=== PATIENT | female | born 1945 | race Caucasian/White ===

== ENCOUNTER 2024-04-18 08:30 | Emergency (ER) | payer MEDICARE, BC, SELFPAY ==
[2024-04-18 08:57] VITALS: BP 141/68; PULSE 80; RESP 16; TEMP 37.3; O2SAT 95; BMI 29.7
--- NOTE | 2024-04-18 09:03 | PD.EDRME ---
Rapid Medical Screening Exam RME Arrival date/time: 04/18/24 08:30 79-year-old female presents emergency department today complaints of dark tarry stools abdominal cramping and diarrhea Chief Complaint: GI Bleed Vital signs: Vital Signs Temperature 99.2 F 04/18/24 08:57 Pulse Rate 80 04/18/24 08:57 Respiratory Rate 16 04/18/24 08:57 Blood Pressure 141/68 H 04/18/24 08:57 Pulse Oximetry (%) 95 04/18/24 08:57 Oxygen Delivery Method Room Air 04/18/24 08:57
[2024-04-18 09:25] LABS: Collection Type, Urine Clean Catch
--- NOTE | 2024-04-18 09:30 | PC.NURSE ---
Pt came to the ED w/ c/o black stools, headache, and abd pain x 3 weeks. Pt A/O x 4, pleasant and cooperative. Son w/ pt. Pt connected to monitor, assessed and IV started. Son at bedside w/ pt. Will cont to monitor.
[2024-04-18 09:34] LABS: Bacteria,Urine Rare; Bilirubin,Urine Negative (Negative); Blood,Urine Negative (Negative); Clarity,Urine Clear (Clear/Hazy); Color,Urine Yellow (Lt Yel-Yel); Glucose, Urine Negative (Negative); Hyaline Casts,Urine < 1 /hpf (0-1); Ketones,Urine Negative (Negative); Leukocyte Esterase,Urine Positive (Negative); Nitrite,Urine Negative (Negative); PH,Urine 5.5 (5.0-7.0); Protein,Urine Trace (Neg - Trace); RBC,Urine 1 /hpf (0-3); Specific Gravity,Urine 1.022 (1.001-1.035); Squamous Epithelial Cell,Urine 4 /hpf (0-5); Urobilinogen,Urine Negative mg/dL (0.0-1.0); WBC,Urine 2 /hpf (0-5)
[2024-04-18 09:35] VITALS: BP 135/64; PULSE 69; RESP 20; TEMP 37.4; O2SAT 95
[2024-04-18 09:52] LABS: Basophils % (Auto) 0 % (0-2.5); Eosinophils % (Auto) 1 % (0-10); Hematocrit 33.6 % (36.0-46.0); Hemoglobin 10.9 g/dL (12.0-16.0); Immature Granulocytes % (Auto) 0 % (0-0); Immature Granulocytes Auto 0.02 Thou/mm3 (0.00-0.00); Lymphocytes # (Auto) 1.9 Thou/mm3 (1.0-4.8); Lymphocytes % (Auto) 25 % (10-50); Mean Corpuscular HGB Conc 32.4 g/dl (31.0-37.0); Mean Corpuscular Hemoglobin 29.7 pg (25.0-35.0); Mean Corpuscular Volume 92 fL (80-100); Monocytes % (Auto) 13 % (0-12); Neutrophils # (Auto) 4.6 Thou/mm3 (1.8-7.7); Neutrophils % (Auto) 61 % (37-80); Nucleated Red Blood Cell % 0 /100 WBC (0); Platelet Count 236 Thou/mm3 (140-440); RDW Standard Deviation 42.4 fL (36.4-46.3); Red Blood Count 3.67 Miln/mm3 (4.00-5.20); White Blood Count 7.5 Thou/mm3 (3.6-11.0)
[2024-04-18 10:09] LABS: Partial Thromboplastin Time 33.2 Seconds (22.0-36.0); Prothrombin Time 11.4 Seconds (9.0-12.2)
[2024-04-18 10:10] LABS: Alanine Aminotransferase 11 U/L (10-49); Albumin, Serum 4.5 gm/dL (3.4-4.8); Albumin/Globulin Ratio 1.7 (1.2-2.2); Alkaline Phosphatase 105 U/L (46-116); Anion Gap 7 (7-16); Aspartate Amino Transferase 16 U/L (0-34); BUN/Creatinine Ratio 18 Ratio (12-20); Bilirubin,Total 0.4 mg/dL (0.3-1.2); Blood Urea Nitrogen 25 mg/dL (9-23); Calcium 9.5 mg/dL (8.3-10.6); Calcium (Corrected) 9.5 mg/dL (8.5-10.1); Carbon Dioxide 23.2 mMol/L (20.0-31.0); Chloride 104 mMol/L (98-107); Creatinine (Component) 1.4 mg/dL (0.6-1.3); Estimated Creatinine Clearance 31.9 mL/min (>60); Globulin 2.7 gm/dL (2.3-3.5); Glucose 110 mg/dL (74-106); Lipase 33 U/L (12-53); Osmolality,Calculated 273 (275-295); Potassium 4.5 mMol/L (3.4-5.1); Sodium 134 mMol/L (136-145); Total Protein 7.2 gm/dL (5.7-8.2); eGFR 38 See Note
--- NOTE | 2024-04-18 10:14 | XR_ITS ---
Examination: CT abdomen with intravenous contrast CT pelvis with intravenous contrast 2-D coronal reconstructions 2-D sagittal reconstructions Date and time of exam:April 18, 2024 1144 hours INDICATIONS: Lower abdominal pain with bloody stools beginning 3 weeks ago. CTDI: vol (mGy) 8.21 DLP: (mGycm) 483 Technique: Multiple axial sections of the abdomen and pelvis have been obtained. 64 slice high-resolution scanner used. 3 mm axial sections have been obtained, post intravenous injection 30 cc [id number] 2-D sagittal, coronal reconstructions obtained. Low dose protocols were performed. One or more of the following dose reduction techniques were used; automated exposure control, adjustment of the mA and/or KV according to patient size, use of iterative reconstruction technique. Findings: Large retrocardiac gastric hernia No focal liver or splenic lesions Distended gallbladder No pancreatic mass Renal arterial calcifications, no hydronephrosis Abdominal aortic calcification Cecum is in the pelvis Normal appendix No bowel obstruction No diverticulitis Atrophic uterus No adnexal mass Urinary bladder intact Advanced diffuse lumbar degenerative disc disease IMPRESSION: Distended gallbladder, recommend hepatobiliary sonography follow-up No hydronephrosis or ureteral calculi Normal appendix No bowel obstruction diverticulitis or free air
[2024-04-18 11:21] VITALS: BP 147/65; PULSE 74; RESP 16; TEMP 37.4; O2SAT 95
[2024-04-18 13:33] VITALS: BP 161/59; PULSE 80; RESP 17; TEMP 37.2; O2SAT 97
== END 2024-04-18 15:10 | disposition home or self-care (01) ==
PROVIDERS: Nurse Practitioner Primary Care; Emergency Provider Internal Medicine Critical Care Medicine; PCP Family Medicine
DX: K92.2 Gastrointestinal hemorrhage, unspecified (principal)
CPT/HCPCS: 36415; 74177; 80053; 81001; 83690; 85025; 85610; 85730; 87086; 99285; A4649; Q9967

== ENCOUNTER → 2024-07-18 | Outpatient (CLI) | payer MEDICARE, BC, SELFPAY ==
[2024-07-18 13:47] LABS: Anion Gap 8 (7-16); BUN/Creatinine Ratio 26 Ratio (12-20); Blood Urea Nitrogen 39 mg/dL (9-23); Carbon Dioxide 27.8 mMol/L (20.0-31.0); Chloride 103 mMol/L (98-107); Creatinine (Component) 1.5 mg/dL (0.6-1.3); Glucose 100 mg/dL (74-106); Osmolality,Calculated 286 (275-295); Sodium 139 mMol/L (136-145); Thyroid Stimulating Hormone 2.82 uIU/mL (0.55-4.78); eGFR 35 See Note
== END | disposition home or self-care (01) ==
LOC: COPL 12:56
PROVIDERS: PCP Family Medicine; Referring Provider Internal Medicine Cardiovascular Disease; Visit Provider Family Medicine
DX: I50.40 Unspecified combined systolic (congestive) and diastolic (congestive) heart failure (principal); E03.8 Other specified hypothyroidism
CPT/HCPCS: 36415; 80048; 84439; 84443

== ENCOUNTER → 2024-09-06 | Outpatient (CLI) | payer MEDICARE, BC, SELFPAY ==
[2024-09-06 13:32] LABS: Collection Type, Urine Clean Catch
[2024-09-06 14:13] LABS: Albumin, Serum 4.7 gm/dL (3.4-4.8); Anion Gap 8 (7-16); BUN/Creatinine Ratio 33 Ratio (12-20); Blood Urea Nitrogen 36 mg/dL (9-23); Calcium 10.2 mg/dL (8.3-10.6); Calcium (Corrected) 10.2 mg/dL (8.5-10.1); Carbon Dioxide 27.8 mMol/L (20.0-31.0); Chloride 106 mMol/L (98-107); Creatinine (Component) 1.1 mg/dL (0.6-1.3); Glucose 126 mg/dL (74-106); Osmolality,Calculated 293 (275-295); Phosphorous 3.7 mg/dL (2.4-5.1); Potassium 4.6 mMol/L (3.4-5.1); Sodium 142 mMol/L (136-145); eGFR 50 See Note
[2024-09-06 14:19] LABS: Bilirubin,Urine Negative (Negative); Blood,Urine Negative (Negative); Clarity,Urine Clear (Clear/Hazy); Color,Urine Lt-Yellow (Lt Yel-Yel); Glucose, Urine Negative (Negative); Ketones,Urine Negative (Negative); Leukocyte Esterase,Urine Positive (Negative); Nitrite,Urine Negative (Negative); PH,Urine 5.5 (5.0-7.0); Protein,Urine 1+ (Neg - Trace); RBC,Urine 3 /hpf (0-3); Specific Gravity,Urine 1.023 (1.001-1.035); Squamous Epithelial Cell,Urine 2 /hpf (0-5); Urobilinogen,Urine Negative mg/dL (0.0-1.0); WBC,Urine 4 /hpf (0-5)
== END | disposition home or self-care (01) ==
LOC: COPL 12:30
PROVIDERS: PCP Family Medicine; Referring Provider Family Medicine; Visit Provider Internal Medicine Cardiovascular Disease
DX: N18.32 Chronic kidney disease, stage 3b (principal); I50.22 Chronic systolic (congestive) heart failure; I20.89 Other forms of angina pectoris
CPT/HCPCS: 36415; 80048; 80069; 81001

== ENCOUNTER → 2024-10-16 | Outpatient (CLI) | payer MEDICARE, BC, SELFPAY ==
[2024-10-16 13:23] LABS: Basophils # (Auto) 0.1 Thou/mm3 (0.0-0.2); Basophils % (Auto) 1 % (0-2.5); Eosinophils # (Auto) 0.1 Thou/mm3 (0.0-0.5); Eosinophils % (Auto) 1 % (0-10); Hematocrit 35.4 % (36.0-46.0); Hemoglobin 11.4 g/dL (12.0-16.0); Immature Granulocytes % (Auto) 0 % (0-0); Immature Granulocytes Auto 0.01 Thou/mm3 (0.00-0.00); Lymphocytes # (Auto) 1.9 Thou/mm3 (1.0-4.8); Lymphocytes % (Auto) 31 % (10-50); Mean Corpuscular HGB Conc 32.2 g/dl (31.0-37.0); Mean Corpuscular Hemoglobin 30.1 pg (25.0-35.0); Mean Corpuscular Volume 93 fL (80-100); Monocytes # (Auto) 0.5 Thou/mm3 (0.0-0.8); Monocytes % (Auto) 8 % (0-12); Neutrophils # (Auto) 3.5 Thou/mm3 (1.8-7.7); Neutrophils % (Auto) 59 % (37-80); Nucleated Red Blood Cell % 0 /100 WBC (0); Platelet Count 264 Thou/mm3 (140-440); RDW Standard Deviation 53.5 fL (36.4-46.3); Red Blood Count 3.79 Miln/mm3 (4.00-5.20)
[2024-10-16 13:36] LABS: Iron 66 mcg/dL (50-170)
[2024-10-16 13:39] LABS: Anion Gap 7 (7-16); BUN/Creatinine Ratio 41 Ratio (12-20); Blood Urea Nitrogen 45 mg/dL (9-23); Calcium 9.8 mg/dL (8.3-10.6); Carbon Dioxide 23.8 mMol/L (20.0-31.0); Chloride 110 mMol/L (98-107); Creatinine (Component) 1.1 mg/dL (0.6-1.3); Free T4 (Free Thyroxine) 1.05 ng/dL (0.89-1.76); Glucose 99 mg/dL (74-106); Osmolality,Calculated 292 (275-295); Potassium 4.6 mMol/L (3.4-5.1); Sodium 141 mMol/L (136-145); Thyroid Stimulating Hormone 2.87 uIU/mL (0.55-4.78); Vitamin B12 472 pg/mL (211-911); eGFR 50 See Note
== END | disposition home or self-care (01) ==
LOC: COPL 11:36
PROVIDERS: PCP Family Medicine; Referring Provider Family Medicine; Visit Provider Family Medicine
DX: I12.9 Hypertensive chronic kidney disease with stage 1 through stage 4 chronic kidney disease, or unspecified chronic kidney disease (principal); N18.32 Chronic kidney disease, stage 3b; E03.9 Hypothyroidism, unspecified; R53.83 Other fatigue
CPT/HCPCS: 36415; 80048; 82306; 82607; 83540; 84439; 84443; 85025

== ENCOUNTER 2024-11-08 18:49 | Emergency (ER) | payer MEDICARE, BC, SELFPAY ==
[2024-11-08 18:51] VITALS: BMI 28.3
[2024-11-08 20:04] VITALS: BP 152/71; PULSE 61; RESP 20; TEMP 36.8; O2SAT 97
--- NOTE | 2024-11-08 20:20 | EKG_ITS ---
[facility] Test Date: 2024-11-08 Pat Name: URSULA NEWMAN Department: Room: - Gender: Female Remote Broadcast Engineer: : 1945 Requested By: Jalil Ford Order Number: [id number] Reading MD: Jalil Ford Measurements Intervals [place] Rate: 60 P: 47 LA: 175 QRS: -54 QRSD: 133 T: 112 QT: 452 QTc: 453 Interpretive Statements SINUS RHYTHM LEFT AXIS DEVIATION [QRS AXIS < -30] LEFT BUNDLE BRANCH BLOCK [120+ ms QRS DURATION, 80+ ms Q/S IN V1/V2, 85+ ms R IN I/aVL/V5/V6] Compared to ECG 05/31/2024 00:08:14 Left-axis deviation now present /store/S0/[id number].pdf
--- NOTE | 2024-11-08 20:20 | XR_ITS ---
Examination: AP chest single view TECHNIQUE: AP portable upright chest single view Date time: October: 2024 at 2153 hours INDICATIONS: Chest pain left arm pain 3 weeks FINDINGS: Retrocardiac gastric hernia Normal heart size. Lungs are clear. Intact osseous structures IMPRESSION: No active disease
--- NOTE | 2024-11-08 20:20 | PD.EDRME ---
Rapid Medical Screening Exam [facility] Arrival date/time: 11/08/24 18:49 79F with history of CHF, HTN, hypothyroidism, esophageal ulcer and erosive gastroduodenitis (EGD in 2019), GERD, hemorrhoids (colonoscopy in 2019), osteoarthritis, and depression presents to ED with 2 weeks of L arm pain w/o fall trauma and 1 month of ab pain and N/V. Chief Complaint: Abdominal Pain Vital signs: Vital Signs Temperature 98.2 F 11/08/24 20:04 Pulse Rate 61 11/08/24 20:04 Respiratory Rate 20 11/08/24 20:04 Blood Pressure 152/71 H 11/08/24 20:04 Pulse Oximetry (%) 97 11/08/24 20:04 Oxygen Delivery Method Room Air 11/08/24 20:04
[2024-11-08 20:50] LABS: Basophils # (Auto) 0.1 Thou/mm3 (0.0-0.2); Basophils % (Auto) 1 % (0-2.5); Eosinophils # (Auto) 0.1 Thou/mm3 (0.0-0.5); Eosinophils % (Auto) 2 % (0-10); Hematocrit 32.9 % (36.0-46.0); Hemoglobin 10.8 g/dL (12.0-16.0); Immature Granulocytes % (Auto) 0 % (0-0); Immature Granulocytes Auto 0.02 Thou/mm3 (0.00-0.00); Lymphocytes # (Auto) 2.1 Thou/mm3 (1.0-4.8); Lymphocytes % (Auto) 35 % (10-50); Mean Corpuscular HGB Conc 32.8 g/dl (31.0-37.0); Mean Corpuscular Hemoglobin 30.4 pg (25.0-35.0); Mean Corpuscular Volume 93 fL (80-100); Monocytes # (Auto) 0.5 Thou/mm3 (0.0-0.8); Monocytes % (Auto) 9 % (0-12); Neutrophils # (Auto) 3.1 Thou/mm3 (1.8-7.7); Neutrophils % (Auto) 53 % (37-80); Nucleated Red Blood Cell % 0 /100 WBC (0); Platelet Count 224 Thou/mm3 (140-440); Red Blood Count 3.55 Miln/mm3 (4.00-5.20); White Blood Count 5.8 Thou/mm3 (3.6-11.0)
[2024-11-08 21:27] LABS: Collection Type, Urine Clean Catch
[2024-11-08 21:42] LABS: Bacteria,Urine Rare; Bilirubin,Urine Negative (Negative); Blood,Urine Negative (Negative); Color,Urine Yellow (Lt Yel-Yel); Glucose, Urine Negative (Negative); Ketones,Urine Negative (Negative); Leukocyte Esterase,Urine Positive (Negative); Nitrite,Urine Positive (Negative); Protein,Urine 1+ (Neg - Trace); RBC,Urine 18 /hpf (0-3); Specific Gravity,Urine 1.023 (1.001-1.035); Squamous Epithelial Cell,Urine 3 /hpf (0-5); Urobilinogen,Urine Negative mg/dL (0.0-1.0); WBC,Urine 472 /hpf (0-5)
[2024-11-08 21:43] LABS: Clarity,Urine Cloudy (Clear/Hazy)
[2024-11-08 22:21] LABS: B-Type Natriuretic Peptide 366 pg/mL (0-100)
[2024-11-08 22:26] LABS: Alanine Aminotransferase 11 U/L (10-49); Albumin, Serum 4.4 gm/dL (3.4-4.8); Albumin/Globulin Ratio 1.6 (1.2-2.2); Alkaline Phosphatase 91 U/L (46-116); Anion Gap 10 (7-16); Aspartate Amino Transferase 19 U/L (0-34); BUN/Creatinine Ratio 26 Ratio (12-20); Bilirubin,Total 0.3 mg/dL (0.3-1.2); Blood Urea Nitrogen 36 mg/dL (9-23); Calcium 9.2 mg/dL (8.3-10.6); Calcium (Corrected) 9.2 mg/dL (8.5-10.1); Carbon Dioxide 24.1 mMol/L (20.0-31.0); Chloride 104 mMol/L (98-107); Creatinine (Component) 1.4 mg/dL (0.6-1.3); Estimated Creatinine Clearance 30.1 mL/min (>60); Globulin 2.7 gm/dL (2.3-3.5); Glucose 97 mg/dL (74-106); Lipase 38 U/L (12-53); Osmolality,Calculated 283 (275-295); Potassium 4.5 mMol/L (3.4-5.1); Sodium 138 mMol/L (136-145); Total Protein 7.1 gm/dL (5.7-8.2); Troponin I < 0.020 ng/mL (0.0-0.045); eGFR 38 See Note
--- NOTE | 2024-11-08 23:34 | PC.NURSE ---
PATIENT ELOPED DUE TO THE LONG WAIT. PROVIDER WAS NOTIFIED.
== END 2024-11-08 23:34 | disposition left against medical advice (07) ==
LOC: SERX 20:45
PROVIDERS: Physician Assistant; Emergency Provider Emergency Medicine
DX: R07.9 Chest pain, unspecified (principal); M79.602 Pain in left arm; I44.7 Left bundle-branch block, unspecified; I11.0 Hypertensive heart disease with heart failure; I50.9 Heart failure, unspecified; Z53.29 Procedure and treatment not carried out because of patient's decision for other reasons
CPT/HCPCS: 36415; 71045; 80053; 81001; 83690; 83880; 84484; 85025; 93005; 99281

== ENCOUNTER → 2024-11-17 | Outpatient (CLI) | payer MEDICARE, BC, SELFPAY ==
[2024-11-17 10:44] LABS: Creatinine (Component) 1.3 mg/dL (0.6-1.3); eGFR 41 See Note
== END | disposition home or self-care (01) ==
LOC: COPL 09:30
PROVIDERS: PCP Family Medicine; Referring Provider Family Medicine; Visit Provider Family Medicine
DX: R51.9 Headache, unspecified (principal)
CPT/HCPCS: 36415; 82565

== ENCOUNTER → 2024-11-23 | Outpatient (CLI) | payer MEDICARE, BC, SELFPAY ==
[2024-11-23 14:03] LABS: Collection Type, Urine Clean Catch
[2024-11-23 15:46] LABS: Bacteria,Urine Rare; Bilirubin,Urine Negative (Negative); Blood,Urine 1+ (Negative); Color,Urine Yellow (Lt Yel-Yel); Glucose, Urine Negative (Negative); Ketones,Urine Negative (Negative); Leukocyte Esterase,Urine Positive (Negative); Nitrite,Urine Negative (Negative); Protein,Urine 1+ (Neg - Trace); RBC,Urine 14 /hpf (0-3); Specific Gravity,Urine 1.019 (1.001-1.035); Squamous Epithelial Cell,Urine 4 /hpf (0-5); Urobilinogen,Urine Negative mg/dL (0.0-1.0); WBC,Urine 1983 /hpf (0-5)
[2024-11-23 15:55] LABS: Clarity,Urine Cloudy (Clear/Hazy)
== END | disposition home or self-care (01) ==
LOC: SLDO 13:47
PROVIDERS: PCP Family Medicine; Referring Provider Registered Nurse; Visit Provider Registered Nurse
DX: N39.0 Urinary tract infection, site not specified (principal)
CPT/HCPCS: 81001; 87077; 87086; 87186

== ENCOUNTER 2024-12-01 14:21 | Inpatient (IN) | payer MEDICARE, BC, SELFPAY ==
--- NOTE | 2024-12-01 14:37 | EKG_ITS ---
[facility] Test Date: 2024-12-01 Pat Name: URSULA NEWMAN Department: Room: - Gender: Female Clinical Therapist: : 1945 Requested By: Gamaliel Saunders Order Number: [id number] Reading MD: Gamaliel Saunders Measurements Intervals [place] Rate: 45 P: 68 MD: 182 QRS: 3 QRSD: 150 T: 95 QT: 554 QTc: 484 Interpretive Statements SINUS BRADYCARDIA LEFT BUNDLE BRANCH BLOCK [120+ ms QRS DURATION, 80+ ms Q/S IN V1/V2, 85+ ms R IN I/aVL/V5/V6] PROLONGED QT INTERVAL CRITICAL TEST RESULT Compared to ECG 11/08/2024 20:28:35 Prolonged QT interval now present Sinus rhythm no longer present Left-axis deviation no longer present /store/S0/[id number]/ecg/[id number].pdf
--- NOTE | 2024-12-01 14:37 | XR_ITS ---
Examination: AP chest single view Technique one AP portable upright chest single view Standing times December 01 2024 1609 hrs. Indications: Epigastric pain today. Findings: Mild prominence left ventricle Moderate vascular congestion. No aspiration pneumonia Impression: Moderate vascular congestion
--- NOTE | 2024-12-01 14:56 | PD.EDABDPN ---
ED Abdominal Pain RME/HPI General Chief Complaint: Abdominal Pain Stated complaint: ABDOMINAL PAIN Time seen by provider: 12/01/24 14:27 Arrival date/time: 12/01/24 14:21 RME / HPI RME / HPI narrative: DR. PLATT MAIN ED EVALUATION: 80 y/o female with Hx of chronic headache and epigastric pain presents to ED BIBA c/o epigastric pain with headache x 1 day. Patient is unclear if a diagnosis has been made. Patient states she has recently changed PCP as she was dissatisfied with treatment of original provider. Patient reports exacerbation of epigastric pain and headache, therefore called EMS. Per EMS, patient had a near syncopal episode. She got a bit lightheaded and say her eyes appeared droopy with a heart rate in the 40's, but then came right back up. Denies any associated nausea or vomiting. Reports chronic constipation is unchanged, also denies urinary changes. Before, during the day, patient would take TUMS for epigastric pain and occasional seltzer water with only partial relief. Patient denies any surgical history, but admits to 4 pregnancies and 3 children. No other treatments tried. No other concerns or complaints expressed at this time. Patient denied any prior EG or colonoscopy done. Upon review of older records, patient has indeed had EG done showing duodenitis, peptic ulcer disease, and esophageal ulcerations. Patient has had several CT and US performed, but no gallstones or other findings made. 165: Patient's son is now in the room. Son reports when patient changed to a new doctor, the first thing they did was discontinue some medications. Son believes that only one medication was added, and he believes that it was prescribed for the stomach . Son will go home and return with patient's current medications. Related Data Home Medications ?Medication ?Instructions ?Recorded ?Confirmed amlodipine 10 mg tablet 5 mg PO DAILY 12/27/19 12/01/24 pantoprazole 40 mg intravenous 40 mg QDAY 12/27/19 04/26/24 solution (Protonix) amitriptyline 25 mg tablet 25 mg PO HS 11/19/23 12/01/24 azilsartan medoxomil 80 mg tablet 80 mg PO QAM 11/19/23 04/26/24 (Edarbi) Held on 05/01/24. Instructions: Resume on 05/08/24. Re-evaluate with PCP levothyroxine 25 mcg tablet 25 mcg PO DAILY 11/19/23 12/01/24 prednisone 20 mg tablet 40 mg PO DAILY 12/01/24 12/01/24 spironolactone 25 mg tablet 25 mg PO .AM 12/01/24 12/01/24 sulfamethoxazole 800 1 tab PO BID 12/01/24 12/01/24 mg-trimethoprim 160 mg tablet tramadol 50 mg tablet 50 mg PO .PM PRN for headache 12/01/24 12/01/24 Previous Rx's ?Medication ?Instructions ?Recorded ferrous fumarate 325 mg (106 mg 325 mg PO BID #60 tabs 12/29/19 iron) tablet metoprolol succinate 25 mg 25 mg PO QDAY #30 tabs 05/01/24 tablet,extended release 24 hr Allergies Allergy/AdvReac Type Severity Reaction Status Date / Time No Known Allergies Allergy Verified 12/01/24 15:04 Review of Systems Review of Systems Systems Reviewed: All systems reviewed, normal except as documented Narrative Review of Systems: Gen: No fever, no chills, no weight loss EYES: No discharge, no visual changes, no pain HEENT: No ear pain, no congestion, no sore throat PULM: No shortness of breath, no cough, no congestion CV: No chest pain, no dyspnea on exertion, no palpitations GI: No nausea, no vomiting, no diarrhea, Positive constipation and epigastric pain : No frequency, no urgency, no dysuria Musc/skel: No joint pain, no back pain Skin: No rash Psyc: No hallucinations, no depression Heme/Lymph: No easy bleeding or bruising tendencies Neuro: No weakness, Positive headache Past Medical History Past Medical History NEUROLOGIC: Positive Neurological Disorders and Cerebrovascular Accident CARDIAC: Positive Hypercholesterolemia, Congestive Heart Failure and Hypertension RESPIRATORY: Positive Pneumonia GASTROINTESTINAL: Positive Ulcer and Obesity GENITOURINARY: Positive Renal Disease MUSCULOSKELETAL: Positive Musculoskeletal Disorders and Arthritis ENT: Positive Cataracts and Deafness HEMATOLOGIC: Positive Blood Disorders OTHER HISTORY: Positive Falls, Blood Transfusions, Chicken Pox, Measles, Mumps and Clostridium Difficile Surgical History SURGICAL: Positive Eye Surgery ED Exam Narrative Physical exam: GENERAL APPEARANCE: AxOx4, generally well-appearing, no acute distress. HEENT: NC, AT. MMM. EOMI, clear conjunctiva, oropharynx clear. NECK: Supple without lymphadenopathy. No stiffness or restricted ROM. HEART: Normal rate and regular rhythm, normal S1/S1, no m/r/g LUNGS: CTAB, moving air well. No crackles or wheezes are heard. ABDOMEN: Soft, nontender, nondistended with good bowel sounds heard. BACK: No midline C/T/L spine pain or deformity, No CVAT, no obvious deformity. EXTREMITIES: Without cyanosis, clubbing or edema. MUSCULOSKELETAL: FROM of all major joints, no chest tenderness NEUROLOGICAL: Grossly nonfocal. Alert and oriented, moving all 4 extremities. CN not formally tested but appear grossly intact. Observed to ambulate with normal gait. Skin: Warm and dry without any rash. Course Quality Measures none Orders Category Date Time Status EKG (ED ONLY) *Do not use* NOW Care 12/01/24 14:37 Completed IV [Insert IV] NOW Care 12/01/24 15:36 Active EKG (ED Only) Stat Exams 12/01/24 14:37 Draft XR chest 1V Stat Exams 12/01/24 14:37 Completed CBC Stat Lab 12/01/24 15:21 Completed CMP [Comprehensive Metabolic Panel] Stat Lab 12/01/24 15:21 Completed Lactate (Lactic Acid) Stat Lab 12/01/24 15:21 Completed Magnesium Stat Lab 12/01/24 15:21 Completed Troponin I Stat Lab 12/01/24 15:21 Completed DiphenhydrAMINE INJ [Benadryl Inj] Med 12/01/24 14:35 Discontinued 25 mg IV X1 ONE Ketorolac Inj [Toradol Inj] Med 12/01/24 14:35 Discontinued 15 mg IVP X1 ONE Lidocaine 2% Viscous [Xylocaine 2% Viscous] Med 12/01/24 14:35 Discontinued 10 ml PO X1 ONE Metoclopramide Inj [Reglan Inj] Med 12/01/24 14:35 Discontinued 10 mg IV X1 ONE mg Hyd/Al Hyd/Phill Susp [Maalox Susp] Med 12/01/24 14:35 Discontinued 30 ml PO X1 ONE Vital Signs Vital signs: Vital Signs Temperature 94.5 F L 12/01/24 15:28 Pulse Rate 46 L 12/01/24 15:28 Respiratory Rate 18 12/01/24 15:28 Blood Pressure 172/54 H 12/01/24 15:28 Pulse Oximetry (%) 97 12/01/24 15:28 Oxygen Delivery Method Room Air 12/01/24 15:28 Procedures -ED EKG Interpretation #1: Date of EK12/01/24 Time of EK:33 Rate: 45 Interpretation: Interpreted by me Additional EKG comment: Bradycardic sinus rhythm, HR 45, with prolonged QTc of 511 ms. QTc findings are new compared to all prior EKG?s performed. Patient's normal QTc usually 450 ms. Abdominal Pain MDM MDM Narrative MDM Narrative:: Scribe Attestation: Naila Orellana, joie scribing for and in the presence of Dr. Platt. Provider Notation: Although this document has been carefully reviewed, there may still be some phonetic and other typographical errors. These errors are purely grammatical due to imperfections in the software program and should not be construed in any way to compromise the substance of the patient's medical care during this visit. 1800: Care signed out to Dr. Meyer. Past medical, surgical, social and family history reviewed. Vitals and home medications reviewed. Results and treatment plan discussed. They will assume the care of the patient at this time and will follow the patient, pending results, reevaluation, and final disposition. Patient data External records reviewed:: [facility] previous records (Reviewed prior ED records from 05/31/24. Patient was seen for CHF exacerbation.) and EMS form Clinical information provided by:: patient and EMS Social determinants that could affect healthcare access:: none Patient has the following chronic illnesses:: Cerebrovascular Accident, Hypercholesterolemia, Congestive Heart Failure, Hypertension, Ulcer, Obesity, Renal Disease, Arthritis, Cataracts, Deafness How is presenting disease/condition affected by chronic disease/condition?: exacerbated by Evaluation data The following diagnostics were reviewed and interpreted by me:: lab results, radiology exam(s) and EKG tracing(s) (see interpretation under the procedures tab) Lab and/or radiology exams considered but not ordered:: None Interpretation Summary: RADIOLOGY Patient: URSULA NEWMAN. Record#: [id number] Birthdate: 1945 Age/Sex: 79 / F Location: [facility] Attending Dr: Ordering Physician: Gamaliel Platt MD Date of Service: 12/01/24 Procedure(s): XR chest 1V Accession Number(s): [id number] cc: Gamaliel Platt MD; Lavon Theodore MD; Cynthia Danielle MD~ Examination: AP chest single view Technique one AP portable upright chest single view Standing times December 01 2024 1609 hrs. Indications: Epigastric pain today. Findings: Mild prominence left ventricle Moderate vascular congestion. No aspiration pneumonia Impression: Moderate vascular congestion Dictated By: Lavon Theodore MD Signed By: Electronically signed by Lavon Theodore MD in [place] 12/01/24 1645 Medications / Prescriptions Medications or Prescriptions considered but not ordered:: None Medication administrations:: Medication Administration History Acetaminophen (Acetaminophen 325 Mg Tablet) 650 mg PO Q6H PRN PRN Reason: Fever >100.3 or pain Stop: 12/31/24 18:09 Heparin Sodium (Porcine) (Heparin Sod Inj 5000 Unit/Ml Vial) 5,000 unit SC Q12HR IZABELA Stop: 12/15/24 20:59 Last Admin: 12/01/24 21:41 Dose: 5,000 unit Documented By: Co-signed By: CVL Pantoprazole Sodium (Pantoprazole 40 Mg Tablet) 40 mg PO QDAY IZABELA Stop: 01/01/25 08:59 Sennosides (Senna Tablet) 1 tab PO QDAY PRN; Protocol PRN Reason: constipation Stop: 12/31/24 18:09 Sucralfate (Sucralfate 1 Gm Tablet) 1 gm PO TID IZABELA Stop: 12/31/24 21:59 Last Admin: 12/02/24 05:24 Dose: 1 gm Documented By: Admin: 12/01/24 22:06 Dose: 1 gm Documented By: Discontinued Medications Al Hydrox/Mg Hydrox/Simethicone (Mg Hyd/Al Hyd/Phill (Maalox Reg) Susp 30 Ml Udc) 30 ml PO X1 ONE Stop: 12/01/24 14:36 Last Admin: 12/01/24 18:30 Dose: 30 ml Documented By: CS Diphenhydramine HCl (Diphenhydramine Inj 50 Mg/Ml Vial) 25 mg IV X1 ONE Stop: 12/01/24 14:36 Last Admin: 12/01/24 18:28 Dose: 25 mg Documented By: MINNA Enoxaparin Sodium (Enoxaparin Sod Inj 40 Mg/0.4 Ml Syringe) 40 mg SC QDAY [facility] Stop: 12/16/24 08:59 Hydralazine HCl (Hydralazine Inj 20 Mg/Ml Vial) 10 mg IV X1 ONE Stop: 12/01/24 19:30 Last Admin: 12/01/24 20:23 Dose: Not Given Documented By: MARQUITA Non-Admin Reason: Cancelled by Provider Sodium Chloride (Ns) 1,000 mls @ 80 mls/hr IV .[id number] [facility] Stop: 12/02/24 01:46 Last Admin: 12/01/24 20:38 Dose: Not Given Documented By: Non-Admin Reason: Discontinued Sodium Chloride (Ns) 500 mls @ 80 mls/hr IV .[id number] [facility] Stop: 12/02/24 02:47 Last Admin: 12/01/24 20:36 Dose: 80 mls/hr Documented By: Ketorolac Tromethamine (Ketorolac Inj 30 Mg/Ml Vial) 15 mg IVP X1 ONE Stop: 12/01/24 14:36 Last Admin: 12/01/24 18:27 Dose: 15 mg Documented By: MINNA Lidocaine HCl (Lidocaine Viscous 2% 15 Ml Udc) 10 ml PO X1 ONE Stop: 12/01/24 14:36 Last Admin: 12/01/24 18:30 Dose: 10 ml Documented By: MINNA Metoclopramide HCl (Metoclopramide Inj 5 Mg/Ml Vial 2 Ml) 10 mg IV X1 ONE; Protocol Stop: 12/01/24 14:36 Last Admin: 12/01/24 18:29 Dose: 10 mg Documented By: MINNA Pantoprazole Sodium (Pantoprazole 20 Mg Tablet) 20 mg PO QDAY [facility] Stop: 12/31/24 18:14 Last Admin: 12/01/24 20:24 Dose: Not Given Documented By: MARQUITA Non-Admin Reason: Discontinued See above if any. Consultations Consultation(s) initiated? (list below): No Diagnosis Differential diagnosis abdominal pain: abdominal pain, gastroenteritis and other (Prolonged QTc and chronic epigastric pain) Most likely diagnosis given after review of the tests above:: see below Admission Indicated Admission indicated?: indicated Explain why admission is indicated or not indicated:: Prolonged QTc, chronic epigastric pain Admission Request Was there a request for admission?: Yes Admission Attestation Admission request attestation: Discussed case with [] from Hospitalist service regarding admission. Discussed patients ED course, exam findings, labs, and radiology results. The Hospitalist [agrees,declines] to accept the patient for admission. Disposition Plan Disposition Plan: Admit Discharge Plan Plan Patient Disposition: Admit Acute Care w/in Hospital Problem List Clinical Impression: Chronic epigastric pain, Prolonged QT interval
[2024-12-01 15:02] VITALS: BMI 28.0
[2024-12-01 15:04] VITALS: PULSE 62; O2SAT 98
[2024-12-01 15:28] VITALS: BP 172/54; PULSE 46; RESP 18; TEMP 34.7; O2SAT 97
[2024-12-01 15:30] LABS: Basophils % (Auto) 0 % (0-2.5); Eosinophils % (Auto) 0 % (0-10); Hematocrit 34.4 % (36.0-46.0); Hemoglobin 11.1 g/dL (12.0-16.0); Immature Granulocytes % (Auto) 0 % (0-0); Immature Granulocytes Auto 0.02 Thou/mm3 (0.00-0.00); Lactate (Lactic Acid) 1.4 mMol/L (0.4-2.0); Lymphocytes # (Auto) 0.8 Thou/mm3 (1.0-4.8); Lymphocytes % (Auto) 10 % (10-50); Mean Corpuscular HGB Conc 32.3 g/dl (31.0-37.0); Mean Corpuscular Hemoglobin 30.5 pg (25.0-35.0); Mean Corpuscular Volume 95 fL (80-100); Monocytes # (Auto) 0.1 Thou/mm3 (0.0-0.8); Monocytes % (Auto) 1 % (0-12); Neutrophils # (Auto) 6.6 Thou/mm3 (1.8-7.7); Neutrophils % (Auto) 88 % (37-80); Nucleated Red Blood Cell % 0 /100 WBC (0); Platelet Count 212 Thou/mm3 (140-440); RDW Standard Deviation 43.6 fL (36.4-46.3); Red Blood Count 3.64 Miln/mm3 (4.00-5.20); White Blood Count 7.5 Thou/mm3 (3.6-11.0)
[2024-12-01 15:48] LABS: Alanine Aminotransferase 14 U/L (10-49); Albumin, Serum 4.6 gm/dL (3.4-4.8); Albumin/Globulin Ratio 1.7 (1.2-2.2); Alkaline Phosphatase 81 U/L (46-116); Anion Gap 8 (7-16); Aspartate Amino Transferase 19 U/L (0-34); BUN/Creatinine Ratio 26 Ratio (12-20); Bilirubin,Total 0.4 mg/dL (0.3-1.2); Blood Urea Nitrogen 39 mg/dL (9-23); Calcium 9.4 mg/dL (8.3-10.6); Calcium (Corrected) 9.4 mg/dL (8.5-10.1); Carbon Dioxide 23.4 mMol/L (20.0-31.0); Chloride 105 mMol/L (98-107); Creatinine (Component) 1.5 mg/dL (0.6-1.3); Estimated Creatinine Clearance 27.9 mL/min (>60); Globulin 2.7 gm/dL (2.3-3.5); Glucose 196 mg/dL (74-106); Osmolality,Calculated 286 (275-295); Potassium 4.9 mMol/L (3.4-5.1); Sodium 136 mMol/L (136-145); Total Protein 7.3 gm/dL (5.7-8.2); Troponin I < 0.020 ng/mL (0.0-0.045); eGFR 35 See Note
[2024-12-01 16:00] VITALS: BP 174/94; PULSE 59; RESP 23; TEMP 36.7; O2SAT 98
[2024-12-01 16:05] LABS: Magnesium 2.3 mg/dL (1.6-2.6)
[2024-12-01 18:00] VITALS: BP 190/84; PULSE 49; RESP 14; TEMP 36.7; O2SAT 96
--- NOTE | 2024-12-01 18:19 | ECHO_ITS ---
Transthoracic Echo Report Ht (in): 63 Wt (lb): 160 Exam Location: Echo Lab Status: Inpatient Chief Crew Scheduler: Hallie Hodges Indications: Procedure Performed: BP: 188 / 74 HR: 71 Technical Quality: Technically difficult study MEASUREMENTS (Male / Female) Normal Values 2D ECHO LV Diastolic Diameter PLAX 4.6 cm 4.2 - 5.9 / 3.9 - 5.3 cm LV Systolic Diameter PLAX 3.4 cm IVS Diastolic Thickness 0.9 cm 0.6 - 1.0 / 0.6 - 0.9 cm LVPW Diastolic Thickness 0.9 cm 0.6 - 1.0 / 0.6 - 0.9 cm LV Relative Wall Thickness 0.4 LVOT Diameter 1.9 cm LV Ejection Fraction MOD BP 46.8 % >= 55 % LV Cardiac Index MOD BP 2836.3 cm?/min?m? LV Ejection Fraction MOD 4C 41.8 % LV Cardiac Index MOD 4C 2664.4 cm?/min?m? LV Ejection Fraction 4C AL 42.7 % LV Cardiac Index 4C AL 2827.3 cm?/min?m? LV Ejection Fraction MOD 2C 51.9 % LV Cardiac Index MOD 2C 2898.8 cm?/min?m? LV Ejection Fraction 2C AL 51.6 % LV Cardiac Index 2C AL 2913.9 cm?/min?m? LA Volume Index 34.9 cm?/m? 16 - 28 cm?/m? M-MODE Aortic Root Diameter MM 2.5 cm LA Systolic Diameter MM 3.9 cm LA Ao Ratio MM 1.6 AV Cusp Separation MM 1.4 cm DOPPLER AV Peak Velocity 166.7 cm/s AV Peak Gradient 11.1 mmHg AV Mean Gradient 6.3 mmHg AV Velocity Time Integral 44.9 cm LVOT Peak Velocity 105.7 cm/s LVOT Peak Gradient 4.5 mmHg LVOT Velocity Time Integral 24.7 cm LVOT Cardiac Index 2736.0 cm?/min?m? AV Area Cont Eq vti 1.6 cm? AV Area Cont Eq pk 1.8 cm? MV Area PHT 1.9 cm? MR Peak Velocity 486.3 cm/s MR Peak Gradient 94.6 mmHg Mitral E Point Velocity 124.0 cm/s Mitral A Point Velocity 114.0 cm/s Mitral E to A Ratio 1.1 LV E' Lateral Velocity 3.8 cm/s Mitral E to LV E' Lateral Ratio 32.5 LV E' Septal Velocity 4.1 cm/s Mitral E to LV E' Septal Ratio 30.0 TR Peak Velocity 258.5 cm/s TR Peak Gradient 26.7 mmHg PV Peak Velocity 159.0 cm/s PV Peak Gradient 10.1 mmHg FINDINGS Left Ventricle Normal left ventricular size and wall thickness. The ejection fraction is visually estimated at 35-40 %. There is grade II diastolic dysfunction of the left ventricle (pseudonormal filling pattern). Right Ventricle The right ventricle is normal in size and systolic function. Left Atrium The left atrium is normal by two-dimensional, color flow and Doppler imaging with no structural abnormalities, no thrombus formation present. Right Atrium The right atrium is normal by two-dimensional imaging, color flow and Doppler imaging with no structural abnormalities, no thrombus formation present. Atrial Septum The interatrial septum appears normal with no evidence of a shunt. Aorta The aorta is normal by two-dimensional, color flow and Doppler interrogation. Mitral Valve Mild mitral regurgitation. Mild mitral annular calcification. Aortic Valve Mild thickening of the aortic valve leaflets. Tricuspid Valve There is mild tricuspid valve regurgitation. Pulmonic Valve The pulmonic valve is not well visualized. There is no significant pulmonic valve regurgitation. Vessels The pulmonary artery appears normal. The inferior vena cava pulmonary and hepatic veins appear normal. Pericardium The pericardium is normal by two-dimensional imaging. There is no significant pericardial effusion. CONCLUSIONS Indication: Syncope Normal LV size and function. Estimated EF 55-60%. Grade II diastolic dysfunction. Normal RV size and function. Estimated RVSP normal at 35 mm hg. Moderate AV sclerosis without stenosis. Mild MAC. Mild MR and TR. Toby Greer (Electronically Signed) Final Date: 03 December 2024 13:05
--- NOTE | 2024-12-01 18:23 | PD.RESHP ---
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 Patient stated that abdominal pain started in August and has been worsening since past few weeks. Pain is experienced from the waist up and worse after eating. Mostly is constant. Patient cannot recall if anything makes it better or worse, weight has been stable, appetite is normal. She denies any diarrhea but endorses vomiting. In regards to syncope, patient stated that this morning, her safe expert gave her 6 pills of unknown medication that she consumed all. Typically patient takes her own medication, she does live at home alone. Stated that family visits frequently. Patient is poor historian when it comes to medical history and cannot recall any medications. Son was at bedside and will bring them from home. Patient follows cardiology Dr. Goldman with last appointment last week. She is unsure why the visit happened and the results of any workup done. EGD from 2019 showed gastritis with no bleeding, esophagitis, duodenitis without bleeding. Pathology results were negative. She denies SOB, chest pain, dysuria. In ED, blood pressure 170/90, heart rate 50s, afebrile, saturating well on room air. CBC significant for hemoglobin 11 otherwise unremarkable. CMP significant for elevated creatinine 1.5 (baseline 0.9?1.0 per chart review) otherwise unremarkable. Glucose 160, EKG showing bradycardia rate 45, prolonged QTc 560, no acute changes. Patient admitted for management of abdominal pain and near syncope. PMH: As noted above PSH: Denies any surgeries FamHx: Denies any family history of cardiac disorders, seizures or cancers. Social: Lives alone in [place], denies smoking, denies drinking. Allergies: NKDA Meds: Levothyroxine 25 mcg daily, Amlodipine 10 mg daily, Metoprolol XL 50 mg daily, Edarbi 80 mg daily, Sertraline 100 mg daily, Amitriptyline 25 mg at bedtime, Ferrous sulfate 325 mg daily, pantoprazole 40 mg daily (official med rec pending). Review of Systems Review of Systems Systems Reviewed: All systems reviewed, normal except as documented Exam Vital Signs Temp Pulse Resp BP Pulse Ox O2 Del Method 98.1 F 49 L 14 190/84 H 96 Room Air 12/01/24 18:00 12/01/24 18:00 12/01/24 18:00 12/01/24 18:00 12/01/24 18:00 12/01/24 18:00 Narrative Exam General: Elderly lady, No acute distress, cooperative HEENT: NCAT, No JVD noted. Mucosa dry. Pupils are equal and reactive to light bilaterally Cardiovascular: Normal S1 and S2. Regular rate and rhythm. Respiratory: Lungs are clear to auscultation bilaterally. No wheezing or crackles heard. Abdomen: Soft, nontender, not distended, normal bowel sounds. Skin: Warm to touch, dry, no rashes noted Musculoskeletal: No gross injuries. Able to move all 4 extremities. No pitting edema Neuro: Alert and oriented x3. No focal neuro deficits. Psych: Normal affect and mood, tangential speech Results: Labs 12/02/24 05:33 12/02/24 05:33 Labs: Short CBC 12/01/24 Range/Units 15:21 WBC 7.5 (3.6-11.0) Thou/mm3 Hgb 11.1 L (12.0-16.0) g/dL Hct 34.4 L (36.0-46.0) % Plt Count 212 (140-440) Thou/mm3 BMP 12/01/24 15:21 Sodium 136 Potassium 4.9 Chloride 105 Carbon Dioxide 23.4 BUN 39 H Creatinine 1.5 H Glucose 196 H Calcium 9.4 Cardiac Enzymes 12/01/24 Range/Units 15:21 Troponin I < 0.020 (0.0-0.045) ng/mL Liver Function 12/01/24 Range/Units 15:21 Total Bilirubin 0.4 (0.3-1.2) mg/dL AST 19 (0-34) U/L ALT 14 (10-49) U/L Alkaline Phosphatase 81 (46-116) U/L Albumin 4.6 (3.4-4.8) gm/dL Quality Measures Quality Measures none Advance care planning discussed with:: patient Medications Home Medications and Allergies Home Medications ?Medication ?Instructions ?Recorded ?Confirmed ?Type amlodipine 10 mg tablet 5 mg PO DAILY 12/27/19 12/01/24 History pantoprazole 40 mg intravenous 40 mg QDAY 12/27/19 04/26/24 History solution (Protonix) amitriptyline 25 mg tablet 25 mg PO HS 11/19/23 12/01/24 History azilsartan medoxomil 80 mg tablet 80 mg PO QAM 11/19/23 04/26/24 History (Edarbi) Held on 05/01/24. Instructions: Resume on 05/08/24. Re-evaluate with PCP levothyroxine 25 mcg tablet 25 mcg PO DAILY 11/19/23 12/01/24 History prednisone 20 mg tablet 40 mg PO DAILY 12/01/24 12/01/24 History spironolactone 25 mg tablet 25 mg PO .AM 12/01/24 12/01/24 History sulfamethoxazole 800 1 tab PO BID 12/01/24 12/01/24 History mg-trimethoprim 160 mg tablet tramadol 50 mg tablet 50 mg PO .PM PRN for headache 12/01/24 12/01/24 History Allergies Allergy/AdvReac Type Severity Reaction Status Date / Time No Known Allergies Allergy Verified 12/01/24 15:04 Visit Medications Acetaminophen (Acetaminophen 325 Mg Tablet) 650 mg PO Q6H PRN PRN Reason: Fever >100.3 or pain Stop: 12/31/24 18:09 Enoxaparin Sodium (Enoxaparin Sod Inj 40 Mg/0.4 Ml Syringe) 40 mg SC QDAY IZABELA Stop: 12/16/24 08:59 Pantoprazole Sodium (Pantoprazole 20 Mg Tablet) 20 mg PO QDAY IZABELA Stop: 12/31/24 18:14 Sennosides (Senna Tablet) 1 tab PO QDAY PRN; Protocol PRN Reason: constipation Stop: 12/31/24 18:09 Sucralfate (Sucralfate 1 Gm Tablet) 1 gm PO TID IZABELA Stop: 12/31/24 21:59 Discontinued Medications Al Hydrox/Mg Hydrox/Simethicone (Mg Hyd/Al Hyd/Phill (Maalox Reg) Susp 30 Ml Udc) 30 ml PO X1 ONE Stop: 12/01/24 14:36 Diphenhydramine HCl (Diphenhydramine Inj 50 Mg/Ml Vial) 25 mg IV X1 ONE Stop: 12/01/24 14:36 Ketorolac Tromethamine (Ketorolac Inj 30 Mg/Ml Vial) 15 mg IVP X1 ONE Stop: 12/01/24 14:36 Lidocaine HCl (Lidocaine Viscous 2% 15 Ml Udc) 10 ml PO X1 ONE Stop: 12/01/24 14:36 Metoclopramide HCl (Metoclopramide Inj 5 Mg/Ml Vial 2 Ml) 10 mg IV X1 ONE; Protocol Stop: 12/01/24 14:36 Assessment & Plan Plan Loly Panda is 79 yr F with PMH of of 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 Her safe expert gave her 6 pills of unknown medication that she consumed all at once. Patient is poor historian. She will be admitted for management of abdominal pain and near syncope. #Presyncopal episode possibly secondary to underlying arrhythmia versus medication overdose #Prolonged QTc #Hx HFrEF 40-45% Patient was given 6 unknown pills by caregiver that she consumed all at once. Started feeling weak and felt like she was going to faint. She laid down on her bed and called son to call EMS. EKG showing bradycardia rate 45, prolonged QTc 560, no acute changes. Echo from 04/20/2024 showed EF 45-50%, dyskinetic septum. Normal LV, RV size and function. -Cardiology Dr. Goldman consulted -Repeat echo ? Repeat TSH ? U-Tox pending ? Med rec after son bring his medications from home - Hold rate controlling agents -avoid QT prolonging agents #ARTHUR Most likely prerenal BUN/creatinine ratio greater than 20. Insetting of dehydration as patient also endorses some vomiting since past few days. On admission creatinine 1.5, baseline 0.9?1.0 -maintenance fluids -avoid nephrotoxic agents -daily CMP #Abdominal pain #Hx duodenitis #Hx GERD #Hx esophageal ulcer Pain started in Aug 2024 and slowly worsening. Per chart review also admissions due to abdominal pain. Full workup including EGD done in 2019 showed gastritis with no bleeding, esophagitis, duodenitis without bleeding. Pathology results were negative. LFts unremarkable. - Pantoprazole 40 mg daily -Carafate 1 g TID - Senna as needed #Hx HTN #Hx hypothyroidism -resume once med rec completed Health maintenance: Dispo: tele, mgmt near syncope FEN: regualr DVT prophylaxis: Subcu heparin CODE STATUS: Full code The patient's management plan was discussed with my attending physician Dr. Barber. Iza Wheeler, PGY-1 Attending Provider Attestation/Addendum I have discussed and was present for the essential components of the history, physical examination, diagnosis, and treatment plan with the resident. I agree with the patient's care as documented by the resident and amended herein by me. Kong Barber DO. Although this document has been carefully reviewed, there may still be some phonetic and other typographical errors. These errors are purely grammatical due to imperfections in the software program and should not be construed in any way to compromise the substance of the patient's medical care during this visit.
[2024-12-01] MEDS: KETOROLAC INJ 30 MG/ML VIAL 15 MG IVP (18:27)
[2024-12-01] MEDS: DiphenhydrAMINE INJ 50 MG/ML VIAL 25 MG IV (18:28)
[2024-12-01] MEDS: METOCLOPRAMIDE INJ 5 MG/ML VIAL 2 ML 10 MG IV (18:29)
[2024-12-01] MEDS: LIDOCAINE VISCOUS 2% 15 ML UDC 10 ML PO (18:30)
[2024-12-01] MEDS: MG HYD/AL HYD/SIME (Maalox Reg) SUSP 30 ML UDC PO (18:30)
[2024-12-01 20:13] VITALS: BP 150/60; PULSE 62; RESP 16; TEMP 36.7; O2SAT 98
--- NOTE | 2024-12-01 20:24 | PC.NURSE ---
dr. armas made aware of pt blood pressure of 150/60 and heart rate in the 40's. per dr. chanda jackson to not give hydralazine at this time.
[2024-12-01] MEDS: SODIUM CHLORIDE 0.9% 500 ML 500 ML 80 ML IV (20:36)
[2024-12-01 21:06] LABS: Cholesterol 198 mg/dL (132-200); HDL Cholesterol 80 mg/dL (40-60); LDL Cholesterol,Calculated 95 mg/dL (0-130); Triglycerides 117 mg/dL (30-150)
[2024-12-01 21:07] LABS: Cardiac Risk Estimate 2.5 RATIO (3.7-5.6)
[2024-12-01] MEDS: HEPARIN SOD INJ 5000 UNIT/ML VIAL SC (21:41)
[2024-12-01] MEDS: SUCRALFATE 1 GM TABLET PO (22:06)
[2024-12-02] VITALS (12 sets, daily range): BP systolic 151–166; BP diastolic 59–76; PULSE 40–71; RESP 12–98; TEMP 36.2–36.9; O2SAT 94–98; BMI 28.3
[2024-12-02 04:34] LABS: Amphetamine/Methamp Scrn,U Negative (Negative); Barbiturate Screen,Urine Negative (Negative); Benzodiazepines Screen,Urine Negative (Negative); Benzoylecgonine Screen, Ur Negative (Negative); Fentanyl Screen,Urine Negative (Negative); Opiate Screen,Urine Positive (Negative); THC Screen,Urine Negative (Negative)
[2024-12-02] MEDS: SUCRALFATE 1 GM TABLET PO ×3 (05:24→18:03)
[2024-12-02 06:24] LABS: Basophils % (Auto) 0 % (0-2.5); Eosinophils % (Auto) 0 % (0-10); Hematocrit 33.9 % (36.0-46.0); Hemoglobin 10.8 g/dL (12.0-16.0); Immature Granulocytes % (Auto) 0 % (0-0); Immature Granulocytes Auto 0.01 Thou/mm3 (0.00-0.00); Lymphocytes # (Auto) 1.9 Thou/mm3 (1.0-4.8); Lymphocytes % (Auto) 32 % (10-50); Mean Corpuscular HGB Conc 31.9 g/dl (31.0-37.0); Mean Corpuscular Hemoglobin 30.1 pg (25.0-35.0); Mean Corpuscular Volume 94 fL (80-100); Monocytes # (Auto) 0.5 Thou/mm3 (0.0-0.8); Monocytes % (Auto) 9 % (0-12); Neutrophils # (Auto) 3.4 Thou/mm3 (1.8-7.7); Neutrophils % (Auto) 58 % (37-80); Nucleated Red Blood Cell % 0 /100 WBC (0); Platelet Count 221 Thou/mm3 (140-440); RDW Standard Deviation 43.6 fL (36.4-46.3); Red Blood Count 3.59 Miln/mm3 (4.00-5.20); White Blood Count 5.8 Thou/mm3 (3.6-11.0)
[2024-12-02 07:00] LABS: Alanine Aminotransferase 11 U/L (10-49); Albumin/Globulin Ratio 1.6 (1.2-2.2); Alkaline Phosphatase 73 U/L (46-116); Anion Gap 6 (7-16); Aspartate Amino Transferase 14 U/L (0-34); BUN/Creatinine Ratio 28 Ratio (12-20); Bilirubin,Total 0.4 mg/dL (0.3-1.2); Blood Urea Nitrogen 37 mg/dL (9-23); Calcium 9.1 mg/dL (8.3-10.6); Calcium (Corrected) 9.1 mg/dL (8.5-10.1); Carbon Dioxide 26.2 mMol/L (20.0-31.0); Cardiac Risk Estimate 2.4 RATIO (3.7-5.6); Chloride 107 mMol/L (98-107); Cholesterol 180 mg/dL (132-200); Creatinine (Component) 1.3 mg/dL (0.6-1.3); Estimated Creatinine Clearance 32.4 mL/min (>60); Globulin 2.5 gm/dL (2.3-3.5); Glucose 84 mg/dL (74-106); HDL Cholesterol 74 mg/dL (40-60); LDL Cholesterol,Calculated 84 mg/dL (0-130); Magnesium 2.3 mg/dL (1.6-2.6); Osmolality,Calculated 285 (275-295); Phosphorous 2.8 mg/dL (2.4-5.1); Potassium 4.4 mMol/L (3.4-5.1); Sodium 139 mMol/L (136-145); Total Protein 6.5 gm/dL (5.7-8.2); Triglycerides 111 mg/dL (30-150); eGFR 41 See Note
--- NOTE | 2024-12-02 08:00 | EKG_ITS ---
[facility] Test Date: 2024-12-02 Pat Name: URSULA NEWMAN Department: Room: - Gender: Female Behavioral Health Aide: LIZZIE : 1945 Requested By: Iza Wheeler Order Number: [id number] Reading MD: Iza Wheeler Measurements Intervals [place] Rate: 56 P: 50 RI: 170 QRS: 3 QRSD: 149 T: 141 QT: 467 QTc: 454 Interpretive Statements SINUS BRADYCARDIA WITH OCCASIONAL VENTRICULAR PREMATURE COMPLEXES LEFT BUNDLE BRANCH BLOCK Compared to ECG 12/01/2024 15:33:33 Ventricular premature complex(es) now present Prolonged QT interval no longer present /store/S0/[id number].pdf
[2024-12-02] MEDS: amLODIPine BESYLATE 5 MG TABLET PO (09:03)
[2024-12-02] MEDS: HEPARIN SOD INJ 5000 UNIT/ML VIAL SC ×2 (09:03→20:55)
[2024-12-02] MEDS: PANTOPRAZOLE 40 MG TABLET PO (09:03)
[2024-12-02] MEDS: SPIRONOLACTONE 25 MG TABLET PO (09:03)
[2024-12-02] MEDS: LEVOTHYROXINE SODIUM 25 MCG TABLET PO (09:04)
[2024-12-02 09:53] LABS: Collection Type, Urine Clean Catch
[2024-12-02 10:09] LABS: Bilirubin,Urine Negative (Negative); Blood,Urine Negative (Negative); Clarity,Urine Clear (Clear/Hazy); Color,Urine Lt-Yellow (Lt Yel-Yel); Glucose, Urine Negative (Negative); Ketones,Urine Negative (Negative); Leukocyte Esterase,Urine Positive (Negative); Nitrite,Urine Negative (Negative); PH,Urine 5.5 (5.0-7.0); Protein,Urine Negative (Neg - Trace); RBC,Urine 1 /hpf (0-3); Specific Gravity,Urine 1.016 (1.001-1.035); Squamous Epithelial Cell,Urine 5 /hpf (0-5); Transitional Epi Cells,Urine 1 /hpf (0-5); Urobilinogen,Urine Negative mg/dL (0.0-1.0); WBC,Urine 9 /hpf (0-5)
--- NOTE | 2024-12-02 10:55 | PD.RESCONSUL ---
HPI Data of Consult Requesting Physician: Rod Barber DO Admitting Provider: Rod Barber DO Attending Provider: Rod Barber DO Primary Care Provider: Cynthia Danielle MD Consult Narrative Reason for consult: Pre-syncope, patient follows with Dr. Goldman for history of CHF History of present illness: Patient is a 79-year-old female with past medical history of HFrEF 45-50%, hemorrhagic CVA 2008, primary hypertension, hypothyroidism, esophageal ulcer and erosive gastroduodenitis (EGD in 2019), GERD, hemorrhoids (colonoscopy in 2019), osteoarthritis, and depression, who was brought by ambulance to the ED on 12/01/2024 due to feeling unwell minutes after ingesting 6 unknown pills given to her by her environmental engineering intern. While in EMS patient had nausea and yellow bilious vomiting. She felt pre-syncope but did not syncopize or lose consciousness at any time. Patient has chronic stomach pain which she has been struggling with for the past several months, attempting work up outpatient, and her environmental engineering intern offered the medication to her for pain relief. She still does not know what medication it was. Patient also has been having chronic headache since August, and scheduled for outpatient scan of the head next week. Patient otherwise reports compliance with her regular medications. Today she is reporting feeling back to her baseline, no pre-syncopal symptoms, nausea, or vomiting. She denies any palpitations, chest pain, or shortness of breath. She endorses some mild momentary dizziness at bedside this morning getting up. Review of the data showed initial BP 172/54, HR 46, RR 18, Temp 94.5, O2 97% on room air. Initial EKG with sinus bradycardia at a rate of 45, QTc 484, old left bundle branch block. CXR showed mild perihilar infiltrate. Labs showed normocytic anemia Hgb 11.1, potassium 4.9, magnesium 2.3, BUN 39, creatinine 1.5 (baseline around 1.1-1.3), lactic acid normal, troponin normal, TSH normal. Utox was positive for opiates. Repeat EKG this morning showed sinus bradycardia at a rate of 56, improved QTc 454. Cardiology was consulted for pre-syncope work-up and due to patient's history of CHF followed by Dr. Goldman. cc:: cc: Rod Barber DO Past Medical History Past Medical History Comments PMH COMMENT: Past Medical History: HFrEF 40-45% with septal dyskinesia (04/20/2024), hemorrhagic CVA 2008, primary hypertension, hypothyroidism, esophageal ulcer and erosive gastroduodenitis (EGD in 2019), GERD, hemorrhoids (colonoscopy in 2019), osteoarthritis, and depression Family History: Mother in her 80s, no known family history of GA or stroke Surgical History: Cataract surgery Social History: Remote history of smoking, denies current alcohol use, denies recreational drug use Current Medications: Metoprolol succinate 25 mg qday, amlodipine 5 mg qday, spironolactone 25 mg qday, levothyroxine 25 mcg qday, tramadol 50 mg HS prn headaches, amitriptyline 25 mg HS for sleep, prednisone 40 mg qday (5-day course, patient does not know what it is for), trimethoprim-sulfamethoxazole 160-800 mg BID (for UTI) (Source: Med bottles at bedside) Allergies: No known drug allergies Exam Vital Signs Temp Pulse Resp BP Pulse Ox O2 Del Method 97.1 F 60 17 160/61 H 96 Room Air 12/02/24 08:00 12/02/24 09:04 12/02/24 08:42 12/02/24 09:04 12/02/24 08:00 12/02/24 08:00 Narrative Exam Physical Exam General: Awake and in no acute distress. Conversational and non-toxic appearing, sitting at the bedside. HEENT: Normocephalic, atraumatic, mucous membranes moist. Heart: Regular rate and rhythm, normal S1 and S2, no murmurs. Lungs: Clear to auscultation with no wheezing or crackles. Abdomen: Soft, nondistended, nontender, positive bowel sounds. ?No guarding or rebound tenderness. Neurologic: Alert and oriented x3, no gross neurological deficit, and patient able to move all 4 extremities. Extremities: No edema. Skin: No rash or ecchymoses. Results Labs 12/03/24 04:27 12/03/24 04:27 Labs: Short CBC 12/01/24 12/02/24 Range/Units 15:21 05:33 WBC 7.5 5.8 (3.6-11.0) Thou/mm3 Hgb 11.1 L 10.8 L (12.0-16.0) g/dL Hct 34.4 L 33.9 L (36.0-46.0) % Plt Count 212 221 (140-440) Thou/mm3 BMP 12/01/24 12/02/24 15:21 05:33 Sodium 136 139 Potassium 4.9 4.4 D Chloride 105 107 Carbon Dioxide 23.4 26.2 BUN 39 H 37 H Creatinine 1.5 H 1.3 Glucose 196 H 84 D Calcium 9.4 9.1 Cardiac Enzymes 12/01/24 Range/Units 15:21 Troponin I < 0.020 (0.0-0.045) ng/mL Liver Function 12/01/24 12/02/24 Range/Units 15:21 05:33 Total Bilirubin 0.4 0.4 (0.3-1.2) mg/dL AST 19 14 (0-34) U/L ALT 14 11 (10-49) U/L Alkaline Phosphatase 81 73 (46-116) U/L Albumin 4.6 4.0 D (3.4-4.8) gm/dL Urine 12/02/24 Range/Units 09:00 Urine Color Lt-Yellow (Lt Yel-Yel) Urine Clarity Clear (Clear/Hazy) Urine pH 5.5 (5.0-7.0) Ur Specific [place] 1.016 (1.001-1.035) Urine Protein Negative (Neg - Trace) Urine Glucose (UA) Negative (Negative) Quality Measures Quality Measures none Advance care planning discussed with:: patient Medications Home Medications and Allergies Home Medications ?Medication ?Instructions ?Recorded ?Confirmed ?Type levothyroxine 25 mcg tablet 25 mcg PO DAILY 11/19/23 12/01/24 History spironolactone 25 mg tablet 25 mg PO .AM 12/01/24 12/01/24 History Held on 12/03/24. Instructions: Resume on 12/17/24. Follow up with Hospital Secretary Dr. Greer before resuming. tramadol 50 mg tablet 50 mg PO .PM PRN for headache 12/01/24 12/01/24 History Held on 12/03/24. Instructions: Resume on 12/17/24. Follow up with PCP Allergies Allergy/AdvReac Type Severity Reaction Status Date / Time No Known Allergies Allergy Verified 12/01/24 15:04 Visit Medications Acetaminophen (Acetaminophen 325 Mg Tablet) 650 mg PO Q6H PRN PRN Reason: Fever >100.3 or pain Stop: 12/31/24 18:09 Amlodipine Besylate (Amlodipine Besylate 5 Mg Tablet) 5 mg PO DAILY IZABELA Stop: 01/01/25 08:59 Last Admin: 12/02/24 09:03 Dose: 5 mg Heparin Sodium (Porcine) (Heparin Sod Inj 5000 Unit/Ml Vial) 5,000 unit SC Q12HR IZABELA Stop: 12/15/24 20:59 Last Admin: 12/02/24 09:03 Dose: 5,000 unit Levothyroxine Sodium (Levothyroxine Sodium 25 Mcg Tablet) 25 mcg PO ACBR IZABELA Stop: 01/01/25 08:59 Last Admin: 12/02/24 09:04 Dose: 25 mcg Pantoprazole Sodium (Pantoprazole 40 Mg Tablet) 40 mg PO QDAY IZABELA Stop: 01/01/25 08:59 Last Admin: 12/02/24 09:03 Dose: 40 mg Sennosides (Senna Tablet) 1 tab PO QDAY PRN; Protocol PRN Reason: constipation Stop: 12/31/24 18:09 Spironolactone (Spironolactone 25 Mg Tablet) 25 mg PO QAM IZABELA Stop: 01/01/25 08:29 Last Admin: 12/02/24 09:04 Dose: Not Given Sucralfate (Sucralfate 1 Gm Tablet) 1 gm PO TID IZABELA Stop: 12/31/24 21:59 Last Admin: 12/02/24 05:24 Dose: 1 gm Discontinued Medications Al Hydrox/Mg Hydrox/Simethicone (Mg Hyd/Al Hyd/Phill (Maalox Reg) Susp 30 Ml Udc) 30 ml PO X1 ONE Stop: 12/01/24 14:36 Last Admin: 12/01/24 18:30 Dose: 30 ml Diphenhydramine HCl (Diphenhydramine Inj 50 Mg/Ml Vial) 25 mg IV X1 ONE Stop: 12/01/24 14:36 Last Admin: 12/01/24 18:28 Dose: 25 mg Enoxaparin Sodium (Enoxaparin Sod Inj 40 Mg/0.4 Ml Syringe) 40 mg SC QDAY COUNTS INCLUDE 234 BEDS AT THE [facility] Stop: 12/16/24 08:59 Hydralazine HCl (Hydralazine Inj 20 Mg/Ml Vial) 10 mg IV X1 ONE Stop: 12/01/24 19:30 Last Admin: 12/01/24 20:23 Dose: Not Given Sodium Chloride (Ns) 1,000 mls @ 80 mls/hr IV .[id number] COUNTS INCLUDE 234 BEDS AT THE [facility] Stop: 12/02/24 01:46 Last Admin: 12/01/24 20:38 Dose: Not Given Sodium Chloride (Ns) 500 mls @ 80 mls/hr IV .[id number] COUNTS INCLUDE 234 BEDS AT THE [facility] Stop: 12/02/24 02:47 Last Admin: 12/01/24 20:36 Dose: 80 mls/hr Ketorolac Tromethamine (Ketorolac Inj 30 Mg/Ml Vial) 15 mg IVP X1 ONE Stop: 12/01/24 14:36 Last Admin: 12/01/24 18:27 Dose: 15 mg Lidocaine HCl (Lidocaine Viscous 2% 15 Ml Udc) 10 ml PO X1 ONE Stop: 12/01/24 14:36 Last Admin: 12/01/24 18:30 Dose: 10 ml Metoclopramide HCl (Metoclopramide Inj 5 Mg/Ml Vial 2 Ml) 10 mg IV X1 ONE; Protocol Stop: 12/01/24 14:36 Last Admin: 12/01/24 18:29 Dose: 10 mg Pantoprazole Sodium (Pantoprazole 20 Mg Tablet) 20 mg PO QDAY COUNTS INCLUDE 234 BEDS AT THE [facility] Stop: 12/31/24 18:14 Last Admin: 12/01/24 20:24 Dose: Not Given Assessment & Plan Plan 79-year-old female with past medical history of HFrEF 45-50%, hemorrhagic CVA 2008, primary hypertension, hypothyroidism, esophageal ulcer and erosive gastroduodenitis (EGD in 2019), GERD, hemorrhoids (colonoscopy in 2019), osteoarthritis, and depression, who was brought by ambulance to the ED on 12/01/2024 due to feeling unwell minutes after ingesting 6 unknown pills she tried for stomach pain. Patient had nausea, vomiting, and presyncope and initial EKG had shown prolonged QT and bradycardia. Patient was subsequently admitted for further workup and Cardiology was consulted for pre-syncope. #Pre-syncope likely due to medication overdose, resolved #Sinus bradycardia, resolved #Prolonged QTc, resolved Patient had pre-syncopal symptoms and felt generally unwell after ingesting 6 pills of unknown medication. Initial EKG with sinus bradycardia at a rate of 45, QTc 484, old left bundle branch block. CXR showed mild perihilar infiltrate. Labs showed normocytic anemia Hgb 11.1, potassium 4.9, magnesium 2.3, BUN 39, creatinine 1.5 (baseline around 1.1-1.3), lactic acid normal, troponin normal, TSH normal. Utox was positive for opiates. At this point will hold metoprolol but will likely resume on discharge as it is unlikely the cause of initial presentation. 12/02/2024 Repeat EKG this morning showed sinus bradycardia at a rate of 56, improved QTc 454. -Hold home metoprolol succinate 25 mg qday for now -Continuous telemetry #History of HFrEF (45-50%) Patient appears to be on metoprolol succinate 25 mg qday and spironolactone 25 mg qday. Patient also supposed to be on candesartan 8 mg qday as prescribed by Dr. Goldman but was not part of her medication bottles brought in. Last echo on file from 04/21/2024 showed normal LV size and low normal function. Dyskentic septum. Estimated EF 45-50%. Normal RV size and function. Mild AV sclerosis without stenosis. Mild MAC. Mild MR, TR. -Will obtain updated echo -Continue home spironolactone 25 mg qday #History of hypertension Patient had elevated BP on arrival which continues to be elevated. -Recommend increasing home amlodipine 5 mg to 10 mg qday -Resume home candesartan 8 mg daily on discharge Rest of conditions to continue current management per primary team: #Chronic epigastric pain #Chronic headaches #History of duodenitis, esophageal ulcers, and GERD #History of hypothyroidism #CKD stage 3 Patient was discussed with the Cardiology attending, Dr. Greer. Thank you for allowing us to participate in the care of this patient. Katt Lopes, PGY-2 Attending Provider Attestation/Addendum I have personally seen and examined the patient separately on the above date of service and discussed the plan of care with the resident. I reviewed the resident Dr. Parth Velasco consultation progress note and agree with the resident findings and plan in the note above and have also edited the documentation to reflect my findings and plan. A 79-year-old female with a past medical history of mild systolic ingestive heart failure with an EF of around 45 to 50% and previously around 40-45%, hemorrhagic CVA in 2008, essential hypertension, hypothyroidism, esophageal ulcer and erosive gastroduodenitis by EGD in 2019, GERD, hemorrhoids, osteoarthritis, depression presented to the emergency department for further evaluation of near fainting or presyncope. Send patient has been having some abdominal pain and severe headache over the past few months and she did see her primary doctor and couple of other doctors. And over the last week or so it has been Becoming worse and she was discussing with her environmental engineering intern who gave her 6 pills that she took and few minutes later patient started feeling some dizziness also felt like that she was going to pass out but patient did not pass out or fall down. Patient had nausea and some bilious vomiting. Patient never had the symptoms before and possibly secondary to the recent medications. In the emergency department blood pressure was elevated around 170-190 mmHg but heart rate was low at 46 bpm and respiratory rate, saturations were normal. Initial EKG showed sinus bradycardia at 45 and QTc of 484 with old left bundle branch block. Chest x-ray showed no major acute pathology with questionable mild perihilar infiltrate. Labs were normal with potassium 4.9 magnesium 2.3 BMP showed creatinine of 1.5 and baseline is around 1.2. Lactate normal, troponin normal hemoglobin was slightly low at 11.1. TSH normal. U tox was positive for opiates. Cardiology consulted for further evaluation of the bradycardia. Assessment and plan: 1. Bradycardia 2. Presyncope 3. Chronic mild systolic congestive heart failure with an EF of around 45% - 50% 4. Essential hypertension 5. Chronic abdominal pain and epigastric pain 6. History of duodenitis, esophageal ulcers and GERD 7. CKD stage III with acute kidney injury 8. Hypothyroidism 9. Obesity 10. Osteoarthritis 1. Depression 12. Anxiety Patient presented with some nausea, dizziness and of sensation of passing out but did not pass out after taking 6 pills given by her environmental engineering intern. Unclear what these medications. Possibly the medication caused low blood pressure as well as mild bradycardia on admission. As noted above EKG showed sinus bradycardia with QTc of 484 and old LBBB. Given the left bundle branch block QTc is normal and there is no prolongation of the QT interval. TSH is normal along with the rest of labs except the creatinine is mildly elevated at 1.5 indicating mild dehydration from poor oral intake and patient states that she has not been eating well. U-Tox was positive for opiates Possible multifactorial etiology for the presyncope including a mild dehydration along with taking the multiple medications and poor nutrition. Hold metabolic succinate for now and can be restarted at the time of discharge. Continue telemetry monitoring and patient heart rate continues to be improving and now in the 50s and will be higher if she walks and appears to have preserved chronotropic response. Patient does have history of mild systolic congestive heart failure with a previous EF of 40 to 45% and now 45 to 50%. Patient is on metoprolol XL 25 mg once daily, spironolactone 1 mg once daily as well as amlodipine 5 mg once daily she was on questionable Edarbyclor which appears to be have been stopped. Will need to adjust her goal-directed medical treatment and maximized on the beta-patrice and ARB and add a hydrochlorothiazide spironolactone related. Echo was requested and last echocardiogram in April 2024 showed low normal LV size and function with an EF of 45 to 50%. Normal RV size and function. Mild AV stenosis with stenosis. Mild MAC mild MR and TR. Strict protocol, daily weights and 2 g oriented. Patient does not appear to be fluid overloaded at moist [place]. As noted above patient is on multiple hypertensive medications and would recommend to adjust the blood pressure medications and titrate patient is confused about her medications and will give the correct list at the time of discharge. Patient does complain of severe epigastric pain and unable to eat or swallow and did not see a GI doctor recently and she does have a history of breast Tritus, duodenitis, esophageal ulcers previously now has been recently tested for H. pylori. Recommended to follow-up with GI and Dr. Ugalde again. Management of rest of the medical conditions as per primary team and other consultants. Thank you for the consult and allowing me to participate in the care of the patient. Cardiology will continue to follow. Toby Greer M.D. Interventional Cardiology
[2024-12-02 11:28] LABS: Iron 50 mcg/dL (50-170); Percent Iron Saturation 14 % (20-55); Total Iron Binding Capacity 338 mcg/dL (250-425); Unsaturated Iron Binding 288 (225-295)
[2024-12-02] MEDS: ACETAMINOPHEN 325 MG TABLET 650 MG PO (11:28)
--- NOTE | 2024-12-02 12:59 | PD.RESPRO ---
Documentation for date of: 12/02/24 Subjective Subjective Interval history: Patient examined at bedside. No events overnight. She continues to complain of headache and stomach pain. Slightly improved from yesterday after starting the Carafate. Is worse after eating. Vitals are stable-- heart rate 50-60. Denies any dizziness or weakness. Repeat EKG today showed resolved QTc wth rate 454. Echo is pending for workup for bradycardia. Follow up with occult blood test and Hpylori for work up of chronic abdominal pain. Continue pantoprazole and carafate. Exam Vital Signs Temp Pulse Resp BP Pulse Ox O2 Del Method 97.1 F 60 17 160/61 H 96 Room Air 12/02/24 08:00 12/02/24 09:04 12/02/24 08:42 12/02/24 09:04 12/02/24 08:00 12/02/24 08:00 Narrative Exam General: Elderly lady, No acute distress, cooperative HEENT: NCAT, No JVD noted. Mucosa dry. Pupils are equal and reactive to light bilaterally Cardiovascular: Normal S1 and S2. Regular rate and rhythm. Respiratory: Lungs are clear to auscultation bilaterally. No wheezing or crackles heard. Abdomen: Soft, nontender, not distended, normal bowel sounds. Skin: Warm to touch, dry, no rashes noted Musculoskeletal: No gross injuries. Able to move all 4 extremities. No pitting edema Neuro: Alert and oriented x3. No focal neuro deficits. Psych: Normal affect and mood Objective Labs 12/02/24 05:33 12/02/24 05:33 Labs: Laboratory Results - last 24 hr 12/01/24 12/02/24 12/02/24 15:21 04:14 05:33 WBC 7.5 5.8 RBC 3.64 L 3.59 L Hgb 11.1 L 10.8 L Hct 34.4 L 33.9 L MCV 95 94 MCH 30.5 30.1 MCHC 32.3 31.9 RDW Std Deviation 43.6 43.6 Plt Count 212 221 Neut % (Auto) 88 H 58 Lymph % (Auto) 10 32 [place] % (Auto) 1 9 Eos % (Auto) 0 0 Baso % (Auto) 0 0 Neut # (Auto) 6.6 3.4 Lymph # (Auto) 0.8 L 1.9 [place] # (Auto) 0.1 0.5 Eos # (Auto) 0.0 0.0 Baso # (Auto) 0.0 0.0 Immature Gran # (Auto) 0.02 H 0.01 H Absolute Nucleated RBC 0.00 0.00 Immature Gran % 0 0 Nucleated RBC % 0 0 Sodium 136 139 Potassium 4.9 4.4 D Chloride 105 107 Carbon Dioxide 23.4 26.2 Anion Gap 8 6 L BUN 39 H 37 H Creatinine 1.5 H 1.3 Estim Creat Clear Calc 27.9 L 32.4 L eGFR 35 L 41 L BUN/Creatinine Ratio 26 H 28 H Glucose 196 H 84 D Calculated Osmolality 286 285 Lactic Acid 1.4 Calcium 9.4 9.1 Corrected Calcium 9.4 9.1 Phosphorus 2.8 Magnesium 2.3 2.3 Iron 50 TIBC 338 Iron Saturation 14 L Unsat Iron Binding 288 Total Bilirubin 0.4 0.4 AST 19 14 ALT 14 11 Alkaline Phosphatase 81 73 Troponin I < 0.020 Total Protein 7.3 6.5 Albumin 4.6 4.0 D Globulin 2.7 2.5 Albumin/Globulin Ratio 1.7 1.6 Triglycerides 117 111 Cholesterol 198 180 LDL Cholesterol, Calc 95 84 HDL Cholesterol 80 H 74 H Cholesterol/HDL Ratio 2.5 L 2.4 L TSH 1.40 Ur Collection Type Urine Color Urine Clarity Urine pH Ur Specific [place] Urine Protein Urine Glucose (UA) Urine Ketones Urine Blood Urine Nitrite Urine Bilirubin Urine Urobilinogen (Auto) Ur Leukocyte Esterase Urine RBC Urine WBC Ur Squamous Epith Cells Ur Transition Epith Cell Urine Bacteria Urine Opiates Screen Positive A Urine Fentanyl Screen Negative Ur Barbiturates Screen Negative U Amphetamin/Meth Scrn Negative U Benzodiazepines Scrn Negative U Cocaine Metab Screen Negative U Marijuana (THC) Screen Negative 12/02/24 09:00 WBC RBC Hgb Hct MCV MCH MCHC RDW Std Deviation Plt Count Neut % (Auto) Lymph % (Auto) [place] % (Auto) Eos % (Auto) Baso % (Auto) Neut # (Auto) Lymph # (Auto) [place] # (Auto) Eos # (Auto) Baso # (Auto) Immature Gran # (Auto) Absolute Nucleated RBC Immature Gran % Nucleated RBC % Sodium Potassium Chloride Carbon Dioxide Anion Gap BUN Creatinine Estim Creat Clear Calc eGFR BUN/Creatinine Ratio Glucose Calculated Osmolality Lactic Acid Calcium Corrected Calcium Phosphorus Magnesium Iron TIBC Iron Saturation Unsat Iron Binding Total Bilirubin AST ALT Alkaline Phosphatase Troponin I Total Protein Albumin Globulin Albumin/Globulin Ratio Triglycerides Cholesterol LDL Cholesterol, Calc HDL Cholesterol Cholesterol/HDL Ratio TSH Ur Collection Type Clean Catch Urine Color Lt-Yellow Urine Clarity Clear Urine pH 5.5 Ur Specific [place] 1.016 Urine Protein Negative Urine Glucose (UA) Negative Urine Ketones Negative Urine Blood Negative Urine Nitrite Negative Urine Bilirubin Negative Urine Urobilinogen (Auto) Negative Ur Leukocyte Esterase Positive Urine RBC 1 Urine WBC 9 H Ur Squamous Epith Cells 5 Ur Transition Epith Cell 1 Urine Bacteria None Urine Opiates Screen Urine Fentanyl Screen Ur Barbiturates Screen U Amphetamin/Meth Scrn U Benzodiazepines Scrn U Cocaine Metab Screen U Marijuana (THC) Screen Quality Measures Quality Measures none Advance care planning discussed with:: patient Assessment & Plan Assessment Current Active Medications: Generic Name Dose Route Start Last Admin Trade Name Freq PRN Reason Stop Dose Admin Acetaminophen 650 mg 12/01/24 18:10 12/02/24 11:28 Acetaminophen 325 Mg Tablet PO 12/31/24 18:09 650 mg Q6H PRN Administration Fever >100.3 or pain Amlodipine Besylate 5 mg 12/02/24 09:00 12/02/24 09:03 Amlodipine Besylate 5 Mg Tablet PO 01/01/25 08:59 5 mg DAILY IZABELA Administration Heparin Sodium (Porcine) 5,000 unit 12/01/24 21:00 12/02/24 09:03 Heparin Sod Inj 5000 Unit/Ml Vial SC 12/15/24 20:59 5,000 unit Q12HR IZABELA Administration Levothyroxine Sodium 25 mcg 12/02/24 09:00 12/02/24 09:04 Levothyroxine Sodium 25 Mcg Tablet PO 01/01/25 08:59 25 mcg ACBR IZABELA Administration Pantoprazole Sodium 40 mg 12/02/24 09:00 12/02/24 09:03 Pantoprazole 40 Mg Tablet PO 01/01/25 08:59 40 mg QDAY IZABELA Administration Sennosides 1 tab 12/01/24 18:10 Senna Tablet PO 12/31/24 18:09 QDAY PRN constipation Protocol Spironolactone 25 mg 12/02/24 08:30 12/02/24 09:04 Spironolactone 25 Mg Tablet PO 01/01/25 08:29 Not Given QAM IZABELA Sucralfate 1 gm 12/01/24 22:00 12/02/24 05:24 Sucralfate 1 Gm Tablet PO 12/31/24 21:59 1 gm TID IZBAELA Administration Plan Loly Panda is 79 yr F with PMH of of 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 Her senior adults director gave her 6 pills of unknown medication that she consumed all at once. Patient is poor historian. She will be admitted for management of abdominal pain and near syncope. #Presyncopal episode possibly secondary to underlying arrhythmia versus medication overdose #Prolonged QTc-resolved #Hx HFrEF 40-45% Patient was given 6 unknown pills by caregiver that she consumed all at once. Started feeling weak and felt like she was going to faint. She laid down on her bed and called son to call EMS. EKG showing bradycardia rate 45, prolonged QTc 560, no acute changes. Echo from 04/20/2024 showed EF 45-50%, dyskinetic septum. Normal LV, RV size and function. -Cardiology Dr. Greer consulted -Repeat echo pending ? Repeat TSH ? U-Tox pending - Hold rate controlling agents -avoid QT prolonging agents #ARTHUR-resolved Most likely prerenal BUN/creatinine ratio greater than 20. Insetting of dehydration as patient also endorses some vomiting since past few days. On admission creatinine 1.5, baseline 0.9?1.0 -maintenance fluids -avoid nephrotoxic agents -daily CMP #Abdominal pain #Hx duodenitis #Hx GERD #Hx esophageal ulcer Pain started in Aug 2024 and slowly worsening. Per chart review also admissions due to abdominal pain. Full workup including EGD done in 2019 showed gastritis with no bleeding, esophagitis, duodenitis without bleeding. Pathology results were negative. LFts unremarkable. - Pantoprazole 40 mg daily -Carafate 1 g TID - Senna as needed -occult stool pending -Hpylori pending #Hx HTN #Hx hypothyroidism -resume once med rec completed Health maintenance: Dispo: tele, [facility] pres[facility] FEN: regular DVT prophylaxis: Subcu heparin CODE STATUS: Full code The patient's management plan was discussed with my attending physician Dr. Barber. Iza Wheeler, PGY-1 Attending Provider Attestation/Addendum I have discussed and was present for the essential components of the history, physical examination, diagnosis, and treatment plan with the resident. I agree with the patient's care as documented by the resident and amended herein by me. Kong Barber, DO. Patient seen and evaluated this AM. No acute events overnight, vital signs stable, patient afebrile. Creatinine continues to improve, 1.3 today. Echo still pending, cardiology recs still pending, considering the patient's epigastric pain and known history of esophageal ulcers and gastritis, we will test for H. pylori for now and continue on PPI and Carafate. Patient will likely need outpatient gastroenterology follow-up, possibly another EGD performed to reevaluate. Son was at bedside, her medications that she presently takes were brought as well, we still do not exactly know what her senior adults director gave her as far as pills go prior to her coming to the hospital. Will continue to monitor closely while she is here. Although this document has been carefully reviewed, there may still be some phonetic and other typographical errors. These errors are purely grammatical due to imperfections in the software program and should not be construed in any way to compromise the substance of the patient's medical care during this visit.
[2024-12-03] VITALS (7 sets, daily range): BP systolic 140–162; BP diastolic 64–97; PULSE 59–89; RESP 12–98; TEMP 36.1–36.7; O2SAT 95–99; BMI 28.3
[2024-12-03] MEDS: LEVOTHYROXINE SODIUM 25 MCG TABLET PO (05:33)
[2024-12-03 05:35] LABS: Basophils % (Auto) 0 % (0-2.5); Eosinophils # (Auto) 0.1 Thou/mm3 (0.0-0.5); Eosinophils % (Auto) 1 % (0-10); Immature Granulocytes % (Auto) 0 % (0-0); Immature Granulocytes Auto 0.02 Thou/mm3 (0.00-0.00); Lymphocytes # (Auto) 2.1 Thou/mm3 (1.0-4.8); Lymphocytes % (Auto) 28 % (10-50); Mean Corpuscular HGB Conc 32.4 g/dl (31.0-37.0); Mean Corpuscular Hemoglobin 30.6 pg (25.0-35.0); Mean Corpuscular Volume 95 fL (80-100); Monocytes # (Auto) 0.8 Thou/mm3 (0.0-0.8); Monocytes % (Auto) 10 % (0-12); Neutrophils # (Auto) 4.4 Thou/mm3 (1.8-7.7); Neutrophils % (Auto) 60 % (37-80); Nucleated Red Blood Cell % 0 /100 WBC (0); Platelet Count 223 Thou/mm3 (140-440); RDW Standard Deviation 44.3 fL (36.4-46.3); Red Blood Count 3.59 Miln/mm3 (4.00-5.20); White Blood Count 7.3 Thou/mm3 (3.6-11.0)
[2024-12-03 06:38] LABS: Alanine Aminotransferase 10 U/L (10-49); Albumin, Serum 3.9 gm/dL (3.4-4.8); Albumin/Globulin Ratio 1.8 (1.2-2.2); Alkaline Phosphatase 69 U/L (46-116); Anion Gap 6 (7-16); Aspartate Amino Transferase 16 U/L (0-34); BUN/Creatinine Ratio 27 Ratio (12-20); Bilirubin,Total 0.4 mg/dL (0.3-1.2); Blood Urea Nitrogen 35 mg/dL (9-23); Calcium 9.1 mg/dL (8.3-10.6); Calcium (Corrected) 9.2 mg/dL (8.5-10.1); Carbon Dioxide 24.8 mMol/L (20.0-31.0); Chloride 109 mMol/L (98-107); Creatinine (Component) 1.3 mg/dL (0.6-1.3); Estimated Creatinine Clearance 31.7 mL/min (>60); Globulin 2.2 gm/dL (2.3-3.5); Glucose 82 mg/dL (74-106); Osmolality,Calculated 286 (275-295); Potassium 4.6 mMol/L (3.4-5.1); Sodium 140 mMol/L (136-145); Total Protein 6.1 gm/dL (5.7-8.2); eGFR 41 See Note
[2024-12-03] MEDS: SUCRALFATE 1 GM TABLET PO ×2 (07:57→12:02)
[2024-12-03 08:08] LABS: Magnesium 2.3 mg/dL (1.6-2.6)
[2024-12-03] MEDS: HEPARIN SOD INJ 5000 UNIT/ML VIAL SC (08:50)
[2024-12-03] MEDS: PANTOPRAZOLE 40 MG TABLET PO (08:51)
[2024-12-03] MEDS: SPIRONOLACTONE 25 MG TABLET PO (08:51)
[2024-12-03] MEDS: amLODIPine BESYLATE 5 MG TABLET PO (08:51)
--- NOTE | 2024-12-03 10:01 | PC.SS ---
This is 79-year-old, , female who presented to the ED due to suffering from abdominal pain. Patient appeared alert and oriented to self, place and situation. Patient was pleasant. Patient resides alone at home. Patient is independent with all ADLs, and uses a rollator for mobility. Patient assigned her son, Tam as her medical decision maker. Patient's PCP is Dr. Danielle and stud setter is Dr. Goldman. When medically clear, patient will discharge home and Tam will provide transportation.
--- NOTE | 2024-12-03 10:21 | PD.RESPRO ---
Documentation for date of: 12/03/24 Subjective Subjective Interval history: Patient seen and examined today. No overnight events. Tele monitor showed no arrythmias. Vitals and labs were reviewed. Exam Vital Signs Temp Pulse Resp BP Pulse Ox O2 Del Method 98.0 F 65 20 155/97 H 97 Room Air 12/03/24 08:00 12/03/24 08:51 12/03/24 08:00 12/03/24 08:51 12/03/24 08:00 12/03/24 08:00 Narrative Exam Physical Exam General: Awake and in no acute distress. Conversational and non-toxic appearing, sitting at the bedside. HEENT: Normocephalic, atraumatic, mucous membranes moist. Heart: Regular rate and rhythm, normal S1 and S2, no murmurs. Lungs: Clear to auscultation with no wheezing or crackles. Abdomen: Soft, nondistended, nontender, positive bowel sounds. ?No guarding or rebound tenderness. Neurologic: Alert and oriented x3, no gross neurological deficit, and patient able to move all 4 extremities. Extremities: No edema. Skin: No rash or ecchymoses. Objective Labs 12/03/24 04:27 12/03/24 04:27 Labs: Laboratory Results - last 24 hr 12/02/24 12/03/24 05:33 04:27 WBC 7.3 RBC 3.59 L Hgb 11.0 L Hct 34.0 L MCV 95 MCH 30.6 MCHC 32.4 RDW Std Deviation 44.3 Plt Count 223 Neut % (Auto) 60 Lymph % (Auto) 28 [place] % (Auto) 10 Eos % (Auto) 1 Baso % (Auto) 0 Neut # (Auto) 4.4 Lymph # (Auto) 2.1 [place] # (Auto) 0.8 Eos # (Auto) 0.1 Baso # (Auto) 0.0 Immature Gran # (Auto) 0.02 H Absolute Nucleated RBC 0.00 Immature Gran % 0 Nucleated RBC % 0 Sodium 140 Potassium 4.6 Chloride 109 H Carbon Dioxide 24.8 Anion Gap 6 L BUN 35 H Creatinine 1.3 Estim Creat Clear Calc 31.7 L eGFR 41 L BUN/Creatinine Ratio 27 H Glucose 82 Calculated Osmolality 286 Calcium 9.1 Corrected Calcium 9.2 Magnesium 2.3 Iron 50 TIBC 338 Iron Saturation 14 L Unsat Iron Binding 288 Total Bilirubin 0.4 AST 16 ALT 10 Alkaline Phosphatase 69 Total Protein 6.1 Albumin 3.9 Globulin 2.2 L Albumin/Globulin Ratio 1.8 Quality Measures Quality Measures none Advance care planning discussed with:: patient Assessment & Plan Assessment Current Active Medications: Generic Name Dose Route Start Last Admin Trade Name Freq PRN Reason Stop Dose Admin Acetaminophen 650 mg 12/01/24 18:10 12/02/24 11:28 Acetaminophen 325 Mg Tablet PO 12/31/24 18:09 650 mg Q6H PRN Administration Fever >100.3 or pain Amlodipine Besylate 5 mg 12/02/24 09:00 12/03/24 08:51 Amlodipine Besylate 5 Mg Tablet PO 01/01/25 08:59 5 mg DAILY IZABELA Administration Heparin Sodium (Porcine) 5,000 unit 12/01/24 21:00 12/03/24 08:50 Heparin Sod Inj 5000 Unit/Ml Vial SC 12/15/24 20:59 5,000 unit Q12HR IZABELA Administration Levothyroxine Sodium 25 mcg 12/02/24 09:00 12/03/24 05:33 Levothyroxine Sodium 25 Mcg Tablet PO 01/01/25 08:59 25 mcg ACBR IZABELA Administration Pantoprazole Sodium 40 mg 12/02/24 09:00 12/03/24 08:51 Pantoprazole 40 Mg Tablet PO 01/01/25 08:59 40 mg QDAY IZABELA Administration Sennosides 1 tab 12/01/24 18:10 Senna Tablet PO 12/31/24 18:09 QDAY PRN constipation Protocol Spironolactone 25 mg 12/02/24 08:30 12/03/24 08:51 Spironolactone 25 Mg Tablet PO 01/01/25 08:29 25 mg QAM IZABELA Administration Sucralfate 1 gm 12/02/24 14:00 12/03/24 07:57 Sucralfate 1 Gm Tablet PO 12/31/24 21:59 1 gm AC IZABELA Administration Plan 79-year-old female with past medical history of HFrEF 45-50%, hemorrhagic CVA 2008, primary hypertension, hypothyroidism, esophageal ulcer and erosive gastroduodenitis (EGD in 2019), GERD, hemorrhoids (colonoscopy in 2019), osteoarthritis, and depression, who was brought by ambulance to the ED on 12/01/2024 due to feeling unwell minutes after ingesting 6 unknown pills she tried for stomach pain. Patient had nausea, vomiting, and presyncope and initial EKG had shown prolonged QT and bradycardia. Patient was subsequently admitted for further workup and Cardiology was consulted for pre-syncope. #Pre-syncope likely due to medication overdose, resolved #Sinus bradycardia, resolved #Prolonged QTc, resolved Assessment: Patient had pre-syncopal symptoms and felt generally unwell after ingesting 6 pills of unknown medication. Initial EKG with sinus bradycardia at a rate of 45, QTc 484, old left bundle branch block. CXR showed mild perihilar infiltrate. Labs showed normocytic anemia Hgb 11.1, potassium 4.9, magnesium 2.3, BUN 39, creatinine 1.5 (baseline around 1.1-1.3), lactic acid normal, troponin normal, TSH normal. Utox was positive for opiates. At this point will hold metoprolol but will likely resume on discharge as it is unlikely the cause of initial presentation. 12/02/2024 Repeat EKG this morning showed sinus bradycardia at a rate of 56, improved QTc 454. Recommendations: -Hold home metoprolol succinate 25 mg qday for now -Continuous telemetry #History of HFrEF (45-50%) Assessment: Patient appears to be on metoprolol succinate 25 mg qday and spironolactone 25 mg qday. Patient also supposed to be on candesartan 8 mg qday as prescribed by Dr. Goldman but was not part of her medication bottles brought in. Last echo on file from 04/21/2024 showed normal LV size and low normal function. Dyskentic septum. Estimated EF 45-50%. Normal RV size and function. Mild AV sclerosis without stenosis. Mild MAC. Mild MR, TR. Recommendations: -Pending echo read -Continue home spironolactone 25 mg qday #History of hypertension Patient had elevated BP on arrival which continues to be elevated. -Recommend increasing home amlodipine 5 mg to 10 mg qday -Resume home candesartan 8 mg daily on discharge Rest of conditions to continue current management per primary team: #Chronic epigastric pain #Chronic headaches #History of duodenitis, esophageal ulcers, and GERD #History of hypothyroidism #CKD stage 3 - Patient's care was discussed with my attending physician, Dr. Percy Arechiga MD Internal Medicine PGY-3 Attending Provider Attestation/Addendum I have personally seen and examined the patient separately on the above date of service and discussed the plan of care with the resident. I reviewed the resident Dr. Bob Dumont consultation progress note and agree with the resident findings and plan in the note above and have also edited the documentation to reflect my findings and plan. Patient to be discharged today and is doing well. Heart rate is improved well and patient's heart rate is between 60 to 70 bpm. Will restart beta-patrice metoprolol XL at the time of discharge. Patient hypertensive regimen has to be changed and started on losartan 50 mg once daily. Patient presentation is mostly secondary to all the 6 pills that she took given by the patient's electrical maintenance engineer which caused possible dizziness and presyncope and bradycardia. Also patient was mildly dehydrated secondary to poor oral intake and recommended to follow-up with GI Dr. Ugalde for an EGD given her upper GI symptoms and history of duodenitis gastritis as well as esophageal ulcers. Recommended to follow-up with primary and cardiology as outpatient. Toby Greer M.D. Interventional Cardiology
--- NOTE | 2024-12-03 15:52 | ESDS_ITS ---
Planned Discharge Date 12/03/24 DS: Providers Provider Date of admission: 12/01/24 18:10 Primary care physician: Cynthia Danielle MD Admitting Provider: Rod Barber DO Attending Provider on Admission: Rod Barber DO Consults: 12/02/24 02:06 Referral Registered Dietitian Routine Comment: Health [facility] Referral - Knowledge Deficit Routine Comment: Positive screening for knowledge deficit needs. 12/02/24 10:31 Consult to Cardiology Routine Comment: Near syncope Consulting Provider: oTby Greer Attending Provider on DC: Rod Barber DO Discharging Provider: Rod Barber DO Anticipated date of discharge: 12/03/24 DS: Diagnosis Problem List Completed Was Problem List Reviewed/Reconciled?: Yes Hospital Course Hospital Course Hospital course: Hospital course: Ms. Loly Panda is a 79-year-old female with past medical history of HFpEF 50 to 60%, grade 2 diastolic dysfunction, primary hypertension, hypothyroidism, esophageal ulcer and erosive gastroduodenitis (EGD in 2019), GERD, hemorrhoids (colonoscopy in 2019), osteoarthritis, and depression who presented to [facility] emergency department on by ambulance due to near syncope episode but also complaining of abdominal pain. Patient reported feeling unwell minutes after ingesting 6 unknown pills she tried for stomach pain, patient reported nausea vomiting and presyncope with initial EKG showing prolonged QTc and bradycardia. Patient was admitted further for workup. Patient's metoprolol succinate was held, continuous telemetry revealed improved heart rate and repeat EKG showed improved QTc and echocardiogram was repeated which showed normal LV size and function, EF 55 to 60%, grade 2 diastolic dysfunction, normal RV size and function, RVSP 35 mmHg. For patient's gastritis she was started on Carafate, H. pylori studies were ordered, pending results patient symptoms did improve with Protonix and Carafate. Patient's ARTHUR resolved with IV fluids blood pressure control was obtained during hospitalization further plan is to discharge patient home and follow-up with cardiology in 1 week. Patient will be discharged on losartan 50 mg p.o. daily and amlodipine 5 mg p.o. daily, cardiology following patient closely, will uptitrate medications as needed. Patient to take Protonix 40 mg twice daily along with Carafate for symptoms of gastritis, patient is already established with taproom attendant outpatient instructed to follow-up in 1 to 2 weeks. Patient will follow-up in [facility] to follow-up on results of H. pylori test. Patient to stop metoprolol succinate, amitriptyline due to QTc prolongation. Patient instructed to avoid QTc prolongation agents patient to follow peptic ulcer diet, patient is stable for discharge. Patient responded well to hospital treatment. Discharge diagnosis: #Presyncopal episode possibly secondary to underlying bradycardia versus medication overdose #Prolonged QTc-resolved #Heart failure with preserved ejection fraction, EF 50 to 60%, diastolic heart failure #ARTHUR, resolved #Gastritis #Abdominal pain #History of duodenitis, esophageal ulcers, and GERD #History of hypothyroidism #CKD stage 3 #Hypertension #Hypothyroidism #Osteoarthritis #Depression Case discussed with Attending Dr. Barber. Alec Gandara PGY1 Disclaimer: This note was dictated by speech recognition. Minor errors in supervisor blueprinting and photocopy may be present due to voice recognition software. Time Spent with Patient Time attestation: Total time spent providing and/or coordinating discharge services: Time spent: Greater than 30 minutes Exam Vital Signs Temp Pulse Resp BP Pulse Ox O2 Del Method 97.8 F 71 23 H 156/81 H 96 Room Air 12/03/24 12:00 12/03/24 12:00 12/03/24 12:00 12/03/24 12:00 12/03/24 12:00 12/03/24 12:00 Narrative Exam Physical Exam General: Awake and in no acute distress. Conversational and non-toxic appearing, sitting at the bedside. HEENT: Normocephalic, atraumatic, mucous membranes moist. Heart: Regular rate and rhythm, normal S1 and S2, no murmurs. Lungs: Clear to auscultation with no wheezing or crackles. Abdomen: Soft, nondistended, nontender, positive bowel sounds. ?No guarding or rebound tenderness. Neurologic: Alert and oriented x3, no gross neurological deficit, and patient able to move all 4 extremities. Extremities: No edema. Skin: No rash or ecchymoses. Discharge Plan Plan Patient Disposition: HOME (Self Care) Patient condition on transfer: Stable Prescriptions/Referrals Prescriptions/Med Rec: New sucralfate 1 gram Tablet 1 g PO TID 30 Days Qty: 90 0RF pantoprazole 40 mg Tablet,Delayed Release (Dr/Ec) 40 mg PO BID 30 Days Qty: 60 0RF losartan 50 mg tablet 50 mg PO QDAY 30 Days Qty: 30 0RF amlodipine 5 mg tablet 5 mg PO QDAY 30 Days Qty: 30 0RF Continued ferrous fumarate 325 mg (106 mg iron) tablet 325 mg PO BID Qty: 60 0RF levothyroxine 25 mcg tablet 25 mcg PO DAILY Patient Comments: TAKE 1 TABLET BY MOUTH EVERY DAY Held tramadol 50 mg tablet 50 mg PO .PM PRN (Reason: for headache) Hold Instructions: Resume on 12/17/24. Follow up with PCP Patient Comments: TAKE 1 TABLET BY MOUTH TWICE DAILY FOR 7 DAYS NEEDED for headache spironolactone 25 mg tablet 25 mg PO .AM Hold Instructions: Resume on 12/17/24. Follow up with Human Resources Hr Representative Dr. Greer before resuming. Discontinued pantoprazole [Protonix] 40 mg Recon Soln 40 mg QDAY amlodipine 10 mg Tablet 5 mg PO DAILY sulfamethoxazole-trimethoprim 800-160 mg tablet 1 tab PO BID Patient Comments: TAKE 1 TABLET BY MOUTH TWICE DAILY FOR 7 DAYS prednisone 20 mg tablet 40 mg PO DAILY Patient Comments: TAKE 2 TABLETS BY MOUTH DAILY IN THE MORNING FOR 5 DAYS amitriptyline 25 mg Tablet 25 mg PO HS Edarbi 80 mg Tablet 80 mg PO QAM metoprolol succinate 25 mg Tablet Extended Release 24 Hr 25 mg PO QDAY Qty: 30 0RF Referrals: Toby Greer MD [Physician] - Cynthia Danielle MD [Primary Care Provider] - Alec Gandara MD [Resident] - Patient/Caregiver Discharge Instructions Discharge Activity: activity as tolerated Other Discharge Activity Instructions:: Stop metoprolol succinate, follow-up with cardiology in 1 to 2 weeks Take losartan 50 mg and amlodipine 5 mg for high blood pressure management, follow-up with conductor/brakeman outpatient in 1 to 2 weeks to optimize blood pressure management. We have decreased the dose of amlodipine to 5 mg daily. Take Protonix 40 mg twice daily for 1 month and sucralfate 1 g p.o. 3 times daily. Take sucralfate on an empty stomach, 2 hours after or 1 hour before meals and other medications Follow peptic ulcer diet, avoid spicy foods caffeine. Follow-up with taproom attendant in 1 to 2 weeks. Avoid QT prolonging agents (Zofran, amitriptyline), make sure all the doctors know that you have history of QT prolongation. Follow-up in [facility] in 1 to 2 weeks to follow H. Pylori results. Call [phone] to make an appointment for [facility] Address: [facility], [address], [address], [place], [address] Return to ED if symptoms return or worsen. Education Materials: Understanding Gastritis, Discharge Instructions- Eating ... Print Language: Martiniquais Stand Alone Forms: Eloisa Award Info., Patient Portal Info Letter Discharge Order Discharge Orders: Discharge (Routine); Ordered 12/03/24 Ordered By: Alec Gandara Quality Discharge Quality Measures none MD Attestestation MD Attestation I have discussed and was present for the essential components of the discharge history, physical examination, diagnosis, and discharge treatment plan with the resident. I agree with the patient's discharge care as documented by the resident and amended herein by me. Kong Barber, DO. The patient understood all discharge instructions, all questions were answered satisfactorily. The patient was instructed to return to the Emergency Departmen t is symptoms worsened or persisted. Patient stable, afebrile, tolerating p.o. intake at time of discharge home. Please see medication adjustments above, patient will also need gastroenterology follow-up, history of esophageal ulcers, gastritis probably needs another upper endoscopy at this point however she stated she is already made appointment. All questions were answered satisfactorily. Although this document has been carefully reviewed, there may still be some phonetic and other typographical errors. These errors are purely grammatical due to imperfections in the software program and should not be construed in any way to compromise the substance of the patient's medical care during this visit.
[2024-12-04 01:30] LABS: Folate > 24.00 ng/mL (>5.38); Vitamin B12 404 pg/mL (211-911)
[2024-12-07 06:28] LABS: Helicobacter pylori Ag, Stool* NOT DETECTED (NOT DETECTED)
== END 2024-12-03 16:06 | disposition home or self-care (01) | DRG 309 ==
LOC: SERX 17:49 → SERHOLD 18:22 → S2NX 12-02 01:29
PROVIDERS: Internal Medicine; Admitting Provider Student in an Organized Health Care Education/Training Program; Emergency Provider Emergency Medicine; PCP Family Medicine; Visit Provider Student in an Organized Health Care Education/Training Program
DX: R00.1 Bradycardia, unspecified (principal); I13.0 Hypertensive heart and chronic kidney disease with heart failure and stage 1 through stage 4 chronic kidney disease, or unspecified chronic kidney disease; N17.9 Acute kidney failure, unspecified; I50.42 Chronic combined systolic (congestive) and diastolic (congestive) heart failure; K21.9 Gastro-esophageal reflux disease without esophagitis; R55 Syncope and collapse; E03.9 Hypothyroidism, unspecified; K29.70 Gastritis, unspecified, without bleeding; D64.9 Anemia, unspecified; F32.A Depression, unspecified; F41.9 Anxiety disorder, unspecified; N18.30 Chronic kidney disease, stage 3 unspecified; G89.29 Other chronic pain; E86.0 Dehydration; G24.9 Dystonia, unspecified; H91.90 Unspecified hearing loss, unspecified ear; T50.901A Poisoning by unspecified drugs, medicaments and biological substances, accidental (unintentional), initial encounter; R94.31 Abnormal electrocardiogram [ECG] [EKG]; Z79.899 Other long term (current) drug therapy; Z86.73 Personal history of transient ischemic attack (TIA), and cerebral infarction without residual deficits; Z87.891 Personal history of nicotine dependence; Z87.11 Personal history of peptic ulcer disease
CPT/HCPCS: 36415; 71045; 80053; 80061; 80307; 81001; 82607; 82746; 83540; 83550; 83605; 83735; 84100; 84443; 84484; 85025; 87081; 87338; 93005; 93306; 96372; 99285; J1200; J1643; J1885; J2765; J3490; J7040; A9270

== ENCOUNTER → 2024-12-06 | Outpatient (CLI) | payer MEDICARE, BC, SELFPAY ==
[2024-12-05 13:50] VITALS: BMI 27.3
[2024-12-05 18:52] VITALS: BMI 27.3
--- NOTE | 2024-12-06 07:00 | EKG_ITS ---
[facility] Test Date: 2024-12-06 Pat Name: URSULA NEWMAN Department: Room: - Gender: Female [employer] Worker: [id number] : 1945 Requested By: Mallory Cardoza Order Number: [id number] Reading MD: Mallory Cardoza Measurements Intervals [place] Rate: 61 P: 64 TX: 164 QRS: -3 QRSD: 153 T: 114 QT: 466 QTc: 470 Interpretive Statements SINUS RHYTHM WITH OCCASIONAL VENTRICULAR PREMATURE COMPLEXES LEFT BUNDLE BRANCH BLOCK [120+ ms QRS DURATION, 80+ ms Q/S IN V1/V2, 85+ ms R IN I/aVL/V5/V6] Compared to ECG 12/02/2024 08:40:32 Sinus bradycardia no longer present /store/S0/[id number].pdf
[2024-12-06 09:47] LABS: Basophils % (Auto) 1 % (0-2.5); Eosinophils # (Auto) 0.1 Thou/mm3 (0.0-0.5); Eosinophils % (Auto) 1 % (0-10); Hematocrit 33.5 % (36.0-46.0); Hemoglobin 10.9 g/dL (12.0-16.0); Immature Granulocytes % (Auto) 0 % (0-0); Immature Granulocytes Auto 0.02 Thou/mm3 (0.00-0.00); Lymphocytes # (Auto) 2.8 Thou/mm3 (1.0-4.8); Lymphocytes % (Auto) 39 % (10-50); Mean Corpuscular HGB Conc 32.5 g/dl (31.0-37.0); Mean Corpuscular Hemoglobin 30.6 pg (25.0-35.0); Mean Corpuscular Volume 94 fL (80-100); Monocytes # (Auto) 0.7 Thou/mm3 (0.0-0.8); Monocytes % (Auto) 9 % (0-12); Neutrophils # (Auto) 3.6 Thou/mm3 (1.8-7.7); Neutrophils % (Auto) 50 % (37-80); Nucleated Red Blood Cell % 0 /100 WBC (0); Platelet Count 261 Thou/mm3 (140-440); RDW Standard Deviation 45.3 fL (36.4-46.3); Red Blood Count 3.56 Miln/mm3 (4.00-5.20); White Blood Count 7.2 Thou/mm3 (3.6-11.0)
[2024-12-06 09:54] LABS: Partial Thromboplastin Time 24.2 Seconds (22.0-36.0); Prothrombin Time 10.8 Seconds (9.0-12.2)
[2024-12-06 10:06] LABS: Anion Gap 8 (7-16); BUN/Creatinine Ratio 31 Ratio (12-20); Blood Urea Nitrogen 47 mg/dL (9-23); Calcium 9.8 mg/dL (8.3-10.6); Carbon Dioxide 26.4 mMol/L (20.0-31.0); Chloride 107 mMol/L (98-107); Creatinine (Component) 1.5 mg/dL (0.6-1.3); Estimated Creatinine Clearance 27.6 mL/min (>60); Glucose 99 mg/dL (74-106); Osmolality,Calculated 293 (275-295); Potassium 4.8 mMol/L (3.4-5.1); Sodium 141 mMol/L (136-145); eGFR 35 See Note
== END | disposition home or self-care (01) ==
LOC: SLAB 12-08 07:59
PROVIDERS: PCP Family Medicine; Referring Provider Internal Medicine Cardiovascular Disease; Visit Provider Internal Medicine Cardiovascular Disease
DX: Z01.812 Encounter for preprocedural laboratory examination (principal); I20.89 Other forms of angina pectoris
CPT/HCPCS: 36415; 80048; 85025; 85610; 85730; 93005

== ENCOUNTER 2025-02-02 13:45 | Outpatient (AMB) | payer MEDICARE, BC, SELFPAY ==
--- NOTE | 2025-02-02 14:21 | PD.RESCLINIC ---
Vital Signs 02/02/25 14:22 Height 1.6 m Height Method Stated Weight 70.76 kg Weight Measurement Method Standing Scale BMI 27.6 BP 161/67 H Blood Pressure Source Automatic Cuff Blood Pressure Location Right Upper Arm Position Sitting Respiration 18 Pulse 76 Pulse Source Monitor Temp 98.2 F Temp Source Temporal Artery Scan Pulse Oximetry (%) 94 L Oxygen Delivery Method Room Air Allergies/Meds Allergies & Medications Allergies No Known Allergies Allergy (Verified 02/09/25 14:32) Medication Reconciliation amlodipine 10 mg tablet 10 mg PO QDAY #30 tabs 02/09/25 [Rx] cefdinir 300 mg capsule 300 mg PO QDAY UTI #7 caps 02/09/25 [Rx] hydroxyzine HCl 25 mg tablet 12.5 mg (1/2 x 25 mg) PO BID PRN anxiety #30 tabs 02/09/25 [Rx] levothyroxine 25 mcg capsule 25 mcg PO QDAY 02/09/25 [History] losartan 50 mg tablet 50 mg PO QDAY 02/09/25 [History] spironolactone 25 mg tablet 25 mg PO QDAY 02/09/25 [History] tramadol 50 mg tablet 50 mg PO BID PRN 02/09/25 [History] MA Intake Visit Data Collection New Patient or Established: Established Patient (seen at [facility] within 3 years) Seen by Clinical Staff ONLY (RN/GIANNA): No Pain Present Currently: No Pain scale:: 0 Pain Scale Used: Fabian-Calderon/[employer] Required: No PCP or OBGYN visit in last 3 months: No Hx Now: No Do You Feel Safe at Home: Yes Authorities Contacted: N/A Smoking Status Smoking Status: Former smoker Immunization / Flu Flu Vaccine in the Last 12 Months: No Flu Vaccine Exclusion Criteria: No Exclusion Criteria Past Medical History Past Medical History NEUROLOGIC: Positive Neurological Disorders and Cerebrovascular Accident; Negative Transient Ischemic Attacks (TIA), Dementia, Alzheimer's Disease, Parkinson's Disease, Brain Tumor, Meningitis, Seizures, Epilepsy, Multiple Sclerosis, Cerebral Palsy, Amyotrophic Lateral Sclerosis (ALS/Ciarra Gehrig's), Guillain-[place] Syndrome, Spina Bifida, Paralysis, Peripheral Neuropathy, Logan's Palsy, Subdural Hematoma, Migraine, Head Trauma, Spinal Cord Injury or Traumatic Brain Injury CARDIAC: Positive Hypercholesterolemia, Congestive Heart Failure and Hypertension; Negative Cardiac Disorders, Myocardial Infarction, Cardiac Arrhythmia, Atrial Fibrillation, Angina, Heart Murmur, Coronary Artery Disease, Atherosclerotic Heart Disease, Peripheral Vascular Disease, Aneurysm, Congenital Heart Disease, Valvular Heart Disease, Rheumatic Fever, Cardiomyopathy, Edema, Pericarditis, Cellulitis, Deep Vein Thrombosis, Hypotension or Varicose Veins RESPIRATORY: Positive Pneumonia; Negative Chronic Obstructive Pulmonary Disease (COPD), Asthma, Bronchitis, Emphysema, Pulmonary Fibrosis, Cystic Fibrosis, Tuberculosis, Pulmonary Embolism, Pulmonary Edema or Sleep Apnea GASTROINTESTINAL: Positive Ulcer and Obesity; Negative Gastrointestinal Disorders, Hepatitis, Cirrhosis, Pancreatitis, Celiac Disease, Gall Bladder Disease, Gastrointestinal Bleed, Esophageal Varices, Parra's Esophagus, Colitis, Ulcerative Colitis, Diverticulitis, Diverticulosis, Colorectal Cancer, Irritable Bowel, Crohn's Disease, Obstructive Bowel, Hiatal Hernia, Hemorrhoids or Gastroesophageal Reflux Disease GENITOURINARY: Positive Renal Disease; Negative Genitourinary Disorders, Kidney Stones, Polycystic Kidney Disease, Neurogenic Bladder, Inguinal Hernia, Dialysis, Prostate Cancer or Benign Prostatic Hyperplasia REPRODUCTIVE: Positive Previous Pregnancies; Negative Breast Cancer, Endometriosis, Genital Herpes, Gonorrhea, Pelvic Inflammatory Disease, Syphilis, Testicular Cancer or Uterine Prolapse MUSCULOSKELETAL: Positive Arthritis; Negative Muscular Dystrophy, Myasthenia Gravis, Marfan's Syndrome, Bone Cancer, Rheumatoid Arthritis, Osteoporosis, Degenerative Disk Disease, Gout, Scoliosis, Carpal Tunnel Syndrome, Fibromyalgia, Fractures, Degenerative Joint Disease, Osteomyelitis or Poliovirus ENT: Positive Cataracts and Deafness; Negative Glaucoma, Blind, Retinal Detachment, Macular Degeneration, Ear Infection, Head Trauma or Eye Prosthesis ENDOCRINE: Negative Endocrine Disorders, Diabetes Mellitus Type 1, Diabetes Mellitus Type 2, Hypoglycemia, Serafin's Syndrome, Ino's Disease, Hyperthyroidism, Hypothyroidism, Parathyroid Disease, Pituitary Disease, Systemic Lupus Erythematosus, Syndrome of Inappropriate Antidiuretic Hormone (SIADH), Adrenal Disease or Graves' Disease HEMATOLOGIC: Positive Blood Disorders; Negative Anemia, Leukemia, Hemophilia, Thalassemia, Sickle Cell Disease or Clotting Problems PSYCHO/SOCIAL: Negative Psychiatric Problems, Schizophrenia, Recreational Drug Use, Bipolar Disorder, Depression, Anxiety, Behavior Problems, Self-Mutilation, Attention Deficit Disorder, Attention Deficit Hyperactivity Disorder, Depression, Post Traumatic Stress Disorder or Eating Disorder OTHER HISTORY: Positive Falls, Blood Transfusions, Chicken Pox, Measles, Mumps and Clostridium Difficile; Negative Hospitalization, Down Syndrome, Autism, Developmental Delay, Shingles, Blood Transfusion Reaction, Anesthesia Reactions, Organ Transplant, Chemotherapy, Radiation Therapy, Hyperbaric Therapy, MRSA, Vancomycin-Resistant Enterococci, Human Immunodeficiency Virus (HIV), Rubella (Hebrew Measles), Pertussis, Cancer, Breast Cancer, Cervical Cancer, Colorectal Cancer, Lung Cancer, Ovarian Cancer, Prostate Cancer or Testicular Cancer Family History FAMILY HISTORY: Negative Family Psychiatric Problems, Family Respiratory Disorders, Family Cardiac Disorders, Family Gastrointestinal Problems, Family Cancer, Family Surgery or Family Anesthesia Reaction Surgical History SURGICAL: Positive Eye Surgery; Negative Cardiac Surgery, Open Heart Surgery, Coronary Artery Bypass Graft, Valve Replacement, Vascular Surgery, Coronary Stent, Cardiac Catheterization, Pacemaker, Angiogram, Auto Implanted Cardiovert Defib, Carotid Endarterectomy, Endocrine Surgery, Thyroidectomy, Ear Surgery, Tympanostomy Tube, Nose Surgery, Oral Surgery, Tonsillectomy, Adenoidectomy, Cochlear Implant, Corneal Transplant, Throat Surgery, Abdominal Surgery, Tracheostomy, Gastric Bypass Surgery, Gastrostomy, Nephrectomy, Transurethral Resection, Joint Replacement, Amputation, Open Reduction Internal Fixation, Arthroscopy, Neurologic Surgery, Brain Shunt, Mastectomy, Lumpectomy, Hysterectomy, Tubal Ligation, Section or Organ Transplant Social History SMOKING STATUS: Smoking status: Former smoker ALCOHOL: Alcohol Intake: Never HOUSING: Housing: House LIVES WITH: Lives With: Alone Patient Portal Questionaires Social History Living Situation History Housing: House Housing Other:: Patient resides alone at home. Tobacco History Smoking Status: Former smoker Alcohol History Alcohol Intake: Never Domestic Abuse History Do You Feel Safe at Home: Yes Review of Systems Report any current symptoms Only answer those that you have currently: Past Medical History Past Medical History Have you ever been diagnosed with any of the following: Neurological Problems Cerebrovascular Accident (CVA): Yes Transient Ischemic Attacks (TIA): No Dementia: No Alzheimer's Disease: No Parkinson's Disease: No Brain Tumor: No Meningitis: No Seizures: No Epilepsy: No Multiple Sclerosis: No Cerebral Palsy: No Amyotrophic Lateral Sclerosis (ALS/Ciarra Gehrig's): No Guillain-[place] Syndrome: No Spina Bifida: No Paralysis: No Peripheral Neuropathy: No Logan's Palsy: No Subdural Hematoma: No Migraine: No Head Trauma: No Spinal Cord Injury: No Traumatic Brain Injury: No Cardiology Problems Myocardial Infarction: No Cardiac Arrhythmia: No Atrial Fibrillation: No Angina: No Heart Murmur: No Coronary Artery Disease: No Atherosclerotic Heart Disease: No Peripheral Vascular Disease: No Hypercholesterolemia: Yes Aneurysm: No Congestive Heart Failure: Yes Congenital Heart Disease: No Valvular Heart Disease: No Rheumatic Fever: No Cardiomyopathy: No Edema: No Pericarditis: No Cellulitis: No Deep Vein Thrombosis: No Hypertension: Yes Hypotension: No Varicose Veins: No Respiratory Problems Chronic Obstructive Pulmonary Disease (COPD): No Asthma: No Bronchitis: No Emphysema: No Pneumonia: Yes Pulmonary Fibrosis: No Tuberculosis: No Pulmonary Embolism: No Pulmonary Edema: No Sleep Apnea: No Stomache/Intestinal Problems Hepatitis: No Cirrhosis: No Pancreatitis: No Celiac Disease: No Gall Bladder Disease: No Gastrointestinal Bleed: No Esophageal Varices: No Parra's Esophagus: No Colitis: No Ulcerative Colitis: No Diverticulitis: No Diverticulosis: No Ulcer: Yes Colorectal Cancer: No Irritable Bowel: No Crohn's Disease: No Obstructive Bowel: No Hiatal Hernia: No Hemorrhoids: No Gastroesophageal Reflux Disease: No Obesity: Yes Genital/Urinary Problems Renal Disease: Yes Kidney Stones: No Polycystic Kidney Disease: No Neurogenic Bladder: No Inguinal Hernia: No Dialysis: No Reproductive Problems Breast Cancer: No Endometriosis: No Genital Herpes: No Gonorrhea: No Pelvic Inflammatory Disease: No Previous Pregnancies: Yes Syphilis: No Uterine Prolapse: No Musculoskeletal Problems Muscular Dystrophy: No Myasthenia Gravis: No Marfan's Syndrome: No Bone Cancer: No Arthritis: Yes Rheumatoid Arthritis: No Osteoporosis: No Degenerative Disk Disease: No Gout: No Scoliosis: No Carpal Tunnel Syndrome: No Fibromyalgia: No Fractures: No Degenerative Joint Disease: No Osteomyelitis: No Poliovirus: No Head,Eye,Nose,Throat Problems Cataracts: Yes Glaucoma: No Blind: No Retinal Detachment: No Macular Degeneration: No Chronic Ear Infections: No Deafness: Yes Eye Prosthesis: No Endocrine Problems Diabetes Mellitus Type 1: No Diabetes Mellitus Type 2: No Hypoglycemia: No [place]'s Syndrome: No Ino's Disease: No Hyperthyroidism: No Hypothyroidism: No Parathyroid Disease: No Pituitary Disease: No Systemic Lupus Erythematosus: No Syndrome of Inappropriate Antidiuretic Hormone: No Adrenal Disease: No Graves' Disease: No Blood Problems Anemia: No Leukemia: No Hemophilia: No Thalassemia: No Sickle Cell Disease: No Clotting Problems: No Psychologic Problems Schizophrenia: No Recreational Drug Use: No Bipolar Disorder: No Depression: No Anxiety: No Behavior Problems: No Self-Mutilation: No Attention Deficit Disorder: No Attention Deficit Hyperactivity Disorder: No Depression: No Post Traumatic Stress Disorder: No Eating Disorder: No Other Problems Hospitalization: No Down Syndrome: No Autism: No Developmental Delay: No Shingles: No Falls: Yes Blood Transfusions: Yes Blood Transfusion Reaction: No Anesthesia Reactions: No Organ Transplant: No Chemotherapy: No Radiation Therapy: No Hyperbaric Therapy: No MRSA: No Vancomycin-Resistant Enterococci: No Human Immunodeficiency Virus (HIV): No Chicken Pox: Yes Measles: Yes Mumps: Yes Rubella (Hebrew Measles): No Pertussis: No Clostridium Difficile: Yes Cancer: No Cervical Cancer: No Lung Cancer: No Ovarian Cancer: No Surgical History Carotid Endarterectomy: No Coronary Artery Bypass Graft: No Valve Replacement: No Hysterectomy: No Pacemaker: No Thyroidectomy: No History of Present Illness HPI Narrative Ms. Panda is a 79-year-old female with past medical history of heart failure with preserved ejection fraction EF 50 to 60%, grade 2 diastolic dysfunction, primary hypertension (follows Dr. Greer), hypothyroidism, esophageal ulcer, erosive gastroduodenitis (EGD 2019), GERD (used to follow with Mayuri Rangel), hemorrhoids, osteoarthritis and depression who presented to [facility] to establish care. Patient was discharged from [facility] in November 2024 for underlying presyncopal episode, prolonged QTc after suspected accidental medication overdose. During hospitalization patient's metoprolol was held for gastritis patient was started on Protonix and Carafate, H. pylori studies were ordered. Patient was discharged to the care of cardiology and was advised to follow-up in [facility] as needed. 02/02/2025: Patient seen and examined in clinic, patient complained of significant anxiety, reports that she has not been feeling well, feels anxious at times is not able to continue her daily activities of daily living, patient does have reported history of depression however patient is not on any medications, does have history of QT prolongation hence decision was made to start patient on hydroxyzine 25 mg p.o. twice daily. Patient does not have other home medications with her, reports that she can bring them during her next visit. Elevated blood pressure reading noted during this visit, reports that she was started on new medication by cardiology recently. We will assess patient in a week to monitor for hydroxyzine response, do thorough med reconciliation and address other underlying issues. Of note patient's labs were reviewed from November H. pylori antigen not detected. Review of Systems Review of Systems Systems Reviewed: All systems reviewed, normal except as documented Objective/Exam Narrative Physical exam: Physical Exam General: Awake and in no acute distress. Conversational and non-toxic appearing elderly female. HEENT: Normocephalic, atraumatic, mucous membranes moist. Heart: Regular rate and rhythm, no murmurs. Lungs: Clear to auscultation with no wheezing or crackles. Abdomen: Soft, nondistended, nontender, positive bowel sounds. ?No guarding or rebound tenderness. Neurologic: Alert and oriented x3, no gross neurological deficit, and patient able to move all 4 extremities. Extremities: No edema. Skin: No rash or ecchymoses. Assessment & Plan Diagnosis / Problem List (1) Anxiety: Status: Chronic Assessment & Plan: Patient complains of anxiety Has history of QT prolongation Also has history of depression Denies taking any medication for both Plan: - Will start on hydroxyzine 25 mg p.o. twice daily - Monitor Response in 7 days (2) Gastritis and duodenitis: Status: Chronic Assessment & Plan: by history esophageal ulcer, erosive gastroduodenitis (EGD 2019), GERD (used to follow with Dr. Huynh [place]) H Pylori was ordered Plan: -H Pylori was negative -Pending Med Rec, no active complains (3) Congestive heart failure: Status: Chronic Qualifiers: Heart failure chronicity: chronic Heart failure type: diastolic Qualified Code(s): I50.32 - Chronic diastolic (congestive) heart failure Assessment & Plan: Follow Cardiology Dr. Greer Ejection fraction EF 50 to 60%, grade 2 diastolic dysfunction and h/o primary hypertension Plan: -Pending Med rec elevated BP reading noted -Follow Up with Cardiology (4) Hypothyroid: Status: Chronic Qualifiers: Hypothyroidism type: unspecified Qualified Code(s): E03.9 - Hypothyroidism, unspecified Assessment & Plan: h/o of Hypothyroidism Plan: -Pending Med rec -Continue home meds Plan Start Hydroxyzine Follow up with Med Rec in 7 days Follow with Cardiology Case discussed with Attending Dr. Giron. Alec Gandara PGY1 Disclaimer: This note was dictated by speech recognition. Minor errors in marketing recruiter may be present due to voice recognition software. Additional Assessment Attending note: I, Joni Giron MD, attest that I was physically present for the daniels portions of the service and evaluated the patient with the resident and I reviewed and discussed the case with the resident and agree with the resident's findings and plans of care as documented above. Joni Giron MD Advanced Care Planning Advance care planning discussed with:: patient Physician Billing New Patient New Patient: E/M Level 3-CPT [id number] Office Procedures [facility] Level of Care Nursing/Assessment Patient Status: Established Patient Nursing Assessment/Reassessment: Medication Reconciliation, Update PMH in EMR and Vital Signs Coordination of Care: Complex Care and Chronic Disease 1-5, Consent,records obtained, informed consent, Education Simp Pt/Fam and Staff clarify orders Established Patient Charge Established Patient Point Assignment: 85 Established Patient Point Charge: EP Level 3 (80-115)
[2025-02-02 14:22] VITALS: BP 161/67; PULSE 76; RESP 18; TEMP 36.8; O2SAT 94; BMI 27.6
== END 2025-02-02 14:58 | disposition home or self-care (01) ==
LOC: HODAHC 13:45
PROVIDERS: Supervising Provider Internal Medicine
DX: F41.9 Anxiety disorder, unspecified (principal); R03.0 Elevated blood-pressure reading, without diagnosis of hypertension; E03.9 Hypothyroidism, unspecified; K29.70 Gastritis, unspecified, without bleeding; K29.80 Duodenitis without bleeding
CPT/HCPCS: 99213; G0463

== ENCOUNTER 2025-02-09 13:54 | Outpatient (AMB) | payer MEDICARE, BC, SELFPAY ==
[2025-02-09 14:31] VITALS: BP 164/67; PULSE 75; RESP 18; TEMP 36.8; O2SAT 94; BMI 27.7
--- NOTE | 2025-02-09 14:31 | ACNOTE_ITS ---
Vital Signs 02/09/25 14:31 Height 1.6 m Height Method Stated Weight 70.987 kg Weight Measurement Method Standing Scale BMI 27.7 BP 164/67 H Blood Pressure Source Automatic Cuff Blood Pressure Location Right Upper Arm Position Sitting Respiration 18 Pulse 75 Pulse Source Monitor Temp 98.3 F Temp Source Temporal Artery Scan Pulse Oximetry (%) 94 L Oxygen Delivery Method Room Air Allergies/Meds Allergies & Medications Allergies No Known Allergies Allergy (Verified 02/09/25 14:32) Medication Reconciliation amlodipine 10 mg tablet 10 mg PO QDAY #30 tabs 02/09/25 [Rx] cefdinir 300 mg capsule 300 mg PO QDAY UTI #7 caps 02/09/25 [Rx] hydroxyzine HCl 25 mg tablet 12.5 mg (1/2 x 25 mg) PO BID PRN anxiety #30 tabs 02/09/25 [Rx] levothyroxine 25 mcg capsule 25 mcg PO QDAY 02/09/25 [History] losartan 50 mg tablet 50 mg PO QDAY 02/09/25 [History] spironolactone 25 mg tablet 25 mg PO QDAY 02/09/25 [History] tramadol 50 mg tablet 50 mg PO BID PRN 02/09/25 [History] MA Intake Visit Data Collection New Patient or Established: Established Patient (seen at [facility] within 3 years) Seen by Clinical Staff ONLY (RN/GIANNA): No Pain Present Currently: No Pain scale:: 0 Pain Scale Used: Fabian-Calderon/Numerical Brusher Required: No PCP or OBGYN visit in last 3 months: No Hx Now: No Smoking Status Smoking Status: Former smoker Immunization / Flu Flu Vaccine in the Last 12 Months: No Flu Vaccine Exclusion Criteria: No Exclusion Criteria Past Medical History Past Medical History NEUROLOGIC: Positive Neurological Disorders and Cerebrovascular Accident; Negative Transient Ischemic Attacks (TIA), Dementia, Alzheimer's Disease, Parkinson's Disease, Brain Tumor, Meningitis, Seizures, Epilepsy, Multiple Sclerosis, Cerebral Palsy, Amyotrophic Lateral Sclerosis (ALS/Ciarra Gehrig's), Guillain-[place] Syndrome, Spina Bifida, Paralysis, Peripheral Neuropathy, Logan's Palsy, Subdural Hematoma, Migraine, Head Trauma, Spinal Cord Injury or Traumatic Brain Injury CARDIAC: Positive Hypercholesterolemia, Congestive Heart Failure and Hypertension; Negative Cardiac Disorders, Myocardial Infarction, Cardiac Arrhythmia, Atrial Fibrillation, Angina, Heart Murmur, Coronary Artery Disease, Atherosclerotic Heart Disease, Peripheral Vascular Disease, Aneurysm, Congenital Heart Disease, Valvular Heart Disease, Rheumatic Fever, Cardiomyopathy, Edema, Pericarditis, Cellulitis, Deep Vein Thrombosis, Hypotension or Varicose Veins RESPIRATORY: Positive Pneumonia; Negative Chronic Obstructive Pulmonary Disease (COPD), Asthma, Bronchitis, Emphysema, Pulmonary Fibrosis, Cystic Fibrosis, Tuberculosis, Pulmonary Embolism, Pulmonary Edema or Sleep Apnea GASTROINTESTINAL: Positive Ulcer and Obesity; Negative Gastrointestinal Disorders, Hepatitis, Cirrhosis, Pancreatitis, Celiac Disease, Gall Bladder Disease, Gastrointestinal Bleed, Esophageal Varices, Parra's Esophagus, Colitis, Ulcerative Colitis, Diverticulitis, Diverticulosis, Colorectal Cancer, Irritable Bowel, Crohn's Disease, Obstructive Bowel, Hiatal Hernia, Hemorrhoids or Gastroesophageal Reflux Disease GENITOURINARY: Positive Renal Disease; Negative Genitourinary Disorders, Kidney Stones, Polycystic Kidney Disease, Neurogenic Bladder, Inguinal Hernia, Dialysis, Prostate Cancer or Benign Prostatic Hyperplasia REPRODUCTIVE: Positive Previous Pregnancies; Negative Breast Cancer, Endometriosis, Genital Herpes, Gonorrhea, Pelvic Inflammatory Disease, Syphilis, Testicular Cancer or Uterine Prolapse MUSCULOSKELETAL: Positive Arthritis; Negative Muscular Dystrophy, Myasthenia Gravis, Marfan's Syndrome, Bone Cancer, Rheumatoid Arthritis, Osteoporosis, Degenerative Disk Disease, Gout, Scoliosis, Carpal Tunnel Syndrome, Fibromyalgia, Fractures, Degenerative Joint Disease, Osteomyelitis or Poliovirus ENT: Positive Cataracts and Deafness; Negative Glaucoma, Blind, Retinal Detachment, Macular Degeneration, Ear Infection, Head Trauma or Eye Prosthesis ENDOCRINE: Negative Endocrine Disorders, Diabetes Mellitus Type 1, Diabetes Mellitus Type 2, Hypoglycemia, [place]'s Syndrome, Ino's Disease, Hyperthyroidism, Hypothyroidism, Parathyroid Disease, Pituitary Disease, Systemic Lupus Erythematosus, Syndrome of Inappropriate Antidiuretic Hormone (SIADH), Adrenal Disease or Graves' Disease HEMATOLOGIC: Positive Blood Disorders; Negative Anemia, Leukemia, Hemophilia, Thalassemia, Sickle Cell Disease or Clotting Problems PSYCHO/SOCIAL: Negative Psychiatric Problems, Schizophrenia, Recreational Drug Use, Bipolar Disorder, Depression, Anxiety, Behavior Problems, Self-Mutilation, Attention Deficit Disorder, Attention Deficit Hyperactivity Disorder, Depression, Post Traumatic Stress Disorder or Eating Disorder OTHER HISTORY: Positive Falls, Blood Transfusions, Chicken Pox, Measles, Mumps and Clostridium Difficile; Negative Hospitalization, Down Syndrome, Autism, Developmental Delay, Shingles, Blood Transfusion Reaction, Anesthesia Reactions, Organ Transplant, Chemotherapy, Radiation Therapy, Hyperbaric Therapy, MRSA, Vancomycin-Resistant Enterococci, Human Immunodeficiency Virus (HIV), Rubella (Citizen [place] Measles), Pertussis, Cancer, Breast Cancer, Cervical Cancer, Colorectal Cancer, Lung C ancer, Ovarian Cancer, Prostate Cancer or Testicular Cancer Family History FAMILY HISTORY: Negative Family Psychiatric Problems, Family Respiratory Disorders, Family Cardiac Disorders, Family Gastrointestinal Problems, Family Cancer, Family Surgery or Family Anesthesia Reaction Surgical History SURGICAL: Positive Eye Surgery; Negative Cardiac Surgery, Open Heart Surgery, Coronary Artery Bypass Graft, Valve Replacement, Vascular Surgery, Coronary Stent, Cardiac Catheterization, Pacemaker, Angiogram, Auto Implanted Cardiovert Defib, Carotid Endarterectomy, Endocrine Surgery, Thyroidectomy, Ear Surgery, Tympanostomy Tube, Nose Surgery, Oral Surgery, Tonsillectomy, Adenoidectomy, Cochlear Implant, Corneal Transplant, Throat Surgery, Abdominal Surgery, Tracheostomy, Gastric Bypass Surgery, Gastrostomy, Nephrectomy, Transurethral Resection, Joint Replacement, Amputation, Open Reduction Internal Fixation, Arthroscopy, Neurologic Surgery, Brain Shunt, Mastectomy, Lumpectomy, Hysterectomy, Tubal Ligation, Section or Organ Transplant Social History SMOKING STATUS: Smoking status: Former smoker ALCOHOL: Alcohol Intake: Never HOUSING: Housing: House LIVES WITH: Lives With: Alone Patient Portal Samantha Social History Living Situation History Housing: House Housing Other:: Patient resides alone at home. Tobacco History Smoking Status: Former smoker Alcohol History Alcohol Intake: Never Review of Systems Report any current symptoms Only answer those that you have currently: Past Medical History Past Medical History Have you ever been diagnosed with any of the following: Neurological Problems Cerebrovascular Accident (CVA): Yes Transient Ischemic Attacks (TIA): No Dementia: No Alzheimer's Disease: No Parkinson's Disease: No Brain Tumor: No Meningitis: No Seizures: No Epilepsy: No Multiple Sclerosis: No Cerebral Palsy: No Amyotrophic Lateral Sclerosis (ALS/Ciarra Gehrig's): No Guillain-[place] Syndrome: No Spina Bifida: No Paralysis: No Peripheral Neuropathy: No Logan's Palsy: No Subdural Hematoma: No Migraine: No Head Trauma: No Spinal Cord Injury: No Traumatic Brain Injury: No Cardiology Problems Myocardial Infarction: No Cardiac Arrhythmia: No Atrial Fibrillation: No Angina: No Heart Murmur: No Coronary Artery Disease: No Atherosclerotic Heart Disease: No Peripheral Vascular Disease: No Hypercholesterolemia: Yes Aneurysm: No Congestive Heart Failure: Yes Congenital Heart Disease: No Valvular Heart Disease: No Rheumatic Fever: No Cardiomyopathy: No Edema: No Pericarditis: No Cellulitis: No Deep Vein Thrombosis: No Hypertension: Yes Hypotension: No Varicose Veins: No Respiratory Problems Chronic Obstructive Pulmonary Disease (COPD): No Asthma: No Bronchitis: No Emphysema: No Pneumonia: Yes Pulmonary Fibrosis: No Tuberculosis: No Pulmonary Embolism: No Pulmonary Edema: No Sleep Apnea: No Stomache/Intestinal Problems Hepatitis: No Cirrhosis: No Pancreatitis: No Celiac Disease: No Gall Bladder Disease: No Gastrointestinal Bleed: No Esophageal Varices: No Parra's Esophagus: No Colitis: No Ulcerative Colitis: No Diverticulitis: No Diverticulosis: No Ulcer: Yes Colorectal Cancer: No Irritable Bowel: No Crohn's Disease: No Obstructive Bowel: No Hiatal Hernia: No Hemorrhoids: No Gastroesophageal Reflux Disease: No Obesity: Yes Genital/Urinary Problems Renal Disease: Yes Kidney Stones: No Polycystic Kidney Disease: No Neurogenic Bladder: No Inguinal Hernia: No Dialysis: No Reproductive Problems Breast Cancer: No Endometriosis: No Genital Herpes: No Gonorrhea: No Pelvic Inflammatory Disease: No Previous Pregnancies: Yes Syphilis: No Uterine Prolapse: No Musculoskeletal Problems Muscular Dystrophy: No Myasthenia Gravis: No Marfan's Syndrome: No Bone Cancer: No Arthritis: Yes Rheumatoid Arthritis: No Osteoporosis: No Degenerative Disk Disease: No Gout: No Scoliosis: No Carpal Tunnel Syndrome: No Fibromyalgia: No Fractures: No Degenerative Joint Disease: No Osteomyelitis: No Poliovirus: No Head,Eye,Nose,Throat Problems Cataracts: Yes Glaucoma: No Blind: No Retinal Detachment: No Macular Degeneration: No Chronic Ear Infections: No Deafness: Yes Eye Prosthesis: No Endocrine Problems Diabetes Mellitus Type 1: No Diabetes Mellitus Type 2: No Hypoglycemia: No Serafin's Syndrome: No Ino's Disease: No Hyperthyroidism: No Hypothyroidism: No Parathyroid Disease: No Pituitary Disease: No Systemic Lupus Erythematosus: No Syndrome of Inappropriate Antidiuretic Hormone: No Adrenal Disease: No Graves' Disease: No Blood Problems Anemia: No Leukemia: No Hemophilia: No Thalassemia: No Sickle Cell Disease: No Clotting Problems: No Psychologic Problems Schizophrenia: No Recreational Drug Use: No Bipolar Disorder: No Depression: No Anxiety: No Behavior Problems: No Self-Mutilation: No Attention Deficit Disorder: No Attention Deficit Hyperactivity Disorder: No Depression: No Post Traumatic Stress Disorder: No Eating Disorder: No Other Problems Hospitalization: No Down Syndrome: No Autism: No Developmental Delay: No Shingles: No Falls: Yes Blood Transfusions: Yes Blood Transfusion Reaction: No Anesthesia Reactions: No Organ Transplant: No Chemotherapy: No Radiation Therapy: No Hyperbaric Therapy: No MRSA: No Vancomycin-Resistant Enterococci: No Human Immunodeficiency Virus (HIV): No Chicken Pox: Yes Measles: Yes Mumps: Yes Rubella (Citizen [place] Measles): No Pertussis: No Clostridium Difficile: Yes Cancer: No Cervical Cancer: No Lung Cancer: No Ovarian Cancer: No Surgical History Carotid Endarterectomy: No Coronary Artery Bypass Graft: No Valve Replacement: No Hysterectomy: No Pacemaker: No Thyroidectomy: No History of Present Illness HPI Narrative Ms. Panda is a 79-year-old female with past medical history of heart failure with preserved ejection fraction EF 50 to 60%, grade 2 diastolic dysfunction, primary hypertension (follows Dr. Greer), hypothyroidism, esophageal ulcer, erosive gastroduodenitis (EGD 2019), GERD (used to follow with Mayuri Rangel), hemorrhoids, osteoarthritis and depression who presented to [facility] to establish care. Patient was discharged from [facility] in November 2024 for underlying presyncopal episode, prolonged QTc after suspected accidental medication overdose. During hospitalization patient's metoprolol was held for gastritis patient was started on Protonix and Carafate, H. pylori studies were ordered. Patient was discharged to the care of cardiology and was advised to follow-up in [facility] as needed. 02/02/2025: Patient seen and examined in clinic, patient complained of significant anxiety, reports that she has not been feeling well, feels anxious at times is not able to continue her daily activities of daily living, patient does have reported history of depression however patient is not on any medications, does have history of QT prolongation hence decision was made to start patient on hydroxyzine 25 mg p.o. twice daily. Patient does not have other home medications with her, reports that she can bring them during her next visit. Elevated blood pressure reading noted during this visit, reports that she was started on new medication by cardiology recently. We will assess patient in a week to monitor for hydroxyzine response, do thorough med reconciliation and address other underlying issues. Of note patient's labs were reviewed from November H. pylori antigen not detected. 02/09/2025: Patient seen and examined in clinic for follow-up. Patient was started on hydroxyzine 25 mg p.o. 3 times daily, reports that she took hydroxyzine x 1 and it made her dizzy and somnolent. We will titrate patient's dose to half tablet twice a day as needed, patient agreeable to change. She complains of discomfort/burning pain during urination, reports that she has history of UTI. Will prescribe cefdinir treatment course for 7 days. Patient's elevated blood pressure reading noted, blood pressure 164/67, previous blood pressure from a week ago was elevated as well. Will change amlodipine to 10 mg daily from 5 mg, told patient to inform ceramic chemist. Patient requesting referral to a different urologist in [facility], will refer patient to Dr. Rodriguez. Patient used to follow-up with Dr. Gtz in [place], reports that Dr. Gtz is very busy and she would like to try different neurologist. Patient does have underlying chronic kidney disease per chart review, will refer patient to mill controller Dr. Zavala, for underlying GI issues patient used to follow-up with Dr. Huynh nurse rn bsn, informed patient to reach out to nurse rn bsn, has not seen him in a while, will refer again. Review of Systems Review of Systems Systems Reviewed: All systems reviewed, normal except as documented Objective/Exam Narrative Physical exam: Physical Exam General: Awake and in no acute distress. Conversational and non-toxic appearing elderly female. HEENT: Normocephalic, atraumatic, mucous membranes moist. Heart: Regular rate and rhythm, no murmurs. Lungs: Clear to auscultation with no wheezing or crackles. Abdomen: Soft, nondistended, nontender, positive bowel sounds. ?No guarding or rebound tenderness. Neurologic: Alert and oriented x3, no gross neurological deficit, and patient able to move all 4 extremities. Extremities: No edema. Skin: No rash or ecchymoses. Assessment & Plan Diagnosis / Problem List (1) Urinary tract infection: Status: Acute Qualifiers: Hematuria presence: without hematuria Urinary tract infection type: site unspecified Qualified Code(s): N39.0 - Urinary tract infection, site not specified Assessment & Plan: Complains of burning pain during urination Reports that she feels like she has a UTI Plan: - Ordered urine analysis with reflex culture/senstivity - Patient will be prescribed cefdinir 300 mg p.o. daily, will dose renally (2) CKD (chronic kidney disease) stage 3, GFR 30-59 ml/min: Status: Acute Assessment & Plan: On chart review patient's past baseline GFR 50, reports that she did see Dr. Mccullough in the past Patient does not follow-up with nephrology outpatient Plan: - Referral to nephrology - Continue spironolactone - Ordered urine analysis, CMP (3) Urinary incontinence in female: Status: Acute Assessment & Plan: Patient reports urinary incontinence, bladder issues. Reports following up with Dr. Gtz in [place] Patient is unhappy following up with Dr. Gtz, wants to establish care in [facility] Plan: - Referral to urology (4) Anxiety: Status: Chronic Assessment & Plan: Patient complains of anxiety Has history of QT prolongation Also has history of depression Denies taking any medication for both Patient was prescribed hydroxyzine, reports that it makes her dizzy but is somewhat effective Plan: - Change hydroxyzine dose to 12.5 mg p.o. twice daily as needed - Monitor Response (5) Gastritis and duodenitis: Status: Chronic Assessment & Plan: by history esophageal ulcer, erosive gastroduodenitis (EGD 2019), [facility] H Pylori was negative Plan: - Will refer to Dr. Huynh again - Will benefit from EGD and colonoscopy workup (6) Congestive heart failure: Status: Chronic Qualifiers: Heart failure chronicity: chronic Heart failure type: diastolic Qualified Code(s): I50.32 - Chronic diastolic (congestive) heart failure Assessment & Plan: Follow Cardiology Dr. Greer Ejection fraction EF 50 to 60%, grade 2 diastolic dysfunction and h/o primary hypertension Plan: - Patient's blood pressure reading elevated, uptitrated amlodipine to 10 mg p.o. daily -Patient is on spironolactone 25 mg p.o. daily and losartan 50 mg p.o. daily, will continue -Follow Up with Cardiology (7) Hypothyroid: Status: Chronic Qualifiers: Hypothyroidism type: unspecified Qualified Code(s): E03.9 - Hypothyroidism, unspecified Assessment & Plan: h/o of Hypothyroidism Plan: - Continue home dose levothyroxine 25 mcg p.o. daily - Ordered TSH Plan Ordered CBC, lipid panel, urinalysis C/S as indicated, CMP, magnesium, TSH and hemoglobin A1c Referral to urology, nephrology and gastroenterology. Increase amlodipine to 10 mg daily Decrease hydroxyzine to 12.5 mg p.o. twice daily as needed Continue other home medications spironolactone 25 mg p.o. daily, losartan 50 mg daily Prescribed cefdinir to complete treatment for UTI Case discussed with Attending Dr. Giron. Alec Gandara PGY1 Disclaimer: This note was dictated by speech recognition. Minor errors in candy dipper may be present due to voice recognition software. Orders: Orders CBC 1 Month I10 - Essential (primary) hypertension Lipid Panel 2 Weeks I50.9 - Heart failure, unspecified Urinalysis, C/S if Indicated 1 Month Ambulatory Hemoglobin A1C 4 Weeks I10 - Essential (primary) hypertension Comprehensive Metabolic Panel 1 Month I10 - Essential (primary) hypertension Magnesium 1 Month E03.9 - Hypothyroidism, unspecified Thyroid Stimulating Hormone 1 Month E03.9 - Hypothyroidism, unspecified Referrals Urology N18.30 - Chronic kidney disease, stage 3 unspecified, N39.0 - Urinary tract infection, site not specified, R32 - Unspecified urinary incontinence Nephrology N17.9 - Acute kidney failure, unspecified, N18.30 - Chronic kidney disease, stage 3 unspecified Gastroenterology K29.90 - Gastroduodenitis, unspecified, without bleeding, K92.2 - Gastrointestinal hemorrhage, unspecified Advanced Care Planning Advance care planning discussed with:: patient Office Procedures [facility] Level of Care Nursing/Assessment Patient Status: Established Patient Nursing Assessment/Reassessment: Medication Reconciliation, Update PMH in EMR and Vital Signs Coordination of Care: Complex Care and Chronic Disease 1-5, Consent,records obtained, informed consent, Education Simp Pt/Fam and Staff clarify orders Established Patient Charge Established Patient Point Assignment: 85 Established Patient Point Charge: Level 3 (80-115)
== END 2025-02-09 15:09 | disposition home or self-care (01) ==
LOC: HODAHC 13:54
PROVIDERS: Supervising Provider Internal Medicine
DX: N39.0 Urinary tract infection, site not specified (principal); F41.9 Anxiety disorder, unspecified; N18.30 Chronic kidney disease, stage 3 unspecified; K29.70 Gastritis, unspecified, without bleeding; K21.9 Gastro-esophageal reflux disease without esophagitis; I50.32 Chronic diastolic (congestive) heart failure; E03.9 Hypothyroidism, unspecified; K29.90 Gastroduodenitis, unspecified, without bleeding
CPT/HCPCS: 99213; G0463

== ENCOUNTER → 2025-02-26 | Outpatient (CLI) | payer MEDICARE, BC, SELFPAY ==
[2025-02-26 08:45] LABS: Collection Type, Urine Clean Catch
[2025-02-26 09:10] LABS: Basophils # (Auto) 0.1 Thou/mm3 (0.0-0.2); Basophils % (Auto) 1 % (0-2.5); Eosinophils # (Auto) 0.1 Thou/mm3 (0.0-0.5); Eosinophils % (Auto) 1 % (0-10); Hematocrit 33.5 % (36.0-46.0); Hemoglobin 10.6 g/dL (12.0-16.0); Immature Granulocytes Auto 0.01 Thou/mm3 (0.00-0.00); Lymphocytes # (Auto) 2.1 Thou/mm3 (1.0-4.8); Lymphocytes % (Auto) 31 % (10-50); Mean Corpuscular HGB Conc 31.6 g/dl (31.0-37.0); Mean Corpuscular Hemoglobin 29.0 pg (25.0-35.0); Mean Corpuscular Volume 92 fL (80-100); Monocytes # (Auto) 0.5 Thou/mm3 (0.0-0.8); Monocytes % (Auto) 7 % (0-12); Neutrophils # (Auto) 4.1 Thou/mm3 (1.8-7.7); Neutrophils % (Auto) 60 % (37-80); Nucleated Red Blood Cell # 0.00 Thou/mm3 (0.00-0.00); Nucleated Red Blood Cell % 0 /100 WBC (0); Platelet Count 238 Thou/mm3 (140-440); RDW Standard Deviation 48.8 fL (36.4-46.3); Red Blood Count 3.66 Miln/mm3 (4.00-5.20); White Blood Count 6.8 Thou/mm3 (3.6-11.0)
[2025-02-26 09:21] LABS: Glucose Estimated Average 105 mg/dL (80-131); Hemoglobin A1C 5.3 % Hgb (4.8-6.0)
[2025-02-26 09:27] LABS: Alanine Aminotransferase 11 U/L (10-49); Albumin, Serum 4.5 gm/dL (3.4-4.8); Albumin/Globulin Ratio 2.0 (1.2-2.2); Alkaline Phosphatase 87 U/L (46-116); Anion Gap 9 (7-16); Aspartate Amino Transferase 21 U/L (0-34); BUN/Creatinine Ratio 28 Ratio (12-20); Bilirubin,Total 0.6 mg/dL (0.3-1.2); Blood Urea Nitrogen 53 mg/dL (9-23); Calcium 9.7 mg/dL (8.3-10.6); Calcium (Corrected) 9.7 mg/dL (8.5-10.1); Carbon Dioxide 23.4 mMol/L (20.0-31.0); Cardiac Risk Estimate 3.0 RATIO (3.7-5.6); Chloride 109 mMol/L (98-107); Cholesterol 203 mg/dL (132-200); Creatinine (Component) 1.9 mg/dL (0.6-1.3); Globulin 2.3 gm/dL (2.3-3.5); Glucose 103 mg/dL (74-106); HDL Cholesterol 68 mg/dL (40-60); LDL Cholesterol,Calculated 105 mg/dL (0-130); Magnesium 1.8 mg/dL (1.6-2.6); Osmolality,Calculated 295 (275-295); Potassium 4.6 mMol/L (3.4-5.1); Sodium 141 mMol/L (136-145); Thyroid Stimulating Hormone 1.83 uIU/mL (0.55-4.78); Total Protein 6.8 gm/dL (5.7-8.2); Triglycerides 151 mg/dL (30-150); eGFR 26 See Note
[2025-02-26 10:06] LABS: Bilirubin,Urine Negative (Negative); Blood,Urine Negative (Negative); Clarity,Urine Clear (Clear/Hazy); Color,Urine Lt-Yellow (Lt Yel-Yel); Culture Indicated,Urine Not Indicated; Glucose, Urine Negative (Negative); Hyaline Casts,Urine < 1 /hpf (0-1); Ketones,Urine Negative (Negative); Leukocyte Esterase,Urine Negative (Negative); Nitrite,Urine Negative (Negative); PH,Urine 5.5 (5.0-7.0); Protein,Urine Negative (Neg - Trace); RBC,Urine 1 /hpf (0-3); Specific Gravity,Urine 1.015 (1.001-1.035); Squamous Epithelial Cell,Urine 2 /hpf (0-5); Urobilinogen,Urine Negative mg/dL (0.0-1.0); WBC,Urine 3 /hpf (0-5)
== END | disposition home or self-care (01) ==
LOC: COPL 08:13
DX: I11.0 Hypertensive heart disease with heart failure (principal); I50.9 Heart failure, unspecified; E03.9 Hypothyroidism, unspecified
CPT/HCPCS: 36415; 80053; 80061; 81001; 83036; 83735; 84443; 85025

== ENCOUNTER 2025-03-07 07:23 | Day surgery (SDC) | payer MEDICARE, BC, SELFPAY ==
[2025-03-05 16:21] VITALS: BMI 27.3
--- NOTE | 2025-03-06 10:56 | EKG_ITS ---
[facility] Test Date: 2025-03-06 Pat Name: URSULA NEWMAN Department: Room: - Gender: Female Preflight Inspector: MARTA : 1945 Requested By: Toby Greer Order Number: [id number] Reading MD: Toby Greer Measurements Intervals [place] Rate: 68 P: 72 [place]: 185 QRS: 11 QRSD: 147 T: 128 QT: 445 QTc: 474 Interpretive Statements SINUS RHYTHM LEFT BUNDLE BRANCH BLOCK [120+ ms QRS DURATION, 80+ ms Q/S IN V1/V2, 85+ ms R IN I/aVL/V5/V6] Compared to ECG 12/06/2024 09:05:07 Ventricular premature complex(es) no longer present /store/S0/[id number].pdf
[2025-03-06 11:53] LABS: Basophils # (Auto) 0.1 Thou/mm3 (0.0-0.2); Basophils % (Auto) 1 % (0-2.5); Eosinophils # (Auto) 0.1 Thou/mm3 (0.0-0.5); Eosinophils % (Auto) 1 % (0-10); Hematocrit 30.8 % (36.0-46.0); Hemoglobin 10.0 g/dL (12.0-16.0); Immature Granulocytes Auto 0.00 Thou/mm3 (0.00-0.00); Lymphocytes # (Auto) 2.4 Thou/mm3 (1.0-4.8); Lymphocytes % (Auto) 39 % (10-50); Mean Corpuscular HGB Conc 32.5 g/dl (31.0-37.0); Mean Corpuscular Hemoglobin 29.4 pg (25.0-35.0); Mean Corpuscular Volume 91 fL (80-100); Monocytes # (Auto) 0.4 Thou/mm3 (0.0-0.8); Monocytes % (Auto) 7 % (0-12); Neutrophils # (Auto) 3.2 Thou/mm3 (1.8-7.7); Neutrophils % (Auto) 52 % (37-80); Nucleated Red Blood Cell # 0.00 Thou/mm3 (0.00-0.00); Nucleated Red Blood Cell % 0 /100 WBC (0); Platelet Count 270 Thou/mm3 (140-440); RDW Standard Deviation 49.0 fL (36.4-46.3); Red Blood Count 3.40 Miln/mm3 (4.00-5.20); White Blood Count 6.2 Thou/mm3 (3.6-11.0)
[2025-03-06 11:58] LABS: INR 1.0 (0.9-1.3); Partial Thromboplastin Time 29.2 Seconds (22.0-36.0); Prothrombin Time 10.9 Seconds (9.0-12.2)
[2025-03-06 12:00] LABS: Anion Gap 8 (7-16); BUN/Creatinine Ratio 26 Ratio (12-20); Blood Urea Nitrogen 51 mg/dL (9-23); Calcium 9.6 mg/dL (8.3-10.6); Carbon Dioxide 24.8 mMol/L (20.0-31.0); Chloride 110 mMol/L (98-107); Creatinine (Component) 2.0 mg/dL (0.6-1.3); Estimated Creatinine Clearance 20.7 mL/min (>60); Glucose 103 mg/dL (74-106); Osmolality,Calculated 298 (275-295); Potassium 5.8 mMol/L (3.4-5.1); Sodium 143 mMol/L (136-145); eGFR 25 See Note
[2025-03-07] VITALS (11 sets, daily range): BP systolic 133–164; BP diastolic 53–94; PULSE 60–74; RESP 11–20; TEMP 36.2–36.4; O2SAT 95–99; BMI 27.8
--- NOTE | 2025-03-07 08:32 | EKG_ITS ---
[facility] Test Date: 2025-03-07 Pat Name: URSULA NEWMAN Department: Room: - Gender: Female Hotel Desk Clerk: : 1945 Requested By: Toby Greer Order Number: [id number] Reading MD: Toby Greer Measurements Intervals [place] Rate: 71 P: 68 [place]: 186 QRS: 19 QRSD: 156 T: 89 QT: 447 QTc: 488 Interpretive Statements SINUS RHYTHM LEFT BUNDLE BRANCH BLOCK Compared to ECG 03/06/2025 11:27:41 No significant changes /store/S0/[id number].pdf
--- NOTE | 2025-03-07 15:15 | PC.NURSE ---
0957 patient is awake, alert, breathing unlabored, s/p LHC by Dr. Greer, report received from Ankit GOODMAN, patient to recover for 3 hours and be discharged 1hr post TR band removal. 1015 report has been given to Mitzi GOODMAN and Lynn GOODMAN
--- NOTE | 2025-03-08 08:25 | ESOP_ITS ---
Cardiac Cath Procedure Procedure Name Date of procedure: 03/07/25 PIN PULLER: Toby Greer MD PROCEDURE PERFORMED: 1. Left heart cardiac catheterization- Left and right coronary angiograms with LVEDP measurement and left ventriculogram 2. Ultrasound-guided access of the right radial artery 3. Conscious sedation for 30 minutes.. Procedure Narrative HISTORY AND INDICATIONS: 79-year-old female with PMHx of HFrEF 45-50%, hemorrhagic CVA 2008, primary hypertension, hypothyroidism, esophageal ulcer and erosive gastroduodenitis (EGD in 2019), GERD, hemorrhoids (colonoscopy in 2019), osteoarthritis, and depression. Patient is planned to have a breast implant removal surgery. Patient was started on ischemic cardiac work up. NST showed Abnormal myocardial perfusion study as there is decreased uptake in the mid to apex anterior and anteroseptal segments with stress and improve with rest indicating ischemia. EF 32%. Normal TID and wall motion. Patient was brought in for an elective cardiac catheterization. Patient was explained the risk benefits and alternatives of performing a left heart cardiac catheterization including the risk of bleeding, heart attack, stroke and in detail and the agreeable for the procedure. Consent signed, placed in the chart and H&P updated. DESCRIPTION OF PROCEDURE: The patient was brought to the cardiac catheterization lab and all asceptic precautions were followed. Patient was given 1 Mg of Versed and 50 mcg of fentanyl for moderate conscious sedation. 2 mL of lidocaine was given in the right wrist. The right radial artery was accessed via the ultrasound guidance as well as micropuncture technique. A 6 Danish gli de sheath was introduced. We then used a 5 Danish TIG 4 catheter to perform the left and right coronary angiograms as well as a left ventriculogram which showed the following findings. 1. Left ventricular ejection fraction was normal at 40-45% without any regional wall motion abnormalities. LVEDP was normal at 8 mmHg. There was no significant transvalvular aortic gradient. 2. Right dominant circulation 3. Left main artery is a large-caliber vessel gives rise to Ramus with moderate 50-60% stenosis. 4. LAD is a large sized artery with 80-90% stenosis of mid segment with 2 tendon lesions. LAD gives rise to a medium size diagonal 1 with stenosis of 70- 80% stenosis of proximal segment. 5. LCx is a large sized artery with mild 20-30% disffuse disease of proximal segment. LCx gives rise to a medium OM1 with 80-90% stenosis of proximal segment and small OM2 without any significant disease. 6. RCA is a large artery with 100% chronic total occlusion of proximal segment. RCA gives rise to a medium RPDA and RPL without any significant disease. A radial band was used to achieve the hemostasis of the right radial artery access. Patient will be monitored in the cardiac portable track line marker for the next 2 to 3 hours and will be discharged home / telemetry later today if hemodynamically stable. Complications: None Specimens: None Blood loss: Estimated 5-10 ml Summary/findings: 1. Abnormal Stress test: LHC showed severe CAD with 80-90% stenosis of mid LAD with 2 tandem lesions, proximal OM1, 70-80% stenosis of proximal Diagonal 1, 50- 60% stenosis of ramus branch, mild 20-30% stenosis of proximal LCx. Rest of the coronaries brenches with only minimal luminal irregularities and no angiographically significant obstruction. 2. LVEF 40-45% and LVEDP normal at 8 mmHg. No significant transvalvular aortic gradient. Recommendations: 1. Recommend aggressive medical treatment and aggressive risk factor modification. 2. Recommended no lifting more than 5 pounds for next 7-10 days and follow up in my office in 7 days. Toby Greer MD Interventional Cardiology.
== END 2025-03-07 12:55 | disposition home or self-care (01) ==
PROVIDERS: PCP Family Medicine; Referring Provider Internal Medicine Cardiovascular Disease; Visit Provider Internal Medicine Cardiovascular Disease
PROC: (CPT 93458; principal; 2025-03-07 08:30)
DX: I25.10 Atherosclerotic heart disease of native coronary artery without angina pectoris (principal); I50.22 Chronic systolic (congestive) heart failure; Z86.73 Personal history of transient ischemic attack (TIA), and cerebral infarction without residual deficits; I11.0 Hypertensive heart disease with heart failure; E03.9 Hypothyroidism, unspecified; Z87.19 Personal history of other diseases of the digestive system; K64.8 Other hemorrhoids; K21.00 Gastro-esophageal reflux disease with esophagitis, without bleeding; Z01.810 Encounter for preprocedural cardiovascular examination
CPT/HCPCS: 93458; 36415; 80048; 82565; 84520; 85025; 85610; 85730; 93005; 99152; 99153; A4649; C1769; C1887; C1894; J0153; J0171; J0282; J0461; J1643; J1815; J2250; J2310; J2371; J3010; J3490; Q9967; J2305

== ENCOUNTER → 2025-03-13 | Outpatient (CLI) | payer MEDICARE, BC, SELFPAY ==
[2025-03-13 15:50] LABS: Alanine Aminotransferase 10 U/L (10-49); Albumin, Serum 4.3 gm/dL (3.4-4.8); Albumin/Globulin Ratio 1.8 (1.2-2.2); Alkaline Phosphatase 84 U/L (46-116); Anion Gap 8 (7-16); Aspartate Amino Transferase 18 U/L (0-34); BUN/Creatinine Ratio 21 Ratio (12-20); Bilirubin,Total 0.3 mg/dL (0.3-1.2); Blood Urea Nitrogen 41 mg/dL (9-23); Calcium 9.6 mg/dL (8.3-10.6); Calcium (Corrected) 9.6 mg/dL (8.5-10.1); Carbon Dioxide 27.1 mMol/L (20.0-31.0); Chloride 105 mMol/L (98-107); Creatinine (Component) 2.0 mg/dL (0.6-1.3); Globulin 2.4 gm/dL (2.3-3.5); Glucose 118 mg/dL (74-106); Osmolality,Calculated 290 (275-295); Potassium 5.3 mMol/L (3.4-5.1); Sodium 140 mMol/L (136-145); Total Protein 6.7 gm/dL (5.7-8.2); eGFR 25 See Note
== END | disposition home or self-care (01) ==
LOC: COPL 14:16
PROVIDERS: PCP Registered Nurse; Referring Provider Registered Nurse; Visit Provider Registered Nurse
DX: E87.5 Hyperkalemia (principal); R94.4 Abnormal results of kidney function studies
CPT/HCPCS: 36415; 80053

== ENCOUNTER 2025-04-10 10:01 | Outpatient (AMB) | payer MEDICARE, BC, SELFPAY ==
[2025-04-10 10:11] VITALS: BP 126/65; PULSE 78; RESP 16; TEMP 36.8; O2SAT 96; BMI 26.8
--- NOTE | 2025-04-10 10:11 | ACNOTE_ITS ---
Vital Signs 04/10/25 10:11 Height 1.57 m Height Method Stated Weight 66.451 kg Weight Measurement Method Standing Scale BMI 26.8 BP 126/65 Blood Pressure Source Automatic Cuff Blood Pressure Location Left Upper Arm Position Sitting Respiration 16 Pulse 78 Pulse Source Monitor Temp 98.3 F Temp Source Oral Pulse Oximetry (%) 96 Oxygen Delivery Method Room Air Allergies/Meds Allergies & Medications Allergies No Known Allergies Allergy (Verified 04/10/25 10:12) MA Intake Visit Data Collection New Patient or Established: Established Patient (seen at [facility] within 3 years) Seen by Clinical Staff ONLY (RN/MA): No Pain Present Currently: Yes Pain Location: Generalized Pain scale:: 3 Pain Scale Used: Fabian-Calderon/Numerical PCP or OBGYN visit in last 3 months: No Do You Feel Safe at Home: Yes Authorities Contacted: N/A Smoking Status Smoking Status: Former smoker Immunization / Flu Flu Vaccine in the Last 12 Months: No Flu Vaccine Exclusion Criteria: Refused by Patient Past Medical History Past Medical History NEUROLOGIC: Positive Neurological Disorders and Cerebrovascular Accident; Negative Transient Ischemic Attacks (TIA), Dementia, Alzheimer's Disease, Parkinson's Disease, Brain Tumor, Meningitis, Seizures, Epilepsy, Multiple Sclerosis, Cerebral Palsy, Amyotrophic Lateral Sclerosis (ALS/Ciarra Gehrig's), Guillain-Kokomo Syndrome, Spina Bifida, Paralysis, Peripheral Neuropathy, Logan's Palsy, Subdural Hematoma, Migraine (headaches), Head Trauma, Spinal Cord Injury or Traumatic Brain Injury CARDIAC: Positive Cardiac Disorders, Hypercholesterolemia, Congestive Heart Failure and Hypertension; Negative Myocardial Infarction, Cardiac Arrhythmia, Atrial Fibrillation, Angina, Heart Murmur, Coronary Artery Disease, Atherosclerotic Heart Disease, Peripheral Vascular Disease, Aneurysm, Congenital Heart Disease, Valvular Heart Disease, Rheumatic Fever, Cardiomyopathy, Edema, Pericarditis, Cellulitis, Deep Vein Thrombosis, Hypotension or Varicose Veins RESPIRATORY: Positive Pneumonia; Negative Chronic Obstructive Pulmonary Disease (COPD), Asthma, Bronchitis, Emphysema, Pulmonary Fibrosis, Cystic Fibrosis, Tuberculosis, Pulmonary Embolism, Pulmonary Edema or Sleep Apnea GASTROINTESTINAL: Positive Gastrointestinal Disorders, Ulcer and Obesity; Negative Hepatitis, Cirrhosis, Pancreatitis, Celiac Disease, Gall Bladder Disease, Gastrointestinal Bleed, Esophageal Varices, Parra's Esophagus, Colitis, Ulcerative Colitis, Diverticulitis, Diverticulosis, Colorectal Cancer, Irritable Bowel, Crohn's Disease, Obstructive Bowel, Hiatal Hernia, Hemorrhoids or Gastroesophageal Reflux Disease GENITOURINARY: Positive Renal Disease; Negative Genitourinary Disorders, Kidney Stones, Polycystic Kidney Disease, Neurogenic Bladder, Inguinal Hernia, Dialysis, Prostate Cancer or Benign Prostatic Hyperplasia REPRODUCTIVE: Positive Previous Pregnancies (xx3); Negative Breast Cancer, Endometriosis, Genital Herpes, Gonorrhea, Pelvic Inflammatory Disease, Syphilis, Testicular Cancer or Uterine Prolapse MUSCULOSKELETAL: Positive Arthritis; Negative Muscular Dystrophy, Myasthenia Gravis, Marfan's Syndrome, Bone Cancer, Rheumatoid Arthritis, Osteoporosis, Degenerative Disk Disease, Gout, Scoliosis, Carpal Tunnel Syndrome, Fibromyalgia, Fractures, Degenerative Joint Disease, Osteomyelitis or Poliovirus ENT: Positive Cataracts and Deafness (hard of hearing bilateral ears, wear hearing aids); Negative Glaucoma, Blind, Retinal Detachment, Macular Degeneration, Ear Infection, Head Trauma or Eye Prosthesis ENDOCRINE: Positive Hypothyroidism; Negative Endocrine Disorders, Diabetes Mellitus Type 1, Diabetes Mellitus Type 2, Hypoglycemia, Coleman's Syndrome, [place]'s Disease, Hyperthyroidism, Parathyroid Disease, Pituitary Disease, Systemic Lupus Erythematosus, Syndrome of Inappropriate Antidiuretic Hormone (SIADH), Adrenal Disease or Graves' Disease HEMATOLOGIC: Negative Blood Disorders, Anemia, Leukemia, Hemophilia, Thalassemia, Sickle Cell Disease or Clotting Problems PSYCHO/SOCIAL: Positive Anxiety; Negative Psychiatric Problems, Schizophrenia, Recreational Drug Use, Bipolar Disorder, Depression, Behavior Problems, Self-Mutilation, Attention Deficit Disorder, Attention Deficit Hyperactivity Disorder, Depression, Post Traumatic Stress Disorder or Eating Disorder OTHER HISTORY: Positive Falls, Blood Transfusions, Chicken Pox, Measles, Mumps and Clostridium Difficile; Negative Hospitalization, Down Syndrome, Autism, Developmental Delay, Shingles, Blood Transfusion Reaction, Anesthesia Reactions, Organ Transplant, Chemotherapy, Radiation Therapy, Hyperbaric Therapy, MRSA, Vancomycin-Resistant Enterococci, Human Immunodeficiency Virus (HIV), Rubella (Kosovan Measles), Pertussis, Cancer, Breast Cancer, Cervical Cancer, Colorectal Cancer, Lung Cancer, Ovarian Cancer, Prostate Cancer or Testicular Cancer Family History FAMILY HISTORY: Negative Family Psychiatric Problems, Family Respiratory Disorders, Family Cardiac Disorders, Family Gastrointestinal Problems, Family Cancer, Family Surgery or Family Anesthesia Reaction Surgical History SURGICAL: Positive Endocrine Surgery, Eye Surgery and Tonsillectomy; Negative Cardiac Surgery, Open Heart Surgery, Coronary Artery Bypass Graft, Valve Replacement, Vascular Surgery, Coronary Stent, Cardiac Catheterization, Pacemaker, Angiogram, Auto Implanted Cardiovert Defib, Carotid Endarterectomy, Thyroidectomy, Ear Surgery, Tympanostomy Tube, Nose Surgery, Oral Surgery, Adenoidectomy, Cochlear Implant, Corneal Transplant, Throat Surgery (throat tissue removal), Abdominal Surgery, Tracheostomy, Gastric Bypass Surgery, Gastrostomy, Nephrectomy, Transurethral Resection, Joint Replacement, Amputation, Open Reduction Internal Fixation, Arthroscopy, Neurologic Surgery, Brain Shunt, Mastectomy, Lumpectomy, Hysterectomy, Tubal Ligation, Section or Organ Transplant Social History SMOKING STATUS: Smoking status: Former smoker ALCOHOL: Alcohol Intake: Never HOUSING: Housing: House LIVES WITH: Lives With: Alone Patient Portal Questionairsameera Social History Living Situation History Housing: House Housing Other:: Patient resides alone at home. Tobacco History Smoking Status: Former smoker Alcohol History Alcohol Intake: Never Domestic Abuse History Do You Feel Safe at Home: Yes Review of Systems Report any current symptoms Only answer those that you have currently: Past Medical History Past Medical History Have you ever been diagnosed with any of the following: Neurological Problems Cerebrovascular Accident (CVA): Yes Transient Ischemic Attacks (TIA): No Dementia: No Alzheimer's Disease: No Parkinson's Disease: No Brain Tumor: No Meningitis: No Seizures: No Epilepsy: No Multiple Sclerosis: No Cerebral Palsy: No Amyotrophic Lateral Sclerosis (ALS/Ciarra Gehrig's): No Guillain-Kokomo Syndrome: No Spina Bifida: No Paralysis: No Peripheral Neuropathy: No Logan's Palsy: No Subdural Hematoma: No Migraine: No (headaches) Head Trauma: No Spinal Cord Injury: No Traumatic Brain Injury: No Cardiology Problems Myocardial Infarction: No Cardiac Arrhythmia: No Atrial Fibrillation: No Angina: No Heart Murmur: No Coronary Artery Disease: No Atherosclerotic Heart Disease: No Peripheral Vascular Disease: No Hypercholesterolemia: Yes Aneurysm: No Congestive Heart Failure: Yes Congenital Heart Disease: No Valvular Heart Disease: No Rheumatic Fever: No Cardiomyopathy: No Edema: No Pericarditis: No Cellulitis: No Deep Vein Thrombosis: No Hypertension: Yes Hypotension: No Varicose Veins: No Respiratory Problems Chronic Obstructive Pulmonary Disease (COPD): No Asthma: No Bronchitis: No Emphysema: No Pneumonia: Yes Pulmonary Fibrosis: No Tuberculosis: No Pulmonary Embolism: No Pulmonary Edema: No Sleep Apnea: No Stomache/Intestinal Problems Hepatitis: No Cirrhosis: No Pancreatitis: No Celiac Disease: No Gall Bladder Disease: No Gastrointestinal Bleed: No Esophageal Varices: No Parra's Esophagus: No Colitis: No Ulcerative Colitis: No Diverticulitis: No Diverticulosis: No Ulcer: Yes Colorectal Cancer: No Irritable Bowel: No Crohn's Disease: No Obstructive Bowel: No Hiatal Hernia: No Hemorrhoids: No Gastroesophageal Reflux Disease: No Obesity: Yes Genital/Urinary Problems Renal Disease: Yes Kidney Stones: No Polycystic Kidney Disease: No Neurogenic Bladder: No Inguinal Hernia: No Dialysis: No Reproductive Problems Breast Cancer: No Endometriosis: No Genital Herpes: No Gonorrhea: No Pelvic Inflammatory Disease: No Previous Pregnancies: Yes (xx3) Syphilis: No Uterine Prolapse: No Musculoskeletal Problems Muscular Dystrophy: No Myasthenia Gravis: No Marfan's Syndrome: No Bone Cancer: No Arthritis: Yes Rheumatoid Arthritis: No Osteoporosis: No Degenerative Disk Disease: No Gout: No Scoliosis: No Carpal Tunnel Syndrome: No Fibromyalgia: No Fractures: No Degenerative Joint Disease: No Osteomyelitis: No Poliovirus: No Head,Eye,Nose,Throat Problems Cataracts: Yes Glaucoma: No Blind: No Retinal Detachment: No Macular Degeneration: No Chronic Ear Infections: No Deafness: Yes (hard of hearing bilateral ears, wear hearing aids) Eye Prosthesis: No Endocrine Problems Diabetes Mellitus Type 1: No Diabetes Mellitus Type 2: No Hypoglycemia: No Serafin's Syndrome: No Ino's Disease: No Hyperthyroidism: No Hypothyroidism: Yes Parathyroid Disease: No Pituitary Disease: No Systemic Lupus Erythematosus: No Syndrome of Inappropriate Antidiuretic Hormone: No Adrenal Disease: No Graves' Disease: No Blood Problems Anemia: No Leukemia: No Hemophilia: No Thalassemia: No Sickle Cell Disease: No Clotting Problems: No Psychologic Problems Schizophrenia: No Recreational Drug Use: No Bipolar Disorder: No Depression: No Anxiety: Yes Behavior Problems: No Self-Mutilation: No Attention Deficit Disorder: No Attention Deficit Hyperactivity Disorder: No Depression: No Post Traumatic Stress Disorder: No Eating Disorder: No Other Problems Hospitalization: No Down Syndrome: No Autism: No Developmental Delay: No Shingles: No Falls: Yes Blood Transfusions: Yes Blood Transfusion Reaction: No Anesthesia Reactions: No Organ Transplant: No Chemotherapy: No Radiation Therapy: No Hyperbaric Therapy: No MRSA: No Vancomycin-Resistant Enterococci: No Human Immunodeficiency Virus (HIV): No Chicken Pox: Yes Measles: Yes Mumps: Yes Rubella (Kosovan Measles): No Pertussis: No Clostridium Difficile: Yes Cancer: No Cervical Cancer: No Lung Cancer: No Ovarian Cancer: No Surgical History Carotid Endarterectomy: No Coronary Artery Bypass Graft: No Valve Replacement: No Hysterectomy: No Pacemaker: No Thyroidectomy: No History of Present Illness HPI Narrative Ms. Panda is a 79-year-old female with past medical history of heart failure with preserved ejection fraction EF 50 to 60%, grade 2 diastolic dysfunction, primary hypertension (follows Dr. Greer), hypothyroidism, esophageal ulcer, erosive gastroduodenitis (EGD 2019), GERD (used to follow with Dr. Huynh [place]), hemorrhoids, osteoarthritis and depression who presented to [facility] to establish care. Patient was discharged from [facility] in November 2024 for underlying presyncopal episode, prolonged QTc after suspected accidental medication overdose. During hospitalization patient's metoprolol was held for gastritis patient was started on Protonix and Carafate, H. pylori studies were ordered. Patient was discharged to the care of cardiology and was advised to follow-up in [facility] as needed. 02/02/2025: Patient seen and examined in clinic, patient complained of significant anxiety, reports that she has not been feeling well, feels anxious at times is not able to continue her daily activities of daily living, patient does have reported history of depression however patient is not on any medications, does have history of QT prolongation hence decision was made to start patient on hydroxyzine 25 mg p.o. twice daily. Patient does not have other home medications with her, reports that she can bring them during her next visit. Elevated blood pressure reading noted during this visit, reports that she was started on new medication by cardiology recently. We will assess patient in a week to monitor for hydroxyzine response, do thorough med reconciliation and address other underlying issues. Of note patient's labs were reviewed from November H. pylori antigen not detected. 02/09/2025: Patient seen and examined in clinic for follow-up. Patient was started on hydroxyzine 25 mg p.o. 3 times daily, reports that she took hydroxyzine x 1 and it made her dizzy and somnolent. We will titrate patient's dose to half tablet twice a day as needed, patient agreeable to change. She complains of discomfort/burning pain during urination, reports that she has history of UTI. Will prescribe cefdinir treatment course for 7 days. Patient's elevated blood pressure reading noted, blood pressure 164/67, previous blood pressure from a week ago was elevated as well. Will change amlodipine to 10 mg daily from 5 mg, told patient to inform linseed oil refiner. Patient requesting referral to a different urologist in [place] [facility], will refer patient to Dr. Rodriguez. Patient used to follow-up with Dr. Gtz in [place], reports that Dr. Gtz is very busy and she would like to try different neurologist. Patient does have underlying chronic kidney disease per chart review, will refer patient to renal medicine specialist Dr. Zavala, for underlying GI issues patient used to follow-up with Dr. Huynh glass washer, informed patient to reach out to glass washer, has not seen him in a while, will refer again. 04/10/2025: Patient seen and examined in clinic for follow-up, patient underwent cardiac catheterization outpatient with linseed oil refiner was found to have multiple vessel disease, cardiology discussed with patient's family and decided that patient is a poor candidate for surgery and they want to proceed with medical management for now. Patient reports that she does not want to take amitriptyline and hydroxyzine as it makes her feel not like herself. Reports that she has significant abdominal pain with aspirin and discussed with linseed oil refiner, denies taking aspirin currently. Patient educated on risks and benefits decided to proceed with no aspirin for now, per patient's wishes, patient will follow-up with glass washer outpatient. Patient pending referral to nephrology. Complains of weakness will refer to physical therapy. Otherwise patient's blood pressure well-controlled on spironolactone, amlodipine 5 mg twice a day and losartan 50 mg daily. Continue Carafate and pantoprazole, follow-up with GI. Patient will be started on atorvastatin for hyperlipidemia, lipid panel for last hospitalization showed LDL 105, cholesterol 203 in February 2025. Review of Systems Review of Systems Systems Reviewed: All systems reviewed, normal except as documented Objective/Exam Narrative Physical exam: Physical Exam General: Awake and in no acute distress. Conversational and non-toxic appearing elderly female. HEENT: Normocephalic, atraumatic, mucous membranes moist. Heart: Regular rate and rhythm, no murmurs. Lungs: Clear to auscultation with no wheezing or crackles. Abdomen: Soft, nondistended, nontender, positive bowel sounds. ?No guarding or rebound tenderness. Neurologic: Alert and oriented x3, no gross neurological deficit, and patient able to move all 4 extremities. Extremities: No edema. Skin: No rash or ecchymoses. Results CBC 02/26: WBC 6.8, RBC 3.66, hemoglobin 10.6, hematocrit 43, MCV 92, MCH 29.0 RDW 48.8, platelet 238, neutrophil 60%, lymphocyte 31%, monocyte 7%, eosinophil 1%, basophil 1% CMP 02/26 sodium 141, potassium 4.6, chloride 109, bicarb 23.4, anion gap 9, BUN 53, creatinine 1.9, GFR 26, glucose 103, A1c 5.3, corrected calcium 9.7, Mag 1.8, bilirubin 0.6, AST 21, ALT 11, alk phos 87, total protein 6.8, albumin 4.5, globulin 2.3, triglycerides 151, cholesterol 203, LDL 105, HDL 68, cholesterol/HDL ratio 3.0, TSH 1.83 Assessment & Plan Diagnosis / Problem List (1) CAD (coronary atherosclerotic disease) without angina pectoris: Status: Acute Assessment & Plan: Cardiac Cath 03/08: Abnormal Stress test: LHC showed severe multivessel CAD with 80-90% stenosis of mid LAD with 2 tandem lesions, proximal OM1, 70-80% stenosis of proximal Diagonal 1, 50-60% stenosis of ramus branch, 80-90% stenosis of the proximal OM 2 and [employer] with 100% occlusion of the small mid RCA. Rest of the co ronaries arteries and its branches with only mild disease. LVEF 50-55 % and LVEDP normal at 8 mmHg. No significant transvalvular aortic gradient. Plan: - Medical Management per [employer] after discussion with family, patient agreeable. - Consider GI workup, will start aspirin if cleared by GI - Started on Atorvastatin 20mg HS will uptitrate to 40mg as tolerated - Referral to PT for gen. weakness, NHYA Class II HF (2) HLD (hyperlipidemia): Status: Acute Assessment & Plan: Triglycerides 151, cholesterol 203, LDL 105, HDL 68, cholesterol/HDL ratio 3.0 Plan: - Started on Atorvastatin 20mg HS will uptitrate to 40mg as tolerated (3) CKD (chronic kidney disease) stage 3, GFR 30-59 ml/min: Status: Chronic Assessment & Plan: On chart review patient's past baseline GFR 50, reports that she did see Dr. Mccullough in the past Patient does not follow-up with nephrology outpatient Plan: - Referral to nephrology - Continue spironolactone, monitor potassium levels, follow up with cardiology. - Consider discontinuing if - Ordered urine analysis, CMP (4) Urinary incontinence in female: Status: Acute Assessment & Plan: Patient reports urinary incontinence, bladder issues. Reports following up with Dr. Gtz in [place] Patient is unhappy following up with Dr. Gtz, wants to establish care in [place] [facility] Plan: - Referral to urology (5) Gastritis and duodenitis: Status: Chronic Assessment & Plan: by history esophageal ulcer, erosive gastroduodenitis (EGD 2019), [facility] H Pylori was negative Plan: - Will refer to Dr. Huynh again - Will benefit from EGD and colonoscopy workup (6) Congestive heart failure: Status: Chronic Qualifiers: Heart failure chronicity: chronic Heart failure type: diastolic Qualified Code(s): I50.32 - Chronic diastolic (congestive) heart failure Assessment & Plan: Follow Cardiology Dr. Greer Ejection fraction EF 50 to 60%, grade 2 diastolic dysfunction and h/o primary hypertension NHYA Class II Plan: - Patient's blood pressure reading elevated, continue amlodipine to 10 mg p.o. daily - Patient is on spironolactone 25 mg p.o. daily and losartan 50 mg p.o. daily, will continue - Follow Up with Cardiology (7) Hypothyroid: Status: Chronic Qualifiers: Hypothyroidism type: unspecified Qualified Code(s): E03.9 - Hypothyroidism, unspecified Assessment & Plan: h/o of Hypothyroidism TSH 1.83 - 02/26 Plan: - Continue home dose levothyroxine 25 mcg p.o. daily Plan Started on Atorvastatin 20mg HS will uptitrate to 40mg as tolerated Referral to urology, nephrology and gastroenterology - pending. Increase amlodipine to 10 mg daily Discontinue hydroxyzine and amitriptyline. Referral to Physical Therapy Case discussed with Attending Physician Dr. Mack Gandara MD Internal Medicine PGY-2 Disclaimer: This note was dictated by speech recognition. Minor errors in hse manager may be present due to voice recognition software. Orders: Referrals Physical Therapy - Referral M62.81 - Muscle weakness (generalized) Advanced Care Planning Advance care planning discussed with:: patient Office Procedures [facility] Level of Care Nursing/Assessment Patient Status: Established Patient Nursing Assessment/Reassessment: Medication Reconciliation, Update PMH in EMR and Vital Signs Coordination of Care: Complex Care and Chronic Disease 1-5, Education Complex Pt/Fam, Results/Orders obtained and Staff clarify orders Established Patient Charge Established Patient Point Assignment: 90 Established Patient Point Charge: Level 3 (80-115)
== END 2025-04-10 10:39 | disposition home or self-care (01) ==
LOC: HODAHC 10:01
PROVIDERS: Supervising Provider Internal Medicine
DX: M62.81 Muscle weakness (generalized) (principal); I25.10 Atherosclerotic heart disease of native coronary artery without angina pectoris; E78.5 Hyperlipidemia, unspecified; R32 Unspecified urinary incontinence; K29.70 Gastritis, unspecified, without bleeding; K29.80 Duodenitis without bleeding; I13.0 Hypertensive heart and chronic kidney disease with heart failure and stage 1 through stage 4 chronic kidney disease, or unspecified chronic kidney disease; I50.9 Heart failure, unspecified; N18.30 Chronic kidney disease, stage 3 unspecified; E03.9 Hypothyroidism, unspecified; Z79.890 Hormone replacement therapy
CPT/HCPCS: 99213; G0463

== ENCOUNTER 2025-04-29 10:55 | Inpatient (IN) | payer MEDICARE, BC, SELFPAY ==
[2025-04-29 11:32] VITALS: BP 140/111; PULSE 66; RESP 19; TEMP 36.9; O2SAT 99
--- NOTE | 2025-04-29 11:34 | EKG_ITS ---
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
--- NOTE | 2025-04-29 11:34 | XR_ITS ---
Examination: Abdominal series 3 views including AP portable chest Technique: AP portable semiupright chest AP upright AP supine abdomen 3 views Date and time: April 29, 2025, 12 noon Indications: Abdominal pain and nausea beginning 4 days ago. Findings: Retrocardiac gastric hernia. Mild enlargement cardiac contour. No pneumonia. Abundant stool throughout the colon No obstruction No free air Impression: Abundant stool throughout the colon
--- NOTE | 2025-04-29 11:35 | EDNOTE_ITS ---
<Statement entered by Steffany Mae MD - 04/30/25 11:50> As co-signing physician, I was present and available for consult prn. I concur with the plan and care as documented by the midlevel provider. ED General RME/HPI General Chief complaint: Abdominal Pain Stated complaint: ABD PAIN Time Seen by Provider: 04/29/25 11:28 Arrival date/time: 04/29/25 10:55 CC: Generalized abdominal pain HPI ongoing for some time , but worse in the last 3 days. Mild nausea, no prior history of similar events. Has a history of esophageal varices. Patient states she also has mild dysuria, constipation. Denies fever chest pain shortness of breath or difficulty breathing. Related Data Home Medications ?Medication ?Instructions ?Recorded ?Confirmed levothyroxine 25 mcg capsule 25 mcg PO QDAY 02/09/25 0 04/29/25 losartan 50 mg tablet 50 mg PO QDAY 02/09/2504/29 spironolactone 25 mg tablet 25 mg PO QDAY 02/09/25 tramadol 50 mg tablet 50 mg PO BID PRN pain 04/29/25 Previous Rx's ?Medication ?Instructions ?Recorded sucralfate 1 gram tablet 1 g PO TID 30 days #90 tabs 04/03/25 atorvastatin 20 mg tablet 20 mg PO QHS #30 tabs amlodipine 5 mg tablet 5 mg PO BID 30 days #60 tabs 04/11/25 pantoprazole 40 mg tablet,delayed 40 mg PO DAILY GERD, Gastric 04/26/25 release Ulcers 90 days #90 tabs Allergies Allergy/AdvReac Type Severity Reaction Status Date / Time No Known Allergies Allergy Verified 04/29/25 10:58 Review of Systems Review of Systems Narrative Review of Systems: GEN: No fever, no chills, no weight loss EYES: No discharge, no visual changes, no pain HEENT: No ear pain, no congestion, no sore throat PULM: No shortness of breath, no cough, no congestion CV: No chest pain, no dyspnea on exertion, no palpitations GI: No nausea, no vomiting, no diarrhea, + pain, no constipation : No frequency, no urgency, no dysuria MUSC/SKEL: No joint pain, no back pain SKIN: No rash PSYCH: No hallucinations, no depression HEME/LYMPH: No easy bleeding or bruising tendencies NEURO: No weakness, no headache Past Medical History Past Medical History NEUROLOGIC: Positive Neurological Disorders and Cerebrovascular Accident; Negative Transient Ischemic Attacks (TIA), Dementia, Alzheimer's Disease, Parkinson's Disease, Brain Tumor, Meningitis, Seizures, Epilepsy, Multiple Sclerosis, Cerebral Palsy, Amyotrophic Lateral Sclerosis (ALS/Ciarra Gehrig's), Guillain-[place] Syndrome, Spina Bifida, Paralysis, Peripheral Neuropathy, Logan's Palsy, Subdural Hematoma, Migraine (headaches), Head Trauma, Spinal Cord Injury or Traumatic Brain Injury CARDIAC: Positive Cardiac Disorders, Hypercholesterolemia, Congestive Heart Failure and Hypertension; Negative Myocardial Infarction, Cardiac Arrhythmia, Atrial Fibrillation, Angina, Heart Murmur, Coronary Artery Disease, Atherosclerotic Heart Disease, Peripheral Vascular Disease, Aneurysm, Congenital Heart Disease, Valvular Heart Disease, Rheumatic Fever, Cardiomyopathy, Edema, Pericarditis, Cellulitis, Deep Vein Thrombosis, Hypotension or Varicose Veins RESPIRATORY: Positive Pneumonia; Negative Chronic Obstructive Pulmonary Disease (COPD), Asthma, Bronchitis, Emphysema, Pulmonary Fibrosis, Cystic Fibrosis, Tuberculosis, Pulmonary Embolism, Pulmonary Edema or Sleep Apnea GASTROINTESTINAL: Positive Gastrointestinal Disorders, Ulcer and Obesity; Negative Hepatitis, Cirrhosis, Pancreatitis, Celiac Disease, Gall Bladder Disease, Gastrointestinal Bleed, Esophageal Varices, Parra's Esophagus, Colitis, Ulcerative Colitis, Diverticulitis, Diverticulosis, Colorectal Cancer, Irritable Bowel, Crohn's Disease, Obstructive Bowel, Hiatal Hernia, Hemorrhoids or Gastroesophageal Reflux Disease GENITOURINARY: Positive Renal Disease; Negative Genitourinary Disorders, Kidney Stones, Polycystic Kidney Disease, Neurogenic Bladder, Inguinal Hernia, Dialysis, Prostate Cancer or Benign Prostatic Hyperplasia REPRODUCTIVE: Positive Previous Pregnancies (xx3); Negative Breast Cancer, Endometriosis, Genital Herpes, Gonorrhea, Pelvic Inflammatory Disease, Syphilis, Testicular Cancer or Uterine Prolapse MUSCULOSKELETAL: Positive Musculoskeletal Disorders (leg cramps) and Arthritis; Negative Muscular Dystrophy, Myasthenia Gravis, Marfan's Syndrome, Bone Cancer, Rheumatoid Arthritis, Osteoporosis, Degenerative Disk Disease, Gout, Scoliosis, Carpal Tunnel Syndrome, Fibromyalgia, Fractures, Degenerative Joint Disease, Osteomyelitis or Poliovirus ENT: Positive Cataracts and Deafness (hard of hearing bilateral ears, wear hearing aids); Negative Glaucoma, Blind, Retinal Detachment, Macular Degeneration, Ear Infection, Head Trauma or Eye Prosthesis ENDOCRINE: Positive Hypothyroidism; Negative Endocrine Disorders, Diabetes Mellitus Type 1, Diabetes Mellitus Type 2, Hypoglycemia, Serafin's Syndrome, Gulf's Disease, Hyperthyroidism, Parathyroid Disease, Pituitary Disease, Systemic Lupus Erythematosus, Syndrome of Inappropriate Antidiuretic Hormone (SIADH), Adrenal Disease or Graves' Di sease HEMATOLOGIC: Negative Blood Disorders, Anemia, Leukemia, Hemophilia, Thalassemia, Sickle Cell Disease or Clotting Problems PSYCHO/SOCIAL: Positive Anxiety; Negative Psychiatric Problems, Schizophrenia, Recreational Drug Use, Bipolar Disorder, Depression, Behavior Problems, Self-Mutilation, Attention Deficit Disorder, Attention Deficit Hyperactivity Disorder, Depression, Post Traumatic Stress Disorder or Eating Disorder OTHER HISTORY: Positive Falls, Blood Transfusions, Chicken Pox, Measles, Mumps and Clostridium Difficile; Negative Hospitalization, Autoimmune Disease, Down Syndrome, Autism, Developmental Delay, Shingles, Blood Transfusion Reaction, Anesthesia Reactions, Organ Transplant, Chemotherapy, Radiation Therapy, Hyperbaric Therapy, MRSA, Vancomycin-Resistant Enterococci, Human Immunodeficiency Virus (HIV), Rubella ([place] Measles), Pertussis, Cancer, Breast Cancer, Cervical Cancer, Colorectal Cancer, Lung Cancer, Ovarian Cancer, Prostate Cancer or Testicular Cancer Family History FAMILY HISTORY: Negative Family Psychiatric Problems, Family Respiratory Disorders, Family Cardiac Disorders, Family Gastrointestinal Problems, Family Ca ncer, Family Surgery or Family Anesthesia Reaction Surgical History SURGICAL: Positive Endocrine Surgery, Eye Surgery and Tonsillectomy; Negative Cardiac Surgery, Open Heart Surgery, Coronary Artery Bypass Graft, Valve Replacement, Vascular Surgery, Coronary Stent, Cardiac Catheterization, Pacemaker, Angiogram, Auto Implanted Cardiovert Defib, Carotid Endarterectomy, Thyroidectomy, Ear Surgery, Tympanostomy Tube, Nose Surgery, Oral Surgery, Adenoidectomy, Cochlear Implant, Corneal Transplant, Throat Surgery (throat tissue removal), Abdominal Surgery, Tracheostomy, Gastric Bypass Surgery, Gastrostomy, Nephrectomy, Transurethral Resection, Joint Replacement, Amputation, Open Reduction Internal Fixation, Arthroscopy, Neurologic Surgery, Brain Shunt, Mastectomy, Lumpectomy, Hysterectomy, Tubal Ligation, Section or Organ Transplant Social History SMOKING STATUS: Never smoker ED Exam Narrative Physical exam: [General: Not in any acute distress Head normocephalic HEENT: Within acceptable limits Neck is supple nontender Chest equal chest rise nontender to palpation Respiratory: Clear to auscultation no wheezes crackles or rubs CV: Rate rhythm is regular no murmurs rubs or clicks Abdomen soft, mild tenderness throughout, no reflexive guarding no rebound tenderness. No masses appreciated positive bowel sounds all 4 quadrants. Back: No CVA tenderness no spinous process tenderness from cervical spine thoracic and lumbar spine Skin: Intact no petechiae rash induration ulceration or crepitus Extremities: Moving all extremity against resistance cap refill less than 2 seconds neurosensory intact. No lower extremity edema Neuro: Awake alert oriented x3 Glascow coma 15 no focal deficits] Course Course Course Narrative: Patient's case laboratory findings and clinical exam discussed with resident for Dr. Hein who agrees to except patient for admission for ARTHUR Quality Measures none Orders Category Date Time Status Patient Condition Routine Admission 04/29/25 15:[address] in Observation Status Routine Admission 04/29/25 15:29 Active COVID-19 Screening Questionnaire NOW Care 04/29/25 15:49 Completed Decision to Admit X1 Care 04/29/25 15:49 Completed EKG (ED ONLY) *Do not use* NOW Care 04/29/25 11:34 Completed Miscellaneous Nursing Order NOW Care 04/29/25 15:41 Completed Notify provider NEEDED Care 04/29/25 15:29 Active Obtain weight NOW Care 04/29/25 15:30 Active Saline [Insert IV] NOW Care 04/29/25 14:15 Active Sequential Compression Device QSHIFT Care 04/29/25 15:36 Active Strict Intake and Output Routine Care 04/29/25 15:30 Ordered Referral Registered Dietitian Routine Cons 04/29/25 15:42 Active Diet Cardiac Diet 04/29/25 Dinner Completed EKG (ED Only) Stat Exams 04/29/25 11:34 Draft XR abdomen series w chest 1V Stat Exams 04/29/25 11:34 Completed B-Type Natriuretic Peptide Stat Lab 04/29/25 11:53 Completed CBC AM DRAW Lab 04/30/25 04:43 Completed CBC AM DRAW Lab 05/01/25 05:00 Ordered CBC AM DRAW Lab 05/02/25 05:00 Ordered CBC Stat Lab 04/29/25 11:53 Completed Comprehensive Metabolic Panel AM DRAW Lab 04/30/25 04:43 Completed Comprehensive Metabolic Panel AM DRAW Lab 05/01/25 05:00 Ordered Comprehensive Metabolic Panel AM DRAW Lab 05/02/25 05:00 Ordered Comprehensive Metabolic Panel Stat Lab 04/29/25 11:53 Completed Drug Screen,Urine Stat Lab 04/29/25 12:30 Completed Lipid Panel AM DRAW Lab 04/30/25 04:43 Completed Magnesium Stat Lab 04/29/25 11:53 Completed Partial Thromboplastin Time Stat Lab 04/29/25 11:53 Completed Phosphorous AM DRAW Lab 04/30/25 04:43 Completed Prothrombin Time with INR Stat Lab 04/29/25 11:53 Completed Renal Function Panel Routine Lab 04/30/25 13:00 Ordered Thyroid Stimulating Hormone AM DRAW Lab 04/30/25 04:43 Completed Urinalysis, C/S if Indicated Stat Lab 04/29/25 12:30 Completed Acetaminophen Tab [Tylenol Tab] Med 04/29/25 15:31 Active 650 mg PO Q6H PRN Atorvastatin Calcium [Lipitor] Med 04/29/25 21:00 Active 20 mg PO HS HYDROmorphone INJ [Dilaudid Inj] Med 04/29/25 15:36 Active 0.25 mg IVP Q6H PRN Levothyroxine Sodium [Synthroid] Med 04/30/25 06:00 Active 25 mcg PO ACBR Losartan [Cozaar] Med 04/30/25 09:00 Discontinued 50 mg PO QDAY Melatonin Med 04/29/25 21:10 Discontinued 6 mg PO X1 ONE Pantoprazole Inj [Protonix Inj] Med 04/29/25 21:00 Active 40 mg IVP BID Pharmacy to Consult PneumoVacc [Pharmacy to Consult Med 04/30/25 08:00 Active Patient] 1 each XX PRN PRN Pneumoc 20-Barbara Conj-Dip Crm/Pf [Prevnar 20] Med 04/30/25 09:00 Discontinued 0.5 ml IMI .ONCE ONE Polyeth Glycol/Propylene Glyco [Miralax Pkt] Med 04/29/25 15:45 Active 17 gm PO QDAY Ringers Lactated 500 ml [Lactated Ringers] 500 ml Med 04/30/25 09:59 Disc ontinued IV 999 mls/hr Senna [Senokot] Med 04/29/25 15:45 Active 1 tab PO QDAY Sodium Chloride 0.9% 500 ml [Ns] 500 ml Med 04/29/25 14:15 Discontinued IV 999 mls/hr Sodium Chloride 0.9% 500 ml [Ns] 500 ml Med 04/29/25 15:31 Discontinued IV 999 mls/hr amLODIPine BESYLATE [Norvasc] Med 04/30/25 09:00 Active 10 mg PO QDAY bisacodyL [Dulcolax Supp] Med 04/30/25 02:28 Discontinued 10 mg VA X1 ONE mg Hyd/Al Hyd/Phill Susp [Maalox Susp] Med 04/29/25 16:00 Active 30 ml PO Q6H Code Status Routine Oth 04/29/25 15:29 Ordered Special Diet Request Routine Oth 04/30/25 06:03 Active Oxygen Delivery PRN RT 04/29/25 15:31 Active Vital Signs Vital signs: Vital Signs Temperature 98.4 F 04/29/25 11:32 Pulse Rate 66 04/29/25 11:32 Respiratory Rate 19 04/29/25 11:32 Blood Pressure 140/111 H 04/29/25 11:32 Pulse Oximetry (%) 99 04/29/25 11:32 Oxygen Delivery Method Room Air 04/29/25 11:32 Discharge Plan Plan Patient Disposition: Other Care w/in Hosp (SDC/ABDIFATAH) Patient condition on transfer: Stable Problem List Clinical Impression: ARTHUR (acute kidney injury), Abdominal pain 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 Note: The anemia is chronic and stable. Platelet count of 196. Coags within acceptable limits CMP shows a BUN of 29 creatinine 3.4 no other electrolyte imbalances or transaminitis or T. bili elevation note: There is significant worsening in the creatinine now 3.4 BUN has been higher in the past. However when you look at 15 November 2024 onward there is progressive uptick in the creatinine. BNP is 303 Urine is negative UDS is positive for benzos. Imaging Imaging interpretation: interpreted by me Medication Administration(s) Medication Administration History Acetaminophen (Acetaminophen 325 Mg Tablet) 650 mg PO Q6H PRN PRN Reason: Fever >101.5 or pain 1-6 Stop: 05/29/25 15:30 Last Admin: 04/29/25 23:06 Dose: 650 mg Documented By: LUTHER Al Hydrox/Mg Hydrox/Simethicone (Mg Hyd/Al Hyd/Phill (Maalox Reg) Susp 30 Ml Udc) 30 ml PO Q6H IZABELA Stop: 05/29/25 15:59 Last Admin: 04/30/25 10:42 Dose: 30 ml Documented By: Admin: 04/30/25 03:58 Dose: 30 ml Documented By: Admin: 04/29/25 21:17 Dose: 30 ml Documented By: Admin: 04/29/25 18:03 Dose: 30 ml Documented By: SERINA Amlodipine Besylate (Amlodipine Besylate 5 Mg Tablet) 10 mg PO QDAY IZABELA Stop: 05/30/25 08:59 Last Admin: 04/30/25 08:56 Dose: 10 mg Documented By: KIMI Atorvastatin Calcium (Atorvastatin Calcium 20 Mg Tablet) 20 mg PO HS IZABELA Stop: 05/29/25 20:59 Last Admin: 04/29/25 21:17 Dose: 20 mg Documented By: LUTHER Hydromorphone HCl (Hydromorphone Inj 2 Mg/Ml Vial) 0.25 mg IVP Q6H PRN PRN Reason: Pain 7-10 Stop: 05/04/25 15:35 Last Admin: 04/30/25 07:29 Dose: 0.25 mg Documented By: KIMI Lactated Ringer's (Lactated Ringers) 1,000 mls @ 50 mls/hr IV .Q20H ONE Stop: 05/01/25 06:42 Last Admin: 04/30/25 11:41 Dose: 50 mls/hr Documented By: KIMI Levothyroxine Sodium (Levothyroxine Sodium 25 Mcg Tablet) 25 mcg PO ACBR IZABELA Stop: 05/30/25 05:59 Last Admin: 04/30/25 06:02 Dose: 25 mcg Documented By: LUTHER Pantoprazole Sodium (Pantoprazole Inj 40 Mg Vial) 40 mg IVP BID IZABELA Stop: 05/29/25 20:59 Last Admin: 04/30/25 08:57 Dose: 40 mg Documented By: Admin: 04/29/25 21:17 Dose: 40 mg Documented By: LUTHER Pharmacy Consult (Pharmacy To Consult Pneumovacc) 1 each XX PRN PRN PRN Reason: CONSULT Stop: 05/30/25 07:59 Polyethylene Glycol (Polyethylene Glycol 17 Gm Packet) 17 gm PO QDAY IZABELA Stop: 05/29/25 15:44 Last Admin: 04/30/25 08:57 Dose: 17 gm Documented By: Admin: 04/29/25 18:03 Dose: 17 gm Documented By: SERINA Sennosides (Senna Tablet) 1 tab PO QDAY IZABELA; Protocol Stop: 05/29/25 15:44 Last Admin: 04/30/25 08:57 Dose: 1 tab Documented By: Admin: 04/29/25 18:03 Dose: 1 tab Documented By: SERINA Discontinued Medications Bisacodyl (Bisacodyl 10 Mg Supp) 10 mg VA X1 ONE; Protocol Stop: 04/30/25 02:29 Last Admin: 04/30/25 02:44 Dose: 10 mg Documented By: LUTHER Sodium Chloride (Ns) 500 mls @ 999 mls/hr IV .Q31M ONE Stop: 04/29/25 14:45 Last Infusion: 04/29/25 15:10 Dose: Infused Documented By: Admin: 04/29/25 14:37 Dose: 999 mls/hr Documented By: SERINA Sodium Chloride (Ns) 500 mls @ 999 mls/hr IV .Q31M ONE Stop: 04/29/25 16:01 Last Infusion: 04/29/25 18:30 Dose: Infused Documented By: Admin: 04/29/25 18:10 Dose: 999 mls/hr Documented By: SERINA Lactated Ringer's (Lactated Ringers) 500 mls @ 999 mls/hr IV .Q31M ONE Stop: 04/30/25 10:29 Lactated Ringer's (Lactated Ringers) 500 mls @ 999 mls/hr IV .Q31M ONE Stop: 04/30/25 11:39 Last Admin: 04/30/25 11:40 Dose: 999 mls/hr Documented By: KIMI Losartan Potassium (Losartan Potassium 25 Mg Tablet) 50 mg PO QDAY IZABELA Stop: 05/30/25 08:59 Last Admin: 04/30/25 08:56 Dose: 50 mg Documented By: KIMI Melatonin (Melatonin 3 Mg Tablet) 6 mg PO X1 ONE Stop: 04/29/25 21:11 Last Admin: 04/29/25 21:17 Dose: 6 mg Documented By: LUTHRE Pneumococcal Polyvalent Vaccine (Pneumoc 20-Barbara Conj-Dip Crm/Pf 0.5 Ml Syringe) 0.5 ml IMi .ONCE ONE Stop: 04/30/25 09:01 Last Admin: 04/30/25 10:39 Dose: 0.5 ml Documented By: KIMI
[2025-04-29 12:03] LABS: Basophils # (Auto) 0.0 Thou/mm3 (0.0-0.2); Basophils % (Auto) 1 % (0-2.5); Eosinophils # (Auto) 0.0 Thou/mm3 (0.0-0.5); Eosinophils % (Auto) 0 % (0-10); Hematocrit 30.7 % (36.0-46.0); Hemoglobin 9.8 g/dL (12.0-16.0); Immature Granulocytes Auto 0.01 Thou/mm3 (0.00-0.00); Lymphocytes # (Auto) 1.7 Thou/mm3 (1.0-4.8); Lymphocytes % (Auto) 37 % (10-50); Mean Corpuscular HGB Conc 31.9 g/dl (31.0-37.0); Mean Corpuscular Hemoglobin 29.1 pg (25.0-35.0); Mean Corpuscular Volume 91 fL (80-100); Monocytes # (Auto) 0.4 Thou/mm3 (0.0-0.8); Monocytes % (Auto) 8 % (0-12); Neutrophils # (Auto) 2.5 Thou/mm3 (1.8-7.7); Neutrophils % (Auto) 54 % (37-80); Nucleated Red Blood Cell # 0.00 Thou/mm3 (0.00-0.00); Nucleated Red Blood Cell % 0 /100 WBC (0); Platelet Count 196 Thou/mm3 (140-440); RDW Standard Deviation 45.8 fL (36.4-46.3); Red Blood Count 3.37 Miln/mm3 (4.00-5.20); White Blood Count 4.5 Thou/mm3 (3.6-11.0)
[2025-04-29 12:17] LABS: INR 1.0 (0.9-1.3); Partial Thromboplastin Time 25.5 Seconds (22.0-36.0); Prothrombin Time 11.4 Seconds (9.0-12.2)
[2025-04-29 12:19] LABS: Alanine Aminotransferase 10 U/L (10-49); Albumin, Serum 4.5 gm/dL (3.4-4.8); Albumin/Globulin Ratio 2.1 (1.2-2.2); Alkaline Phosphatase 77 U/L (46-116); Anion Gap 12 (7-16); Aspartate Amino Transferase 20 U/L (0-34); BUN/Creatinine Ratio 9 Ratio (12-20); Bilirubin,Total 0.4 mg/dL (0.3-1.2); Blood Urea Nitrogen 29 mg/dL (9-23); Calcium 9.8 mg/dL (8.3-10.6); Calcium (Corrected) 9.8 mg/dL (8.5-10.1); Carbon Dioxide 23.2 mMol/L (20.0-31.0); Chloride 103 mMol/L (98-107); Creatinine (Component) 3.4 mg/dL (0.6-1.3); Globulin 2.1 gm/dL (2.3-3.5); Glucose 97 mg/dL (74-106); Magnesium 2.5 mg/dL (1.6-2.6); Osmolality,Calculated 281 (275-295); Potassium 4.4 mMol/L (3.4-5.1); Sodium 138 mMol/L (136-145); Total Protein 6.6 gm/dL (5.7-8.2); eGFR 13 See Note
[2025-04-29 12:43] LABS: B-Type Natriuretic Peptide 303 pg/mL (0-100)
[2025-04-29 12:48] LABS: Collection Type, Urine Clean Catch
[2025-04-29 13:08] LABS: Amphetamine/Methamp Scrn,U Negative (Negative); Barbiturate Screen,Urine Negative (Negative); Benzodiazepines Screen,Urine Positive (Negative); Benzoylecgonine Screen, Ur Negative (Negative); Fentanyl Screen,Urine Negative (Negative); Opiate Screen,Urine Negative (Negative); THC Screen,Urine Negative (Negative)
[2025-04-29 13:17] VITALS: BP 159/61; PULSE 63; RESP 19; TEMP 36.9; O2SAT 97
[2025-04-29 13:22] LABS: Bilirubin,Urine Negative (Negative); Blood,Urine Negative (Negative); Clarity,Urine Clear (Clear/Hazy); Color,Urine Lt-Yellow (Lt Yel-Yel); Culture Indicated,Urine Not Indicated; Glucose, Urine Negative (Negative); Ketones,Urine Negative (Negative); Leukocyte Esterase,Urine Negative (Negative); Nitrite,Urine Negative (Negative); PH,Urine 6.0 (5.0-7.0); Protein,Urine Trace (Neg - Trace); RBC,Urine 7 /hpf (0-3); Specific Gravity,Urine 1.019 (1.001-1.035); Squamous Epithelial Cell,Urine < 1 /hpf (0-5); Urobilinogen,Urine Negative mg/dL (0.0-1.0); WBC,Urine < 1 /hpf (0-5)
[2025-04-29 14:35] VITALS: BP 139/80; PULSE 63; RESP 26; TEMP 37; O2SAT 96
[2025-04-29] MEDS: SODIUM CHLORIDE 0.9% 500 ML 500 ML 999 ML IV ×2 (14:37→18:10)
--- NOTE | 2025-04-29 15:53 | PD.RESHP ---
Documentation for date of: 04/29/25 [facility] History of Present Illness Chief complaint: Abdominal pain History of present illness: Mrs. aPnda is a 80-year-old female with a past medical history of HFrEF 50-55%, hemorrhagic CVA 2008, CAD, primary hypertension, hypothyroidism, esophageal ulcer and erosive gastroduodenitis (EGD in 2019), GERD, hemorrhoids (colonoscopy in 2019), osteoarthritis, and depression who presented to [facility] ED on 04/29 for abdominal pain. Patient was admitted under observation for management of ARTHUR. Patient states that the abdominal pain has been on and off for unspecified amount of time, but did acutely worsen on Friday 04/27. The pain is a diffuse pain that is located primarily midline and on the left side of the abdomen. Patient has noted that she has not had a bowel movement and about 2 to 3 days, but is passing gas. Patient also discussed her poor oral intake, which started several months ago, but has been worsening recently. The patient states that she does not vomit, but food does not feel appetizing for her and she dislikes the taste of water. Recently however, the patient has been feeling a bit nauseous when she eats. As a result of her poor oral intake, the patient has lost about 20 pounds over the last year. When asked about her fluid intake, the patient states that at most, she drinks maybe 2 bottles of water. The patient has been trying to see a revenue accountant as she was noted to have CKD stage III during her most recent clinic visit, but has not been able to make an appointment just yet. Patient does see an outpatient line construction engineer, Dr. Greer, for management of her HFrEF. Patient had left heart catheterization, which showed severe multivessel CAD with 80 to 90% stenosis of mid LAD, 70 to 80% stenosis of proximal diagonal 1, 50-60% stenosis of ramus branch, 80-90% stenosis of the proximal OM 2 and EQUITY ANALYST with 100% occlusion of the small mid RCA. Patient was recommended to continue with aggressive medical treatment as well as aggressive risk factor modification as patient was not a surgical candidate or PCI candidate given her history of severe intracerebral hemorrhagic CVA. Patient does endorse difficulty urinating, but denies any chest pain, shortness of breath, cough, pyuria, and dysuria. ED course: Patient vitals in ED significant for blood pressure 140/111. Initial labs significant for creatinine 3.4 and BNP 303. Chest and abdominal x-ray significant for abundant stool throughout the colon and retrocardiac gastric hernia. Patient was given 500 cc NS bolus. 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 Skin: Warm, dry, intact. Head: Normocephalic, atraumatic. Eye: Normal conjunctiva, PERRL. Throat: Oral mucosa dry. No obvious lesions in oropharynx. Cardiovascular: Regular rate and rhythm, no murmur, +S1/S2. Respiratory: Lungs are clear to auscultation, respirations unlabored, no crackles, no wheezing. Gastrointestinal: Soft, diffusely tender to palpation, non-distended. No guarding or rebound tenderness. Extremities: No edema, no cyanosis, no clubbing. Neuro: No focal deficits observed. Conversant, moving all extremities. No overt cerebellar signs/incoordination. Psychiatric: Cooperative, appropriate affect. Results: Labs 04/30/25 04:43 04/30/25 13:11 Labs: Short CBC 04/29/25 Range/Units 11:53 WBC 4.5 (3.6-11.0) Thou/mm3 Hgb 9.8 L (12.0-16.0) g/dL Hct 30.7 L (36.0-46.0) % Plt Count 196 (140-440) Thou/mm3 BMP 04/29/25 11:53 Sodium 138 Potassium 4.4 Chloride 103 Carbon Dioxide 23.2 BUN 29 H Creatinine 3.4 H Glucose 97 Calcium 9.8 Liver Function 04/29/25 Range/Units 11:53 Total Bilirubin 0.4 (0.3-1.2) mg/dL AST 20 (0-34) U/L ALT 10 (10-49) U/L Alkaline Phosphatase 77 (46-116) U/L Albumin 4.5 (3.4-4.8) gm/dL Urine 04/29/25 Range/Units 12:30 Urine Color Lt-Yellow (Lt Yel-Yel) Urine Clarity Clear (Clear/Hazy) Urine pH 6.0 (5.0-7.0) Ur Specific [place] 1.019 (1.001-1.035) Urine Protein Trace (Neg - Trace) Urine Glucose (UA) Negative (Negative) Quality Measures Quality Measures VTE prophylaxis Advance care planning discussed with:: patient and child Medications Home Medications and Allergies Home Medications ?Medication ?Instructions ?Recorded ?Confirmed ?Type levothyroxine 25 mcg capsule 25 mcg PO QDAY 02/09/25 04/29/25 History losartan 50 mg tablet 50 mg PO QDAY 02/09/25 04/29/25 History spironolactone 25 mg tablet 25 mg PO QDAY 02/09/25 04/29/25 History tramadol 50 mg tablet 50 mg PO BID PRN pain 02/09/25 04/29/25 History Allergies Allergy/AdvReac Type Severity Reaction Status Date / Time No Known Allergies Allergy Verified 04/29/25 10:58 Visit Medications Acetaminophen (Acetaminophen 325 Mg Tablet) 650 mg PO Q6H PRN PRN Reason: Fever >101.5 or pain 1-6 Stop: 05/29/25 15:30 Al Hydrox/Mg Hydrox/Simethicone (Mg Hyd/Al Hyd/Phill (Maalox Reg) Susp 30 Ml Udc) 30 ml PO Q6H IZABELA Stop: 05/29/25 15:59 Amlodipine Besylate (Amlodipine Besylate 5 Mg Tablet) 10 mg PO QDAY IZABELA Stop: 05/30/25 08:59 Atorvastatin Calcium (Atorvastatin Calcium 20 Mg Tablet) 20 mg PO HS IZABELA Stop: 05/29/25 20:59 Hydromorphone HCl (Hydromorphone Inj 2 Mg/Ml Vial) 0.25 mg IVP Q6H PRN PRN Reason: Pain 7-10 Stop: 05/04/25 15:35 Sodium Chloride (Ns) 500 mls @ 999 mls/hr IV .Q31M ONE Stop: 04/29/25 16:01 Levothyroxine Sodium (Levothyroxine Sodium 25 Mcg Tablet) 25 mcg PO QDAY IZABELA Stop: 05/30/25 08:59 Losartan Potassium (Losartan Potassium 25 Mg Tablet) 50 mg PO QDAY IZABELA Stop: 05/30/25 08:59 Pantoprazole Sodium (Pantoprazole Inj 40 Mg Vial) 40 mg IVP BID IZABELA Stop: 05/29/25 20:59 Polyethylene Glycol (Polyethylene Glycol 17 Gm Packet) 17 gm PO QDAY IZABELA Stop: 05/29/25 15:44 Sennosides (Senna Tablet) 1 tab PO QDAY IZABELA; Protocol Stop: 05/29/25 15:44 Discontinued Medications Sodium Chloride (Ns) 500 mls @ 999 mls/hr IV .Q31M ONE Stop: 04/29/25 14:45 Last Admin: 04/29/25 14:37 Dose: 999 mls/hr Assessment & Plan Plan Mrs. Panda is a 80-year-old female with a past medical history of HFrEF 50-55%, hemorrhagic CVA 2008, CAD, primary hypertension, hypothyroidism, esophageal ulcer and erosive gastroduodenitis (EGD in 2019), GERD, hemorrhoids (colonoscopy in 2019), osteoarthritis, and depression who presented to [facility] ED on 04/29 for abdominal pain. Patient was admitted under observation for management of ARTHUR. #ARTHUR, likely prerenal #Poor oral intake Patient noted to have creatinine of 3.4 in ED, which is increased from her baseline of 1.3. Noted that the patient had creeping up since the beginning of this year, likely in conjunction with the patient's decreased oral intake. The patient states that she barely drinks water as she does not like the taste of water. Additionally, the patient has not been eating much food either as she does not feel the urge to eat. Rx: 500 cc NS bolus 04/29 500 cc NS bolus 04/29 Plan: Continue to monitor with daily renal panel Gentle IVF given patient's history of CHF Avoid nephrotoxic drugs, renally dose medications Referral to registered dietitian #Intractable abdominal pain #PUD #GERD Patient originally sought care at ED for abdominal pain. Patient notes that this pain comes and goes, but did worsen on 04/27. Patient does also have a history of PUD with previous outpatient endoscopy done on 12/28/2019 showed esophageal ulcer, gastritis, duodenitis, and shallow duodenal bulb ulcer. In addition to this, the patient does have a history of GERD. As a result of this, the patient takes pantoprazole at home. Plan: Pantoprazole 40 mg twice daily Maalox 30 mL every 6 hours MiraLAX 17 g daily Senna 1 tablet daily Dilaudid 0.25 mg IVP every 6 hours as needed for pain Avoid NSAIDs #Hypothyroidism Patient does have a history of hypothyroidism. Patient takes levothyroxine at home. Plan: Resume home levothyroxine 25 mcg daily TSH ordered, pending #H/O HFrEF, now improved to 50-55% #History of CAD, severe, multivessel #History of intracerebral hemorrhage Patient noted to have a history of HFrEF 50 to 55% as identified on left and right coronary angiogram performed on 03/08/2025. During that procedure, patient was noted to have severe multivessel CAD, however patient was not a surgical candidate or PCI candidate given history of severe intracerebral hemorrhage. This procedure was done by Dr. Greer Plan: Strict ins and out Avoid excessive IV hydration Patient to follow-up with outpatient cardiology #Primary hyprtension Patient has a history of hypertension and takes losartan and amlodipine at home for management. Plan: Resumed amlodipine 10 mg daily Resumed losartan 50 mg daily DVT Prophylaxis: SCDs GI Prophylaxis: Protonix Bowel: Senna & Miralax Diet: Cardiac and GERD Cleary: N/A Lines: Peripheral IV Antibiotics: N/A Code Status: FULL Reason for Hospitalization: ARTHUR Other Barriers to Discharge: Bowel movement Patient plan of care was discussed with attending physician Dr. Angel Luis Larsen, PGY1 Attending Provider Attestation/Addendum I attest that I was physically present for the evaluation, physical examination, lab and imaging review of the patient with the residents. I discussed the case with the residents and agree with the findings and plans of care as documented above. After examination of the patient and review of the clinical data I feel that this patient needs admission to the hospital for further treatment/evaluation. Michelle Hein MD
[2025-04-29] MEDS: POLYETHYLENE GLYCOL 17 GM PACKET PO (18:03)
[2025-04-29] MEDS: MG HYD/AL HYD/SIME (Maalox Reg) SUSP 30 ML UDC PO ×2 (18:03→21:17)
[2025-04-29 18:23] VITALS: BP 130/64; PULSE 64; RESP 19; TEMP 36.8; O2SAT 96
[2025-04-29 19:13] VITALS: BMI 25.4
--- NOTE | 2025-04-29 19:13 | PC.NURSE ---
Report received from Krystle RN, pt an ED admit arrived to room 377 via wheelchair, alert/oriented able to transfer self to bed. Oriented pt to room call light within reach and nursing care began at this time.
[2025-04-29 20:00] VITALS: BP 153/59; PULSE 64; RESP 17; TEMP 36.6; O2SAT 95
--- NOTE | 2025-04-29 20:00 | PC.NURSE ---
Pt had asked if she could have something to help her sleep for tonight r/t not being able to sleep well recently, contacted Dr. Abelardo MD to look into chart and input orders.
[2025-04-29] MEDS: MELATONIN 3 MG TABLET 6 MG PO (21:17)
[2025-04-29] MEDS: ATORVASTATIN CALCIUM 20 MG TABLET PO (21:17)
[2025-04-29] MEDS: ACETAMINOPHEN 325 MG TABLET 650 MG PO (23:06)
[2025-04-29 23:16] VITALS: PULSE 62; RESP 18; RESP 96
[2025-04-30] VITALS (17 sets, daily range): BP systolic 133–169; BP diastolic 62–103; PULSE 57–102; RESP 10–96; TEMP 36.2–36.8; O2SAT 92–98; BMI 25.4
[2025-04-30] MEDS: MG HYD/AL HYD/SIME (Maalox Reg) SUSP 30 ML UDC PO ×3 (03:58→21:05)
[2025-04-30 05:20] LABS: Basophils # (Auto) 0.1 Thou/mm3 (0.0-0.2); Basophils % (Auto) 1 % (0-2.5); Eosinophils # (Auto) 0.0 Thou/mm3 (0.0-0.5); Eosinophils % (Auto) 1 % (0-10); Hematocrit 30.8 % (36.0-46.0); Hemoglobin 9.8 g/dL (12.0-16.0); Immature Granulocytes Auto 0.01 Thou/mm3 (0.00-0.00); Lymphocytes # (Auto) 1.6 Thou/mm3 (1.0-4.8); Lymphocytes % (Auto) 37 % (10-50); Mean Corpuscular HGB Conc 31.8 g/dl (31.0-37.0); Mean Corpuscular Hemoglobin 29.3 pg (25.0-35.0); Mean Corpuscular Volume 92 fL (80-100); Monocytes # (Auto) 0.5 Thou/mm3 (0.0-0.8); Monocytes % (Auto) 11 % (0-12); Neutrophils # (Auto) 2.1 Thou/mm3 (1.8-7.7); Neutrophils % (Auto) 50 % (37-80); Nucleated Red Blood Cell # 0.00 Thou/mm3 (0.00-0.00); Nucleated Red Blood Cell % 0 /100 WBC (0); Platelet Count 187 Thou/mm3 (140-440); RDW Standard Deviation 46.3 fL (36.4-46.3); Red Blood Count 3.34 Miln/mm3 (4.00-5.20); White Blood Count 4.2 Thou/mm3 (3.6-11.0)
[2025-04-30] MEDS: LEVOTHYROXINE SODIUM 25 MCG TABLET PO (06:02)
[2025-04-30 06:08] LABS: Alanine Aminotransferase 17 U/L (10-49); Albumin, Serum 4.1 gm/dL (3.4-4.8); Albumin/Globulin Ratio 2.0 (1.2-2.2); Alkaline Phosphatase 73 U/L (46-116); Anion Gap 10 (7-16); Aspartate Amino Transferase 27 U/L (0-34); BUN/Creatinine Ratio 9 Ratio (12-20); Bilirubin,Total 0.4 mg/dL (0.3-1.2); Blood Urea Nitrogen 24 mg/dL (9-23); Calcium 9.4 mg/dL (8.3-10.6); Calcium (Corrected) 9.4 mg/dL (8.5-10.1); Carbon Dioxide 23.0 mMol/L (20.0-31.0); Cardiac Risk Estimate 1.9 RATIO (3.7-5.6); Chloride 105 mMol/L (98-107); Cholesterol 152 mg/dL (132-200); Creatinine (Component) 2.8 mg/dL (0.6-1.3); Estimated Creatinine Clearance 14.1 mL/min (>60); Globulin 2.1 gm/dL (2.3-3.5); Glucose 92 mg/dL (74-106); HDL Cholesterol 79 mg/dL (40-60); LDL Cholesterol,Calculated 55 mg/dL (0-130); Osmolality,Calculated 279 (275-295); Phosphorous 3.0 mg/dL (2.4-5.1); Potassium 4.4 mMol/L (3.4-5.1); Sodium 138 mMol/L (136-145); Thyroid Stimulating Hormone 1.13 uIU/mL (0.55-4.78); Total Protein 6.2 gm/dL (5.7-8.2); Triglycerides 88 mg/dL (30-150); eGFR 16 See Note
--- NOTE | 2025-04-30 06:11 | PC.NURSE ---
Pt c/o abd pain 02/22, stated feels burning and aching, offered Dilaudid, pt agreed, when in to administer pt decided that she did not want stated she wanted to try to eat something to see if that will help with pain, pt request yogurt, contacted dietary for yogurt
[2025-04-30] MEDS: HYDROmorphone INJ 2 MG/ML VIAL 0.25 MG IVP (07:29)
[2025-04-30] MEDS: LOSARTAN POTASSIUM 25 MG TABLET 50 MG PO (08:56)
[2025-04-30] MEDS: POLYETHYLENE GLYCOL 17 GM PACKET PO (08:57)
--- NOTE | 2025-04-30 09:47 | PC.SS ---
Follow up note: On Iv fluids and kidney functions are improving. Pt is possible d/c for tomorrow.
[2025-04-30] MEDS: PNEUMOC 20-VAL CONJ-DIP CRM/PF 0.5 ML SYRINGE IMi (10:39)
[2025-04-30] MEDS: RINGERS LACTATED 1000 ML 500 ML 999 ML IV (11:40)
[2025-04-30] MEDS: RINGERS LACTATED 1000 ML 1,000 ML 50 ML IV (11:41)
--- NOTE | 2025-04-30 12:01 | ESPR_ITS ---
<Statement entered by Yovani Gomez MD - 05/01/25 14:57> I have personally seen and examined the patient, agree with residents assessment and plan Patient plan of care was discussed with the attending physician, Dr. Angel Luis Gomez, PGY2 Documentation for date of: 04/30/25 Subjective Subjective Interval history: Overnight events: No acute events overnight. Patient was seen and examined at bedside. AM vitals and labs reviewed. Patient does not appear to be in any acute distress at this time. Patient does report that she had difficulty sleeping. Patient notes that her abdominal pain today is about a 5 out of 10, primarily in epigastric area. Yesterday, it was an 8 out of 10. Patient also received enema overnight, and as a result had 2 bowel movements overnight. Creatinine 2.8 Given patient's continued epigastric pain and history of gastric hernia and esophageal ulcers, consulted GI. PT referral ordered, noted that patient is independent with ambulation and no further PT is needed. Stopped home losartan. Patient made n.p.o. in preparation for GI consultation. Gave patient 500 cc LR given improvement with IV fluids yesterday and low suspicion for fluid overload. Started patient on 1 L LR running at 50 mL/h. Changed pantoprazole 40 mg twice daily to once daily given low suspicion for active GI ulcer bleeding. Review of systems otherwise negative except for what is mentioned above. Exam Vital Signs Temp Pulse Resp BP Pulse Ox O2 Del Method 97.1 F 65 13 169/62 H 96 Room Air 04/30/25 11:38 04/30/25 11:44 04/30/25 11:44 04/30/25 11:38 04/30/25 11:38 04/30/25 11:38 Narrative Exam Physical Exam: General: Alert, no acute distress. Skin: Warm, dry, intact. Head: Normocephalic, atraumatic. Eye: Normal conjunctiva, PERRL. Throat: Oral mucosa dry. No obvious lesions in oropharynx. Cardiovascular: Regular rate and rhythm, no murmur, +S1/S2. Respiratory: Lungs are clear to auscultation, respirations unlabored, no crackles, no wheezing. Gastrointestinal: Soft, diffusely tender to palpation with worsening on epigastric region, non-distended. No guarding or rebound tenderness. Extremities: No edema, no cyanosis, no clubbing. Neuro: No focal deficits observed. Conversant, moving all extremities. No overt cerebellar signs/incoordination. Psychiatric: Cooperative, appropriate affect. Objective Labs 04/30/25 04:43 04/30/25 13:11 Labs: Laboratory Results - last 24 hr 04/29/25 04/29/25 04/30/25 11:53 12:30 04:43 WBC 4.5 4.2 RBC 3.37 L 3.34 L Hgb 9.8 L 9.8 L Hct 30.7 L 30.8 L MCV 91 92 MCH 29.1 29.3 MCHC 31.9 31.8 RDW Std Deviation 45.8 46.3 Plt Count 196 187 Neut % (Auto) 54 50 Lymph % (Auto) 37 37 [place] % (Auto) 8 11 Eos % (Auto) 0 1 Baso % (Auto) 1 1 Neut # (Auto) 2.5 2.1 Lymph # (Auto) 1.7 1.6 [place] # (Auto) 0.4 0.5 Eos # (Auto) 0.0 0.0 Baso # (Auto) 0.0 0.1 Immature Gran # (Auto) 0.01 H 0.01 H Absolute Nucleated RBC 0.00 0.00 Immature Gran % 0 0 Nucleated RBC % 0 0 PT 11.4 INR 1.0 APTT 25.5 Sodium 138 138 Potassium 4.4 4.4 Chloride 103 105 Carbon Dioxide 23.2 23.0 Anion Gap 12 10 BUN 29 H 24 H Creatinine 3.4 H 2.8 H D Estim Creat Clear Calc Not Performed. 14.1 L eGFR 13 L* 16 L BUN/Creatinine Ratio 9 L 9 L Glucose 97 92 Calculated Osmolality 281 279 Calcium 9.8 9.4 Corrected Calcium 9.8 9.4 Phosphorus 3.0 Magnesium 2.5 Total Bilirubin 0.4 0.4 AST 20 27 ALT 10 17 Alkaline Phosphatase 77 73 B-Natriuretic Peptide 303 H Total Protein 6.6 6.2 Albumin 4.5 4.1 Globulin 2.1 L 2.1 L Albumin/Globulin Ratio 2.1 2.0 Triglycerides 88 Cholesterol 152 LDL Cholesterol, Calc 55 HDL Cholesterol 79 H Cholesterol/HDL Ratio 1.9 L TSH 1.13 Ur Collection Type Clean Catch Urine Color Lt-Yellow Urine Clarity Clear Urine pH 6.0 Ur Specific [place] 1.019 Urine Protein Trace Urine Glucose (UA) Negative Urine Ketones Negative Urine Blood Negative Urine Nitrite Negative Urine Bilirubin Negative Urine Urobilinogen (Auto) Negative Ur Leukocyte Esterase Negative Urine RBC 7 H Urine WBC < 1 Ur Squamous Epith Cells < 1 Urine Bacteria None Ur Culture Indicated? Not Indicated Urine Opiates Screen Negative Urine Fentanyl Screen Negative Ur Barbiturates Screen Negative U Amphetamin/Meth Scrn Negative U Benzodiazepines Scrn Positive A U Cocaine Metab Screen Negative U Marijuana (THC) Screen Negative Quality Measures Quality Measures VTE prophylaxis Advance care planning discussed with:: patient Assessment & Plan Assessment Current Active Medications: Generic Name Dose Route Start Last Admin Trade Name Freq PRN Reason Stop Dose Admin Acetaminophen 650 mg 04/29/25 15:31 04/29/25 23:06 Acetaminophen 325 Mg Tablet PO 05/29/25 15:30 650 mg Q6H PRN Administration Fever >101.5 or pain 1-6 Al Hydrox/Mg Hydrox/Simethicone 30 ml 04/29/25 16:00 04/30/25 10:42 Mg Hyd/Al Hyd/Phill (Maalox Reg) Susp 30 Ml Udc PO 05/29/25 15:59 30 ml Q6H IZABELA Administration Amlodipine Besylate 10 mg 04/30/25 09:00 04/30/25 08:56 Amlodipine Besylate 5 Mg Tablet PO 05/30/25 08:59 10 mg QDAY IZABELA Administration Atorvastatin Calcium 20 mg 04/29/25 21:00 04/29/25 21:17 Atorvastatin Calcium 20 Mg Tablet PO 05/29/25 20:59 20 mg HS IZABELA Administration Hydromorphone HCl 0.25 mg 04/29/25 15:36 04/30/25 07:29 Hydromorphone Inj 2 Mg/Ml Vial IVP 05/04/25 15:35 0.25 mg Q6H PRN Administration Pain 7-10 Lactated Ringer's 1,000 mls @ 50 mls/hr 04/30/25 10:43 04/30/25 11:41 Lactated Ringers IV 05/01/25 06:42 50 mls/hr .Q20H ONE Administration Levothyroxine Sodium 25 mcg 04/30/25 06:00 04/30/25 06:02 Levothyroxine Sodium 25 Mcg Tablet PO 05/30/25 05:59 25 mcg ACBR IZABELA Administration Pantoprazole Sodium 40 mg 04/29/25 21:00 04/30/25 08:57 Pantoprazole Inj 40 Mg Vial IVP 05/29/25 20:59 40 mg BID IZABELA Administration Pharmacy Consult 1 each 04/30/25 08:00 Pharmacy To Consult Pneumovacc XX 05/30/25 07:59 PRN PRN CONSULT Polyethylene Glycol 17 gm 04/29/25 15:45 04/30/25 08:57 Polyethylene Glycol 17 Gm Packet PO 05/29/25 15:44 17 gm QDAY IZABELA Administration Sennosides 1 tab 04/29/25 15:45 04/30/25 08:57 Senna Tablet PO 05/29/25 15:44 1 tab QDAY IZABELA Administration Protocol Plan Mrs. Panda is a 80-year-old female with a past medical history of HFrEF 50- 55%, hemorrhagic CVA 2008, CAD, primary hypertension, hypothyroidism, esophageal ulcer and erosive gastroduodenitis (EGD in 2019), GERD, hemorrhoids (colonoscopy in 2019), osteoarthritis, and depression who presented to [facility] ED on 04/29 for abdominal pain. Patient was admitted under observation for management of ARTHUR. #Intractable abdominal pain #PUD #GERD Patient originally sought care at ED for abdominal pain. Patient notes that this pain comes and goes, but did worsen on 04/27. Patient does also have a history of PUD with previous outpatient endoscopy done on 12/28/2019 showed esophageal ulcer, gastritis, duodenitis, and shallow duodenal bulb ulcer. In addition to this, the patient does have a history of GERD. As a result of this, the patient takes pantoprazole at home. Plan: Pantoprazole 40 mg daily Maalox 30 mL every 6 hours MiraLAX 17 g daily Senna 1 tablet daily Dilaudid 0.25 mg IVP every 6 hours as needed for pain Avoid NSAIDs Consulted GI, appreciate recommendations Patient NPO 04/30 in case GI pursues EGD #ARTHUR, likely prerenal, resolving #Poor oral intake Patient noted to have creatinine of 3.4 in ED, which is increased from her baseline of 1.3. Noted that the patient had creeping up since the beginning of this year, likely in conjunction with the patient's decreased oral intake. The patient states that she barely drinks water as she does not like the taste of water. Additionally, the patient has not been eating much food either as she does not feel the urge to eat. Rx: 500 cc NS bolus 04/29 500 cc NS bolus 04/29 500 cc LR bolus 04/30 1L LR @ 50 cc/h 04/30 Plan: Continue to monitor with daily renal panel Gentle IVF given patient's history of CHF Avoid nephrotoxic drugs, renally dose medications Referral to registered dietitian #Hypothyroidism Patient does have a history of hypothyroidism. Patient takes levothyroxine at home. Plan: Resume home levothyroxine 25 mcg daily TSH ordered, resulted as 1.13 #H/O HFrEF, now improved to 50-55% #History of CAD, severe, multivessel #History of intracerebral hemorrhage Patient noted to have a history of HFrEF 50 to 55% as identified on left and right coronary angiogram performed on 03/08/2025. During that procedure, patient was noted to have severe multivessel CAD, however patient was not a surgical candidate or PCI candidate given history of severe intracerebral hemorrhage. This procedure was done by Dr. Greer. Plan: Strict ins and out Avoid excessive IV hydration Patient to follow-up with outpatient cardiology #Primary hyprtension Patient has a history of hypertension and takes losartan and amlodipine at home for management. Plan: Resumed amlodipine 10 mg daily Hold home losartan 50 mg daily given ARTHUR DVT Prophylaxis: SCDs GI Prophylaxis: Protonix Bowel: Senna & Miralax Diet: Cardiac and GERD, NPO 04/30 Cleary: N/A Lines: Peripheral IV Antibiotics: N/A Code Status: FULL Reason for Hospitalization: ARTHUR Other Barriers to Discharge: GI consult Patient plan of care was discussed with attending physician Dr. Hein and senior resident Dr. Gomez (PGY-2) Jimmy Larsen, PGY1 Attending Provider Attestation/Addendum I attest that I was physically present for the evaluation, physical examination, lab and imaging review of the patient with the residents. I discussed the case with the residents and agree with the findings and plans of care as documented above. Patient seen and examined at bedside this morning. Appears comfortable and denies any new complaints. She is alert and oriented, able to answer questions and follow commands appropriately. States that her abdominal pain has improved slightly but she continues to have significant epigastric pain, burning sensation. Patient does have history of gastric hernia and esophageal ulcers and had GI workup done long time ago. Had 2 bowel movements yesterday after enema. She is still not able to have good oral intake. Kidney function has improved slightly BUN/creatinine of 29/3.4 on presentation to 24/2.8 this morning. Patient had a history of HFmEF which seems to have improved with ejection fraction of 55%. We will start her on IV fluid and encourage her to drink more liquids. With ongoing intractable abdominal pain, inability to have good oral intake we will change her status to inpatient, obtain GI consult for possible endoscopy. Michelle Hein MD
--- NOTE | 2025-04-30 13:40 | EKG_ITS ---
[facility] Test Date: 2025-04-30 Pat Name: URSULA NEWMAN [facility] Gender[facility] Female Inspector Timers: RT SRUDENT : 1945 Requested By: Jimmy Larsen Order Number: [id number] Reading MD: Jimmy Larsen Measurements Intervals [place] Rate: 63 P: 63 NE: 182 QRS: 22 QRSD: 152 T: 107 QT: 475 QTc: 490 Interpretive Statements SINUS RHYTHM LEFT BUNDLE BRANCH BLOCK Compared to ECG 04/29/2025 11:46:02 No significant changes /store/S0/[id number]
--- NOTE | 2025-04-30 13:48 | PC.PT ---
PT eval only. Patient is I with transfers and ambulation with walker.
[2025-04-30 14:25] LABS: Albumin, Serum 4.2 gm/dL (3.4-4.8); Anion Gap 11 (7-16); BUN/Creatinine Ratio 8 Ratio (12-20); Blood Urea Nitrogen 20 mg/dL (9-23); Calcium 9.6 mg/dL (8.3-10.6); Calcium (Corrected) 9.6 mg/dL (8.5-10.1); Carbon Dioxide 22.4 mMol/L (20.0-31.0); Chloride 102 mMol/L (98-107); Creatinine (Component) 2.4 mg/dL (0.6-1.3); Estimated Creatinine Clearance 16.0 mL/min (>60); Glucose 106 mg/dL (74-106); Osmolality,Calculated 272 (275-295); Phosphorous 3.0 mg/dL (2.4-5.1); Potassium 4.5 mMol/L (3.4-5.1); Sodium 135 mMol/L (136-145); eGFR 20 See Note
[2025-04-30] MEDS: METOCLOPRAMIDE INJ 5 MG/ML VIAL 2 ML 2.5 MG IVP (16:02)
--- NOTE | 2025-04-30 19:55 | PD.IMCONS ---
HPI Data of Consult Requesting Physician: Michelle Hein MD Primary Care Provider: Physician No Primary/Family Consult Narrative Reason for consult: Pain abdomen History of present illness: 80 years of female with a history of hemorrhagic CVA 2008 with coronary artery disease multivessel severe coronary artery disease medically managed but she is not a candidate for CABG primary pulmonary hypertension hypothyroidism and history of previous esophageal ulceration presented to the hospital with severe abdominal pain and discomfort imaging studies have shown a lot of stool impaction patient last colonoscopy was in 2019 cc:: cc: Michelle Hein MD Review of Systems Review of Systems Systems Reviewed: All systems reviewed, normal except as documented Past Medical History Surgical History OTHER SURGICAL HX: As in the history of present illness Meds Home Medications and Allergies Home Medications ?Medication ?Instructions ?Recorded ?Confirmed ?Type levothyroxine 25 mcg capsule 25 mcg PO QDAY 02/09/25 04/29/25 History losartan 50 mg tablet 50 mg PO QDAY 02/09/25 04/29/25 History spironolactone 25 mg tablet 25 mg PO QDAY 02/09/25 04/29/25 History tramadol 50 mg tablet 50 mg PO BID PRN pain 02/09/25 04/29/25 History Allergies Allergy/AdvReac Type Severity Reaction Status Date / Time No Known Allergies Allergy Verified 04/29/25 10:58 Exam Vital Signs Temp Pulse Resp BP Pulse Ox O2 Del Method 97.1 F 64 18 154/79 H 96 Room Air 04/30/25 15:57 04/30/25 15:57 04/30/25 15:57 04/30/25 15:57 04/30/25 15:57 04/30/25 15:57 Constitutional Comments: Alert oriented Routine Respiratory Exam Comments: Normal to auscultation Routine Abdominal Exam Comments: Soft nontender Results Labs 04/30/25 04:43 04/30/25 13:11 Labs: Short CBC 04/30/25 Range/Units 04:43 WBC 4.2 (3.6-11.0) Thou/mm3 Hgb 9.8 L (12.0-16.0) g/dL Hct 30.8 L (36.0-46.0) % Plt Count 187 (140-440) Thou/mm3 BMP 04/30/25 04/30/25 04:43 13:11 Sodium 138 135 L Potassium 4.4 4.5 Chloride 105 102 Carbon Dioxide 23.0 22.4 BUN 24 H 20 Creatinine 2.8 H D 2.4 H Glucose 92 106 Calcium 9.4 9.6 Liver Function 04/30/25 04/30/25 Range/Units 04:43 13:11 Total Bilirubin 0.4 (0.3-1.2) mg/dL AST 27 (0-34) U/L ALT 17 (10-49) U/L Alkaline Phosphatase 73 (46-116) U/L Albumin 4.1 4.2 (3.4-4.8) gm/dL Assessment and Plan Additional Assessment & Plan Additional Plan: # Pain abdomen both upper and lower but mostly upper most likely related to stool impaction. Unlikely biliary tract disease plan Consent obtained for fiberoptic esophagogastroduodenoscopy with possible biopsy possible therapeutic intervention under intravenous moderate sedation Will proceed with the procedure In case the EGD is negative Recommend outpatient colonoscopy and patient has agreed to come and see me as an outpatient upon discharge Other medical problems include Multivessel coronary artery disease on medical management Hemorrhagic CVA Primary pulmonary hypertension Hypothyroidism Thank you very much for the opportunity to participate in care of this patient
[2025-04-30] MEDS: ATORVASTATIN CALCIUM 20 MG TABLET PO (21:05)
[2025-04-30] MEDS: MELATONIN 3 MG TABLET 6 MG PO (21:50)
[2025-05-01] VITALS: BP 153/82; PULSE 70; RESP 18; TEMP 36.5; O2SAT 99
[2025-05-01 04:00] VITALS: BP 147/86; PULSE 60; RESP 18; TEMP 36.6; O2SAT 95
[2025-05-01] MEDS: MG HYD/AL HYD/SIME (Maalox Reg) SUSP 30 ML UDC PO ×2 (04:24→09:20)
[2025-05-01] MEDS: LEVOTHYROXINE SODIUM 25 MCG TABLET PO (05:06)
[2025-05-01 05:36] LABS: Basophils # (Auto) 0.1 Thou/mm3 (0.0-0.2); Basophils % (Auto) 1 % (0-2.5); Eosinophils # (Auto) 0.0 Thou/mm3 (0.0-0.5); Eosinophils % (Auto) 1 % (0-10); Hematocrit 32.4 % (36.0-46.0); Hemoglobin 10.7 g/dL (12.0-16.0); Immature Granulocytes Auto 0.01 Thou/mm3 (0.00-0.00); Lymphocytes # (Auto) 2.2 Thou/mm3 (1.0-4.8); Lymphocytes % (Auto) 40 % (10-50); Mean Corpuscular HGB Conc 33.0 g/dl (31.0-37.0); Mean Corpuscular Hemoglobin 30.7 pg (25.0-35.0); Mean Corpuscular Volume 93 fL (80-100); Monocytes # (Auto) 0.6 Thou/mm3 (0.0-0.8); Monocytes % (Auto) 10 % (0-12); Neutrophils # (Auto) 2.7 Thou/mm3 (1.8-7.7); Neutrophils % (Auto) 49 % (37-80); Nucleated Red Blood Cell # 0.00 Thou/mm3 (0.00-0.00); Nucleated Red Blood Cell % 0 /100 WBC (0); Platelet Count 212 Thou/mm3 (140-440); RDW Standard Deviation 45.9 fL (36.4-46.3); Red Blood Count 3.49 Miln/mm3 (4.00-5.20); White Blood Count 5.5 Thou/mm3 (3.6-11.0)
[2025-05-01 06:07] LABS: Alanine Aminotransferase 22 U/L (10-49); Albumin, Serum 4.4 gm/dL (3.4-4.8); Albumin/Globulin Ratio 1.7 (1.2-2.2); Alkaline Phosphatase 77 U/L (46-116); Anion Gap 11 (7-16); Aspartate Amino Transferase 32 U/L (0-34); BUN/Creatinine Ratio 9 Ratio (12-20); Bilirubin,Total 0.5 mg/dL (0.3-1.2); Blood Urea Nitrogen 21 mg/dL (9-23); Calcium 10.1 mg/dL (8.3-10.6); Calcium (Corrected) 10.1 mg/dL (8.5-10.1); Carbon Dioxide 25.0 mMol/L (20.0-31.0); Chloride 102 mMol/L (98-107); Creatinine (Component) 2.4 mg/dL (0.6-1.3); Estimated Creatinine Clearance 16.0 mL/min (>60); Globulin 2.6 gm/dL (2.3-3.5); Glucose 114 mg/dL (74-106); Osmolality,Calculated 279 (275-295); Potassium 4.4 mMol/L (3.4-5.1); Sodium 138 mMol/L (136-145); Total Protein 7.0 gm/dL (5.7-8.2); eGFR 20 See Note
[2025-05-01 07:33] VITALS: BP 159/70; PULSE 72; RESP 18; TEMP 36.3; O2SAT 95
[2025-05-01] MEDS: POLYETHYLENE GLYCOL 17 GM PACKET PO (09:20)
[2025-05-01 09:21] VITALS: BP 159/70; PULSE 72
--- NOTE | 2025-05-01 09:26 | ESDS_ITS ---
Planned Discharge Date 05/01/25 DS: Providers Provider Date of admission: 04/30/25 10:13 Primary care physician: Physician No Primary/Family Admitting Provider: Michelle Hein MD Attending Provider on Admission: Alberto Higuera MD Consults: 04/29/25 15:42 Referral Registered Dietitian Routine Comment: 04/30/25 10:14 Consult to Gastroenterology Routine Comment: epigastric apin and h/o PUD Consulting Provider: Sinai Ugalde 04/30/25 10:42 Referral Physical Therapy Routine Comment: Physician Instructions: Attending Provider on DC: Alberto Higuera MD Discharging Provider: Jimmy Larsen DO Anticipated date of discharge: 05/01/25 DS: Diagnosis Problem List Completed Was Problem List Reviewed/Reconciled?: Yes Hospital Course Hospital Course Hospital course: Reason for hospitalization: ARTHUR Summary: This patient is an 80-year-old female with past medical history of HFrEF that improved to 50 to 55%, severe multivessel CAD, hemorrhagic CVA 2008, primary hypertension, hypothyroidism, GERD, hemorrhoids (colonoscopy in 2019), osteoarthritis, depression, and esophageal ulcers with erosive gastroduodenitis (EGD in 2019) who presented to [facility] ED on 04/29 for abdominal pain. The patient admitted for management of ARTHUR. Patient states that her abdominal pain has been on and off, but did acutely worsen on Friday 04/27. Pain is mostly midline and epigastric area. As a result of this abdominal pain and overall low drive to eat, the patient has been decreasing her oral intake since the start of this year. This includes water, especially as the patient dislikes drinking water. The patient has lost about 20 pounds over the last year as a result of the decreased oral intake. In the ED, the patient was found to have creatinine of 3.4, which is increased from her baseline of 2.0, though it is noted that the patient has been having steadily increasing creatinine throughout this year, likely secondary to her poor oral intake. The patient was managed with gentle IVF hydration given her history of CHF, and the patient had improvement in her creatinine over time as a result. GI was consulted due to continued abdominal pain, and they performed an EGD on 04/30, which found esophagitis, duodenitis, and a hiatal hernia. GI notes that part of this abdominal pain that the patient is feeling may likely be due to the hiatal hernia, the patient is a poor surgical candidate given her cardiac history. Due to the patient's history of hemorrhagic CVA, the patient is not a candidate for more aggressive cardiac treatments for her CAD. On 05/01, the patient's abdominal pain is significantly improved and the patient had stable renal function. It was discussed with the patient that her baseline renal function may be worsening over time due to her unmanaged CKD, and this may be her baseline moving forward. The patient has stable vitals as well, so patient was medically cleared to discharge back home with self-care. The patient was highly encouraged to follow-up with GI and nephrology. Discharge Recommendations: - Follow up with PCP within 1 week of discharge - Continue rest of medications as previously prescribed - Return to the ED or call EMS if symptoms return and/or worsen - Please follow-up with Dr. Ugalde (gastroenterology) within the next 2 weeks. - Take Senna 8.6mg tablet for constipation - Take Maalox Advanced for dyspepsia as needed every 3 hours - Please take your prescribed pantoprazole 15 to 30 minutes BEFORE breakfast - Please follow-up with nephrology for further management of CKD If you don't have a PCP, you can make an appointment at the [facility]: [address] [place] [address] Hospital Diagnoses: #Intractable abdominal pain #PUD #GERD #Esophagitis #Duodenitis #Hiatal hernia #ARTHUR, likely prerenal, resolving #Poor oral intake #Hypothyroidism #H/O HFrEF, now improved to 50-55% #History of CAD, severe, multivessel #History of intracerebral hemorrhage #Primary hyprtension Patient plan of care was discussed with attending physician Dr. Kalen Larsen, PGY-1 Status at Discharge Functional status at discharge: uses cane/walker Overall status at discharge: patient is back to baseline Time Spent with Patient Time attestation: Total time spent providing and/or coordinating discharge services: Time spent: Greater than 30 minutes Exam Vital Signs Temp Pulse Resp BP Pulse Ox O2 Del Method O2 Flow Rate 97.3 F 72 18 159/70 H 95 Room Air 3 05/01/25 07:33 05/01/25 09:21 05/01/25 07:33 05/01/25 09:21 05/01/25 07:33 05/01/25 07:33 04/30/25 20:15 Narrative Exam Physical Exam: General: Alert, no acute distress. Skin: Warm, dry, intact. Head: Normocephalic, atraumatic. Eye: Normal conjunctiva, PERRL. Cardiovascular: Regular rate and rhythm, no murmur, +S1/S2. Respiratory: Lungs are clear to auscultation, respirations unlabored, no crackles, no wheezing. Gastrointestinal: Soft, diffusely tender to palpation with worsening on epigastric region, non-distended. No guarding or rebound tenderness. Extremities: No edema, no cyanosis, no clubbing. Neuro: No focal deficits observed. Conversant, moving all extremities. No overt cerebellar signs/incoordination. Psychiatric: Cooperative, appropriate affect. Discharge Plan Plan Patient Disposition: HOME (Self Care) Patient condition on transfer: Stable Care Plan Goals: Please follow-up with Dr. Ugalde (gastroenterology) within the next 2 weeks. Take Senna 8.6mg tablet for constipation Take Maalox Advanced for dyspepsia as needed every 3 hours Continue all other home medications as prescribed Follow-up with your PCP within 1 week of discharge If your symptoms worsen or if you develop new chest pain, shortness of breath, severe abdominal pain or bleeding - please come back to the ED immediately. Prescriptions/Referrals Prescriptions/Med Rec: New sennosides [Senna Lax] 8.6 mg Tablet 8.6 mg PO QDAY 30 Days Qty: 30 0RF alum-mag hydroxide-simeth [Maalox Advanced] 200-200-20 mg/5 mL suspension 5 ml PO Q3H PRN (Reason: dyspepsia) Qty: 3000 0RF Continued spironolactone 25 mg tablet 25 mg PO QDAY levothyroxine 25 mcg capsule 25 mcg PO QDAY tramadol 50 mg tablet 50 mg PO BID PRN (Reason: pain) losartan 50 mg tablet 50 mg PO QDAY atorvastatin 20 mg tablet 20 mg PO QHS Qty: 30 0RF amlodipine 5 mg tablet 5 mg PO BID 30 Days Qty: 60 3RF pantoprazole 40 mg tablet,delayed release (DR/EC) 40 mg PO DAILY 90 Days Qty: 90 3RF sucralfate 1 gram tablet 1 g PO TID 30 Days Qty: 90 3RF Referrals: Sinai Ugalde MD [Physician, Gastroenterology] No Primary/Family,Physician [Primary Care Provider] Patient/Caregiver Discharge Instructions Other Discharge Diet Instructions: Foods to Eat Low-Acid Fruits: Apples, bananas, melons, pears, and applesauce. Cooked Vegetables: Steamed or roasted vegetables such as carrots, sweet potatoes, spinach, squash, peas, and green beans. Lean Proteins: Skinless chicken, turkey, fish, eggs, and tofu. Whole Grains: Oatmeal, whole-wheat toast, and brown rice. Probiotic Foods: Low-fat yogurt and other fermented foods can support gut health. Healthy Fats (in moderation): [place] oil, avocado, nuts, and seeds. Beverages: Water, herbal teas (not peppermint or spearmint), and low-fat milk or soy milk. Foods to Avoid Spicy Foods: Foods with chili peppers and other spices can irritate the stomach lining. Fatty and Fried Foods: Fried chicken, burgers, and other high-fat foods can worsen symptoms. Acidic Foods: Tomatoes, citrus fruits, and acidic juices. Coffee and Alcohol: These can irritate the stomach and are best avoided. Highly Processed & Sugary Foods: Pastries, cakes, and other highly processed items can exacerbate flares. Education Materials: Low-Salt Choices, Healthy Kidneys, Exercise to Help Your Kidneys, Adding Flavor to Low-Fat Meals, Dehydration, Eating Heart-Healthy Foods Print Language: Honduran Stand Alone Forms: [employer] Award Info., Patient Portal Info Letter Discharge Order Discharge Orders: Discharge (Routine); Ordered 05/01/25 Ordered By: Jun Rosado Quality Discharge Quality Measures VTE prophylaxis MD Attestestation MD Attestation I have examined the patient, reviewed labs and imaging findings, discussed the case with the resident(s), and reviewed entered orders. I agree with the plan of care as outlined in this note. Time Spent: [address] Kalen MD
--- NOTE | 2025-05-01 09:48 | PC.SS ---
Late note 04-30-25: SS met with patient regarding her d/c plan. Pt is alert/oriented. Pt was admitted for ARTHUR. Pt confirmed demographic and contact information is correct on facesheet. Pt resides alone. Pt ambulates independently without assistance or DME. Pt is ok with all ADLs. Pt has a 4 wheel with seat, rollator walker. Patient?s pharmacy of choice is [facility]. Pt named her son, Tam Hernandez medical decision maker if he is unable. SS provided verbal choices for d/c to home or SNF. Patient?s choice is to return home upon d/c. Pt states she is also contacted with [facility]. Son will provide transportation home. Pt states she has follow up appointment with PCP this week. D/C plan: Return home Next of Kin: Tam Panda, phone# [phone] PCP: Dr. Danielle's office Address: Correct on facesheet
[2025-05-01 11:46] VITALS: BP 147/83; PULSE 74; RESP 18; TEMP 36.3; O2SAT 95
--- NOTE | 2025-05-01 20:57 | PD.IMPROG ---
Documentation for date of: 05/01/25 Subjective Subjective Interval history: Late entry for the note Case discussed with internal medicine team Okay to discharge the patient I will schedule outpatient colonoscopy and the patient has problems that she will come and see me as an outpatient Exam Vital Signs Temp Pulse Resp BP Pulse Ox O2 Del Method O2 Flow Rate 97.3 F 74 18 147/83 H 95 Room Air 3 05/01/25 11:46 05/01/25 11:46 05/01/25 11:46 05/01/25 11:46 05/01/25 11:46 05/01/25 11:46 04/30/25 20:15 Objective Labs 05/01/25 04:46 05/01/25 04:46 Labs: Laboratory Results - last 24 hr 05/01/25 04:46 WBC 5.5 RBC 3.49 L Hgb 10.7 L Hct 32.4 L MCV 93 MCH 30.7 MCHC 33.0 RDW Std Deviation 45.9 Plt Count 212 Neut % (Auto) 49 Lymph % (Auto) 40 [place] % (Auto) 10 Eos % (Auto) 1 Baso % (Auto) 1 Neut # (Auto) 2.7 Lymph # (Auto) 2.2 [place] # (Auto) 0.6 Eos # (Auto) 0.0 Baso # (Auto) 0.1 Immature Gran # (Auto) 0.01 H Absolute Nucleated RBC 0.00 Immature Gran % 0 Nucleated RBC % 0 Sodium 138 Potassium 4.4 Chloride 102 Carbon Dioxide 25.0 Anion Gap 11 BUN 21 Creatinine 2.4 H Estim Creat Clear Calc 16.0 L eGFR 20 L BUN/Creatinine Ratio 9 L Glucose 114 H Calculated Osmolality 279 Calcium 10.1 Corrected Calcium 10.1 Total Bilirubin 0.5 AST 32 ALT 22 Alkaline Phosphatase 77 Total Protein 7.0 Albumin 4.4 Globulin 2.6 Albumin/Globulin Ratio 1.7 Impressions Impression: Posthemorrhagic anemia Colonoscopy as an outpatient Okay with discharge planning Assessment & Plan A&P Narrative # Pain abdomen both upper and lower but mostly upper most likely related to stool impaction. Unlikely biliary tract disease plan Consent obtained for fiberoptic esophagogastroduodenoscopy with possible biopsy possible therapeutic intervention under intravenous moderate sedation Will proceed with the procedure In case the EGD is negative Recommend outpatient colonoscopy and patient has agreed to come and see me as an outpatient upon discharge Other medical problems include Multivessel coronary artery disease on medical management Hemorrhagic CVA Primary pulmonary hypertension Hypothyroidism Thank you very much for the opportunity to participate in care of this patient Time Spent With Patient Time: Total time spent is greater than 50% in coordination of care (as documented) at patient's floor/unit and/or counseling patient:
== END 2025-05-01 13:05 | disposition home or self-care (01) | DRG 683 ==
LOC: SERX 15:49 → SERHOLD 16:05 → S3SX 19:16
PROVIDERS: Registered Nurse General Practice; Specialist; Admitting Provider Student in an Organized Health Care Education/Training Program; Emergency Provider Emergency Medicine; Visit Provider Student in an Organized Health Care Education/Training Program
PROC: 0DB98ZX Excision of Duodenum, Via Natural or Artificial Opening Endoscopic, Diagnostic (ICD-10-PCS; CPT 43239; principal; 2025-04-30 17:45)
DX: N17.9 Acute kidney failure, unspecified (principal); I13.0 Hypertensive heart and chronic kidney disease with heart failure and stage 1 through stage 4 chronic kidney disease, or unspecified chronic kidney disease; I50.22 Chronic systolic (congestive) heart failure; K44.9 Diaphragmatic hernia without obstruction or gangrene; K59.00 Constipation, unspecified; K29.90 Gastroduodenitis, unspecified, without bleeding; N18.30 Chronic kidney disease, stage 3 unspecified; I25.10 Atherosclerotic heart disease of native coronary artery without angina pectoris; F32.A Depression, unspecified; K64.9 Unspecified hemorrhoids; E03.9 Hypothyroidism, unspecified; Z86.73 Personal history of transient ischemic attack (TIA), and cerebral infarction without residual deficits; Z87.891 Personal history of nicotine dependence; K27.9 Peptic ulcer, site unspecified, unspecified as acute or chronic, without hemorrhage or perforation; Z79.890 Hormone replacement therapy; K21.00 Gastro-esophageal reflux disease with esophagitis, without bleeding; K29.80 Duodenitis without bleeding; Z79.899 Other long term (current) drug therapy; Z87.11 Personal history of peptic ulcer disease; Z87.19 Personal history of other diseases of the digestive system
CPT/HCPCS: 36415; 74022; 80053; 80061; 80069; 80307; 81001; 83735; 83880; 84100; 84443; 85025; 85610; 85730; 90677; 93005; 96361; 96374; 96375; 97162; 99285; A4649; G0378; J1171; J1200; J2250; J2470; J2765; J3010; J7120; J7999; A9270

== ENCOUNTER 2025-07-30 07:01 | Inpatient (IN) | payer MEDICARE, SELFPAY ==
[2025-07-30] VITALS (12 sets, daily range): BP systolic 107–189; BP diastolic 63–87; PULSE 8–111; RESP 16–24; TEMP 36.1–36.7; O2SAT 96–100; BMI 24.2
--- NOTE | 2025-07-30 07:12 | EKG_ITS ---
[facility] Test Date: 2025-07-30 Pat Name: URSULA NEWMAN Department: Room: - Gender: Female Right Of Way Man: : 1945 Requested By: Steffany Monreal Order Number: [id number] Reading MD: Steffany Monreal Measurements Intervals [place] Rate: 94 P: TX: QRS: -6 QRSD: 154 T: 166 QT: 395 QTc: 495 Interpretive Statements UNCERTAIN IRREGULAR RHYTHM LEFT BUNDLE BRANCH BLOCK [120+ ms QRS DURATION, 80+ ms Q/S IN V1/V2, 85+ ms R IN I/aVL/V5/V6] Compared to ECG 04/30/2025 14:12:02 Sinus rhythm no longer present /store/S0/[id number].pdf
--- NOTE | 2025-07-30 07:12 | XR_ITS ---
EXAMINATION: AP chest single view TECHNIQUE: AP portable upright chest single view COMPARISON: April 29, 2025 INDICATION: Chest pain today. FINDINGS: Moderate CHF Mild enlargement cardiac contour prominent vascular congestion including central vascular engorgement Perihilar basilar edema with small bilateral pleural effusions IMPRESSION: Moderate CHF
--- NOTE | 2025-07-30 07:14 | PD.EDSOB ---
ED SOB =RME/HPI General Chief Complaint: Shortness of Breath/Dyspnea Stated Complaint: SOB Time Seen by Provider: 07/30/25 07:09 Arrival date/time: 07/30/25 07:01 RME / HPI RME / HPI Narrative: 80 year old female with history of hemorrhagic CVA 2008, HFpEF (EF 55-60% 11/2024), severe multivessel CAD, hypertension, hypothyroidism, GERD presents to the ED BIBA from home for evaluation of shortness of breath and cough today. Patient described feeling she is not getting enough air with no known modifying factors. Per medics, on scene the patient was saturating 91% on room air with wheezing on lung auscultation and placed on Oxy Mask with improvement to 99%. Denies fevers or chills. Patient later reports left-sided chest pain that began last night that was accompanied by feeling short of breath. Related Data Home Medications ?Medication ?Instructions ?Recorded ?Confirmed levothyroxine 25 mcg capsule 25 mcg PO QDAY 02/09/25 04/29/25 losartan 50 mg tablet 50 mg PO QDAY 02/09/25 04/29/25 spironolactone 25 mg tablet 25 mg PO QDAY 02/09/25 04/29/25 tramadol 50 mg tablet 50 mg PO BID PRN pain 02/09/25 04/29/25 Previous Rx's ?Medication ?Instructions ?Recorded sucralfate 1 gram tablet 1 g PO TID 30 days #90 tabs 04/03/25 amlodipine 5 mg tablet 5 mg PO BID 30 days #60 tabs 04/11/25 pantoprazole 40 mg tablet,delayed 40 mg PO DAILY GERD, Gastric 04/26/25 release Ulcers 90 days #90 tabs aluminum-mag hydroxide-simethicone 5 ml PO Q3H PRN dyspepsia #3,000 mL 05/01/25 200 mg-200 mg-20 mg/5 mL oral susp (Maalox Advanced) atorvastatin 20 mg tablet 20 mg PO QHS #90 tabs 06/11/25 sennosides 8.6 mg tablet 8.6 mg PO QDAY #90 tabs 06/11/25 Allergies Allergy/AdvReac Type Severity Reaction Status Date / Time No Known Allergies Allergy Verified 04/29/25 10:58 Review of Systems Review of Systems Systems Reviewed: All systems reviewed, normal except as documented Past Medical History Past Medical History NEUROLOGIC: Positive Neurological Disorders and Cerebrovascular Accident CARDIAC: Positive Cardiac Disorders (x3 arteries blocked unable to do surgery on), Hypercholesterolemia, Congestive Heart Failure and Hypertension RESPIRATORY: Positive Pneumonia GASTROINTESTINAL: Positive Gastrointestinal Disorders, Ulcer and Obesity GENITOURINARY: Positive Genitourinary Disorders and Renal Disease REPRODUCTIVE: Positive Previous Pregnancies MUSCULOSKELETAL: Positive Musculoskeletal Disorders and Arthritis ENT: Positive Cataracts and Deafness ENDOCRINE: Positive Endocrine Disorders and Hypothyroidism PSYCHO/SOCIAL: Positive Anxiety OTHER HISTORY: Positive Falls, Chicken Pox, Measles, Mumps and Clostridium Difficile Surgical History SURGICAL: Positive Endocrine Surgery and Eye Surgery Social History SMOKING STATUS: Never smoker ED Exam Narrative Physical exam: GENERAL APPEARANCE: alert and oriented x 4, well-developed, well-nourished, tachypneic HEENT: Normocephalic, atraumatic; pupils equal, round, reactive to light; EOMI; mucous membranes pink, moist; oropharynx clear NECK: Supple LUNGS: Decreased air movement bilaterally, tachypneic, hypoxic; wheezes bilaterally, no rales, no rhonchi HEART: Regular rate, regular rhythm; normal S1, S2; no murmurs ABDOMEN: non distended; normal BS; soft, no tenderness, no guarding, no rebound; no masses, no organomegaly, no hernia EXTREMITIES: atraumatic; no edema NEUROLOGIC: awake; alert and oriented x4; cranial nerves II-XII grossly intact; no focal sensory or motor deficits PSYCHIATRIC: appropriate mood and affect SKIN: warm, dry, normal color; no rashes Course Quality Measures none Orders Category Date Time Status Admit to Inpatient Status Routine Admission 07/30/25 12:04 Active [employer] Football[employer] NOW Care 07/30/25 07:12 Active EKG (ED ONLY) *Do not use* NOW Care 07/30/25 07:12 Completed Miscellaneous Nursing Order NOW Care 07/30/25 12:05 Active Consult to Cardiology Stat Cons 07/30/25 12:06 Ordered CA echo doppler complete Stat Exams 07/30/25 12:06 Ordered EKG (ED Only) Stat Exams 07/30/25 07:12 Draft XR chest 1V portable Stat Exams 07/30/25 07:12 Completed B-Type Natriuretic Peptide Stat Lab 07/30/25 07:40 Completed CBC Stat Lab 07/30/25 07:40 Results Comprehensive Metabolic Panel Stat Lab 07/30/25 07:40 Completed Lipase Stat Lab 07/30/25 07:40 Completed Magnesium Stat Lab 07/30/25 07:40 Completed Path Review Blood Smear Stat Lab 07/30/25 07:40 Results Troponin I Stat Lab 07/30/25 07:40 Completed ALBUTEROL RT 0.5ml [Proventil Rt 0.5ml] Med 07/30/25 07:50 Discontinued 10 mg INH X1 ONE Aspirin Chew Med 07/30/25 08:21 Discontinued 324 mg PO X1 ONE Furosemide Inj [Lasix Inj] Med 07/30/25 10:35 Discontinued 40 mg IVP X1 ONE Ipratropium Shiloh Rt Adriana [Atrovent Rt Adriana] Med 07/30/25 07:50 Discontinued 0.5 mg INH X1 ONE MethylPREDNISolone.* [SoluMEDROL Inj] Med 07/30/25 07:50 Discontinued 125 mg IVP X1 ONE Sodium Chloride Rt Adriana 0.9% [NS Rt Adriana 0.9%] Med 07/30/25 07:50 Active 3 ml INH PRN PRN Sodium Chloride Rt Adriana 0.9% [NS Rt Adriana 0.9%] Med 07/30/25 07:50 Active 3 ml INH PRN PRN Vital Signs Vital signs: Vital Signs Temperature 97.5 F 07/30/25 07:04 Pulse Rate 98 07/30/25 07:04 Respiratory Rate 18 07/30/25 07:04 Blood Pressure 189/85 H 07/30/25 07:04 Pulse Oximetry (%) 100 07/30/25 07:04 Oxygen Delivery Method Room Air 07/30/25 07:04 Pulse ox is 100% on room air which is adequate. Shortness of Breath / Dyspnea MDM Narrative MDM Narrative:: ISally am scribing for and in the presence of Dr. Mae. 1027a: On reassessment, the patients has improved air movement with mild wheezing. Patient reports feeling better. Patient is still requiring oxygen at this time. Plan to wean the patient off oxygen and reevaluate. 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 Discussed patients PMHx, HPI, ED course, exam findings, labs, and radiology results. Does not recommend trending troponin given she has vessel disease and is not a candidate for surgery. Recommends we diurese the patient. 1135a: RN reports the patients oxygen was weaned off and had complained of feeling short of breath. Saturating 90s on room air and was placed back on oxygen. Plan to admit. 1140a: I spoke with hospitalist team A for admission. Patient data External records reviewed:: [facility] previous records and EMS form Clinical information provided by:: patient and EMS Social determinants that could affect healthcare access:: none Patient has the following chronic illnesses:: hemorrhagic CVA 2008, HFpEF (EF 55-60% 11/2024), severe multivessel CAD, hypertension, hypothyroidism, GERD How is presenting disease/condition affected by chronic disease/condition?: exacerbated by Evaluation data The following diagnostics were reviewed and interpreted by me:: lab results, radiology exam(s) and EKG tracing(s) (EKG @ 07:58 am, interpreted by me, Normal sinus rhythm with first degree AV block, rate 94, LBBB, similar to prior EKG on 04/29/2025, there is deeper T-wave inversions noted in prior T-wave inversion in II, aVL, v5 and v6. T-wave inversion in lead II is new . ) Lab and/or radiology exams considered but not ordered:: None Interpretation Summary: Ordering Physician: Steffany Mae MD Date of Service: 07/30/25 Procedure(s): XR chest 1V portable Accession Number(s): [id number] cc: Lavon Theodore MD; Steffany Mae MD; Cynthia Danielle MD~ EXAMINATION: AP chest single view TECHNIQUE: AP portable upright chest single view COMPARISON: April 29, 2025 INDICATION: Chest pain today. FINDINGS: Moderate CHF Mild enlargement cardiac contour prominent vascular congestion including central vascular engorgement Perihilar basilar edema with small bilateral pleural effusions IMPRESSION: Moderate CHF Dictated By: Lavon Theodore MD Signed By: <Electronically signed by Lavon Theodore MD in OV> 07/30/25 1020 Medications / Prescriptions Medications or Prescriptions considered but not ordered:: None Medication administrations:: Medication Administration History Acetaminophen (Acetaminophen 325 Mg Tablet) 650 mg PO Q6H PRN PRN Reason: Fever >100.4 Stop: 08/29/25 12:23 Acetaminophen (Acetaminophen 325 Mg Tablet) 650 mg PO Q6H PRN PRN Reason: PAIN SCALE 1-3 (mild Stop: 08/29/25 12:23 Amlodipine Besylate (Amlodipine Besylate 5 Mg Tablet) 10 mg PO QDAY IZABELA Stop: 08/30/25 08:59 Aspirin (Aspirin Ec 81 Mg Tabec) 81 mg PO QDAY IZABELA Stop: 08/30/25 08:59 Atorvastatin Calcium (Atorvastatin Calcium 20 Mg Tablet) 20 mg PO HS IZABELA Stop: 08/29/25 20:59 Furosemide (Furosemide Inj 10 Mg/Ml 4ml Vial) 40 mg IVP QDAY IZABELA Stop: 08/30/25 08:59 Lactulose (Lactulose Syrup 20 Gm/30 Ml Udc) 10 gm PO QDAY [facility]; Protocol Stop: 08/30/25 08:59 Levalbuterol HCl (Levalbuterol Rt 1.25 Mg/0.5 Ml Nebu) 1.25 mg INH Q6HRRT PRN PRN Reason: wheezing Stop: 08/29/25 12:59 Levothyroxine Sodium (Levothyroxine Sodium 25 Mcg Tablet) 25 mcg PO ACBR [facility] Stop: 08/30/25 05:59 Metoprolol Succinate (Metoprolol Succinate Xl 25 Mg Tabcr) 25 mg PO QDAY IZABELA Stop: 08/29/25 13:04 Pantoprazole Sodium (Pantoprazole 40 Mg Tablet) 40 mg PO QDAY IZABELA Stop: 08/30/25 08:59 Sodium Chloride (Sodium Chloride Rt Adriana 0.9% 3 Ml Nebu) 3 ml INH PRN PRN PRN Reason: SOLN Stop: 08/29/25 07:49 Sodium Chloride (Sodium Chloride Rt Adriana 0.9% 3 Ml Nebu) 3 ml INH PRN PRN PRN Reason: SOLN Stop: 08/29/25 07:49 Sodium Chloride (Sodium Chloride Rt Adriana 0.9% 3 Ml Nebu) 3 ml INH PRN PRN PRN Reason: SOLN Stop: 08/29/25 12:23 Sodium Chloride (Sodium Chloride Rt Adriana 0.9% 3 Ml Nebu) 3 ml INH PRN PRN PRN Reason: SOLN Stop: 08/29/25 12:32 Discontinued Medications Albuterol (Albuterol Rt 2.5 Mg/0.5 Ml Nebu) 10 mg INH X1 ONE Stop: 07/30/25 07:51 Last Admin: 07/30/25 08:30 Dose: 10 mg Documented By: KIANA Aspirin (Aspirin 81 Mg Chew) 324 mg PO X1 ONE Stop: 07/30/25 08:22 Last Admin: 07/30/25 08:37 Dose: Not Given Documented By: YUE Non-Admin Reason: Cancelled by Provider Furosemide (Furosemide Inj 10 Mg/Ml 4ml Vial) 40 mg IVP X1 ONE Stop: 07/30/25 10:36 Last Admin: 07/30/25 10:55 Dose: 40 mg Documented By: YUE Ipratropium Shiloh (Ipratropium Rt 0.5 Mg/ 2.5 Ml Nebu) 0.5 mg INH X1 ONE Stop: 07/30/25 07:51 Last Admin: 07/30/25 08:30 Dose: 0.5 mg Documented By: KIANA Levalbuterol HCl (Levalbuterol Rt 1.25 Mg/0.5 Ml Nebu) 1.25 mg INH Q6HRRT [facility] Stop: 08/29/25 12:59 Last Admin: 07/30/25 12:41 Dose: 1.25 mg Documented By: KIANA Levalbuterol HCl (Levalbuterol Rt 1.25 Mg/0.5 Ml Nebu) 1.25 mg INH Q2HR IZABELA Stop: 08/29/25 13:59 Methylprednisolone Sodium Succinate (Methylprednisolone Sod Succ 62.5 Mg/Ml 2ml Vial) 125 mg IVP X1 ONE Stop: 07/30/25 07:51 Last Admin: 07/30/25 08:12 Dose: 125 mg Documented By: YUE Metoprolol Succinate (Metoprolol Succinate Xl 25 Mg Tabcr) 25 mg PO QDAY [facility] Stop: 08/29/25 12:59 Metoprolol Succinate (Metoprolol Succinate Xl 25 Mg Tabcr) 25 mg PO QDAY [facility] Stop: 08/30/25 08:59 See above Consultations Consultation(s) initiated? (list below): Yes Consultation #1 (Physician, Specialty, Details): See MDM Diagnosis Shortness of Breath Differential Diagnosis: acute exacerbation of chronic obstructive airways disease, congestive heart failure and community acquired pneumonia Most likely diagnosis given after review of the tests above:: CHF exacerbation Hypoxia Admission Indicated Admission indicated?: indicated Admission Request Was there a request for admission?: Yes Admission Attestation Admission request attestation: Discussed case with [] from Hospitalist service regarding admission. Discussed patients ED course, exam findings, labs, and radiology results. The Hospitalist [agrees,declines] to accept the patient for admission. Disposition Plan Disposition Plan: Admit Discharge Plan Plan Patient Disposition: Admit Acute Care w/in Hospital Problem List Clinical Impression: CHF exacerbation, Hypoxia
[2025-07-30 07:51] LABS: Basophils # (Auto) 0.0 Thou/mm3 (0.0-0.2); Basophils % (Auto) 1 % (0-2.5); Eosinophils # (Auto) 0.0 Thou/mm3 (0.0-0.5); Eosinophils % (Auto) 1 % (0-10); Hematocrit 28.9 % (36.0-46.0); Hemoglobin 9.3 g/dL (12.0-16.0); Immature Granulocytes Auto 0.02 Thou/mm3 (0.00-0.00); Lymphocytes # (Auto) 2.3 Thou/mm3 (1.0-4.8); Lymphocytes % (Auto) 28 % (10-50); Mean Corpuscular HGB Conc 32.2 g/dl (31.0-37.0); Mean Corpuscular Hemoglobin 30.5 pg (25.0-35.0); Mean Corpuscular Volume 95 fL (80-100); Monocytes # (Auto) 0.6 Thou/mm3 (0.0-0.8); Monocytes % (Auto) 7 % (0-12); Neutrophils # (Auto) 5.5 Thou/mm3 (1.8-7.7); Neutrophils % (Auto) 65 % (37-80); Nucleated Red Blood Cell # 0.02 Thou/mm3 (0.00-0.00); Nucleated Red Blood Cell % 0 /100 WBC (0); Platelet Count 222 Thou/mm3 (140-440); RDW Standard Deviation 48.2 fL (36.4-46.3); Red Blood Count 3.05 Miln/mm3 (4.00-5.20); White Blood Count 8.5 Thou/mm3 (3.6-11.0)
[2025-07-30] MEDS: MethylPREDNISolone SOD SUCC 62.5 MG/ML 2ML VIAL 125 MG IVP (08:12)
[2025-07-30 08:16] LABS: Alanine Aminotransferase 50 U/L (10-49); Albumin, Serum 4.7 gm/dL (3.4-4.8); Albumin/Globulin Ratio 1.9 (1.2-2.2); Alkaline Phosphatase 111 U/L (46-116); Anion Gap 10 (7-16); Aspartate Amino Transferase 46 U/L (0-34); BUN/Creatinine Ratio 18 Ratio (12-20); Bilirubin,Total 0.4 mg/dL (0.3-1.2); Blood Urea Nitrogen 47 mg/dL (9-23); Calcium 9.6 mg/dL (8.3-10.6); Calcium (Corrected) 9.6 mg/dL (8.5-10.1); Carbon Dioxide 24.8 mMol/L (20.0-31.0); Chloride 106 mMol/L (98-107); Creatinine (Component) 2.6 mg/dL (0.6-1.3); Estimated Creatinine Clearance 14.4 mL/min (>60); Globulin 2.5 gm/dL (2.3-3.5); Glucose 110 mg/dL (74-106); Lipase 29 U/L (12-53); Magnesium 2.6 mg/dL (1.6-2.6); Osmolality,Calculated 294 (275-295); Potassium 3.9 mMol/L (3.4-5.1); Sodium 141 mMol/L (136-145); Total Protein 7.2 gm/dL (5.7-8.2); eGFR 18 See Note
[2025-07-30 08:19] LABS: Troponin I 0.600 ng/mL (0.0-0.045)
[2025-07-30 08:28] LABS: B-Type Natriuretic Peptide 1028 pg/mL (0-100)
[2025-07-30] MEDS: ALBUTEROL RT 2.5 MG/0.5 ML NEBU 10 MG INH (08:30)
[2025-07-30] MEDS: IPRATROPIUM RT 0.5 MG/ 2.5 ML NEBU INH (08:30)
[2025-07-30] MEDS: FUROSEMIDE INJ 10 MG/ML 4ML VIAL 40 MG IVP ×2 (10:55→20:14)
--- NOTE | 2025-07-30 12:06 | ECHO_ITS ---
Patient Info Name: Loly Panda Age: 80 years : 1945 Gender: Female Ht: 163 cm Wt: 64 kg BSA: 1.71 m2 BP: 149 / 66 mmHg HR: 99 bpm Exam Date: 07/30/2025 2:03 PM Admit Date: 07/30/2025 Site: Room Number: ED 1 Patient Status: I Exam Type: CA echo doppler complete [employer] [facility]: [facility] Ordering Physician: Denis Starr Study Info Indications shortness of breath/CHF - Primary Location: [facility] Left Ventricular Outflow Tract Name Value Normal LVOT 2D LVOT Diameter 1.9 cm LVOT Doppler LVOT Peak Velocity 126 cm/s LVOT Mean Gradient 3 mmHg LVOT VTI 24 cm LVOT VTI/AV VTI Ratio 0.6 LVOT Stroke Volume 68 ml Pulmonic Valve Name Value Normal PV Doppler PV Peak Velocity 125 cm/s Mitral Valve Name Value Normal MV Doppler MV Mean Gradient 4 mmHg MV Decel Brantley 1,412 cm/s2 MV PHT 22 ms MV Area (PHT) 9.9 cm2 4.0-5.0 MV Area (Cont Eq VTI) 1.6 cm2 MV Regurgitation Doppler MV NATHANIEL (PISA) 0.55 cm2 MV Diastolic Function MV E Peak Velocity 108 cm/s MV A Peak Velocity 139 cm/s MV E/A 0.8 MV Annular TDI MV Lateral e' Velocity 15.8 cm/s MV E/e' (Lateral) 6.8 Tricuspid Valve Name Value Normal TV Regurgitation Doppler TR Peak Velocity 211 cm/s Estimated PAP/RSVP RA Pressure 3 mmHg <=5 PA Systolic Pressure 21 mmHg <36 RV Systolic Pressure 21 mmHg <36 Aortic Valve Name Value Normal AV 2D/MM AV Cusp Sep (MM) 1.1 cm AV Doppler AV Peak Velocity 211 cm/s AV Mean Gradient 10 mmHg AV VTI 41 cm AV Area (Cont Eq VTI) 1.7 cm2 >=3.0 AV Area (Cont Eq Juanito) 1.7 cm2 AV DI (Juanito) 0.60 AV Regurgitation 2D LVOT Area 2.8 cm2 Ventricles Name Value Normal LV Dimensions 2D/MM IVS Diastolic Thickness (2D) 1.1 cm 0.6-0.9 LVID Diastole (2D) 5.4 cm 3.8-5.2 LVIW Diastolic Thickness (2D) 0.9 cm 0.6-0.9 LVID Systole (2D) 3.6 cm 2.2-3.5 LVOT Diameter 1.9 cm LV Mass (2D Cubed) 206.74 g 67.00-162.00 LV Mass Index (2D Cubed) 121 g/m2 43-95 Relative Wall Thickness (2D) 0.33 <=0.42 IVS/LVIW Diastolic Thickness (2D) 1.22 0.00-1.50 LV Fractional Shortening/Ejection Fraction 2D/MM LV Fractional Shortening (2D) 33 % 27-45 LV EF (2D Teichholz) 61 % Atria Name Value Normal LA Dimensions LA Volume (4C A-L) 88 ml LA Volume (BP A-L) 94 ml Left Ventricle Left ventricular chamber dimension is normal. Left ventricular systolic function is normal with visually estimated ejection fraction of 50-55%. There is normal geometry noted in the left ventricle. Left ventricular segmental wall motion is normal. There is grade I diastolic dysfunction in the left ventricle. Right Ventricle Right ventricular chamber dimension is normal. Right ventricular systolic function is normal. Left Atrium Left atrial chamber dimension is moderately enlarged. Right Atrium Right atrial chamber dimension is normal. Aortic Valve The aortic valve is trileaflet. There is moderate aortic valve sclerosis. There is no aortic valve stenosis with a peak velocity of 211 cm/s, mean gradient of 10 mmHg, and aortic valve area of 1.7 cm2. There is trace aortic valve regurgitation. Pulmonic Valve The pulmonic valve is normal. There is no pulmonic valve stenosis. There is trace pulmonic regurgitation. Mitral Valve The mitral valve has thickened leaflets. There is no mitral valve stenosis. There is mild to moderate mitral valve regurgitation. Tricuspid Valve The tricuspid valve leaflets are normal. There is no tricuspid valve stenosis. There is mild tricuspid valve regurgitation. No pulmonary hypertension, estimated pulmonary arterial systolic pressure is 21 mmHg and systemic blood pressure of 149 mmHg in systole. Pericardium/Pleural The pericardium appears normal. There is no pericardial effusion. No pleural effusion visualized. Inferior Vena Cava Normal inferior vena cava with >50% collapse upon inspiration consistent with normal right atrial pressure, 3 mmHg. Aorta The aortic measurements are indexed to age and body surface area. The aortic root at the sinus of Valsalva is not well visualized. The prox ascending aorta is not well visualized. Summary 1. Left ventricle size is normal and systolic function is normal. Estimated ejection fraction is 50-55%. There is grade I diastolic dysfunction. 2. Right ventricle chamber size is normal and systolic function is normal. Estimated RVSP is 21 mmHg. 3. There is moderate aortic valve sclerosis with no stenosis and trace regurgitation. 4. There is mild to moderate mitral regurgitation and tricuspid valve regurgitation. Mild MAC. 5. The left atrium is moderately enlarged. The right atrium is normal. Report Signatures Finalized by Toby Greer on 07/31/2025 12:00 AM
[2025-07-30] MEDS: LEVALBUTEROL RT 1.25 MG/0.5 ML NEBU INH (12:41)
[2025-07-30 13:21] LABS: INR 1.0 (0.9-1.3); Prothrombin Time 10.4 Seconds (9.0-12.2)
--- NOTE | 2025-07-30 13:22 | ESHP_ITS ---
<Statement entered by Edmund Crandall MD - 08/09/25 08:25> I reviewed above note and agree with findings and plans. I have also personally examined the patient with medicine team and went over assessment and plan with medical team including international sourcing manager and resident physician. <Statement entered by Denis Starr MD - 07/30/25 19:09> Patient was examined and case was reviewed with team including attending physician. Note reviewed, I agree with most of its contents and agree with the patient's care as documented by Dr. Cheung 80yF with PMH of HFrEF 45-50%, severe multivessel CAD not amenable to revascularization due to prior hemorrhagic CVA (2008), Primary hypertension, hypothyrodism, esophageal ulcer and erosive gastroduodenitis (EGD in 2019), GERD, hemorrhoids (colonoscopy in 2019), osteoarthritis, and depression, who presented to the ED due to shortness of breath. Patient had a meal yesterday and went to bed and suddenly developed shortness of breath. She states she started feeling and hearing her own wheezing with every breath. She also endorses that last night patient was unable to lay flat on the bed and also she is unable to ambulate without getting short of breath. Patient was admitted for AHRF secondary to decompensated heart failure. Patient will be given IV diuretic therapy, lasix, spironolactone, breathing treatments and oxygen therapy will be provided and will be weaned off O2 as tolerated. As patient has chronic heart failure and since she is hemodynamically stable her home metoprolol can be resumed. Cardiology also consulted. Echocardiogram ordered. Given the patients CKD Nephrology was also consulted. Case discussed with my attending Dr. Raz Starr MD PGY-2 Documentation for date of: 07/30/25 HPI History of Present Illness Chief complaint: Shortness of breath History of present illness: Mrs. Panda is an 80-year-old female with a history of HFpEF (EF 55?60%), severe multivessel CAD not amenable to revascularization due to prior hemorrhagic CVA (2008), CKD, hypertension, hypothyroidism, and GERD/PUD who presented from home via EMS for shortness of breath. The patient reports progressive shortness of breath beginning overnight, associated with wheezing and difficulty breathing, waking her multiple times from sleep. She states she felt she ?could not breathe well,? prompting her to call 911. Per EMS, the patient was hypoxic to 91% on room air with wheezing on lung exam and improved with supplemental oxygen. She reports a history of recurrent pneumonias but denies known COPD or asthma The patient also reports burning epigastric discomfort over the past week, worse after eating, consistent with her known GERD/PUD, and chronic constipation. She denies dysuria or new neurologic symptoms. She does not use home oxygen. She has known severe multivessel CAD (reported ?three arteries 90% clogged?) and was previously told interventions are limited because of her history of intracerebral hemorrhage in 2008. She follows outpatient cardiology with Dr. Greer. In the ED, the patient continued to require oxygen and was unable to tolerate weaning, prompting admission. She also endorsed left-sided chest discomfort beginning the night prior, without radiation, syncope, or palpitations. She denies fevers or chills. She received methylprednisolone 125 mg and bronchodilators with improvement in symptoms. CXR showed moderate CHF and BNP was elevated (1028). Troponin was elevated (0.6). Per discussion with cardiology (Dr. Greer), no further troponin trending was recommended given known severe CAD and non-interventional status; plan is diuresis. She was unable to remain off oxygen without recurrent dyspnea and was admitted for further management. Review of Systems: negative except as above Past Medical History * HFpEF (EF 55?60% 11/2024) * Severe multivessel CAD (not surgical/PCI candidate) * Hemorrhagic CVA (2008) * Hypertension * CKD (prior baseline Cr 2.0) * Hypothyroidism * GERD/PUD/hiatal hernia * Hyperlipidemia * Osteoarthritis * Depression/anxiety * Reported recurrent pneumonia Past Surgical History * Breast implants * Eye surgery? * No known cardiac surgery * No major abdominal surgery reported * No C-sections reported Medications: (pending full med recs) below obtain from bedside med list * Aspirin 81 mg daily * Atorvastatin 20 mg HS * Metoprolol 25 mg daily * Amlodipine 10 mg daily * Levothyroxine 25 mcg daily * Pantoprazole 40 mg daily * Spironolactone 25 mg daily * Losartan 50 mg daily * Sucralfate and maalox * Prednisone 20 mg? * Minoxidil 2.5 mg twice daily * Amitriptyline 25 mg HS * Alprazolam 1 mg daily * Hydroxyzine 25 mg twice daily prn for anxiety Allergies: * NKDA Social History: * Lives at home * Never smoker * Denies alcohol and illicit drug use * Not on home oxygen Family History: * Noncontributory Exam Vital Signs Temp Pulse Resp BP Pulse Ox O2 Del Method O2 Flow Rate 97.7 F 96 24 H 149/66 H 100 Oxy Mask 4 07/30/25 07:52 07/30/25 12:42 07/30/25 12:42 07/30/25 10:55 07/30/25 12:42 07/30/25 07:52 07/30/25 12:42 Narrative Exam General: Alert, oriented ?4, in mild respiratory distress intermittently but speaking in full sentences. HEENT: NC/AT, PERRL, EOMI, MMM. Neck: Supple, no JVD. Cardiovascular: RRR, normal S1/S2, no murmurs. Respiratory: Crackles bilaterally, most notable at bases; no wheezing appreciated on exam. Abdomen: Soft, non-distended; mild epigastric discomfort by history; no rebound/guarding. Extremities: No edema. Neuro: AOx4, CN II?XII grossly intact, no focal deficits. Skin: Warm/dry, no rash. Results: Labs 07/30/25 07:40 07/30/25 07:40 Labs: Short CBC 07/30/25 Range/Units 07:40 WBC 8.5 (3.6-11.0) Thou/mm3 Hgb 9.3 L (12.0-16.0) g/dL Hct 28.9 L (36.0-46.0) % Plt Count 222 (140-440) Thou/mm3 BMP 07/30/25 07:40 Sodium 141 Potassium 3.9 Chloride 106 Carbon Dioxide 24.8 BUN 47 H Creatinine 2.6 H Glucose 110 H Calcium 9.6 Cardiac Enzymes 07/30/25 Range/Units 07:40 Troponin I 0.600 H* (0.0-0.045) ng/mL Liver Function 07/30/25 Range/Units 07:40 Total Bilirubin 0.4 (0.3-1.2) mg/dL AST 46 H (0-34) U/L ALT 50 H (10-49) U/L Alkaline Phosphatase 111 (46-116) U/L Albumin 4.7 (3.4-4.8) gm/dL Quality Measures Quality Measures VTE prophylaxis Advance care planning discussed with:: patient Medications Home Medications and Allergies Home Medications ?Medication ?Instructions ?Recorded ?Confirmed ?Type levothyroxine 25 mcg capsule 25 mcg PO QDAY 02/09/25 0 04/29/25 History losartan 50 mg tablet 50 mg PO QDAY 02/09/2504/29 History spironolactone 25 mg tablet 25 mg PO QDAY 02/09/25 History tramadol 50 mg tablet 50 mg PO BID PRN pain 04/29/25 History Allergies Allergy/AdvReac Type Severity Reaction Status Date / Time No Known Allergies Allergy Verified 04/29/25 10:58 Visit Medications Acetaminophen (Acetaminophen 325 Mg Tablet) 650 mg PO Q6H PRN PRN Reason: Fever >100.4 Stop: 08/29/25 12:23 Acetaminophen (Acetaminophen 325 Mg Tablet) 650 mg PO Q6H PRN PRN Reason: PAIN SCALE 1-3 (mild Stop: 08/29/25 12:23 Amlodipine Besylate (Amlodipine Besylate 5 Mg Tablet) 10 mg PO QDAY [facility] Stop: 08/30/25 08:59 Aspirin (Aspirin Ec 81 Mg Tabec) 81 mg PO QDAY [facility] Stop: 08/30/25 08:59 Atorvastatin Calcium (Atorvastatin Calcium 20 Mg Tablet) 20 mg PO HS [facility] Stop: 08/29/25 20:59 Furosemide (Furosemide Inj 10 Mg/Ml 4ml Vial) 40 mg IVP QDAY [facility] Stop: 08/30/25 08:59 Lactulose (Lactulose Syrup 20 Gm/30 Ml Udc) 10 gm PO QDAY [facility]; Protocol Stop: 08/30/25 08:59 Levalbuterol HCl (Levalbuterol Rt 1.25 Mg/0.5 Ml Nebu) 1.25 mg INH Q6HRRT PRN PRN Reason: wheezing Stop: 08/29/25 12:59 Levothyroxine Sodium (Levothyroxine Sodium 25 Mcg Tablet) 25 mcg PO ACBR [facility] Stop: 08/30/25 05:59 Metoprolol Succinate (Metoprolol Succinate Xl 25 Mg Tabcr) 25 mg PO QDAY [facility] Stop: 08/29/25 13:04 Pantoprazole Sodium (Pantoprazole 40 Mg Tablet) 40 mg PO QDAY [facility] Stop: 08/30/25 08:59 Sodium Chloride (Sodium Chloride Rt [place] 0.9% 3 Ml Nebu) 3 ml INH PRN PRN PRN Reason: SOLN Stop: 08/29/25 07:49 Sodium Chloride (Sodium Chloride Rt Adriana 0.9% 3 Ml Nebu) 3 ml INH PRN PRN PRN Reason: SOLN Stop: 08/29/25 07:49 Sodium Chloride (Sodium Chloride Rt Adriana 0.9% 3 Ml Nebu) 3 ml INH PRN PRN PRN Reason: SOLN Stop: 08/29/25 12:23 Sodium Chloride (Sodium Chloride Rt Adriana 0.9% 3 Ml Nebu) 3 ml INH PRN PRN PRN Reason: SOLN Stop: 08/29/25 12:32 Discontinued Medications Albuterol (Albuterol Rt 2.5 Mg/0.5 Ml Nebu) 10 mg INH X1 ONE Stop: 07/30/25 07:51 Last Admin: 07/30/25 08:30 Dose: 10 mg Aspirin (Aspirin 81 Mg Chew) 324 mg PO X1 ONE Stop: 07/30/25 08:22 Last Admin: 07/30/25 08:37 Dose: Not Given Furosemide (Furosemide Inj 10 Mg/Ml 4ml Vial) 40 mg IVP X1 ONE Stop: 07/30/25 10:36 Last Admin: 07/30/25 10:55 Dose: 40 mg Ipratropium [place] (Ipratropium Rt 0.5 Mg/ 2.5 Ml Nebu) 0.5 mg INH X1 ONE Stop: 07/30/25 07:51 Last Admin: 07/30/25 08:30 Dose: 0.5 mg Levalbuterol HCl (Levalbuterol Rt 1.25 Mg/0.5 Ml Nebu) 1.25 mg INH Q6HRRT [facility] Stop: 08/29/25 12:59 Last Admin: 07/30/25 12:41 Dose: 1.25 mg Levalbuterol HCl (Levalbuterol Rt 1.25 Mg/0.5 Ml Nebu) 1.25 mg INH Q2HR [facility] Stop: 08/29/25 13:59 Methylprednisolone Sodium Succinate (Methylprednisolone Sod Succ 62.5 Mg/Ml 2ml Vial) 125 mg IVP X1 ONE Stop: 07/30/25 07:51 Last Admin: 07/30/25 08:12 Dose: 125 mg Metoprolol Succinate (Metoprolol Succinate Xl 25 Mg Tabcr) 25 mg PO QDAY [facility] Stop: 08/29/25 12:59 Metoprolol Succinate (Metoprolol Succinate Xl 25 Mg Tabcr) 25 mg PO QDAY [facility] Stop: 08/30/25 08:59 Assessment & Plan Plan 80-year-old female with HFpEF (EF 55?60%), severe multivessel CAD not amenable to PCI/CABG due to prior hemorrhagic CVA (2008), CKD, HTN, hypothyroidism, and GERD/PUD admitted with acute hypoxic respiratory failure secondary to acute decompensated heart failure, with cardiorenal involvement. # Acute hypoxic respiratory failure, likely due to # Acute decompensated HFpEF # Cardiorenal syndrome (Type 1)? # Bronchospasm/wheezing, resolved -Presented with acute SOB, increased work of breathing, and hypoxia requiring supplemental O2 (91% on room air per EMS) -Persistent oxygen requirement and inability to tolerate weaning in the ED, prompting admission. -Imaging and labs notable for moderate pulmonary congestion on CXR and BNP 1028, with bibasilar crackles on exam -Consistent with cardiogenic pulmonary edema from volume overload. -Wheezing noted pre-hospital and in ED, likely airway irritation from pulmonary edema, resolved after bronchodilators and steroids, with no wheezing on exam. -No fever, leukocytosis, or focal consolidation to suggest infectious pneumonia. -Likely precipitating factors include cold exposure, with no clear evidence of infection trigger. -Renal dysfunction (Cr 2.6 from baseline 2.0) consistent with cardiorenal physiology. -Patient is hemodynamically stable without cardiogenic shock. -Known EF 55?60% (11/2024) with diastolic dysfunction. -Cardiology (Dr. Greer) consulted in ED, recommended diuresis and no further troponin trending given known severe, non-revascularizable CAD. Plan * Supplemental O2 to maintain SpO2 >92%, wean as tolerated * IV Lasix 40 mg BID, adjust based on renal function and UO * Strict I/O, daily weights * Avoid IV fluids for now * Daily BMP * Replete electrolytes (goal K >4, Mg >2 given QTc prolongation) * Incentive spirometry * Telemetry monitoring * Repeat CXR if respiratory status worsens * Repeat echocardiogram ordered * Levalbuterol 1.25 mg q6h PRN * Monitor for recurrence of wheezing * Pending full med recs #ARTHUR on CKD #Likely cardiorenal syndrome Creatinine 2.6 with prior baseline ~2.0 Likely worsened due to volume overload. Follows Dr Zavala as stretch box tender Plan: * Consult Dr Zavala, Nephrology. * Monitor renal function daily during diuresis * Renally dose medications * Avoid nephrotoxins #Severe multivessel CAD, non-revascularizable Known extensive CAD Not a surgical or PCI candidate due to prior intracerebral hemorrhage. Troponin mildly elevated (0.6) likely demand-related Cardiology advised no further trending. Plan: * Continue aspirin 81 mg daily * Continue atorvastatin 20 mg HS * Continue metoprolol 25 mg daily as tolerated * No further troponin trending per cardiology recommendation * Telemetry monitoring #Prolonged QTc (QTc 495 ms) Chronic LBBB with prolonged QTc. Plan: * Avoid QT-prolonging medications * Maintain electrolytes (K >4, Mg >2) * Telemetry monitoring #Chronic Anemia Chronic anemia (Hgb 9.3), likely multifactorial (CKD/chronic disease; iron deficiency possible). Plan: * Trend CBC * Follow up iron studies * Transfuse only if symptomatic or hgb <8. #GERD #PUD #Epigastric pain Reports burning epigastric pain this week Known history of esophagitis, gastroduodenitis, ulcers. EGD completed during last visit on may 10 Plan: * Continue Protonix 40 mg daily * Avoid NSAIDs * Consider increasing to BID if symptoms persist #Constipation Chronic constipation refractory to prior outpatient therapies. Stated lactulose helped before Plan: * Lactulose 10 g, titrate to bowel movement * Add polyethylene glycol if needed * Encourage mobility as tolerated #Hypothyroidism Stable on home therapy. Plan: * Continue levothyroxine 25 mcg daily * Ordered TSH in AM, will follow up. #Hypertension Chronic, currently stable. BP 154/83 Plan: * Continue home antihypertensives as tolerated * Monitor BP closely during diuresis Health Maintenance: Diet: Cardiac VTE prophylaxis: SCDs GI prophylaxis: Protonix Code status: Full Disposition: Continue inpatient management on telemetry pending improvement in oxygen requirement and volume status ----- Plan discussed with attending physician Dr. Crandall and senior resident Dr. Dave Cheung MD PGY-1 Internal Medicine
--- NOTE | 2025-07-30 13:22 | PD.RESHP ---
Documentation for date of: 07/30/25 [facility] History of Present Illness Chief complaint: Shortness of breath History of present illness: Mrs. Panda is an 80-year-old female with a history of HFpEF (EF 55?60%), severe multivessel CAD not amenable to revascularization due to prior hemorrhagic CVA (2008), CKD, hypertension, hypothyroidism, and GERD/PUD who presented from home via EMS for shortness of breath. The patient reports progressive shortness of breath beginning overnight, associated with wheezing and difficulty breathing, waking her multiple times from sleep. She states she felt she ?could not breathe well,? prompting her to call 911. Per EMS, the patient was hypoxic to 91% on room air with wheezing on lung exam and improved with supplemental oxygen. She reports a history of recurrent pneumonias but denies known COPD or asthma The patient also reports burning epigastric discomfort over the past week, worse after eating, consistent with her known GERD/PUD, and chronic constipation. She denies dysuria or new neurologic symptoms. She does not use home oxygen. She has known severe multivessel CAD (reported ?three arteries 90% clogged?) and was previously told interventions are limited because of her history of intracerebral hemorrhage in 2008. She follows outpatient cardiology with Dr. Greer. In the ED, the patient continued to require oxygen and was unable to tolerate weaning, prompting admission. She also endorsed left-sided chest discomfort beginning the night prior, without radiation, syncope, or palpitations. She denies fevers or chills. She received methylprednisolone 125 mg and bronchodilators with improvement in symptoms. CXR showed moderate CHF and BNP was elevated (1028). Troponin was elevated (0.6). Per discussion with cardiology (Dr. Greer), no further troponin trending was recommended given known severe CAD and non-interventional status; plan is diuresis. She was unable to remain off oxygen without recurrent dyspnea and was admitted for further management. Review of Systems: negative except as above Past Medical History HFpEF (EF 55?60% 11/2024) Severe multivessel CAD (not surgical/PCI candidate) Hemorrhagic CVA (2008) Hypertension CKD (prior baseline Cr 2.0) Hypothyroidism GERD/PUD/hiatal hernia Hyperlipidemia Osteoarthritis Depression/anxiety Reported recurrent pneumonia Past Surgical History Breast implants Eye surgery? No known cardiac surgery No major abdominal surgery reported No C-sections reported Medications: (pending full med recs) below obtain from bedside med list Aspirin 81 mg daily Atorvastatin 20 mg HS Metoprolol 25 mg daily Amlodipine 10 mg daily Levothyroxine 25 mcg daily Pantoprazole 40 mg daily Spironolactone 25 mg daily Losartan 50 mg daily Sucralfate and maalox Prednisone 20 mg? Minoxidil 2.5 mg twice daily Amitriptyline 25 mg HS Alprazolam 1 mg daily Hydroxyzine 25 mg twice daily prn for anxiety Allergies: NKDA Social History: Lives at home Never smoker Denies alcohol and illicit drug use Not on home oxygen Family History: Noncontributory Exam Vital Signs Temp Pulse Resp BP Pulse Ox O2 Del Method O2 Flow Rate 97.7 F 96 24 H 149/66 H 100 Oxy Mask 4 07/30/25 07:52 07/30/25 12:42 07/30/25 12:42 07/30/25 10:55 07/30/25 12:42 07/30/25 07:52 07/30/25 12:42 Narrative Exam General: Alert, oriented ?4, in mild respiratory distress intermittently but speaking in full sentences. HEENT: NC/AT, PERRL, EOMI, MMM. Neck: Supple, no JVD. Cardiovascular: RRR, normal S1/S2, no murmurs. Respiratory: Crackles bilaterally, most notable at bases; no wheezing appreciated on exam. Abdomen: Soft, non-distended; mild epigastric discomfort by history; no rebound/guarding. Extremities: No edema. Neuro: AOx4, CN II?XII grossly intact, no focal deficits. Skin: Warm/dry, no rash. Results: Labs 07/30/25 07:40 07/30/25 07:40 Labs: Short CBC 07/30/25 Range/Units 07:40 WBC 8.5 (3.6-11.0) Thou/mm3 Hgb 9.3 L (12.0-16.0) g/dL Hct 28.9 L (36.0-46.0) % Plt Count 222 (140-440) Thou/mm3 BMP 07/30/25 07:40 Sodium 141 Potassium 3.9 Chloride 106 Carbon Dioxide 24.8 BUN 47 H Creatinine 2.6 H Glucose 110 H Calcium 9.6 Cardiac Enzymes 07/30/25 Range/Units 07:40 Troponin I 0.600 H* (0.0-0.045) ng/mL Liver Function 07/30/25 Range/Units 07:40 Total Bilirubin 0.4 (0.3-1.2) mg/dL AST 46 H (0-34) U/L ALT 50 H (10-49) U/L Alkaline Phosphatase 111 (46-116) U/L Albumin 4.7 (3.4-4.8) gm/dL Quality Measures Quality Measures VTE prophylaxis Advance care planning discussed with:: patient Medications Home Medications and Allergies Home Medications ?Medication ?Instructions ?Recorded ?Confirmed ?Type levothyroxine 25 mcg capsule 25 mcg PO QDAY 02/09/25 04/29/25 History losartan 50 mg tablet 50 mg PO QDAY 02/09/25 04/29/25 History spironolactone 25 mg tablet 25 mg PO QDAY 02/09/25 04/29/25 History tramadol 50 mg tablet 50 mg PO BID PRN pain 02/09/25 04/29/25 History Allergies Allergy/AdvReac Type Severity Reaction Status Date / Time No Known Allergies Allergy Verified 04/29/25 10:58 Visit Medications Acetaminophen (Acetaminophen 325 Mg Tablet) 650 mg PO Q6H PRN PRN Reason: Fever >100.4 Stop: 08/29/25 12:23 Acetaminophen (Acetaminophen 325 Mg Tablet) 650 mg PO Q6H PRN PRN Reason: PAIN SCALE 1-3 (mild Stop: 08/29/25 12:23 Amlodipine Besylate (Amlodipine Besylate 5 Mg Tablet) 10 mg PO QDAY [facility] Stop: 08/30/25 08:59 Aspirin (Aspirin Ec 81 Mg Tabec) 81 mg PO QDAY [facility] Stop: 08/30/25 08:59 Atorvastatin Calcium (Atorvastatin Calcium 20 Mg Tablet) 20 mg PO HS IZABELA Stop: 08/29/25 20:59 Furosemide (Furosemide Inj 10 Mg/Ml 4ml Vial) 40 mg IVP QDAY [facility] Stop: 08/30/25 08:59 Lactulose (Lactulose Syrup 20 Gm/30 Ml Udc) 10 gm PO QDAY [facility]; Protocol Stop: 08/30/25 08:59 Levalbuterol HCl (Levalbuterol Rt 1.25 Mg/0.5 Ml Nebu) 1.25 mg INH Q6HRRT PRN PRN Reason: wheezing Stop: 08/29/25 12:59 Levothyroxine Sodium (Levothyroxine Sodium 25 Mcg Tablet) 25 mcg PO ACBR IZABELA Stop: 08/30/25 05:59 Metoprolol Succinate (Metoprolol Succinate Xl 25 Mg Tabcr) 25 mg PO QDAY [facility] Stop: 08/29/25 13:04 Pantoprazole Sodium (Pantoprazole 40 Mg Tablet) 40 mg PO QDAY I[facility]A Stop: 08/30/25 08:59 Sodium Chloride (Sodium Chloride Rt Adriana 0.9% 3 Ml Nebu) 3 ml INH PRN PRN PRN Reason: SOLN Stop: 08/29/25 07:49 Sodium Chloride (Sodium Chloride Rt Adriana 0.9% 3 Ml Nebu) 3 ml INH PRN PRN PRN Reason: SOLN Stop: 08/29/25 07:49 Sodium Chloride (Sodium Chloride Rt Adriana 0.9% 3 Ml Nebu) 3 ml INH PRN PRN PRN Reason: SOLN Stop: 08/29/25 12:23 Sodium Chloride (Sodium Chloride Rt Adriana 0.9% 3 Ml Nebu) 3 ml INH PRN PRN PRN Reason: SOLN Stop: 08/29/25 12:32 Discontinued Medications Albuterol (Albuterol Rt 2.5 Mg/0.5 Ml Nebu) 10 mg INH X1 ONE Stop: 07/30/25 07:51 Last Admin: 07/30/25 08:30 Dose: 10 mg Aspirin (Aspirin 81 Mg Chew) 324 mg PO X1 ONE Stop: 07/30/25 08:22 Last Admin: 07/30/25 08:37 Dose: Not Given Furosemide (Furosemide Inj 10 Mg/Ml 4ml Vial) 40 mg IVP X1 ONE Stop: 07/30/25 10:36 Last Admin: 07/30/25 10:55 Dose: 40 mg Ipratropium [place] (Ipratropium Rt 0.5 Mg/ 2.5 Ml Nebu) 0.5 mg INH X1 ONE Stop: 07/30/25 07:51 Last Admin: 07/30/25 08:30 Dose: 0.5 mg Levalbuterol HCl (Levalbuterol Rt 1.25 Mg/0.5 Ml Nebu) 1.25 mg INH Q6HRRT IZABELA Stop: 08/29/25 12:59 Last Admin: 07/30/25 12:41 Dose: 1.25 mg Levalbuterol HCl (Levalbuterol Rt 1.25 Mg/0.5 Ml Nebu) 1.25 mg INH Q2HR [facility] Stop: 08/29/25 13:59 Methylprednisolone Sodium Succinate (Methylprednisolone Sod Succ 62.5 Mg/Ml 2ml Vial) 125 mg IVP X1 ONE Stop: 07/30/25 07:51 Last Admin: 07/30/25 08:12 Dose: 125 mg Metoprolol Succinate (Metoprolol Succinate Xl 25 Mg Tabcr) 25 mg PO QDAY [facility] Stop: 08/29/25 12:59 Metoprolol Succinate (Metoprolol Succinate Xl 25 Mg Tabcr) 25 mg PO QDAY [facility] Stop: 08/30/25 08:59 Assessment & Plan Plan 80-year-old female with HFpEF (EF 55?60%), severe multivessel CAD not amenable to PCI/CABG due to prior hemorrhagic CVA (2008), CKD, HTN, hypothyroidism, and GERD/PUD admitted with acute hypoxic respiratory failure secondary to acute decompensated heart failure, with cardiorenal involvement. # Acute hypoxic respiratory failure, likely due to # Acute decompensated HFpEF # Cardiorenal syndrome (Type 1)? # Bronchospasm/wheezing, resolved -Presented with acute SOB, increased work of breathing, and hypoxia requiring supplemental O2 (91% on room air per EMS) -Persistent oxygen requirement and inability to tolerate weaning in the ED, prompting admission. -Imaging and labs notable for moderate pulmonary congestion on CXR and BNP 1028, with bibasilar crackles on exam -Consistent with cardiogenic pulmonary edema from volume overload. -Wheezing noted pre-hospital and in ED, likely airway irritation from pulmonary edema, resolved after bronchodilators and steroids, with no wheezing on exam. -No fever, leukocytosis, or focal consolidation to suggest infectious pneumonia. -Likely precipitating factors include cold exposure, with no clear evidence of infection trigger. -Renal dysfunction (Cr 2.6 from baseline 2.0) consistent with cardiorenal physiology. -Patient is hemodynamically stable without cardiogenic shock. -Known EF 55?60% (11/2024) with diastolic dysfunction. -Cardiology (Dr. Greer) consulted in ED, recommended diuresis and no further troponin trending given known severe, non-revascularizable CAD. Plan Supplemental O2 to maintain SpO2 >92%, wean as tolerated IV Lasix 40 mg BID, adjust based on renal function and UO Strict I/O, daily weights Avoid IV fluids for now Daily BMP Replete electrolytes (goal K >4, Mg >2 given QTc prolongation) Incentive spirometry Telemetry monitoring Repeat CXR if respiratory status worsens Repeat echocardiogram ordered Levalbuterol 1.25 mg q6h PRN Monitor for recurrence of wheezing Pending full med recs #ARTHUR on CKD #Likely cardiorenal syndrome Creatinine 2.6 with prior baseline ~2.0 Likely worsened due to volume overload. 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 Monitor renal function daily during diuresis Renally dose medications Avoid nephrotoxins #Severe multivessel CAD, non-revascularizable Known extensive CAD Not a surgical or PCI candidate due to prior intracerebral hemorrhage. Troponin mildly elevated (0.6) likely demand-related Cardiology advised no further trending. Plan: Continue aspirin 81 mg daily Continue atorvastatin 20 mg HS Continue metoprolol 25 mg daily as tolerated No further troponin trending per cardiology recommendation Telemetry monitoring #Prolonged QTc (QTc 495 ms) Chronic LBBB with prolonged QTc. Plan: Avoid QT-prolonging medications Maintain electrolytes (K >4, Mg >2) Telemetry monitoring #Chronic Anemia Chronic anemia (Hgb 9.3), likely multifactorial (CKD/chronic disease; iron deficiency possible). Plan: Trend CBC Follow up iron studies Transfuse only if symptomatic or hgb <8. #GERD #PUD #Epigastric pain Reports burning epigastric pain this week Known history of esophagitis, gastroduodenitis, ulcers. EGD completed during last visit on may 10 Plan: Continue Protonix 40 mg daily Avoid NSAIDs Consider increasing to BID if symptoms persist #Constipation Chronic constipation refractory to prior outpatient therapies. Stated lactulose helped before Plan: Lactulose 10 g, titrate to bowel movement Add polyethylene glycol if needed Encourage mobility as tolerated #Hypothyroidism Stable on home therapy. Plan: Continue levothyroxine 25 mcg daily Ordered TSH in AM, will follow up. #Hypertension Chronic, currently stable. BP 154/83 Plan: Continue home antihypertensives as tolerated Monitor BP closely during diuresis Health Maintenance: Diet: Cardiac VTE prophylaxis: SCDs GI prophylaxis: Protonix Code status: Full Disposition: Continue inpatient management on telemetry pending improvement in oxygen requirement and volume status ----- Plan discussed with attending physician Dr. Crandall and senior resident Dr. Dave Cheung MD PGY-1 Internal Medicine
[2025-07-30 13:40] LABS: Iron 48 mcg/dL (50-170); Percent Iron Saturation 15 % (20-55); Total Iron Binding Capacity 319 mcg/dL (250-425); Unsaturated Iron Binding 271 (225-295)
[2025-07-30 13:56] LABS: Immature Reticulocyte Fraction 10.6 % (3.0-15.9); Path Review Blood Smear Sent to Pathologist; Reticulocyte % (Auto) 1.6 % (0.5-1.5); Reticulocyte Absolute Auto 47.1 Biln/L (25.0-75.0); Reticulocyte Hgb Content 34.3 pg (28.0-35.0)
--- NOTE | 2025-07-30 15:58 | ESCONSULT_ITS ---
<Statement entered by Alec Gandara MD - 07/30/25 19:59> Patient was seen and examined by me personally. I have reviewed the below documentation by the team resident and agree with its findings. Ms. Loly Panda is a 80-year-old female with past medical history of severe miltivessel CAD, HFpEF, EF 55 to 60%, grade 2 diastolic dysfunction, history of hemorrhagic CVA 2008, primary hypertension, hypothyroidism, esophageal ulcer and erosive gastroduodenitis, GERD, hemorrhoids, osteoarthritis and depression who presented to [facility] emergency department on July 30, 2025 with a chief complaint of shortness of breath, orthopmnea and PND. Patient noted to have elevated BNP 1028, 1+ bilateral lower extremity edema chest x-ray shows moderate vascular congestion along with creatinine elevation at 2.6, BUN 47 and GFR 18. Patient denied any chest pain, troponin elevation noted at 0.600, no ST-T changes on EKG shows sinus rhythm and left bundle branch block. Cardiology consulted as patient is well-known to practice, has multivessel CAD as evidenced on cardiac catheterization from February 2025, findings pertinent for 80 to 90% stenosis of mid LAD with 2 tandem lesions, proximal OM1, 70 to 80% stenosis of proximal diagonal 1, 50 to 60% stenosis of ramus branch, 80 to 90% stenosis of proximal OM 2 and RN PERINATAL with 100% occlusion of small mid RCA. LVEF 50 to 55%, normal LVEDP 8 mmHg on cardiac catheterization. Patient outpatient refuses aspirin due to history of gastric ulcers and gastritis and also has history of hemorrhagic CVA in the past. Today patient noted to be fluid overloaded, recommend diuresing with Lasix 40 mg IV twice daily, strict intake and output, fluid restriction 1500 cc, low-sodium/renal diet, nephrology consulted by primary team. Will follow renal function in a.m., assess urine output. Pending echocardiogram. Patient does have diastolic dysfunction grade 2 per previous echo. Concern of QTc prolongation, QTc on EKG 495, LBBB noted, corrected QTc 465. Avoid QT prolonging medications, keep magnesium greater than 2 at all time. Will continue to follow patient. Thank you for the consult and allowing to participate in the care of the patient. Cardiology will continue to follow. Case discussed with Attending Physician Dr. Toby Gandara MD Internal Medicine PGY-2 Disclaimer: This note was dictated by speech recognition. Minor errors in certified court/medical interpreter may be present due to voice recognition software. HPI Data of Consult Requesting Physician: Edmund Crandall MD Admitting Provider: Edmund Crandall MD Attending Provider: Edmund Crandall MD Primary Care Provider: Cynthia Danielle MD Consult Narrative History of present illness: History of Present Illness: Ms. Loly Panda, 80yF with PMH of HFrEF 45-50%, severe multivessel CAD, hemorrhagic CVA 2008, Primary hypertension, hypothyrodism, esophageal ulcer and erosive gastroduodenitis (EGD in 2019), GERD, hemorrhoids (colonoscopy in 2019), osteoarthritis, and depression, presented to the hospital on 07/30/2025 due to worsening SOB. Yesterday (07/29) after lunch, she experienced epigastric burning consistent with acid reflux. She attempted symptom relief by drinking large amounts of water without any improvements. Last night, she tried to sleep but was hearing audible wheezing with respiration and worsening dyspnea and headache. She was able to go to sleep lying on her right side, but woke up multiple times gasping for air. She denied any chest pain, palpitation, or syncope. Patient was admitted and consulted to cardiology for management of Decompensated HF ED course: Vitals: 97.5F, NE:98, RR: 18, BP:189/85, O2sat:100% on RA Labs: WBC: 8.5, Hgb: 9.3, Na: 141, K: 3.9, BUN:47, Cr:2.6, eGFR: 18, Glucose:110, Troponin: 0.6, BNP:1028 CXR (07/30/2025): showed Moderate CHF In ED, patient received Aspirin 324mg po x1, Albutrol 10mg inh x1, IV Furosemide 40mg x1, Ipratropium 0.5mg INH x1, IV Methylprednisolone 125mg x1 Medical history: As stated above Surgical history: Cataract surgery Allergies: NKDA Medications: Aspirin 81 mg daily, Atorvastatin 20 mg HS, Metoprolol 25 mg daily, Amlodipine 10 mg daily, Levothyroxine 25 mcg daily, Pantoprazole 40 mg daily, Spironolactone 25 mg daily, Losartan 50 mg daily, Sucralfate and maalox , Prednisone 20 mg 2 tablets po Qam, Minoxidil 2.5 mg twice daily, Amitriptyline 25 mg HS ,Alprazolam 1 mg daily, Hydroxyzine 25 mg twice daily prn for anxiety (stopped taking hydroxyzine because it makes her worse) Family history: Noncontributory Social history: Former smoker 60yrs ago. Denies drinking alcohol or using other illicit drugs 07/30/2025: Labs reviewed and patient examined at the bedside. Patient has trace edema in right lower leg. Continue on IV lasix 40mg bid. Aspirin and Plavix should be avoided given due to PMH of hemorrhagic CVA. She has multivessel CAD, trending troponin is unnecessary. Continue with Amlodipine 10mg po qd, Atorvastatin 20mg po hs, Metoprolol Succinate 25 mg po qd, Atorvastatin 20mg po hs. ECHO taken pending read. EKG shows QRS 154 and QTc of 495 with LBBB. Corrected QTc is 465 which is within normal range. At the time of examination, patient complained of some SOB, but overall her symptoms have improved ever since she got to the hospital. Will continue to monitor. cc:: cc: Edmund Crandall MD Review of Systems Review of Systems Narrative Review of Systems: All 12 systems assessed and the patient denies unless otherwise stated in HPI Exam Vital Signs Temp Pulse Resp BP Pulse Ox O2 Del Method O2 Flow Rate 97.9 F 100 16 154/83 H 96 Nasal Cannula 2 07/30/25 13:46 07/30/25 13:46 07/30/25 13:46 07/30/25 13:46 07/30/25 13:46 07/30/25 13:46 07/30/25 13:46 Narrative Exam General: No acute distress, well nourished, AAO x3 Eye: PERRL, EOMI, normal conjunctiva, no scleral icterus HENT: Normocephalic, atraumatic, hearing intact to conversation at normal volume, moist oral mucosa Neck: Supple, non-tender, no JVD, no lymphadenopathy Lungs: Non-labored respirations, symmetric chest rise, Clear to auscultate bilaterally, No wheezing, rhonchi, crackles Heart: Peripheral pulses intact bilaterally, Regular Rate and Rhythm. Abdomen: Soft, non-tender, non-distended, no palpable masses Musculoskeletal: Normal range of motion and strength, Trace edema on right lower leg Skin: Skin is warm, dry, no rashes or lesions. Psychiatric: Cooperative, appropriate mood and affect, Awake and alert, not agitated Neuro: Cranial nerves II-XII grossly intact. Strength 5/5 throughout. Sensations intact to light touch. Results Labs 07/30/25 16:29 07/30/25 16:29 Labs: Short CBC 07/30/25 Range/Units 07:40 WBC 8.5 (3.6-11.0) Thou/mm3 Hgb 9.3 L (12.0-16.0) g/dL Hct 28.9 L (36.0-46.0) % Plt Count 222 (140-440) Thou/mm3 BMP 07/30/25 07:40 Sodium 141 Potassium 3.9 Chloride 106 Carbon Dioxide 24.8 BUN 47 H Creatinine 2.6 H Glucose 110 H Calcium 9.6 Cardiac Enzymes 07/30/25 Range/Units 07:40 Troponin I 0.600 H* (0.0-0.045) ng/mL Liver Function 07/30/25 Range/Units 07:40 Total Bilirubin 0.4 (0.3-1.2) mg/dL AST 46 H (0-34) U/L ALT 50 H (10-49) U/L Alkaline Phosphatase 111 (46-116) U/L Albumin 4.7 (3.4-4.8) gm/dL Quality Measures Quality Measures VTE prophylaxis Advance care planning discussed with:: patient and other Medications Home Medications and Allergies Home Medications ?Medication ?Instructions ?Recorded ?Confirmed ?Type levothyroxine 25 mcg capsule 25 mcg PO QDAY 02/09/25 0 04/29/25 History losartan 50 mg tablet 50 mg PO QDAY 02/09/2504/29 History spironolactone 25 mg tablet 25 mg PO QDAY 02/09/25 History tramadol 50 mg tablet 50 mg PO BID PRN pain 04/29/25 History Allergies Allergy/AdvReac Type Severity Reaction Status Date / Time No Known Allergies Allergy Verified 04/29/25 10:58 Visit Medications Acetaminophen (Acetaminophen 325 Mg Tablet) 650 mg PO Q6H PRN PRN Reason: Fever >100.4 Stop: 08/29/25 12:23 Acetaminophen (Acetaminophen 325 Mg Tablet) 650 mg PO Q6H PRN PRN Reason: PAIN SCALE 1-3 (mild Stop: 08/29/25 12:23 Amlodipine Besylate (Amlodipine Besylate 5 Mg Tablet) 10 mg PO QDAY [facility] Stop: 08/30/25 08:59 Aspirin (Aspirin Ec 81 Mg Tabec) 81 mg PO QDAY [facility] Stop: 08/30/25 08:59 Atorvastatin Calcium (Atorvastatin Calcium 20 Mg Tablet) 20 mg PO HS [facility]A Stop: 08/29/25 20:59 Furosemide (Furosemide Inj 10 Mg/Ml 4ml Vial) 40 mg IVP BID [facility]A Stop: 08/29/25 20:59 Lactulose (Lactulose Syrup 20 Gm/30 Ml Udc) 10 gm PO QDAY [facility]; Protocol Stop: 08/30/25 08:59 Levalbuterol HCl (Levalbuterol Rt 1.25 Mg/0.5 Ml Nebu) 1.25 mg INH Q6HRRT PRN PRN Reason: wheezing Stop: 08/29/25 12:59 Levothyroxine Sodium (Levothyroxine Sodium 25 Mcg Tablet) 25 mcg PO ACBR [facility]ELA Stop: 08/30/25 05:59 Metoprolol Succinate (Metoprolol Succinate Xl 25 Mg Tabcr) 25 mg PO QDAY [facility] Stop: 08/29/25 13:04 Pantoprazole Sodium (Pantoprazole 40 Mg Tablet) 40 mg PO QDAY [facility] Stop: 08/30/25 08:59 Sodium Chloride (Sodium Chloride Rt Adriana 0.9% 3 Ml Nebu) 3 ml INH PRN PRN PRN Reason: SOLN Stop: 08/29/25 07:49 Sodium Chloride (Sodium Chloride Rt Adriana 0.9% 3 Ml Nebu) 3 ml INH PRN PRN PRN Reason: SOLN Stop: 08/29/25 07:49 Sodium Chloride (Sodium Chloride Rt Adriana 0.9% 3 Ml Nebu) 3 ml INH PRN PRN PRN Reason: SOLN Stop: 08/29/25 12:23 Sodium Chloride (Sodium Chloride Rt Adriana 0.9% 3 Ml Nebu) 3 ml INH PRN PRN PRN Reason: SOLN Stop: 08/29/25 12:32 Discontinued Medications Albuterol (Albuterol Rt 2.5 Mg/0.5 Ml Nebu) 10 mg INH X1 ONE Stop: 07/30/25 07:51 Last Admin: 07/30/25 08:30 Dose: 10 mg Aspirin (Aspirin 81 Mg Chew) 324 mg PO X1 ONE Stop: 07/30/25 08:22 Last Admin: 07/30/25 08:37 Dose: Not Given Furosemide (Furosemide Inj 10 Mg/Ml 4ml Vial) 40 mg IVP X1 ONE Stop: 07/30/25 10:36 Last Admin: 07/30/25 10:55 Dose: 40 mg Furosemide (Furosemide Inj 10 Mg/Ml 4ml Vial) 40 mg IVP QDAY [facility] Stop: 08/30/25 08:59 Ipratropium [place] (Ipratropium Rt 0.5 Mg/ 2.5 Ml Nebu) 0.5 mg INH X1 ONE Stop: 07/30/25 07:51 Last Admin: 07/30/25 08:30 Dose: 0.5 mg Levalbuterol HCl (Levalbuterol Rt 1.25 Mg/0.5 Ml Nebu) 1.25 mg INH Q6HRRT [facility] Stop: 08/29/25 12:59 Last Admin: 07/30/25 12:41 Dose: 1.25 mg Levalbuterol HCl (Levalbuterol Rt 1.25 Mg/0.5 Ml Nebu) 1.25 mg INH Q2HR [facility] Stop: 08/29/25 13:59 Methylprednisolone Sodium Succinate (Methylprednisolone Sod Succ 62.5 Mg/Ml 2ml Vial) 125 mg IVP X1 ONE Stop: 07/30/25 07:51 Last Admin: 07/30/25 08:12 Dose: 125 mg Metoprolol Succinate (Metoprolol Succinate Xl 25 Mg Tabcr) 25 mg PO QDAY [facility] Stop: 08/29/25 12:59 Last Admin: 07/30/25 14:05 Dose: Not Given Metoprolol Succinate (Metoprolol Succinate Xl 25 Mg Tabcr) 25 mg PO QDAY [facility] Stop: 08/30/25 08:59 Assessment & Plan Plan Ms. Loly Panda, 80yF with PMH of HFrEF 45-50%, severe multivessel CAD, hemorrhagic CVA 2008, Primary hypertension, hypothyrodism, esophageal ulcer and erosive gastroduodenitis (EGD in 2019), GERD, hemorrhoids (colonoscopy in 2019), osteoarthritis, and depression, presented to the hospital on 07/30/2025 due to worsening SOB. Patient was admitted and consulted to cardiology for management of Decompensated HF. #Acute Hypoxic Respiratory Failure 2/2 #Acute Decompensated diastolic CHF or HFpEF # Hx of CHF, HFpEF EF around 50%, Grade II diastolic dysfunction (03/08/2025) #Severe multivessel CAD on medical Rx not a candidate for PCI or surgery secondary to history of large hemmorhagic CVA -Symptom or worsening SOB, wheezing, and trace right leg edema. -Troponin: 0.6, BNP:1028 -CXR (07/30/2025): showed Moderate CHF -EKG shows QRS 154 and QTc of 495 with LBBB. Corrected QTc is 465 which is within normal range -Past ECHO (12/01/2024): Normal LV size and function. Estimated EF 55-60%. Grade II diastolic dysfunction. Normal RV size and function. Estimated RVSP normal at 35 mm hg. Moderate AV sclerosis without stenosis. Mild MAC. Mild MR and TR. -Past Holter Monitoring (01/22/2025): Duration 68hrs. Normal Sinus Rhythm. Avg HR 77bpm, Sinus Tachy 17 times (0.45%), Max HR 113 bpm. SVEs 0.12% 4 couplets. 5 SVEruns; longest being 26 bts, fastest at 147bpm. VEs (0.99%) 5 couplets. No VE runs. No pauses greater than3 secs -Past Carotid Duplex (02/15/2025): Both common carotid, internal carotid, and external carotid arteries show minimally thickened intima. Mild diffuse and complex plaque seen at bilateral bulbs and CCA, ICA, ECA. Color doppler demonstrates normal flow in both CCAs, ICAs, and ECAs. Mild evidence of stenosis noted. Both vertebral arteries show normal antegrade flow. -Past Nuclear Stress Test (02/21/2025): Abnormal myocardial perfusion study as there is decreased uptake in the mid to apex anterior and anteroseptal segments with stress and improve with rest indicating ischemia -Past Left Heart Catherterization (03/08/2025) 1. Left ventricular ejection fraction was normal at 50-55 % without any regional wall motion abnormalities. LVEDP was normal at 8 mmHg. There was no significant transvalvular aortic gradient. 2. Right dominant circulation 3. Left main artery is a large-caliber vessel gives rise to Ramus with moderate 50-60% stenosis. 4. LAD is a large sized artery with 80-90% stenosis of mid segment with 2 tandem lesions. LAD gives rise to a medium size diagonal 1 with 70-80% stenosis of proximal segment. 5. LCx is a large sized artery with mild 20-30% disffuse disease of proximal segment. LCx gives rise to a medium OM1 with 80-90% stenosis of proximal segment and small OM2 without any significant disease. 6. RCA is a small non-dominant artery with 100% chronic total occlusion of proximal segment with excellent right to right collaterals supplying the small RPL and RV marginal Summary: Abnormal Stress test: LHC showed severe multivessel CAD with 80-90% stenosis of mid LAD with 2 tandem lesions, proximal OM1, 70-80% stenosis of proximal Diagonal 1, 50-60% stenosis of ramus branch, 80-90% stenosis of the proximal OM 2 with STEPAN 3 flow and RN PERINATAL with 100% occlusion of the small mid RCA. Rest of the coronaries arteries and its branches with only mild disease. Plan: -Aspirin and Plavix should be avoided due to PMH of hemorrhagic CVA and GI Bleed history -Continue with Atorvastatin 20mg po hs, Metoprolol Succinate 25 mg po qd and hold amlodipine -Continue on IV lasix 40mg bid -ECHO taken pending read. -Avoid QTc prolonging medication -Strict I and Os, -Fluid restriction 1500ml -Mg>2, K>4 -Breathing tx prn. #Hypertension -In ED, BP:189/85 -On Amlodipine 10mg po qd and Metoprolol Succinate 25 mg po qd -Continue BP medication as tolerated, as patient is on IV diuresis. #ARTHUR on CKD stage 3 : unclear etiology and need to rule out possible rcardiorenal syndrome. #Chronic Anemia #GERD #PUD #Epigastric pain #Constipation #Hypothyroidism -Management per Primary Hospitalist team Thank you for allowing us to participate in the care of Ms Loly Panda. Cardiology will continue to follow. Assessment and plan discussed with my attending physician Dr. Percy Mayo (PGY-1) - Internal medicine resident Attending Provider Attestation/Addendum I have personally seen and examined the patient separately on the above date of service and discussed the plan of care with the resident. I reviewed the resident Dr. Alec Gandara consultation note and agree with the resident findings and plan in the note above and have also edited the documentation to reflect my findings and plan. Toby Greer M.D. Interventional Cardiology
[2025-07-30 16:49] LABS: Basophils # (Auto) 0.0 Thou/mm3 (0.0-0.2); Basophils % (Auto) 0 % (0-2.5); Eosinophils # (Auto) 0.0 Thou/mm3 (0.0-0.5); Eosinophils % (Auto) 0 % (0-10); Hematocrit 28.6 % (36.0-46.0); Hemoglobin 9.2 g/dL (12.0-16.0); Immature Granulocytes Auto 0.03 Thou/mm3 (0.00-0.00); Lymphocytes # (Auto) 0.3 Thou/mm3 (1.0-4.8); Lymphocytes % (Auto) 4 % (10-50); Mean Corpuscular HGB Conc 32.2 g/dl (31.0-37.0); Mean Corpuscular Hemoglobin 30.1 pg (25.0-35.0); Mean Corpuscular Volume 94 fL (80-100); Monocytes # (Auto) 0.1 Thou/mm3 (0.0-0.8); Monocytes % (Auto) 2 % (0-12); Neutrophils # (Auto) 7.9 Thou/mm3 (1.8-7.7); Neutrophils % (Auto) 94 % (37-80); Nucleated Red Blood Cell # 0.00 Thou/mm3 (0.00-0.00); Nucleated Red Blood Cell % 0 /100 WBC (0); Platelet Count 231 Thou/mm3 (140-440); RDW Standard Deviation 48.2 fL (36.4-46.3); Red Blood Count 3.06 Miln/mm3 (4.00-5.20); White Blood Count 8.3 Thou/mm3 (3.6-11.0)
[2025-07-30 17:02] LABS: Alanine Aminotransferase 47 U/L (10-49); Albumin, Serum 4.8 gm/dL (3.4-4.8); Albumin/Globulin Ratio 1.8 (1.2-2.2); Alkaline Phosphatase 107 U/L (46-116); Anion Gap 16 (7-16); Aspartate Amino Transferase 46 U/L (0-34); BUN/Creatinine Ratio 17 Ratio (12-20); Bilirubin,Total 0.3 mg/dL (0.3-1.2); Blood Urea Nitrogen 47 mg/dL (9-23); Calcium 9.6 mg/dL (8.3-10.6); Calcium (Corrected) 9.6 mg/dL (8.5-10.1); Carbon Dioxide 22.2 mMol/L (20.0-31.0); Chloride 104 mMol/L (98-107); Creatinine (Component) 2.8 mg/dL (0.6-1.3); Estimated Creatinine Clearance 13.4 mL/min (>60); Globulin 2.7 gm/dL (2.3-3.5); Glucose 158 mg/dL (74-106); Osmolality,Calculated 298 (275-295); Potassium 4.3 mMol/L (3.4-5.1); Sodium 142 mMol/L (136-145); Total Protein 7.5 gm/dL (5.7-8.2); eGFR 16 See Note
--- NOTE | 2025-07-30 19:12 | PC.NURSE ---
Patient states son brought in medications to the ER and MD made notes of what she was taking but no med rec was completed. Asked patient if her son could bring in their home medications and she stated she would ask him if he could stop by tomorrow.
[2025-07-30] MEDS: BENZOCAINE/MENTHOL 1 LOZENGE PO (19:50)
[2025-07-30] MEDS: ATORVASTATIN CALCIUM 20 MG TABLET PO (20:16)
--- NOTE | 2025-07-30 21:29 | PD.IMCONS ---
HPI Data of Consult Requesting Physician: Edmund Crandall MD Primary Care Provider: Cynthia Danielle MD Consult Narrative Reason for consult: Chest pain, dyspepsia History of present illness: 80 years old female who has a history of hemorrhagic CVA coronary artery disease multivessel not amenable to revascularization because of the hemorrhagic CVA essential hypertension hypothyroidism who was brought into the emergency room by the ambulance for shortness of breath O2 saturation was 91% at home and then put on Ventimask and went up to 99% Patient has a longstanding history of GI issues done on 04/30/2025 and underwent upper endoscopy which showed esophagitis gastritis Z-line at 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 and a 9 cm large hiatal hernia Patient is not a candidate for surgical intervention laparoscopically or robotically because of the multivessel coronary artery disease and congestive heart failure I have been consulted cc:: cc: Edmund Crandall MD Review of Systems Review of Systems Systems Reviewed: All systems reviewed, normal except as documented Past Medical History Surgical History OTHER SURGICAL HX: As in the history present illness Meds Home Medications and Allergies Home Medications ?Medication ?Instructions ?Recorded ?Confirmed ?Type levothyroxine 25 mcg capsule 25 mcg PO QDAY 02/09/25 07/31/25 History losartan 50 mg tablet 50 mg PO QDAY 02/09/25 07/31/25 History spironolactone 25 mg tablet 25 mg PO QDAY 02/09/25 07/31/25 History tramadol 50 mg tablet 50 mg PO BID PRN pain 02/09/25 07/31/25 History Allergies Allergy/AdvReac Type Severity Reaction Status Date / Time No Known Allergies Allergy Verified 04/29/25 10:58 Exam Vital Signs Temp Pulse Resp BP Pulse Ox O2 Del Method O2 Flow Rate 97.0 F 97 19 122/64 98 Nasal Cannula 3 07/30/25 20:00 07/30/25 20:14 07/30/25 20:00 07/30/25 20:14 07/30/25 20:00 07/30/25 20:00 07/30/25 20:00 Constitutional Comments: Chronically ill-appearing Routine Respiratory Exam Comments: Scattered rhonchi Routine Abdominal Exam Comments: Soft nontender Results Labs 07/31/25 17:10 07/31/25 05:51 Labs: Short CBC 07/30/25 07/30/25 Range/Units 07:40 16:29 WBC 8.5 8.3 (3.6-11.0) Thou/mm3 Hgb 9.3 L 9.2 L (12.0-16.0) g/dL Hct 28.9 L 28.6 L (36.0-46.0) % Plt Count 222 231 (140-440) Thou/mm3 BMP 07/30/25 07/30/25 07:40 16:29 Sodium 141 142 Potassium 3.9 4.3 Chloride 106 104 Carbon Dioxide 24.8 22.2 BUN 47 H 47 H Creatinine 2.6 H 2.8 H Glucose 110 H 158 H Calcium 9.6 9.6 Cardiac Enzymes 07/30/25 Range/Units 07:40 Troponin I 0.600 H* (0.0-0.045) ng/mL Liver Function 07/30/25 07/30/25 Range/Units 07:40 16:29 Total Bilirubin 0.4 0.3 (0.3-1.2) mg/dL AST 46 H 46 H (0-34) U/L ALT 50 H 47 (10-49) U/L Alkaline Phosphatase 111 107 (46-116) U/L Albumin 4.7 4.8 (3.4-4.8) gm/dL Assessment and Plan Additional Assessment & Plan Additional Plan: # Dyspepsia chest pain could be due to also large hiatal hernia which is 0.9 cm # Gastritis # Esophagitis IV Protonix No need for a repeat endoscopy
[2025-07-31] VITALS (12 sets, daily range): BP systolic 140–159; BP diastolic 61–91; PULSE 90–126; RESP 14–24; TEMP 36.3–37.8; O2SAT 94–100
[2025-07-31] MEDS: LEVOTHYROXINE SODIUM 25 MCG TABLET PO (05:49)
[2025-07-31 06:20] LABS: Basophils # (Auto) 0.0 Thou/mm3 (0.0-0.2); Basophils % (Auto) 0 % (0-2.5); Eosinophils # (Auto) 0.0 Thou/mm3 (0.0-0.5); Eosinophils % (Auto) 0 % (0-10); Hematocrit 25.8 % (36.0-46.0); Immature Granulocytes Auto 0.02 Thou/mm3 (0.00-0.00); Lymphocytes # (Auto) 1.5 Thou/mm3 (1.0-4.8); Lymphocytes % (Auto) 16 % (10-50); Mean Corpuscular HGB Conc 33.3 g/dl (31.0-37.0); Mean Corpuscular Hemoglobin 30.6 pg (25.0-35.0); Mean Corpuscular Volume 92 fL (80-100); Monocytes # (Auto) 0.8 Thou/mm3 (0.0-0.8); Monocytes % (Auto) 8 % (0-12); Neutrophils # (Auto) 7.3 Thou/mm3 (1.8-7.7); Neutrophils % (Auto) 76 % (37-80); Nucleated Red Blood Cell # 0.00 Thou/mm3 (0.00-0.00); Nucleated Red Blood Cell % 0 /100 WBC (0); Platelet Count 209 Thou/mm3 (140-440); RDW Standard Deviation 47.9 fL (36.4-46.3); Red Blood Count 2.81 Miln/mm3 (4.00-5.20); White Blood Count 9.6 Thou/mm3 (3.6-11.0)
[2025-07-31 06:50] LABS: Alanine Aminotransferase 39 U/L (10-49); Albumin, Serum 4.4 gm/dL (3.4-4.8); Albumin/Globulin Ratio 1.8 (1.2-2.2); Alkaline Phosphatase 94 U/L (46-116); Anion Gap 12 (7-16); Aspartate Amino Transferase 41 U/L (0-34); BUN/Creatinine Ratio 18 Ratio (12-20); Bilirubin,Total 0.5 mg/dL (0.3-1.2); Blood Urea Nitrogen 49 mg/dL (9-23); Calcium 9.4 mg/dL (8.3-10.6); Calcium (Corrected) 9.4 mg/dL (8.5-10.1); Carbon Dioxide 28.1 mMol/L (20.0-31.0); Cardiac Risk Estimate 1.6 RATIO (3.7-5.6); Chloride 103 mMol/L (98-107); Cholesterol 142 mg/dL (132-200); Creatinine (Component) 2.7 mg/dL (0.6-1.3); Estimated Creatinine Clearance 15.5 mL/min (>60); Globulin 2.5 gm/dL (2.3-3.5); Glucose 92 mg/dL (74-106); HDL Cholesterol 90 mg/dL (40-60); LDL Cholesterol,Calculated 40 mg/dL (0-130); Magnesium 2.1 mg/dL (1.6-2.6); Osmolality,Calculated 297 (275-295); Phosphorous 3.5 mg/dL (2.4-5.1); Potassium 3.2 mMol/L (3.4-5.1); Sodium 143 mMol/L (136-145); Thyroid Stimulating Hormone 2.88 uIU/mL (0.55-4.78); Total Protein 6.9 gm/dL (5.7-8.2); Triglycerides 61 mg/dL (30-150); eGFR 17 See Note
[2025-07-31 07:18] LABS: Hemoglobin 8.6 g/dL (12.0-16.0)
[2025-07-31] MEDS: POTASSIUM CHL 10 mEq IVPB 10 MEQ/100 ML BAG 75 MEQ IV ×2 (07:53→08:48)
--- NOTE | 2025-07-31 08:10 | ESPR_ITS ---
<Statement entered by Alec Gandara MD - 07/31/25 18:50> Patient was seen and examined by me personally. I have reviewed the below documentation by the team resident and agree with its findings. Ms. Loly Panda is a 80-year-old female with past medical history of severe multivessel CAD (80 to 90% stenosis of mid LAD with 2 tandem lesions, proximal OM1, 70 to 80% stenosis of proximal diagonal 1, 50 to 60% stenosis of ramus branch, 80 to 90% stenosis of proximal OM 2 and [employer] with 100% occlusion of small mid RCA), HFpEF, EF 55 to 60%, grade 2 diastolic dysfunction, history of hemorrhagic CVA 2008, primary hypertension, hypothyroidism, esophageal ulcer and erosive gastroduodenitis, GERD, hemorrhoids, osteoarthritis and depression who presented to [facility] emergency department on July 30, 2025 with a chief complaint of shortness of breath, orthopnea and PND. Patient admitted for CHF exacerbation and cardiology consulted as patient is known to practice and follows outpatient, was started on IV Lasix 40mg BID, Cr improved to 2.7 this AM, urine output not charted overnight, recommed strict I&O's, logan catheter will be placed today. Continue diuresis with Lasix 40 mg IV twice daily, monitor renal function in AM. No aspirin as patient has history of hemorrhagic CVA in the past and history of hemorrhagic gastritis and GI bleed. Nephrology consulted as well, following. Patient does have large hiatal hernia, not a candidate for surgery, gastroenterology is following. Thank you for the consult and allowing to participate in the care of the patient. Cardiology will continue to follow. Case discussed with Attending Physician Dr. Toby Gandara MD Internal Medicine PGY-2 Disclaimer: This note was dictated by speech recognition. Minor errors in program evaluation consultant may be present due to voice recognition software. Documentation for date of: 07/31/25 Subjective Subjective Interval history: Ms. Loly Panda, 80yF with PMH of HFrEF 45-50%, severe multivessel CAD, hemorrhagic CVA 2008, Primary hypertension, hypothyrodism, esophageal ulcer and erosive gastroduodenitis (EGD in 2019), GERD, hemorrhoids (colonoscopy in 2019), osteoarthritis, and depression, presented to the hospital on 07/30/2025 due to worsening SOB. Yesterday (07/29) after lunch, she experienced epigastric burning consistent with acid reflux. She attempted symptom relief by drinking large amounts of water without any improvements. Last night, she tried to sleep but was hearing audible wheezing with respiration and worsening dyspnea and headache. She was able to go to sleep lying on her right side, but woke up multiple times gasping for air. She denied any chest pain, palpitation, or syncope. Patient was admitted and consulted to cardiology for management of Decompensated HF ED course: Vitals: 97.5F, AZ:98, RR: 18, BP:189/85, O2sat:100% on RA Labs: WBC: 8.5, Hgb: 9.3, Na: 141, K: 3.9, BUN:47, Cr:2.6, eGFR: 18, Glucose:110, Troponin: 0.6, BNP:1028 CXR (07/30/2025): showed Moderate CHF In ED, patient received Aspirin 324mg po x1, Albutrol 10mg inh x1, IV Furosemide 40mg x1, Ipratropium 0.5mg INH x1, IV Methylprednisolone 125mg x1 Medical history: As stated above Surgical history: Cataract surgery Allergies: NKDA Medications: Aspirin 81 mg daily, Atorvastatin 20 mg HS, Metoprolol 25 mg daily, Amlodipine 10 mg daily, Levothyroxine 25 mcg daily, Pantoprazole 40 mg daily, Spironolactone 25 mg daily, Losartan 50 mg daily, Sucralfate and maalox , Prednisone 20 mg 2 tablets po Qam, Minoxidil 2.5 mg twice daily, Amitriptyline 25 mg HS ,Alprazolam 1 mg daily, Hydroxyzine 25 mg twice daily prn for anxiety (stopped taking hydroxyzine because it makes her worse) Family history: Noncontributory Social history: Former smoker 60yrs ago. Denies drinking alcohol or using other illicit drugs 07/30/2025: Labs reviewed and patient examined at the bedside. Patient has trace edema in right lower leg. Continue on IV lasix 40mg bid. Aspirin and Plavix should be avoided given due to PMH of hemorrhagic CVA. She has multivessel CAD, trending troponin is unnecessary. Continue with Amlodipine 10mg po qd, Atorvastatin 20mg po hs, Metoprolol Succinate 25 mg po qd, Atorvastatin 20mg po hs. ECHO taken pending read. EKG shows QRS 154 and QTc of 495 with LBBB. Corrected QTc is 465 which is within normal range. At the time of examination, patient complained of some SOB, but overall her symptoms have improved ever since she got to the hospital. Will continue to monitor. 07/31/2025: No Overnight events. Labs reviewed and patient examined at the bedside. Patient complained of sleep disturbances due to need to urinate during the night. Recommend changing IV lasix 40mg bid to 8 hour interval administration during the day rather than every 12 hr. Continue Metoprolol. Yesterday amlodipine was held due to low BP, and it can be resumed as long as BP tolerates. Today's BP is 159/79. ECHO (07/22/2025) showed normal LV size and function with LVEF 50-55% and RVSP 21mmHg. Continue current managment. Cr slightly decreased from 2.8 to 2.7. She complained of GERD symptoms whenever she eats. EGD done on 07/30) showed large gastric hiatal hernia, but she is not surgical candidate due to severe multivessel CAD and CHF. Strongly Advised patient to make sure she sits on the chair 3 times per day in order for her to improve. Denies chest pain, palpation, SOB, N/V, fevers or chills. Exam Vital Signs Temp Pulse Resp BP Pulse Ox O2 Del Method O2 Flow Rate 98.1 F 106 H 18 152/87 H 94 L Nasal Cannula 4 07/31/25 04:00 07/31/25 07:59 07/31/25 07:59 07/31/25 04:00 07/31/25 07:59 07/31/25 04:00 07/31/25 07:59 Narrative Exam General: No acute distress, well nourished, AAO x3 Eye: PERRL, EOMI, normal conjunctiva, no scleral icterus HENT: Normocephalic, atraumatic, hearing intact to conversation at normal volume, moist oral mucosa Neck: Supple, non-tender, no JVD, no lymphadenopathy Lungs: Non-labored respirations, symmetric chest rise, Clear to auscultate bilaterally, No wheezing, rhonchi, crackles Heart: Peripheral pulses intact bilaterally, Regular Rate and Rhythm. Abdomen: Soft, non-tender, non-distended, no palpable masses Musculoskeletal: Normal range of motion and strength, Trace edema on right lower leg Skin: Skin is warm, dry, no rashes or lesions. Psychiatric: Cooperative, appropriate mood and affect, Awake and alert, not agitated Neuro: Cranial nerves II-XII grossly intact. Strength 5/5 throughout. Sensations intact to light touch. Objective Labs 07/31/25 17:10 07/31/25 05:51 Labs: Laboratory Results - last 24 hr 07/30/25 07/30/25 07/30/25 07:40 13: 16:29 WBC 8.3 RBC 3.06 L Hgb 9.2 L Hct 28.6 L MCV 94 MCH 30.1 MCHC 32.2 RDW Std Deviation 48.2 H Plt Count 231 Neut % (Auto) 94 H Lymph % (Auto) 4 L [place] % (Auto) 2 Eos % (Auto) 0 Baso % (Auto) 0 Neut # (Auto) 7.9 H Lymph # (Auto) 0.3 L [place] # (Auto) 0.1 Eos # (Auto) 0.0 Baso # (Auto) 0.0 Immature Gran # (Auto) 0.03 H Absolute Nucleated RBC 0.00 Immature Gran % 0 Nucleated RBC % 0 Smear Path Review Sent to Pathologist Cancelled Retic Count (auto) 1.6 H Cancelled Absolute Retic 47.1 Cancelled Immature Retic Fraction 10.6 Cancelled Retic Hgb Content CHr 34.3 Cancelled PT 10.4 INR 1.0 Sodium 141 142 Potassium 3.9 4.3 Chloride 106 104 Carbon Dioxide 24.8 22.2 Anion Gap 10 16 BUN 47 H 47 H Creatinine 2.6 H 2.8 H Estim Creat Clear Calc 14.4 L 13.4 L eGFR 18 L 16 L BUN/Creatinine Ratio 18 17 Glucose 110 H 158 H Calculated Osmolality 294 298 H Calcium 9.6 9.6 Corrected Calcium 9.6 9.6 Phosphorus Magnesium 2.6 Iron 48 L TIBC 319 Iron Saturation 15 L Unsat Iron Binding 271 Total Bilirubin 0.4 0.3 AST 46 H 46 H ALT 50 H 47 Alkaline Phosphatase 111 107 Troponin I 0.600 H* B-Natriuretic Peptide 1028 H* Total Protein 7.2 7.5 Albumin 4.7 4.8 Globulin 2.5 2.7 Albumin/Globulin Ratio 1.9 1.8 Triglycerides Cholesterol LDL Cholesterol, Calc HDL Cholesterol Cholesterol/HDL Ratio Lipase 29 TSH Blood Type Antibody Screen Crossmatch Blood Bank Wristband ID 07/30/25 07/31/25 22:50 05:51 WBC 9.6 RBC 2.81 L Hgb 8.6 L Hct 25.8 L MCV 92 MCH 30.6 MCHC 33.3 RDW Std Deviation 47.9 H Plt Count 209 Neut % (Auto) 76 Lymph % (Auto) 16 [place] % (Auto) 8 Eos % (Auto) 0 Baso % (Auto) 0 Neut # (Auto) 7.3 Lymph # (Auto) 1.5 [place] # (Auto) 0.8 Eos # (Auto) 0.0 Baso # (Auto) 0.0 Immature Gran # (Auto) 0.02 H Absolute Nucleated RBC 0.00 Immature Gran % 0 Nucleated RBC % 0 Smear Path Review Retic Count (auto) Absolute Retic Immature Retic Fraction Retic Hgb Content CHr PT INR Sodium 143 Potassium 3.2 L D Chloride 103 Carbon Dioxide 28.1 Anion Gap 12 BUN 49 H Creatinine 2.7 H Estim Creat Clear Calc 15.5 L eGFR 17 L BUN/Creatinine Ratio 18 Glucose 92 D Calculated Osmolality 297 H Calcium 9.4 Corrected Calcium 9.4 Phosphorus 3.5 Magnesium 2.1 Iron TIBC Iron Saturation Unsat Iron Binding Total Bilirubin 0.5 AST 41 H ALT 39 Alkaline Phosphatase 94 Troponin I B-Natriuretic Peptide Total Protein 6.9 Albumin 4.4 Globulin 2.5 Albumin/Globulin Ratio 1.8 Triglycerides 61 Cholesterol 142 LDL Cholesterol, Calc 40 HDL Cholesterol 90 H Cholesterol/HDL Ratio 1.6 L Lipase TSH 2.88 Blood Type O Positive Antibody Screen NEGATIVE Crossmatch See Detail Blood Bank Wristband ID Yes Quality Measures Quality Measures VTE prophylaxis Advance care planning discussed with:: patient and other Assessment & Plan Assessment Current Active Medications: Generic Name Dose Route Start Last Admin Trade Name Freq PRN Reason Stop Dose Admin Acetaminophen 650 mg 07/30/25 12:24 Acetaminophen 325 Mg Tablet PO 08/29/25 12:23 Q6H PRN Fever >100.4 Acetaminophen 650 mg 07/30/25 12:24 Acetaminophen 325 Mg Tablet PO 08/29/25 12:23 Q6H PRN PAIN SCALE 1-3 (mild Amlodipine Besylate 10 mg 07/31/25 09:00 Amlodipine Besylate 5 Mg Tablet PO 08/30/25 08:59 QDAY IZABELA Atorvastatin Calcium 20 mg 07/30/25 21:00 07/30/25 20:16 Atorvastatin Calcium 20 Mg Tablet PO 08/29/25 20:59 20 mg HS IZABELA Administration Furosemide 40 mg 07/30/25 21:00 07/30/25 20:14 Furosemide Inj 10 Mg/Ml 4ml Vial IVP 08/29/25 20:59 40 mg BID IZABELA Administration Potassium Chloride 10 meq in 100 mls @ 75 mls/hr 07/31/25 07:00 07/31/25 07:53 Kcl Ivpb IV 07/31/25 08:19 75 mls/hr X1 ONE Administration Potassium Chloride 10 meq in 100 mls @ 75 mls/hr 07/31/25 08:20 Kcl Ivpb IV 07/31/25 09:39 X1 ONE Lactulose 10 gm 07/31/25 09:00 Lactulose Syrup 20 Gm/30 Ml Udc PO 08/30/25 08:59 QDAY IZABELA Protocol Levalbuterol HCl 1.25 mg 07/30/25 12:47 Levalbuterol Rt 1.25 Mg/0.5 Ml Nebu INH 08/29/25 12:59 Q6HRRT PRN wheezing Levothyroxine Sodium 25 mcg 07/31/25 06:00 07/31/25 05:49 Levothyroxine Sodium 25 Mcg Tablet PO 08/30/25 05:59 25 mcg ACBR IZABELA Administration Metoprolol Succinate 25 mg 07/30/25 13:05 07/30/25 17:15 Metoprolol Succinate Xl 25 Mg Tabcr PO 08/29/25 13:04 Not Given QDAY IZABELA Pantoprazole Sodium 40 mg 07/31/25 09:00 Pantoprazole 40 Mg Tablet PO 08/30/25 08:59 QDAY IZABELA Sodium Chloride 3 ml 07/30/25 12:33 Sodium Chloride Rt Adriana 0.9% 3 Ml Nebu INH 08/29/25 12:32 PRN PRN SOLN Plan Ms. Loly Panda, 80yF with PMH of HFrEF 45-50%, severe multivessel CAD, hemorrhagic CVA 2008, Primary hypertension, hypothyrodism, esophageal ulcer and erosive gastroduodenitis (EGD in 2019), GERD, hemorrhoids (colonoscopy in 2019), osteoarthritis, and depression, presented to the hospital on 07/30/2025 due to worsening SOB. Patient was admitted and consulted to cardiology for management of Decompensated HF. #Acute Hypoxic Respiratory Failure, improving #Acute Decompensated heart failure #Diastolic heart failure, HFpEF, EF 50 to 55%, stage I diastolic dysfunction, 02/2025 Patient presented with symptom of worsening SOB, wheezing, and trace right leg edema. Troponin: 0.6, BNP:1028 and CXR (07/30/2025): showed Moderate vascular congestion Creatinine on presentation 2.6 which up trended to 2.8 with initial diuresis, there is concern of cardiorenal syndrome. Continue diuresis. Echocardiogram performed outpatient (12/01/2024): Normal LV size and function. Estimated EF 55-60%. Grade II diastolic dysfunction. Normal RV size and function. Estimated RVSP normal at 35 mm hg. Moderate AV sclerosis without stenosis. Mild MAC. Mild MR and TR. Outpatient Holter Monitoring (01/22/2025): Duration 68hrs. Normal Sinus Rhythm. Avg HR 77bpm, Sinus Tachy 17 times (0.45%), Max HR 113 bpm. SVEs 0.12% 4 couplets. 5 SVEruns; longest being 26 bts, fastest at 147bpm. VEs (0.99%) 5 couplets. No VE runs. No pauses greater than 3 secs Echocardiogram (07/30/2025) showed 1. Left ventricle size is normal and systolic function is normal. Estimated ejection fraction is 50-55%. There is grade I diastolic dysfunction. 2. Right ventricle chamber size is normal and systolic function is normal. Estimated RVSP is 21 mmHg. 3. There is moderate aortic valve sclerosis with no stenosis and trace regurgitation. 4. There is mild to moderate mitral regurgitation and tricuspid valve regurgitation. Mild MAC. 5. The left atrium is moderately enlarged. The right atrium is normal. Plan: -Continue on IV lasix 40mg bid -Strict I and Os; not being charted, nursing was informed. -Fluid restriction 1500ml -Low-sodium diet -Follow renal function closely -Continue metoprolol succinate 25 mg daily, did have 5 SVE runs with PVCs and couplets on Holter. 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 Troponin on presentation 0.600, EKG shows Sinus rhythm, left bundle branch block, no acute ST-T changes., Patient does have T wave inversion in V6. Concern of QTc prolongation EKG shows QRS 154 and QTc of 495 with LBBB. Corrected QTc is 465 which is within normal range. Patient is well-known to practice, has underwent extensive workup outpatient; underwent nuclear stress test outpatient in February 2025 which showed abnormal myocardial perfusion study which showed decreased uptake in the mid to apex anterior and anteroseptal segments with stress. 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 Rest of the coronaries arteries and its branches with only mild disease. Postcardiac cath findings, case was discussed with patient's son in detail, decision was made to proceed with risk factor modification as patient was not a surgical candidate or PCI candidate as she is not able to take any kind of antiplatelets or heparin given her history of severe large intracerebral bleed/hemorrhagic CVA 15 years ago and also underlying gastric issues. Outpatient carotid Doppler (02/15/2025) obtained to further assess vascular disease showed both common carotid, internal carotid, and external carotid arteries show minimally thickened intima. Mild diffuse and complex plaque seen at bilateral bulbs and CCA, ICA, ECA. Color doppler demonstrates normal flow in both CCAs, ICAs, and ECAs. Mild evidence of stenosis noted. Both vertebral arteries show normal antegrade flow. 07/31/2025 lipid panel: Cholesterol 142, LDL 40, HDL 90: TSH 2.88: A1c 02/26/2025 5.3 Recommendations: ? Hold aspirin/Plavix due to history of CVA and gastric issues. ? Continue atorvastatin 20 mg at bedtime ? Monitor for chest pain ? Continue to follow outpatient #Hypertension In ED, BP:189/85 Patient on losartan 50 mg p.o. daily, spironolactone 25 mg p.o. daily and amlodipine 5 mg twice daily. ?Continue metoprolol 25 mg p.o. daily, okay to resume amlodipine. ?Recommend holding losartan and spironolactone in setting of ARTHUR #ARTHUR on CKD stage 3 : unclear etiology and need to rule out possible cardiorenal syndrome, nephrology following. #Chronic Anemia #GERD #PUD #Epigastric pain #Constipation #Hypothyroidism -Management per Primary Hospitalist team Thank you for allowing us to participate in the care of Ms Loly Panda. Cardiology will continue to follow. Assessment and plan discussed with my attending physician Dr. Greer and senior resident Dr Gandara PGY-2 Dr. Mayo (PGY-1) - Internal medicine resident Attending Provider Attestation/Addendum I have personally seen and examined the patient separately on the above date of service and discussed the plan of care with the resident. I reviewed the resident Dr. Cordell Mayo / Alec Gandara consultation progress note and agree with the resident findings and plan in the note above and have also edited the documentation to reflect my findings and plan. Toby Greer M.D. Interventional Cardiology
[2025-07-31] MEDS: FUROSEMIDE INJ 10 MG/ML 4ML VIAL 40 MG IVP ×2 (08:48→17:38)
[2025-07-31] MEDS: METOPROLOL SUCCINATE XL 25 MG TABCR PO (08:49)
[2025-07-31] MEDS: PANTOPRAZOLE 40 MG TABLET PO (08:50)
[2025-07-31] MEDS: SODIUM CHLORIDE RT SOL 0.9% 3 ML NEBU INH (09:56)
[2025-07-31] MEDS: LEVALBUTEROL RT 1.25 MG/0.5 ML NEBU INH (09:56)
[2025-07-31] MEDS: ferumoxytoL (NON-ESRD) 510 MG in SODIUM CHLORIDE 0.9% 100 ML 234 MG IV (10:48)
[2025-07-31] MEDS: MG HYD/AL HYD/SIME (Maalox Reg) SUSP 30 ML UDC PO (10:48)
--- NOTE | 2025-07-31 13:10 | ESPR_ITS ---
<Statement entered by Edmund Crandall MD - 08/09/25 08:27> I reviewed above note and agree with findings and plans. I have also personally examined the patient with medicine team and went over assessment and plan with medical team including internet webmaster and resident physician. Documentation for date of: 07/31/25 Subjective Subjective Interval history: Patient was seen this morning. She reports wheezing earlier today, but no crackles on exam. She complained of frequent urination (every hour) overnight. She states that lactulose has helped with constipation, having had 2 bowel movements. No other complaints. Exam Vital Signs Temp Pulse Resp BP Pulse Ox O2 Del Method O2 Flow Rate 99.1 F 126 H 24 H 159/79 H 94 L Nasal Cannula 3 07/31/25 08:00 07/31/25 09:58 07/31/25 09:58 07/31/25 08:49 07/31/25 09:58 07/31/25 08:00 07/31/25 09:58 Narrative Exam General: No acute distress, well nourished, AAO x3 Eye: PERRL, EOMI, normal conjunctiva, no scleral icterus HENT: Normocephalic, atraumatic, hearing intact to conversation at normal volume, moist oral mucosa Neck: Supple, non-tender, no JVD, no lymphadenopathy Lungs: Non-labored respirations, symmetric chest rise, Clear to auscultate bilaterally, No wheezing, rhonchi, crackles Heart: Peripheral pulses intact bilaterally, Regular Rate and Rhythm. Abdomen: Soft, non-tender, non-distended, no palpable masses Musculoskeletal: Normal range of motion and strength, Trace edema on right lower leg Skin: Skin is warm, dry, no rashes or lesions. Psychiatric: Cooperative, appropriate mood and affect, Awake and alert, not agitated Neuro: Cranial nerves II-XII grossly intact. Strength 5/5 throughout. Sensations intact to light touch. Objective Labs 07/31/25 05:51 07/31/25 05:51 Labs: Laboratory Results - last 24 hr 07/30/25 07/30/25 07/30/25 07:40 13:25 16:29 WBC 8.3 RBC 3.06 L Hgb 9.2 L Hct 28.6 L MCV 94 MCH 30.1 MCHC 32.2 RDW Std Deviation 48.2 H Plt Count 231 Neut % (Auto) 94 H Lymph % (Auto) 4 L [place] % (Auto) 2 Eos % (Auto) 0 Baso % (Auto) 0 Neut # (Auto) 7.9 H Lymph # (Auto) 0.3 L [place] # (Auto) 0.1 Eos # (Auto) 0.0 Baso # (Auto) 0.0 Immature Gran # (Auto) 0.03 H Absolute Nucleated RBC 0.00 Immature Gran % 0 Nucleated RBC % 0 Smear Path Review Sent to Pathologist Cancelled Retic Count (auto) 1.6 H Cancelled Absolute Retic 47.1 Cancelled Immature Retic Fraction 10.6 Cancelled Retic Hgb Content CHr 34.3 Cancelled PT 10.4 INR 1.0 Sodium 142 Potassium 4.3 Chloride 104 Carbon Dioxide 22.2 Anion Gap 16 BUN 47 H Creatinine 2.8 H Estim Creat Clear Calc 13.4 L eGFR 16 L BUN/Creatinine Ratio 17 Glucose 158 H Calculated Osmolality 298 H Calcium 9.6 Corrected Calcium 9.6 Phosphorus Magnesium Iron 48 L TIBC 319 Iron Saturation 15 L Unsat Iron Binding 271 Total Bilirubin 0.3 AST 46 H ALT 47 Alkaline Phosphatase 107 Total Protein 7.5 Albumin 4.8 Globulin 2.7 Albumin/Globulin Ratio 1.8 Triglycerides Cholesterol LDL Cholesterol, Calc HDL Cholesterol Cholesterol/HDL Ratio TSH Blood Type Antibody Screen Crossmatch Blood Bank Wristband ID 07/30/25 07/31/25 22:50 05:51 WBC 9.6 RBC 2.81 L Hgb 8.6 L Hct 25.8 L MCV 92 MCH 30.6 MCHC 33.3 RDW Std Deviation 47.9 H Plt Count 209 Neut % (Auto) 76 Lymph % (Auto) 16 [place] % (Auto) 8 Eos % (Auto) 0 Baso % (Auto) 0 Neut # (Auto) 7.3 Lymph # (Auto) 1.5 [place] # (Auto) 0.8 Eos # (Auto) 0.0 Baso # (Auto) 0.0 Immature Gran # (Auto) 0.02 H Absolute Nucleated RBC 0.00 Immature Gran % 0 Nucleated RBC % 0 Smear Path Review Retic Count (auto) Absolute Retic Immature Retic Fraction Retic Hgb Content CHr PT INR Sodium 143 Potassium 3.2 L D Chloride 103 Carbon Dioxide 28.1 Anion Gap 12 BUN 49 H Creatinine 2.7 H Estim Creat Clear Calc 15.5 L eGFR 17 L BUN/Creatinine Ratio 18 Glucose 92 D Calculated Osmolality 297 H Calcium 9.4 Corrected Calcium 9.4 Phosphorus 3.5 Magnesium 2.1 Iron TIBC Iron Saturation Unsat Iron Binding Total Bilirubin 0.5 AST 41 H ALT 39 Alkaline Phosphatase 94 Total Protein 6.9 Albumin 4.4 Globulin 2.5 Albumin/Globulin Ratio 1.8 Triglycerides 61 Cholesterol 142 LDL Cholesterol, Calc 40 HDL Cholesterol 90 H Cholesterol/HDL Ratio 1.6 L TSH 2.88 Blood Type O Positive Antibody Screen NEGATIVE Crossmatch See Detail Blood Bank Wristband ID Yes Quality Measures Quality Measures VTE prophylaxis Advance care planning discussed with:: patient Assessment & Plan Assessment Current Active Medications: Generic Name Dose Route Start Last Admin Trade Name Freq PRN Reason Stop Dose Admin Acetaminophen 650 mg 07/30/25 12:24 Acetaminophen 325 Mg Tablet PO 08/29/25 12:23 Q6H PRN Fever >100.4 Acetaminophen 650 mg 07/30/25 12:24 Acetaminophen 325 Mg Tablet PO 08/29/25 12:23 Q6H PRN PAIN SCALE 1-3 (mild Al Hydrox/Mg Hydrox/Simethicone 15 ml 07/31/25 08:54 Mg Hyd/Al Hyd/Phill (Maalox Reg) Susp 30 Ml Udc PO 08/30/25 08:53 QID PRN acid reflux/gerd Amlodipine Besylate 10 mg 07/31/25 09:00 Amlodipine Besylate 5 Mg Tablet PO 08/30/25 08:59 On Hold: 07/31/25 09:00 QDAY IZABELA Atorvastatin Calcium 20 mg 07/30/25 21:00 07/30/25 20:16 Atorvastatin Calcium 20 Mg Tablet PO 08/29/25 20:59 20 mg HS IZABELA Administration Furosemide 40 mg 07/31/25 18:00 Furosemide Inj 10 Mg/Ml 4ml Vial IVP 08/30/25 17:59 BIDD IZABELA Hydroxyzine HCl 25 mg 07/31/25 21:00 Hydroxyzine Hcl 25 Mg Tablet PO 08/30/25 20:59 HS IZABELA Lactulose 10 gm 07/31/25 09:00 07/31/25 08:50 Lactulose Syrup 20 Gm/30 Ml Udc PO 08/30/25 08:59 Not Given QDAY IZABELA Protocol Levalbuterol HCl 1.25 mg 07/30/25 12:47 Levalbuterol Rt 1.25 Mg/0.5 Ml Nebu INH 08/29/25 12:59 Q6HRRT PRN wheezing Levothyroxine Sodium 25 mcg 07/31/25 06:00 07/31/25 05:49 Levothyroxine Sodium 25 Mcg Tablet PO 08/30/25 05:59 25 mcg ACBR IZABELA Administration Metoprolol Succinate 25 mg 07/30/25 13:05 07/31/25 08:49 Metoprolol Succinate Xl 25 Mg Tabcr PO 08/29/25 13:04 25 mg QDAY IZABELA Administration Pantoprazole Sodium 40 mg 07/31/25 09:00 07/31/25 08:50 Pantoprazole 40 Mg Tablet PO 08/30/25 08:59 40 mg QDAY IZABELA Administration Sodium Chloride 3 ml 07/30/25 12:33 07/31/25 09:56 Sodium Chloride Rt Adriana 0.9% 3 Ml Nebu INH 08/29/25 12:32 3 ml PRN PRN Administration SOLN Sodium Chloride 3 ml 07/31/25 08:56 Sodium Chloride Rt Adriana 0.9% 3 Ml Nebu INH 08/30/25 08:55 PRN PRN SOLN Plan 80-year-old female with HFpEF, severe multivessel CAD, CKD, and GERD/PUD presenting with acute hypoxic respiratory failure secondary to acute decompensated heart failure, improving with diuresis and oxygen, now stable on 3L O2, with mild wheezing managed with levalbuterol, anemia treated with IV iron, and slight improvement in renal function; awaiting nephrology consultation. # Acute hypoxic respiratory failure, likely due to # Acute decompensated HFpEF # Cardiorenal syndrome (Type 1)? # Bronchospasm/wheezing -Presented with acute SOB, increased work of breathing, and hypoxia requiring supplemental O2 (91% on room air per EMS) -Persistent oxygen requirement and inability to tolerate weaning in the ED, prompting admission. -Imaging and labs notable for moderate pulmonary congestion on CXR and BNP 1028, with bibasilar crackles on exam -Consistent with cardiogenic pulmonary edema from volume overload. -Wheezing noted pre-hospital and in ED, likely airway irritation from pulmonary edema, resolved after bronchodilators and steroids, with no wheezing on exam. -No fever, leukocytosis, or focal consolidation to suggest infectious pneumonia. -Likely precipitating factors include cold exposure, with no clear evidence of infection trigger. -Renal dysfunction (Cr 2.6 from baseline 2.0) consistent with cardiorenal physiology. -Patient is hemodynamically stable without cardiogenic shock. -Known EF 55?60% (11/2024) with diastolic dysfunction. -Cardiology (Dr. Greer) consulted in ED, recommended diuresis and no further troponin trending given known severe, non-revascularizable CAD. 07/31: -No crackles, no edema, currently on 3 L oxygen saturating 94-95% -Wheezing sound noted this morning; no crackles -Levalbuterol not previously used, added as one-time treatment -Echocardiogram (07/30/2025): Left ventricle: Normal size and systolic function, EF 50-55%, Grade I diastolic dysfunction Plan * Supplemental O2 to maintain SpO2 >92%, wean as tolerated * Continue IV Lasix 40 mg BID, adjust based on renal function and UO * Strict I/O, daily weights * Avoid IV fluids for now * Daily BMP * Replete electrolytes (goal K >4, Mg >2 given QTc prolongation) * Incentive spirometry * Telemetry monitoring * Repeat CXR if respiratory status worsens * Levalbuterol 1.25 mg PRN, instruct patient to request it as needed for wheezing * Monitor for recurrence of wheezing * Pending full med recs * Low-sodium diet #ARTHUR on CKD #Likely cardiorenal syndrome Creatinine 2.6 with prior baseline ~2.0 Likely worsened due to volume overload. 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 * Monitor renal function daily during diuresis * Renally dose medications * Avoid nephrotoxins #Severe multivessel CAD, non-revascularizable Known extensive CAD Not a surgical or PCI candidate due to prior intracerebral hemorrhage. Troponin mildly elevated (0.6) likely demand-related Cardiology advised no further trending. Plan: * stop aspirin per cardiology * Continue atorvastatin 20 mg HS * Continue metoprolol 25 mg daily as tolerated * No further troponin trending per cardiology recommendation * Telemetry monitoring #Prolonged QTc (QTc 495 ms) Chronic LBBB with prolonged QTc. Plan: * Avoid QT-prolonging medications * Maintain electrolytes (K >4, Mg >2) * Telemetry monitoring #Chronic Anemia #Iron deficiency anemia Chronic anemia (Hgb 9.3), likely multifactorial (CKD/chronic disease; iron deficiency possible). Iron panel low. Plan: * Trend CBC * Started IV iron infusion * Transfuse only if symptomatic or hgb <8. #GERD #PUD #Epigastric pain Reports burning epigastric pain this week Known history of esophagitis, gastroduodenitis, ulcers. EGD completed during last visit on may 10 Consulted GI, stated no colonoscopy needed continue IV protonix Plan: * Continue Protonix 40 mg daily * Started Maalox PRN TID * Avoid NSAIDs * Consider increasing to BID if symptoms persist #Constipation, improving Chronic constipation refractory to prior outpatient therapies. Stated lactulose helped before Had 2 BM in past 24 hr Plan: * Lactulose 10 g, titrate to bowel movement * Add polyethylene glycol if needed * Encourage mobility as tolerated #Hypothyroidism Stable on home therapy. Plan: * Continue levothyroxine 25 mcg daily * Ordered TSH in AM, will follow up. #Hypertension Chronic, currently stable. BP 159/79 Plan: * Continue home antihypertensives as tolerated * Monitor BP closely during diuresis Health Maintenance: Diet: Cardiac VTE prophylaxis: SCDs GI prophylaxis: Protonix Code status: Full Disposition: Continue inpatient management on telemetry pending improvement in oxygen requirement and volume status ----- Plan discussed with attending physician Dr. Raz Cheung MD PGY-1 Internal Medicine
[2025-07-31 17:22] LABS: Hematocrit 27.9 % (36.0-46.0); Hemoglobin 9.2 g/dL (12.0-16.0)
--- NOTE | 2025-07-31 18:18 | PD.NEPHCONS ---
History of Present Illness Data of Consult Requesting Physician: Edmund Crandall MD Primary Care Provider: Cynthia Danielle MD Consult Narrative History of present illness: A 80 years old F with PMH of HFrEF 45-50%, severe multivessel CAD not amenable to revascularization due to prior hemorrhagic CVA (2008), Primary hypertension, hypothyrodism, esophageal ulcer and erosive gastroduodenitis (EGD in 2019), GERD, hemorrhoids (colonoscopy in 2019), osteoarthritis, and depression, who presented to the ED due to shortness of breath. Nephrology is consulted for ARTHUR on CKD cc:: cc: Edmund Crandall MD Review of Systems Review of Systems Systems Reviewed: All systems reviewed, normal except as documented Meds Home Medications and Allergies Home Medications ?Medication ?Instructions ?Recorded ?Confirmed ?Type levothyroxine 25 mcg capsule 25 mcg PO QDAY 02/09/25 07/31/25 History losartan 50 mg tablet 50 mg PO QDAY 02/09/25 07/31/25 History amitriptyline 25 mg tablet 25 mg PO HS 08/01/25 08/01/25 History Allergies Allergy/AdvReac Type Severity Reaction Status Date / Time No Known Allergies Allergy Verified 04/29/25 10:58 Exam Vital Signs Temp Pulse Resp BP Pulse Ox O2 Del Method O2 Flow Rate 100.1 F 97 17 154/87 H 100 Nasal Cannula 3 07/31/25 16:00 07/31/25 17:38 07/31/25 16:00 07/31/25 17:38 07/31/25 16:00 07/31/25 16:00 07/31/25 16:00 FiO2 3 07/31/25 09:00 Results Labs 08/05/25 05:50 08/05/25 05:50 Labs: Short CBC 07/31/25 07/31/25 Range/Units 05:51 17:10 WBC 9.6 (3.6-11.0) Thou/mm3 Hgb 8.6 L 9.2 L (12.0-16.0) g/dL Hct 25.8 L 27.9 L (36.0-46.0) % Plt Count 209 (140-440) Thou/mm3 BMP 07/31/25 05:51 Sodium 143 Potassium 3.2 L D Chloride 103 Carbon Dioxide 28.1 BUN 49 H Creatinine 2.7 H Glucose 92 D Calcium 9.4 Liver Function 07/31/25 Range/Units 05:51 Total Bilirubin 0.5 (0.3-1.2) mg/dL AST 41 H (0-34) U/L ALT 39 (10-49) U/L Alkaline Phosphatase 94 (46-116) U/L Albumin 4.4 (3.4-4.8) gm/dL Assessment & Plan Assessment and plan (1) Hypoxia: Status: Acute (2) CHF exacerbation: Status: Acute (3) ARTHUR (acute kidney injury): Status: Acute Assessment and plan: ARTHUR on CKD is most likley due to cardiorenal syndrome Creat trending down c/w diuresis avoid nephrotoxic meds monitor renal panel f/u as oi pt after discharge
[2025-07-31] MEDS: ATORVASTATIN CALCIUM 20 MG TABLET PO (20:34)
--- NOTE | 2025-07-31 21:08 | PD.IMPROG ---
Documentation for date of: 07/31/25 Subjective Subjective Interval history: When I went to evaluate the patient She complained of dysphagia with the food getting stuck in the suprasternal notch area and the proximal esophagus the dysphagia is a new complaint It could be due to the large gastric hiatal hernia or proximal esophageal stricture Exam Vital Signs Temp Pulse Resp BP Pulse Ox O2 Del Method O2 Flow Rate 100.1 F 97 17 154/87 H 100 Nasal Cannula 3 07/31/25 16:00 07/31/25 17:38 07/31/25 16:00 07/31/25 17:38 07/31/25 16:00 07/31/25 16:00 07/31/25 16:00 FiO2 3 07/31/25 09:00 Objective Labs 07/31/25 17:10 07/31/25 05:51 Labs: Laboratory Results - last 24 hr 07/30/25 07/31/25 07/31/25 22:50 05:51 17:10 WBC 9.6 RBC 2.81 L Hgb 8.6 L 9.2 L Hct 25.8 L 27.9 L MCV 92 MCH 30.6 MCHC 33.3 RDW Std Deviation 47.9 H Plt Count 209 Neut % (Auto) 76 Lymph % (Auto) 16 [place] % (Auto) 8 Eos % (Auto) 0 Baso % (Auto) 0 Neut # (Auto) 7.3 Lymph # (Auto) 1.5 [place] # (Auto) 0.8 Eos # (Auto) 0.0 Baso # (Auto) 0.0 Immature Gran # (Auto) 0.02 H Absolute Nucleated RBC 0.00 Immature Gran % 0 Nucleated RBC % 0 Sodium 143 Potassium 3.2 L D Chloride 103 Carbon Dioxide 28.1 Anion Gap 12 BUN 49 H Creatinine 2.7 H Estim Creat Clear Calc 15.5 L eGFR 17 L BUN/Creatinine Ratio 18 Glucose 92 D Calculated Osmolality 297 H Calcium 9.4 Corrected Calcium 9.4 Phosphorus 3.5 Magnesium 2.1 Total Bilirubin 0.5 AST 41 H ALT 39 Alkaline Phosphatase 94 Total Protein 6.9 Albumin 4.4 Globulin 2.5 Albumin/Globulin Ratio 1.8 Triglycerides 61 Cholesterol 142 LDL Cholesterol, Calc 40 HDL Cholesterol 90 H Cholesterol/HDL Ratio 1.6 L TSH 2.88 Blood Type O Positive Antibody Screen NEGATIVE Crossmatch See Detail Blood Bank Wristband ID Yes Impressions Impression: Dysphagia new onset Plan Fiberoptic esophagogastroduodenoscopy possible therapeutic intervention to be done under MAC because of her respiratory status Procedure has been tentatively scheduled for tomorrow N.p.o. midnight tonight Assessment & Plan A&P Narrative # Dyspepsia chest pain could be due to also large hiatal hernia which is 0.9 cm # Gastritis # Esophagitis IV Protonix No need for a repeat endoscopy Time Spent With Patient Time: Total time spent is greater than 50% in coordination of care (as documented) at patient's floor/unit and/or counseling patient:
[2025-08-01] VITALS (20 sets, daily range): BP systolic 132–158; BP diastolic 52–87; PULSE 77–141; RESP 14–22; TEMP 36.5–36.9; O2SAT 95–100; BMI 24.0
[2025-08-01] MEDS: FUROSEMIDE INJ 10 MG/ML 4ML VIAL 40 MG IVP (05:05)
[2025-08-01] MEDS: LEVOTHYROXINE SODIUM 25 MCG TABLET PO (05:07)
[2025-08-01 05:39] LABS: Basophils # (Auto) 0.0 Thou/mm3 (0.0-0.2); Basophils % (Auto) 1 % (0-2.5); Eosinophils # (Auto) 0.0 Thou/mm3 (0.0-0.5); Eosinophils % (Auto) 0 % (0-10); Hematocrit 25.8 % (36.0-46.0); Immature Granulocytes Auto 0.02 Thou/mm3 (0.00-0.00); Lymphocytes # (Auto) 1.7 Thou/mm3 (1.0-4.8); Lymphocytes % (Auto) 20 % (10-50); Mean Corpuscular HGB Conc 33.3 g/dl (31.0-37.0); Mean Corpuscular Hemoglobin 30.3 pg (25.0-35.0); Mean Corpuscular Volume 91 fL (80-100); Monocytes # (Auto) 0.9 Thou/mm3 (0.0-0.8); Monocytes % (Auto) 11 % (0-12); Neutrophils # (Auto) 5.9 Thou/mm3 (1.8-7.7); Neutrophils % (Auto) 69 % (37-80); Nucleated Red Blood Cell # 0.00 Thou/mm3 (0.00-0.00); Nucleated Red Blood Cell % 0 /100 WBC (0); Platelet Count 199 Thou/mm3 (140-440); RDW Standard Deviation 47.1 fL (36.4-46.3); Red Blood Count 2.84 Miln/mm3 (4.00-5.20); White Blood Count 8.7 Thou/mm3 (3.6-11.0)
[2025-08-01 05:53] LABS: Hemoglobin 8.6 g/dL (12.0-16.0)
[2025-08-01 06:00] LABS: Alanine Aminotransferase 30 U/L (10-49); Albumin, Serum 4.2 gm/dL (3.4-4.8); Albumin/Globulin Ratio 1.6 (1.2-2.2); Alkaline Phosphatase 84 U/L (46-116); Anion Gap 13 (7-16); Aspartate Amino Transferase 43 U/L (0-34); BUN/Creatinine Ratio 17 Ratio (12-20); Bilirubin,Total 0.6 mg/dL (0.3-1.2); Blood Urea Nitrogen 47 mg/dL (9-23); Calcium 9.5 mg/dL (8.3-10.6); Calcium (Corrected) 9.5 mg/dL (8.5-10.1); Carbon Dioxide 28.7 mMol/L (20.0-31.0); Chloride 100 mMol/L (98-107); Creatinine (Component) 2.8 mg/dL (0.6-1.3); Estimated Creatinine Clearance 13.4 mL/min (>60); Globulin 2.6 gm/dL (2.3-3.5); Glucose 94 mg/dL (74-106); Magnesium 2.0 mg/dL (1.6-2.6); Osmolality,Calculated 295 (275-295); Phosphorous 2.8 mg/dL (2.4-5.1); Potassium 3.4 mMol/L (3.4-5.1); Sodium 142 mMol/L (136-145); Total Protein 6.8 gm/dL (5.7-8.2); eGFR 16 See Note
--- NOTE | 2025-08-01 07:56 | ESPR_ITS ---
<Statement entered by Alec Gandara MD - 08/01/25 19:00> Patient was seen and examined by me personally. I have reviewed the below documentation by the team resident and agree with its findings. Ms. 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 Patient admitted for acute decompensated heart failure, currently on IV diuresis. 08/01-Renal function noted to be creatinine 2.8, BUN decreased from 49 to patient had around 2 L urine output since placement of Cleary, will continue diuresis today, received Lasix 40 mg IV x 1 this morning, will diurese with additional Lasix 80 mg x 1, follow renal function in AM. Received 60 mEq of potassium and 4 g of magnesium. Continue to monitor urine output and renal function in AM., Scheduled for EGD with gastroenterology today is n.p.o. today. Nephrology is following. Thank you for the consult and allowing to participate in the care of the patient. Cardiology will continue to follow. Case discussed with Attending Physician Dr. Toby Gandara MD Internal Medicine PGY-2 Disclaimer: This note was dictated by speech recognition. Minor errors in wood science professor may be present due to voice recognition software. Documentation for date of: 08/01/25 Subjective Subjective Interval history: Ms. Loly Panda, 80yF with PMH of HFrEF 45-50%, severe multivessel CAD, hemorrhagic CVA 2008, Primary hypertension, hypothyrodism, esophageal ulcer and erosive gastroduodenitis (EGD in 2019), GERD, hemorrhoids (colonoscopy in 2019), osteoarthritis, and depression, presented to the hospital on 07/30/2025 due to worsening SOB. Yesterday (07/29) after lunch, she experienced epigastric burning consistent with acid reflux. She attempted symptom relief by drinking large amounts of water without any improvements. Last night, she tried to sleep but was hearing audible wheezing with respiration and worsening dyspnea and headache. She was able to go to sleep lying on her right side, but woke up multiple times gasping for air. She denied any chest pain, palpitation, or syncope. Patient was admitted and consulted to cardiology for management of Decompensated HF ED course: Vitals: 97.5F, ID:98, RR: 18, BP:189/85, O2sat:100% on RA Labs: WBC: 8.5, Hgb: 9.3, Na: 141, K: 3.9, BUN:47, Cr:2.6, eGFR: 18, Glucose:110, Troponin: 0.6, BNP:1028 CXR (07/30/2025): showed Moderate CHF In ED, patient received Aspirin 324mg po x1, Albutrol 10mg inh x1, IV Furosemide 40mg x1, Ipratropium 0.5mg INH x1, IV Methylprednisolone 125mg x1 Medical history: As stated above Surgical history: Cataract surgery Allergies: NKDA Medications: Aspirin 81 mg daily, Atorvastatin 20 mg HS, Metoprolol 25 mg daily, Amlodipine 10 mg daily, Levothyroxine 25 mcg daily, Pantoprazole 40 mg daily, Spironolactone 25 mg daily, Losartan 50 mg daily, Sucralfate and maalox , Prednisone 20 mg 2 tablets po Qam, Minoxidil 2.5 mg twice daily, Amitriptyline 25 mg HS ,Alprazolam 1 mg daily, Hydroxyzine 25 mg twice daily prn for anxiety (stopped taking hydroxyzine because it makes her worse) Family history: Noncontributory Social history: Former smoker 60yrs ago. Denies drinking alcohol or using other illicit drugs 07/30/2025: Labs reviewed and patient examined at the bedside. Patient has trace edema in right lower leg. Continue on IV lasix 40mg bid. Aspirin and Plavix should be avoided given due to PMH of hemorrhagic CVA. She has multivessel CAD, trending troponin is unnecessary. Continue with Amlodipine 10mg po qd, Atorvastatin 20mg po hs, Metoprolol Succinate 25 mg po qd, Atorvastatin 20mg po hs. ECHO taken pending read. EKG shows QRS 154 and QTc of 495 with LBBB. Corrected QTc is 465 which is within normal range. At the time of examination, patient complained of some SOB, but overall her symptoms have improved ever since she got to the hospital. Will continue to monitor. 07/31/2025: No Overnight events. Labs reviewed and patient examined at the bedside. Patient complained of sleep disturbances due to need to urinate during the night. Recommend changing IV lasix 40mg bid to 8 hour interval administration during the day rather than every 12 hr. Continue Metoprolol. Yesterday amlodipine was held due to low BP, and it can be resumed as long as BP tolerates. Today's BP is 159/79. ECHO (07/22/2025) showed normal LV size and function with LVEF 50-55% and RVSP 21mmHg. Continue current managment. Cr slightly decreased from 2.8 to 2.7. She complained of GERD symptoms whenever she eats. EGD done on 07/30) showed large gastric hiatal hernia, but she is not surgical candidate due to severe multivessel CAD and CHF. Strongly Advised patient to make sure she sits on the chair 3 times per day in order for her to improve. Denies chest pain, palpation, SOB, N/V, fevers or chills. 08/01/2025: No Overnight events. Labs reviewed and patient examined at the bedside. Cr increased from 2.7 to 2.8, and BUN decreased from 49 to 47. Currently patient's renal function is relatively stable. She was given IV Furosemide 40mg x1 this morning. Gave additional IV Furosemide 80mg x1 due to suspected cardiorenal syndrome. Tomorrow will start on Furosemide 40mg po. Denies chest pain, palpation, SOB, abdominal pain, N/V, fevers or chills. Exam Vital Signs Temp Pulse Resp BP Pulse Ox O2 Del Method O2 Flow Rate 98.1 F 94 19 156/68 H 95 Nasal Cannula 4 08/01/25 04:00 08/01/25 05:05 08/01/25 04:00 08/01/25 05:05 08/01/25 04:00 08/01/25 04:00 08/01/25 04:00 FiO2 3 08/01/25 03:48 Narrative Exam General: No acute distress, well nourished, AAO x3 Eye: PERRL, EOMI, normal conjunctiva, no scleral icterus HENT: Normocephalic, atraumatic, hearing intact to conversation at normal volume, moist oral mucosa Neck: Supple, non-tender, no JVD, no lymphadenopathy Lungs: Non-labored respirations, symmetric chest rise, Clear to auscultate bilaterally, No wheezing, rhonchi, crackles Heart: Peripheral pulses intact bilaterally, Regular Rate and Rhythm. Abdomen: Soft, non-tender, non-distended, no palpable masses Musculoskeletal: Normal range of motion and strength, Trace edema on right lower leg Skin: Skin is warm, dry, no rashes or lesions. Psychiatric: Cooperative, appropriate mood and affect, Awake and alert, not agitated Neuro: Cranial nerves II-XII grossly intact. Strength 5/5 throughout. Sensations intact to light touch. Objective Labs 08/01/25 04:30 08/01/25 04:30 Labs: Laboratory Results - last 24 hr 07/31/25 08/01/25 17:10 04:30 WBC 8.7 RBC 2.84 L Hgb 9.2 L 8.6 L Hct 27.9 L 25.8 L MCV 91 MCH 30.3 MCHC 33.3 RDW Std Deviation 47.1 H Plt Count 199 Neut % (Auto) 69 Lymph % (Auto) 20 Mora % (Auto) 11 Eos % (Auto) 0 Baso % (Auto) 1 Neut # (Auto) 5.9 Lymph # (Auto) 1.7 Mora # (Auto) 0.9 H Eos # (Auto) 0.0 Baso # (Auto) 0.0 Immature Gran # (Auto) 0.02 H Absolute Nucleated RBC 0.00 Immature Gran % 0 Nucleated RBC % 0 Sodium 142 Potassium 3.4 Chloride 100 Carbon Dioxide 28.7 Anion Gap 13 BUN 47 H Creatinine 2.8 H Estim Creat Clear Calc 13.4 L eGFR 16 L BUN/Creatinine Ratio 17 Glucose 94 Calculated Osmolality 295 Calcium 9.5 Corrected Calcium 9.5 Phosphorus 2.8 Magnesium 2.0 Total Bilirubin 0.6 AST 43 H ALT 30 Alkaline Phosphatase 84 Total Protein 6.8 Albumin 4.2 Globulin 2.6 Albumin/Globulin Ratio 1.6 Quality Measures Quality Measures VTE prophylaxis Advance care planning discussed with:: patient and other Assessment & Plan Assessment Current Active Medications: Generic Name Dose Route Start Last Admin Trade Name Freq PRN Reason Stop Dose Admin Acetaminophen 650 mg 07/30/25 12:24 Acetaminophen 325 Mg Tablet PO 08/29/25 12:23 Q6H PRN Fever >100.4 Acetaminophen 650 mg 07/30/25 12:24 Acetaminophen 325 Mg Tablet PO 08/29/25 12:23 Q6H PRN PAIN SCALE 1-3 (mild Al Hydrox/Mg Hydrox/Simethicone 15 ml 07/31/25 08:54 Mg Hyd/Al Hyd/Phill (Maalox Reg) Susp 30 Ml Udc PO 08/30/25 08:53 QID PRN acid reflux/gerd Amlodipine Besylate 10 mg 07/31/25 09:00 Amlodipine Besylate 5 Mg Tablet PO 08/30/25 08:59 On Hold: 07/31/25 09:00 QDAY IZABELA Atorvastatin Calcium 20 mg 07/30/25 21:00 07/31/25 20:34 Atorvastatin Calcium 20 Mg Tablet PO 08/29/25 20:59 20 mg HS IZABELA Administration Furosemide 40 mg 07/31/25 18:00 08/01/25 05:05 Furosemide Inj 10 Mg/Ml 4ml Vial IVP 08/30/25 17:59 40 mg BIDD IZABELA Administration Hydroxyzine HCl 25 mg 07/31/25 21:00 07/31/25 20:34 Hydroxyzine Hcl 25 Mg Tablet PO 08/30/25 20:59 25 mg HS IZABELA Administration Lactulose 10 gm 07/31/25 09:00 07/31/25 08:50 Lactulose Syrup 20 Gm/30 Ml Udc PO 08/30/25 08:59 Not Given QDAY IZABELA Protocol Levalbuterol HCl 1.25 mg 07/30/25 12:47 Levalbuterol Rt 1.25 Mg/0.5 Ml Nebu INH 08/29/25 12:59 Q6HRRT PRN wheezing Levothyroxine Sodium 25 mcg 07/31/25 06:00 08/01/25 05:07 Levothyroxine Sodium 25 Mcg Tablet PO 08/30/25 05:59 25 mcg ACBR IZABELA Administration Metoprolol Succinate 25 mg 07/30/25 13:05 07/31/25 08:49 Metoprolol Succinate Xl 25 Mg Tabcr PO 08/29/25 13:04 25 mg QDAY IZABELA Administration Pantoprazole Sodium 40 mg 07/31/25 09:00 07/31/25 08:50 Pantoprazole 40 Mg Tablet PO 08/30/25 08:59 40 mg QDAY IZABELA Administration Sodium Chloride 3 ml 07/31/25 08:56 Sodium Chloride Rt Adriana 0.9% 3 Ml Nebu INH 08/30/25 08:55 PRN PRN SOLN Plan Ms. Loly Panda, 80yF with PMH of HFrEF 45-50%, severe multivessel CAD, hemorrhagic CVA 2008, Primary hypertension, hypothyrodism, esophageal ulcer and erosive gastroduodenitis (EGD in 2019), GERD, hemorrhoids (colonoscopy in 2019), osteoarthritis, and depression, presented to the hospital on 07/30/2025 due to worsening SOB. Patient was admitted and consulted to cardiology for management of Decompensated HF. #Acute Hypoxic Respiratory Failure, improving #Acute Decompensated heart failure #Diastolic heart failure, HFpEF, EF 50 to 55%, stage I diastolic dysfunction, 02/2025 #Suspected Cardiorenal syndrome -Patient presented with symptom of worsening SOB, wheezing, and trace right leg edema. Troponin: 0.6, BNP:1028 and CXR (07/30/2025): showed Moderate vascular congestion -Creatinine on presentation 2.6 which up trended to 2.8 with initial diuresis, there is concern of cardiorenal syndrome. Continue diuresis. -Echocardiogram performed outpatient (12/01/2024): Normal LV size and function. Estimated EF 55-60%. Grade II diastolic dysfunction. Normal RV size and function. Estimated RVSP normal at 35 mm hg. Moderate AV sclerosis without stenosis. Mild MAC. Mild MR and TR. Outpatient Holter Monitoring (01/22/2025): Duration 68hrs. Normal Sinus Rhythm. Avg HR 77bpm, Sinus Tachy 17 times (0.45%), Max HR 113 bpm. SVEs 0.12% 4 couplets. 5 SVEruns; longest being 26 bts, fastest at 147bpm. VEs (0.99%) 5 couplets. No VE runs. No pauses greater than 3 secs Echocardiogram (07/30/2025) showed 1. Left ventricle size is normal and systolic function is normal. Estimated ejection fraction is 50-55%. There is grade I diastolic dysfunction. 2. Right ventricle chamber size is normal and systolic function is normal. Estimated RVSP is 21 mmHg. 3. There is moderate aortic valve sclerosis with no stenosis and trace regurgitation. 4. There is mild to moderate mitral regurgitation and tricuspid valve regurgitation. Mild MAC. 5. The left atrium is moderately enlarged. The right atrium is normal. -Currently patient's renal function is relatively stable. She was given IV Furosemide 40mg x1 this morning. Gave additional IV Furosemide 80mg x1 due to suspected cardiorenal syndrome. Plan: -Will start on Furosemide 40mg po. -Strict I and Os; not being charted, nursing was informed. -Fluid restriction 1500ml -Low-sodium diet -Follow renal function closely -Continue metoprolol succinate 25 mg daily, did have 5 SVE runs with PVCs and couplets on Holter. 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 Troponin on presentation 0.600, EKG shows Sinus rhythm, left bundle branch block, no acute ST-T changes., Patient does have T wave inversion in V6. Concern of QTc prolongation EKG shows QRS 154 and QTc of 495 with LBBB. Corrected QTc is 465 which is within normal range. Patient is well-known to practice, has underwent extensive workup outpatient; underwent nuclear stress test outpatient in February 2025 which showed abnormal myocardial perfusion study which showed decreased uptake in the mid to apex anterior and anteroseptal segments with stress. 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 Rest of the coronaries arteries and its branches with only mild disease. Postcardiac cath findings, case was discussed with patient's son in detail, decision was made to proceed with risk factor modification as patient was not a surgical candidate or PCI candidate as she is not able to take any kind of antiplatelets or heparin given her history of severe large intracerebral bleed/hemorrhagic CVA 15 years ago and also underlying gastric issues. Outpatient carotid Doppler (02/15/2025) obtained to further assess vascular disease showed both common carotid, internal carotid, and external carotid arteries show minimally thickened intima. Mild diffuse and complex plaque seen at bilateral bulbs and CCA, ICA, ECA. Color doppler demonstrates normal flow in both CCAs, ICAs, and ECAs. Mild evidence of stenosis noted. Both vertebral arteries show normal antegrade flow. 07/31/2025 lipid panel: Cholesterol 142, LDL 40, HDL 90: TSH 2.88: A1c 02/26/2025 5.3 Recommendations: ? Hold aspirin/Plavix due to history of CVA and gastric issues. ? Continue atorvastatin 20 mg at bedtime ? Monitor for chest pain ? Continue to follow outpatient #Hypertension In ED, BP:189/85 Patient on losartan 50 mg p.o. daily, spironolactone 25 mg p.o. daily and amlodipine 5 mg twice daily. ?Continue metoprolol 25 mg p.o. daily, okay to resume amlodipine. ?Recommend holding losartan and spironolactone in setting of ARTHUR #ARTHUR on CKD stage 3 : unclear etiology and need to rule out possible cardiorenal syndrome, nephrology following. #Chronic Anemia #GERD #PUD #Epigastric pain #Constipation #Hypothyroidism -Management per Primary Hospitalist team Thank you for allowing us to participate in the care of Ms Loly Panda. Cardiology will continue to follow. Assessment and plan discussed with my attending physician Dr. Greer and senior resident Dr Gandara PGY-2 Dr. Mayo (PGY-1) - Internal medicine resident Attending Provider Attestation/Addendum I have personally seen and examined the patient separately on the above date of service and discussed the plan of care with the resident. I reviewed the resident Dr. Cordell Mayo / Alec Gandara consultation progress note and agree with the resident findings and plan in the note above and have also edited the documentation to reflect my findings and plan. Toby Greer M.D. Interventional Cardiology
[2025-08-01] MEDS: METOPROLOL SUCCINATE XL 25 MG TABCR PO (08:03)
[2025-08-01] MEDS: LACTULOSE SYRUP 20 GM/30 ML UDC 10 GM PO ×2 (08:04→15:04)
[2025-08-01] MEDS: PANTOPRAZOLE 40 MG TABLET PO ×2 (08:04→20:18)
--- NOTE | 2025-08-01 09:56 | ESPR_ITS ---
<Statement entered by Edmund Crandall MD - 08/09/25 09:14> I reviewed above note and agree with findings and plans. I have also personally examined the patient with medicine team and went over assessment and plan with medical team including engineer intern and resident physician. <Statement entered by Denis Starr MD - 08/01/25 17:54> Patient was examined and case was reviewed with team including attending physician. Note reviewed, I agree with most of its contents and agree with the patient's care as documented by Dr. Skye Starr MD PGY-2 Documentation for date of: 08/01/25 Subjective Subjective Interval history: Patient seen and examined this morning. She reports ongoing acid reflux and epigastric burning, unchanged from yesterday. She also notes dysphagia, with food feeling stuck in the upper chest. She is NPO and scheduled for EGD later today. She reports no bowel movement since Wednesday (2 days ago), which she attributes to poor oral intake. Denies abdominal pain, nausea, or vomiting. She denies chest pain, palpitations, syncope, fevers, or chills. Reports breathing is improved compared to admission, without acute shortness of breath at rest. Exam Vital Signs Temp Pulse Resp BP Pulse Ox O2 Del Method O2 Flow Rate 98.3 F 87 18 132/52 H 97 Nasal Cannula 2 08/01/25 08:00 08/01/25 08:03 08/01/25 08:00 08/01/25 08:03 08/01/25 08:00 08/01/25 08:00 08/01/25 08:00 FiO2 3 08/01/25 03:48 Narrative Exam General: No acute distress, well nourished, AAO x3 Eye: PERRL, EOMI, normal conjunctiva, no scleral icterus HENT: Normocephalic, atraumatic, hearing intact to conversation at normal volume, moist oral mucosa Neck: Supple, non-tender, no JVD, no lymphadenopathy Lungs: Non-labored respirations, symmetric chest rise, Clear to auscultate bilaterally, No wheezing, rhonchi, crackles Heart: Peripheral pulses intact bilaterally, Regular Rate and Rhythm. Abdomen: Soft, non-tender, non-distended, no palpable masses Musculoskeletal: Normal range of motion and strength, no edema noted Skin: Skin is warm, dry, no rashes or lesions. Psychiatric: Cooperative, appropriate mood and affect, Awake and alert, not agitated Neuro: Cranial nerves II-XII grossly intact. Strength 5/5 throughout. Sensations intact to light touch. Objective Labs 08/01/25 04:30 08/01/25 04:30 Labs: Laboratory Results - last 24 hr 07/31/25 08/01/25 17:10 04:30 WBC 8.7 RBC 2.84 L Hgb 9.2 L 8.6 L Hct 27.9 L 25.8 L MCV 91 MCH 30.3 MCHC 33.3 RDW Std Deviation 47.1 H Plt Count 199 Neut % (Auto) 69 Lymph % (Auto) 20 [place] % (Auto) 11 Eos % (Auto) 0 Baso % (Auto) 1 Neut # (Auto) 5.9 Lymph # (Auto) 1.7 [place] # (Auto) 0.9 H Eos # (Auto) 0.0 Baso # (Auto) 0.0 Immature Gran # (Auto) 0.02 H Absolute Nucleated RBC 0.00 Immature Gran % 0 Nucleated RBC % 0 Sodium 142 Potassium 3.4 Chloride 100 Carbon Dioxide 28.7 Anion Gap 13 BUN 47 H Creatinine 2.8 H Estim Creat Clear Calc 13.4 L eGFR 16 L BUN/Creatinine Ratio 17 Glucose 94 Calculated Osmolality 295 Calcium 9.5 Corrected Calcium 9.5 Phosphorus 2.8 Magnesium 2.0 Total Bilirubin 0.6 AST 43 H ALT 30 Alkaline Phosphatase 84 Total Protein 6.8 Albumin 4.2 Globulin 2.6 Albumin/Globulin Ratio 1.6 Quality Measures Quality Measures VTE prophylaxis Advance care planning discussed with:: patient Assessment & Plan Assessment Current Active Medications: Generic Name Dose Route Start Last Admin Trade Name Freq PRN Reason Stop Dose Admin Acetaminophen 650 mg 07/30/25 12:24 Acetaminophen 325 Mg Tablet PO 08/29/25 12:23 Q6H PRN Fever >100.4 Acetaminophen 650 mg 07/30/25 12:24 Acetaminophen 325 Mg Tablet PO 08/29/25 12:23 Q6H PRN PAIN SCALE 1-3 (mild Al Hydrox/Mg Hydrox/Simethicone 15 ml 07/31/25 08:54 Mg Hyd/Al Hyd/Phill (Maalox Reg) Susp 30 Ml Udc PO 08/30/25 08:53 QID PRN acid reflux/gerd Amlodipine Besylate 10 mg 07/31/25 09:00 Amlodipine Besylate 5 Mg Tablet PO 08/30/25 08:59 On Hold: 07/31/25 09:00 QDAY IZABELA Atorvastatin Calcium 20 mg 07/30/25 21:00 07/31/25 20:34 Atorvastatin Calcium 20 Mg Tablet PO 08/29/25 20:59 20 mg HS IZABELA Administration Furosemide 40 mg 07/31/25 18:00 08/01/25 05:05 Furosemide Inj 10 Mg/Ml 4ml Vial IVP 08/30/25 17:59 40 mg BIDD IZABELA Administration Hydroxyzine HCl 25 mg 07/31/25 21:00 07/31/25 20:34 Hydroxyzine Hcl 25 Mg Tablet PO 08/30/25 20:59 25 mg HS IZABELA Administration Potassium Chloride 10 meq in 100 mls @ 100 mls/hr 08/01/25 08:17 Kcl Ivpb IV 08/01/25 10:16 Q1H IZABELA Magnesium Sulfate 2 gm in 50 mls @ 25 mls/hr 08/01/25 08:26 Magnesium Sulfate Ivpb IV 08/01/25 10:25 X1 ONE Lactulose 10 gm 07/31/25 09:00 08/01/25 08:04 Lactulose Syrup 20 Gm/30 Ml Udc PO 08/30/25 08:59 10 gm QDAY IZABELA Administration Protocol Levalbuterol HCl 1.25 mg 07/30/25 12:47 Levalbuterol Rt 1.25 Mg/0.5 Ml Nebu INH 08/29/25 12:59 Q6HRRT PRN wheezing Levothyroxine Sodium 25 mcg 07/31/25 06:00 08/01/25 05:07 Levothyroxine Sodium 25 Mcg Tablet PO 08/30/25 05:59 25 mcg ACBR IZABELA Administration Metoprolol Succinate 25 mg 07/30/25 13:05 08/01/25 08:03 Metoprolol Succinate Xl 25 Mg Tabcr PO 08/29/25 13:04 25 mg QDAY IZABELA Administration Pantoprazole Sodium 40 mg 07/31/25 09:00 08/01/25 08:04 Pantoprazole 40 Mg Tablet PO 08/30/25 08:59 40 mg QDAY IZABELA Administration Sodium Chloride 3 ml 07/31/25 08:56 Sodium Chloride Rt Adriana 0.9% 3 Ml Nebu INH 08/30/25 08:55 PRN PRN SOLN Plan 80-year-old female with HFpEF, severe multivessel CAD, ARTHUR on CKD, GERD/PUD, and a history of hemorrhagic CVA, presenting with acute decompensated heart failure, improving with diuresis, stable on oxygen, and scheduled for EGD today for new- onset dysphagia and persistent acid reflux. # Acute hypoxic respiratory failure, likely due to # Acute decompensated HFpEF # Cardiorenal syndrome # Bronchospasm/wheezing -Presented with acute SOB, increased work of breathing, and hypoxia requiring supplemental O2 (91% on room air per EMS) -Persistent oxygen requirement and inability to tolerate weaning in the ED, prompting admission. -Imaging and labs notable for moderate pulmonary congestion on CXR and BNP 1028, with bibasilar crackles on exam -Consistent with cardiogenic pulmonary edema from volume overload. -Wheezing noted pre-hospital and in ED, likely airway irritation from pulmonary edema, resolved after bronchodilators and steroids, with no wheezing on exam. -No fever, leukocytosis, or focal consolidation to suggest infectious pneumonia. -Likely precipitating factors include cold exposure, with no clear evidence of infection trigger. -Renal dysfunction (Cr 2.6 from baseline 2.0) consistent with cardiorenal physiology. -Patient is hemodynamically stable without cardiogenic shock. -Known EF 55?60% (11/2024) with diastolic dysfunction. -Cardiology (Dr. Greer) consulted in ED, recommended diuresis and no further troponin trending given known severe, non-revascularizable CAD. 07/31: -No crackles, no edema, currently on 3 L oxygen saturating 94-95% -Wheezing sound noted this morning; no crackles -Levalbuterol not previously used, added as one-time treatment -Echocardiogram (07/30/2025): Left ventricle: Normal size and systolic function, EF 50-55%, Grade I diastolic dysfunction 08/01: -No crackles, no edema, currently on 2 L oxygen saturating 97% Plan * Supplemental O2 to maintain SpO2 >92%, wean as tolerated * Continue PO lasix 40 mg daily from iv 40 mg BID. * Strict I/O, daily weights * Avoid IV fluids for now * Daily BMP * Replete electrolytes (goal K >4, Mg >2 given QTc prolongation) * Incentive spirometry * Telemetry monitoring * Repeat CXR if respiratory status worsens * Levalbuterol 1.25 mg PRN, instruct patient to request it as needed for wheezing * Monitor for recurrence of wheezing * Low-sodium diet #Dysphagia #GERD #PUD #Epigastric pain #Large hiatal hernia Reports burning epigastric pain this week Known history of esophagitis, gastroduodenitis, ulcers. EGD completed during last visit on may 10' New dysphagia with ongoing reflux symptoms; GI following. Plan: * EGD scheduled today (NPO maintained, except meds) * Increased Protonix 40 mg to BID * Started Maalox PRN QID * Avoid NSAIDs * Follow GI recommendations post-procedure #ARTHUR on CKD #Likely cardiorenal syndrome Creatinine 2.6 with prior baseline ~2.0 Likely worsened due to volume overload. Follows Dr Zavala as medical research associate Cr 2.8 stable from yesterday unsure if this might be new baseline Plan: * Consult Dr Zavala, recommends to continue diuresing patient and monitor for now. * Monitor renal function daily during diuresis * Renally dose medications * Avoid nephrotoxins #Severe multivessel CAD, non-revascularizable Known extensive CAD Not a surgical or PCI candidate due to prior intracerebral hemorrhage. Troponin mildly elevated (0.6) likely demand-related Cardiology advised no further trending. Plan: * stop aspirin per cardiology * Continue atorvastatin 20 mg HS * Continue metoprolol 25 mg daily as tolerated * No further troponin trending per cardiology recommendation * Telemetry monitoring #Prolonged QTc (QTc 495 ms) Chronic LBBB with prolonged QTc. Plan: * Avoid QT-prolonging medications * Maintain electrolytes (K >4, Mg >2) * Telemetry monitoring #Chronic Anemia #Iron deficiency anemia Chronic anemia (Hgb 9.3), likely multifactorial (CKD/chronic disease; iron deficiency possible). Iron panel low. Plan: * Trend CBC * Started IV iron infusion * Transfuse only if symptomatic or hgb <8. #Constipation, improving Chronic constipation refractory to prior outpatient therapies. Stated lactulose helped before Had 2 BM in past 24 hr Plan: * Lactulose 10 g, titrate to bowel movement * Add polyethylene glycol if needed * Encourage mobility as tolerated #Hypothyroidism Stable on home therapy. Plan: * Continue levothyroxine 25 mcg daily * Ordered TSH in AM, will follow up. #Hypertension Chronic, currently stable. BP 159/79 Plan: * Continue home antihypertensives as tolerated * Monitor BP closely during diuresis Health Maintenance: Diet: Cardiac VTE prophylaxis: SCDs GI prophylaxis: Protonix Code status: Full Disposition: Continue inpatient management on telemetry pending improvement in oxygen requirement and volume status, EGD today. ----- Plan discussed with attending physician Dr. Crandall and senior resident Dr. Dave Cheung MD PGY-1 Internal Medicine
[2025-08-01] MEDS: POTASSIUM CHL 10 mEq IVPB 10 MEQ/100 ML BAG 100 MEQ IV ×2 (09:58→12:11)
[2025-08-01] MEDS: Magnesium Sulfate 2 GM Ivpb 2 GM/50 ML BAG IV ×2 (09:58→20:13)
[2025-08-01] MEDS: FUROSEMIDE INJ 10 MG/ML 4ML VIAL 80 MG IVP (12:11)
[2025-08-01] MEDS: DOCUSATE SOD 100 MG CAPSULE PO (15:04)
[2025-08-01] MEDS: RINGERS LACTATED 1000 ML 1,000 ML 125 ML IV (18:50)
--- NOTE | 2025-08-01 19:13 | SUR.PHASEI ---
1912 Patient arrived to recovery resting comfortably in [facility], on oxygen 4L via nasal cannula, breathing unlabored, vital signs stable, denies pain and nausea, report received from Gabriela GOODMAN and Dr. Keating
--- NOTE | 2025-08-01 19:48 | SUR.PHASEI ---
194 patient transported via gurney to room 277 without incident
[2025-08-01] MEDS: POTASSIUM CHLORIDE 10% 20 MEQ/15 ML UDC 40 MEQ PO (20:12)
[2025-08-01] MEDS: ATORVASTATIN CALCIUM 20 MG TABLET PO (20:18)
[2025-08-02] VITALS (13 sets, daily range): BP systolic 139–160; BP diastolic 66–81; PULSE 74–102; RESP 17–27; TEMP 36–37.1; O2SAT 94–100; BMI 23.8
[2025-08-02 03:48] LABS: OBS Card Lot # 0124; OBS Developer Lot # 551749; OBS QC OK? Yes; Occult Blood, Stool Positive (Negative)
[2025-08-02] MEDS: LEVOTHYROXINE SODIUM 25 MCG TABLET PO (05:38)
[2025-08-02 05:44] LABS: Basophils # (Auto) 0.0 Thou/mm3 (0.0-0.2); Basophils % (Auto) 1 % (0-2.5); Eosinophils # (Auto) 0.1 Thou/mm3 (0.0-0.5); Eosinophils % (Auto) 1 % (0-10); Hematocrit 28.6 % (36.0-46.0); Hemoglobin 9.4 g/dL (12.0-16.0); Immature Granulocytes Auto 0.03 Thou/mm3 (0.00-0.00); Lymphocytes # (Auto) 1.4 Thou/mm3 (1.0-4.8); Lymphocytes % (Auto) 18 % (10-50); Mean Corpuscular HGB Conc 32.9 g/dl (31.0-37.0); Mean Corpuscular Hemoglobin 30.2 pg (25.0-35.0); Mean Corpuscular Volume 92 fL (80-100); Monocytes # (Auto) 0.7 Thou/mm3 (0.0-0.8); Monocytes % (Auto) 9 % (0-12); Neutrophils # (Auto) 5.5 Thou/mm3 (1.8-7.7); Neutrophils % (Auto) 72 % (37-80); Nucleated Red Blood Cell # 0.00 Thou/mm3 (0.00-0.00); Nucleated Red Blood Cell % 0 /100 WBC (0); Platelet Count 228 Thou/mm3 (140-440); RDW Standard Deviation 46.6 fL (36.4-46.3); Red Blood Count 3.11 Miln/mm3 (4.00-5.20); White Blood Count 7.7 Thou/mm3 (3.6-11.0)
[2025-08-02 06:14] LABS: Alanine Aminotransferase 27 U/L (10-49); Albumin, Serum 4.2 gm/dL (3.4-4.8); Albumin/Globulin Ratio 1.4 (1.2-2.2); Alkaline Phosphatase 87 U/L (46-116); Anion Gap 12 (7-16); Aspartate Amino Transferase 31 U/L (0-34); BUN/Creatinine Ratio 18 Ratio (12-20); Bilirubin,Total 0.6 mg/dL (0.3-1.2); Blood Urea Nitrogen 46 mg/dL (9-23); Calcium 9.7 mg/dL (8.3-10.6); Calcium (Corrected) 9.7 mg/dL (8.5-10.1); Carbon Dioxide 31.4 mMol/L (20.0-31.0); Chloride 96 mMol/L (98-107); Creatinine (Component) 2.6 mg/dL (0.6-1.3); Estimated Creatinine Clearance 14.4 mL/min (>60); Globulin 3.1 gm/dL (2.3-3.5); Glucose 98 mg/dL (74-106); Magnesium 3.0 mg/dL (1.6-2.6); Osmolality,Calculated 289 (275-295); Phosphorous 2.8 mg/dL (2.4-5.1); Potassium 3.9 mMol/L (3.4-5.1); Sodium 139 mMol/L (136-145); Total Protein 7.3 gm/dL (5.7-8.2); eGFR 18 See Note
[2025-08-02] MEDS: PANTOPRAZOLE 40 MG TABLET PO ×2 (08:42→20:20)
[2025-08-02] MEDS: METOPROLOL SUCCINATE XL 25 MG TABCR PO (08:42)
[2025-08-02] MEDS: LACTULOSE SYRUP 20 GM/30 ML UDC 10 GM PO (08:43)
[2025-08-02] MEDS: FUROSEMIDE INJ 10 MG/ML 4ML VIAL 40 MG IVP (08:43)
--- NOTE | 2025-08-02 10:10 | XR_ITS ---
Examination: Venous duplex lower extremity sonogram, bilateral. Date and time of exam: August 02, 2025, 1124 hours INDICATIONS: Bilateral foot numbness beginning 2 days ago Technique: Multiple sonographic images of the deep venous system have been obtained. B-mode/2-D grayscale imaging of vascular structures and Doppler spectral analysis (waveforms) and color performed Both legs are examined. Findings: Deep venous systems do not demonstrate abnormal echogenicity. All visualized deep veins exhibit compressibility. All visualized deep veins exhibit augmentation. Impression: Negative for deep vein thrombosis
--- NOTE | 2025-08-02 13:04 | ESPR_ITS ---
<Statement entered by Alec Gandara MD - 08/02/25 18:04> Patient was seen and examined by me personally. I have reviewed the below documentation by the team resident and agree with its findings. Ms. Loly Panda is a 80-year-old female with past medical history of severe multivessel CAD (80 to 90% stenosis of mid LAD with 2 tandem lesions, proximal OM1, 70 to 80% stenosis of proximal diagonal 1, 50 to 60% stenosis of ramus branch, 80 to 90% stenosis of proximal OM 2 and BASK[employer]ALL [employer]ER with 100% occlusion of small mid RCA), HFpEF, EF 55 to 60%, grade 2 diastolic dysfunction, history of hemorrhagic CVA 2008, primary hypertension, hypothyroidism, esophageal ulcer and erosive gastroduodenitis, GERD, hemorrhoids, osteoarthritis and depression who presented to [facility] emergency department on July 30, 2025 with a chief complaint of shortness of breath, orthopnea and PND. Patient admitted for acute decompensated heart failure, currently on IV diuresis. 08/01-renal function improved today, creatinine 2.6, BUN 46, GFR 18 patient had, will continue diuresis today, received Lasix 40 mg IV x 1 this morning, will diurese with additional Lasix 80 mg x 1, follow renal function in AM. Potassium and magnesium were repleted. Continue to monitor urine output, underwent esophageal stricture dilation with gastroenterology yesterday, reports improvement in swallowing. Nephrology is consulted and is following as well. Thank you for the consult and allowing to participate in the care of the patient. Cardiology will continue to follow. Case discussed with Attending Physician Dr. Toby Gandara MD Internal Medicine PGY-2 Disclaimer: This note was dictated by speech recognition. Minor errors in vp corporate partnerships may be present due to voice recognition software Documentation for date of: 08/02/25 Subjective Subjective Interval history: Ms. Loly Panda, 80yF with PMH of HFrEF 45-50%, severe multivessel CAD, hemorrhagic CVA 2008, Primary hypertension, hypothyrodism, esophageal ulcer and erosive gastroduodenitis (EGD in 2019), GERD, hemorrhoids (colonoscopy in 2019), osteoarthritis, and depression, presented to the hospital on 07/30/2025 due to worsening SOB. Yesterday (07/29) after lunch, she experienced epigastric burning consistent with acid reflux. She attempted symptom relief by drinking large amounts of water without any improvements. Last night, she tried to sleep but was hearing audible wheezing with respiration and worsening dyspnea and headache. She was able to go to sleep lying on her right side, but woke up multiple times gasping for air. She denied any chest pain, palpitation, or syncope. Patient was admitted and consulted to cardiology for management of Decompensated HF ED course: Vitals: 97.5F, AK:98, RR: 18, BP:189/85, O2sat:100% on RA Labs: WBC: 8.5, Hgb: 9.3, Na: 141, K: 3.9, BUN:47, Cr:2.6, eGFR: 18, Glucose:110, Troponin: 0.6, BNP:1028 CXR (07/30/2025): showed Moderate CHF In ED, patient received Aspirin 324mg po x1, Albutrol 10mg inh x1, IV Furosemide 40mg x1, Ipratropium 0.5mg INH x1, IV Methylprednisolone 125mg x1 Medical history: As stated above Surgical history: Cataract surgery Allergies: NKDA Medications: Aspirin 81 mg daily, Atorvastatin 20 mg HS, Metoprolol 25 mg daily, Amlodipine 10 mg daily, Levothyroxine 25 mcg daily, Pantoprazole 40 mg daily, Spironolactone 25 mg daily, Losartan 50 mg daily, Sucralfate and maalox , Prednisone 20 mg 2 tablets po Qam, Minoxidil 2.5 mg twice daily, Amitriptyline 25 mg HS ,Alprazolam 1 mg daily, Hydroxyzine 25 mg twice daily prn for anxiety (stopped taking hydroxyzine because it makes her worse) Family history: Noncontributory Social history: Former smoker 60yrs ago. Denies drinking alcohol or using other illicit drugs 07/30/2025: Labs reviewed and patient examined at the bedside. Patient has trace edema in right lower leg. Continue on IV lasix 40mg bid. Aspirin and Plavix should be avoided given due to PMH of hemorrhagic CVA. She has multivessel CAD, trending troponin is unnecessary. Continue with Amlodipine 10mg po qd, Atorvastatin 20mg po hs, Metoprolol Succinate 25 mg po qd, Atorvastatin 20mg po hs. ECHO taken pending read. EKG shows QRS 154 and QTc of 495 with LBBB. Corrected QTc is 465 which is within normal range. At the time of examination, patient complained of some SOB, but overall her symptoms have improved ever since she got to the hospital. Will continue to monitor. 07/31/2025: No Overnight events. Labs reviewed and patient examined at the bedside. Patient complained of sleep disturbances due to need to urinate during the night. Recommend changing IV lasix 40mg bid to 8 hour interval administration during the day rather than every 12 hr. Continue Metoprolol. Yesterday amlodipine was held due to low BP, and it can be resumed as long as BP tolerates. Today's BP is 159/79. ECHO (07/22/2025) showed normal LV size and function with LVEF 50-55% and RVSP 21mmHg. Continue current managment. Cr slightly decreased from 2.8 to 2.7. She complained of GERD symptoms whenever she eats. EGD done on 07/30) showed large gastric hiatal hernia, but she is not surgical candidate due to severe multivessel CAD and CHF. Strongly Advised patient to make sure she sits on the chair 3 times per day in order for her to improve. Denies chest pain, palpation, SOB, N/V, fevers or chills. 08/01/2025: No Overnight events. Labs reviewed and patient examined at the bedside. Cr increased from 2.7 to 2.8, and BUN decreased from 49 to 47. Currently patient's renal function is relatively stable. She was given IV Furosemide 40mg x1 this morning. Gave additional IV Furosemide 80mg x1 due to suspected cardiorenal syndrome. Tomorrow will start on Furosemide 40mg po. Denies chest pain, palpation, SOB, abdominal pain, N/V, fevers or chills. 08/02/2025: No Overnight events. Labs reviewed and patient examined at the bedside. Yesterday, patient received a total of 120mg of IV Furosemide, after which her symptom has improved significantly. Yesterday, she had to rely on ~2L of oxygen through Nasal Cannula to maintain Oxygen saturation, but now she is on room air without SOB. Today, just like yesterday, was given IV furosemide 40mg x1 in morning and IV furosemide 80mg x1 in the afternoon. Her renal function is stable as well, with Cr decreased from 2.8 to 2.6 and BUN decreased from 47 to 46. UoP was 2.95L. Will monitor her renal function tomorrow and improvement of her symptoms tomorrow. Exam Vital Signs Temp Pulse Resp BP Pulse Ox O2 Del Method O2 Flow Rate 97.2 F 80 20 151/76 H 98 Room Air 2 08/02/25 08:00 08/02/25 08:43 08/02/25 08:00 08/02/25 08:43 08/02/25 09:00 08/02/25 08:00 08/02/25 09:00 FiO2 3 08/01/25 03:48 Narrative Exam General: No acute distress, well nourished, AAO x3 Eye: PERRL, EOMI, normal conjunctiva, no scleral icterus HENT: Normocephalic, atraumatic, hearing intact to conversation at normal volume, moist oral mucosa Neck: Supple, non-tender, no JVD, no lymphadenopathy Lungs: Non-labored respirations, symmetric chest rise, Clear to auscultate bilaterally, No wheezing, rhonchi, crackles Heart: Peripheral pulses intact bilaterally, Regular Rate and Rhythm. Abdomen: Soft, non-tender, non-distended, no palpable masses Musculoskeletal: Normal range of motion and strength, Trace edema on right lower leg Skin: Skin is warm, dry, no rashes or lesions. Psychiatric: Cooperative, appropriate mood and affect, Awake and alert, not agitated Neuro: Cranial nerves II-XII grossly intact. Strength 5/5 throughout. Sensations intact to light touch. Objective Labs 08/03/25 09:00 08/03/25 09:00 Labs: Laboratory Results - last 24 hr 08/02/25 08/02/25 02:40 05:04 WBC 7.7 RBC 3.11 L Hgb 9.4 L Hct 28.6 L MCV 92 MCH 30.2 MCHC 32.9 RDW Std Deviation 46.6 H Plt Count 228 Neut % (Auto) 72 Lymph % (Auto) 18 [place] % (Auto) 9 Eos % (Auto) 1 Baso % (Auto) 1 Neut # (Auto) 5.5 Lymph # (Auto) 1.4 [place] # (Auto) 0.7 Eos # (Auto) 0.1 Baso # (Auto) 0.0 Immature Gran # (Auto) 0.03 H Absolute Nucleated RBC 0.00 Immature Gran % 0 Nucleated RBC % 0 Sodium 139 Potassium 3.9 D Chloride 96 L Carbon Dioxide 31.4 H Anion Gap 12 BUN 46 H Creatinine 2.6 H Estim Creat Clear Calc 14.4 L eGFR 18 L BUN/Creatinine Ratio 18 Glucose 98 Calculated Osmolality 289 Calcium 9.7 Corrected Calcium 9.7 Phosphorus 2.8 Magnesium 3.0 H Total Bilirubin 0.6 AST 31 ALT 27 Alkaline Phosphatase 87 Total Protein 7.3 Albumin 4.2 Globulin 3.1 Albumin/Globulin Ratio 1.4 Stool Occult Blood Positive A Quality Measures Quality Measures VTE prophylaxis Advance care planning discussed with:: patient and other Assessment & Plan Assessment Current Active Medications: Generic Name Dose Route Start Last Admin Trade Name Freq PRN Reason Stop Dose Admin Acetaminophen 650 mg 07/30/25 12:24 Acetaminophen 325 Mg Tablet PO 08/29/25 12:23 Q6H PRN Fever >100.4 Acetaminophen 650 mg 07/30/25 12:24 Acetaminophen 325 Mg Tablet PO 08/29/25 12:23 Q6H PRN PAIN SCALE 1-3 (mild Al Hydrox/Mg Hydrox/Simethicone 15 ml 07/31/25 08:54 Mg Hyd/Al Hyd/Phill (Maalox Reg) Susp 30 Ml Udc PO 08/30/25 08:53 QID PRN acid reflux/gerd Amlodipine Besylate 10 mg 07/31/25 09:00 Amlodipine Besylate 5 Mg Tablet PO 08/30/25 08:59 On Hold: 07/31/25 09:00 QDAY IZABELA Atorvastatin Calcium 20 mg 07/30/25 21:00 08/01/25 20:18 Atorvastatin Calcium 20 Mg Tablet PO 08/29/25 20:59 20 mg HS IZABELA Administration Furosemide 40 mg 08/02/25 09:00 08/02/25 08:43 Furosemide Inj 10 Mg/Ml 4ml Vial IVP 09/01/25 08:59 40 mg QDAY IZABELA Administration Hydroxyzine HCl 25 mg 07/31/25 21:00 08/01/25 20:18 Hydroxyzine Hcl 25 Mg Tablet PO 08/30/25 20:59 25 mg HS IZABELA Administration Lactulose 10 gm 07/31/25 09:00 08/02/25 08:43 Lactulose Syrup 20 Gm/30 Ml Udc PO 08/30/25 08:59 10 gm QDAY IZABELA Administration Protocol Levalbuterol HCl 1.25 mg 07/30/25 12:47 Levalbuterol Rt 1.25 Mg/0.5 Ml Nebu INH 08/29/25 12:59 Q6HRRT PRN wheezing Levothyroxine Sodium 25 mcg 07/31/25 06:00 08/02/25 05:38 Levothyroxine Sodium 25 Mcg Tablet PO 08/30/25 05:59 25 mcg ACBR IZABELA Administration Metoprolol Succinate 25 mg 07/30/25 13:05 08/02/25 08:42 Metoprolol Succinate Xl 25 Mg Tabcr PO 08/29/25 13:04 25 mg QDAY IZABELA Administration Pantoprazole Sodium 40 mg 08/01/25 21:00 08/02/25 08:42 Pantoprazole 40 Mg Tablet PO 08/31/25 20:59 40 mg BID IZABELA Administration Sodium Chloride 3 ml 07/31/25 08:56 Sodium Chloride Rt Adriana 0.9% 3 Ml Nebu INH 08/30/25 08:55 PRN PRN SOLN Plan Ms. Loly Panda, 80yF with PMH of HFrEF 45-50%, severe multivessel CAD, hemorrhagic CVA 2008, Primary hypertension, hypothyrodism, esophageal ulcer and erosive gastroduodenitis (EGD in 2019), GERD, hemorrhoids (colonoscopy in 2019), osteoarthritis, and depression, presented to the hospital on 07/30/2025 due to worsening SOB. Patient was admitted and consulted to cardiology for management of Decompensated HF. #Acute Hypoxic Respiratory Failure, improving #Acute Decompensated heart failure #Diastolic heart failure, HFpEF, EF 50 to 55%, stage I diastolic dysfunction, 02/2025 #Suspected Cardiorenal syndrome -Patient presented with symptom of worsening SOB, wheezing, and trace right leg edema. Troponin: 0.6, BNP:1028 and CXR (07/30/2025): showed Moderate vascular congestion -Creatinine on presentation 2.6 which up trended to 2.8 with initial diuresis, there is concern of cardiorenal syndrome. Continue diuresis. -Echocardiogram performed outpatient (12/01/2024): Normal LV size and function. Estimated EF 55-60%. Grade II diastolic dysfunction. Normal RV size and function. Estimated RVSP normal at 35 mm hg. Moderate AV sclerosis without stenosis. Mild MAC. Mild MR and TR. Outpatient Holter Monitoring (01/22/2025): Duration 68hrs. Normal Sinus Rhythm. Avg HR 77bpm, Sinus Tachy 17 times (0.45%), Max HR 113 bpm. SVEs 0.12% 4 couplets. 5 SVEruns; longest being 26 bts, fastest at 147bpm. VEs (0.99%) 5 couplets. No VE runs. No pauses greater than 3 secs Echocardiogram (07/30/2025) showed 1. Left ventricle size is normal and systolic function is normal. Estimated ejection fraction is 50-55%. There is grade I diastolic dysfunction. 2. Right ventricle chamber size is normal and systolic function is normal. Estimated RVSP is 21 mmHg. 3. There is moderate aortic valve sclerosis with no stenosis and trace regurgitation. 4. There is mild to moderate mitral regurgitation and tricuspid valve regurgitation. Mild MAC. 5. The left atrium is moderately enlarged. The right atrium is normal. -08/01. Currently patient's renal function is relatively stable. She was given IV Furosemide 40mg x1 this morning. Gave additional IV Furosemide 80mg x1 due to suspected cardiorenal syndrome. -On 08/02, She was again given IV furosemide 40mg x1 in morning and IV furosemide 80mg x1, as her symptom improved significantly. Plan: -On IV Furosemide 40mg qd. -Strict I and Os; not being charted, nursing was informed. -Fluid restriction 1500ml -Low-sodium diet -Follow renal function closely -Continue metoprolol succinate 25 mg daily, did have 5 SVE runs with PVCs and couplets on Holter. #Severe multivessel CAD, (80 to 90% stenosis of mid LAD with 2 tandem lesions, proximal OM1, 70 to 80% stenosis of proximal diagonal 1, 50 to 60% stenosis of ramus branch, 80 to 90% stenosis of proximal OM 2 and B[employer]ER with 100% occlusion of small mid RCA) #NSTEMI type II, demand ischemia #Concern of QTc prolongation Patient presented for shortness of breath, denies any chest pain. Troponin on presentation 0.600, EKG shows Sinus rhythm, left bundle branch block, no acute ST-T changes., Patient does have T wave inversion in V6. Concern of QTc prolongation EKG shows QRS 154 and QTc of 495 with LBBB. Corrected QTc is 465 which is within normal range. Patient is well-known to practice, has underwent extensive workup outpatient; underwent nuclear stress test outpatient in February 2025 which showed abnormal myocardial perfusion study which showed decreased uptake in the mid to apex anterior and anteroseptal segments with stress. Hence cardiac catheterization performed in the past on March 08, 2025 outpatient showed severe multivessel CAD with 80-90% stenosis of mid LAD with 2 tandem lesions, proximal OM1, 70-80% stenosis of proximal Diagonal 1, 50-60% stenosis of ramus branch, 80-90% stenosis of the proximal OM 2 with STEPAN 3 flow and BASKETBALL PLAYER with 100% occlusion of the small mid RCA. Rest of the coronaries arteries and its branches with only mild disease. Postcardiac cath findings, case was discussed with patient's son in detail, decision was made to proceed with risk factor modification as patient was not a surgical candidate or PCI candidate as she is not able to take any kind of antiplatelets or heparin given her history of severe large intracerebral bleed/hemorrhagic CVA 15 years ago and also underlying gastric issues. Outpatient carotid Doppler (02/15/2025) obtained to further assess vascular disease showed both common carotid, internal carotid, and external carotid arteries show minimally thickened intima. Mild diffuse and complex plaque seen at bilateral bulbs and CCA, ICA, ECA. Color doppler demonstrates normal flow in both CCAs, ICAs, and ECAs. Mild evidence of stenosis noted. Both vertebral arteries show normal antegrade flow. 07/31/2025 lipid panel: Cholesterol 142, LDL 40, HDL 90: TSH 2.88: A1c 02/26/2025 5.3 Recommendations: ? Hold aspirin/Plavix due to history of CVA and gastric issues. ? Continue atorvastatin 20 mg at bedtime ? Monitor for chest pain ? Continue to follow outpatient #Hypertension In ED, BP:189/85 Patient on losartan 50 mg p.o. daily, spironolactone 25 mg p.o. daily and amlodipine 5 mg twice daily. ?Continue metoprolol 25 mg p.o. daily, okay to resume amlodipine. ?Recommend holding losartan and spironolactone in setting of ARTHUR #ARTHUR on CKD stage 3 : unclear etiology and need to rule out possible cardiorenal syndrome, nephrology following. #Chronic Anemia #GERD #PUD #Epigastric pain #Constipation #Hypothyroidism -Management per Primary Hospitalist team Thank you for allowing us to participate in the care of Ms Loly Panda. Cardiology will continue to follow. Assessment and plan discussed with my attending physician Dr. Greer and senior resident Dr Gandara PGY-2 Dr. Mayo (PGY-1) - Internal medicine resident Attending Provider Attestation/Addendum I have personally seen and examined the patient separately on the above date of service and discussed the plan of care with the resident. I reviewed the resident Dr. Cordell Mayo / Alec Gandara consultation progress note and agree with the resident findings and plan in the note above and have also edited the documentation to reflect my findings and plan. Toby Greer M.D. Interventional Cardiology
--- NOTE | 2025-08-02 13:07 | PC.SS ---
[facility] [employer] conducted bedside contact with the patient conduct initial assessment and to discuss discharge planning.? Patient confirmed demographic information.? Patient resides alone at home.? Patient is retired.? Patient utilizes a walker to assist with ambulation.? Patient does not utilize home oxygen.? Patient currently on 1L nasal cannula.? Patient describes the ability to complete ADL?s independently.? Patient identified son, Tam Panda ; as medical surrogate decision maker.? Patient?s PCP is Dr. Danielle.? Patient does not participate with dialysis.? Patient does not possess any specialty providers.? Patient utilizes [facility] [employer] for medication services.? If home oxygen required at the time of discharge no preferred vendor identified.? Patient reports access to basic utilities and provisions.? No residential concerns reported by the patient.? Plan is for the patient to return home at the time of discharge.? Family will provide transportation on behalf of the patient.? No further discharge needs identified by the patient.? No further intervention required at this time, social work instructor will be available to address any further concerns.? Next of Kin: Tam Panda D/C Plan: Home
[2025-08-02] MEDS: FUROSEMIDE INJ 10 MG/ML 4ML VIAL 80 MG IVP (14:08)
--- NOTE | 2025-08-02 14:12 | ESPR_ITS ---
Documentation for date of: 08/02/25 Subjective Subjective Interval history: Patient underwent EGD by Dr. Ugalde last night which showed benign appearing esophageal stenosis which was dilated. Overnight patient had 2.4L urine output with overall fluid balance of -2.7L. This morning patient states she is doing well, was started on diet. 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 Per Cardio reccs we will hold patient x1 more day for IV diuresis and discharged tomorrow. Exam Vital Signs Temp Pulse Resp BP Pulse Ox O2 Del Method O2 Flow Rate 97.2 F 78 20 159/73 H 98 Room Air 2 08/02/25 08:00 08/02/25 14:08 08/02/25 08:00 08/02/25 14:08 08/02/25 09:00 08/02/25 08:00 08/02/25 09:00 FiO2 3 08/01/25 03:48 Narrative Exam General: No acute distress, well nourished, AAO x3 Eye: PERRL, EOMI, normal conjunctiva, no scleral icterus HENT: Normocephalic, atraumatic, hearing intact to conversation at normal volume, moist oral mucosa Neck: Supple, non-tender, no JVD, no lymphadenopathy Lungs: Non-labored respirations, symmetric chest rise, Clear to auscultate bilaterally, No wheezing, rhonchi, crackles Heart: Peripheral pulses intact bilaterally, Regular Rate and Rhythm. Abdomen: Soft, non-tender, non-distended, no palpable masses Musculoskeletal: Normal range of motion and strength, no edema noted Skin: Skin is warm, dry, no rashes or lesions. Psychiatric: Cooperative, appropriate mood and affect, Awake and alert, not agitated Neuro: Cranial nerves II-XII grossly intact. Strength 5/5 throughout. Sensations intact to light touch. Objective Labs 08/02/25 05:04 08/02/25 05:04 Labs: Laboratory Results - last 24 hr 08/02/25 08/02/25 02:40 05:04 WBC 7.7 RBC 3.11 L Hgb 9.4 L Hct 28.6 L MCV 92 MCH 30.2 MCHC 32.9 RDW Std Deviation 46.6 H Plt Count 228 Neut % (Auto) 72 Lymph % (Auto) 18 [place] % (Auto) 9 Eos % (Auto) 1 Baso % (Auto) 1 Neut # (Auto) 5.5 Lymph # (Auto) 1.4 [place] # (Auto) 0.7 Eos # (Auto) 0.1 Baso # (Auto) 0.0 Immature Gran # (Auto) 0.03 H Absolute Nucleated RBC 0.00 Immature Gran % 0 Nucleated RBC % 0 Sodium 139 Potassium 3.9 D Chloride 96 L Carbon Dioxide 31.4 H Anion Gap 12 BUN 46 H Creatinine 2.6 H Estim Creat Clear Calc 14.4 L eGFR 18 L BUN/Creatinine Ratio 18 Glucose 98 Calculated Osmolality 289 Calcium 9.7 Corrected Calcium 9.7 Phosphorus 2.8 Magnesium 3.0 H Total Bilirubin 0.6 AST 31 ALT 27 Alkaline Phosphatase 87 Total Protein 7.3 Albumin 4.2 Globulin 3.1 Albumin/Globulin Ratio 1.4 Stool Occult Blood Positive A Quality Measures Quality Measures VTE prophylaxis Advance care planning discussed with:: patient Assessment & Plan Assessment Current Active Medications: Generic Name Dose Route Start Last Admin Trade Name Freq PRN Reason Stop Dose Admin Acetaminophen 650 mg 07/30/25 12:24 Acetaminophen 325 Mg Tablet PO 08/29/25 12:23 Q6H PRN Fever >100.4 Acetaminophen 650 mg 07/30/25 12:24 Acetaminophen 325 Mg Tablet PO 08/29/25 12:23 Q6H PRN PAIN SCALE 1-3 (mild Al Hydrox/Mg Hydrox/Simethicone 15 ml 07/31/25 08:54 Mg Hyd/Al Hyd/Phill (Maalox Reg) Susp 30 Ml Udc PO 08/30/25 08:53 QID PRN acid reflux/gerd Amlodipine Besylate 10 mg 07/31/25 09:00 Amlodipine Besylate 5 Mg Tablet PO 08/30/25 08:59 On Hold: 07/31/25 09:00 QDAY IZABELA Atorvastatin Calcium 20 mg 07/30/25 21:00 08/01/25 20:18 Atorvastatin Calcium 20 Mg Tablet PO 08/29/25 20:59 20 mg HS IZABELA Administration Furosemide 40 mg 08/02/25 09:00 08/02/25 08:43 Furosemide Inj 10 Mg/Ml 4ml Vial IVP 09/01/25 08:59 40 mg QDAY IZABELA Administration Hydroxyzine HCl 25 mg 07/31/25 21:00 08/01/25 20:18 Hydroxyzine Hcl 25 Mg Tablet PO 08/30/25 20:59 25 mg HS IZABELA Administration Lactulose 10 gm 07/31/25 09:00 08/02/25 08:43 Lactulose Syrup 20 Gm/30 Ml Udc PO 08/30/25 08:59 10 gm QDAY IZABELA Administration Protocol Levalbuterol HCl 1.25 mg 07/30/25 12:47 Levalbuterol Rt 1.25 Mg/0.5 Ml Nebu INH 08/29/25 12:59 Q6HRRT PRN wheezing Levothyroxine Sodium 25 mcg 07/31/25 06:00 08/02/25 05:38 Levothyroxine Sodium 25 Mcg Tablet PO 08/30/25 05:59 25 mcg ACBR IZABELA Administration Metoprolol Succinate 25 mg 07/30/25 13:05 08/02/25 08:42 Metoprolol Succinate Xl 25 Mg Tabcr PO 08/29/25 13:04 25 mg QDAY IZABELA Administration Pantoprazole Sodium 40 mg 08/01/25 21:00 08/02/25 08:42 Pantoprazole 40 Mg Tablet PO 08/31/25 20:59 40 mg BID IZABELA Administration Sodium Chloride 3 ml 07/31/25 08:56 Sodium Chloride Rt Adriana 0.9% 3 Ml Nebu INH 08/30/25 08:55 PRN PRN SOLN Plan 80-year-old female with HFpEF, severe multivessel CAD, ARTHUR on CKD, GERD/PUD, and a history of hemorrhagic CVA, presenting with acute decompensated heart failure, improving with diuresis, stable on oxygen, and scheduled for EGD today for new- onset dysphagia and persistent acid reflux. # Acute hypoxic respiratory failure, likely due to # Acute decompensated HFpEF # Cardiorenal syndrome # Bronchospasm/wheezing -Presented with acute SOB, increased work of breathing, and hypoxia requiring supplemental O2 (91% on room air per EMS) -Persistent oxygen requirement and inability to tolerate weaning in the ED, prompting admission. -Imaging and labs notable for moderate pulmonary congestion on CXR and BNP 1028, with bibasilar crackles on exam -Consistent with cardiogenic pulmonary edema from volume overload. -Wheezing noted pre-hospital and in ED, likely airway irritation from pulmonary edema, resolved after bronchodilators and steroids, with no wheezing on exam. -No fever, leukocytosis, or focal consolidation to suggest infectious pneumonia. -Likely precipitating factors include cold exposure, with no clear evidence of infection trigger. -Renal dysfunction (Cr 2.6 from baseline 2.0) consistent with cardiorenal physiology. -Patient is hemodynamically stable without cardiogenic shock. -Known EF 55?60% (11/2024) with diastolic dysfunction. -Cardiology (Dr. Greer) consulted in ED, recommended diuresis and no further troponin trending given known severe, non-revascularizable CAD. 07/31: -No crackles, no edema, currently on 3 L oxygen saturating 94-95% -Wheezing sound noted this morning; no crackles -Levalbuterol not previously used, added as one-time treatment -Echocardiogram (07/30/2025): Left ventricle: Normal size and systolic function, EF 50-55%, Grade I diastolic dysfunction 08/02: -No crackles, no edema, off nasal cannula saturating well Plan * Supplemental O2 to maintain SpO2 >92%, wean as tolerated * Continue PO lasix 40 mg daily from iv 40 mg BID. * Strict I/O, daily weights * Avoid IV fluids for now * Daily BMP * Replete electrolytes (goal K >4, Mg >2 given QTc prolongation) * Incentive spirometry * Telemetry monitoring * Repeat CXR if respiratory status worsens * Levalbuterol 1.25 mg PRN, instruct patient to request it as needed for wheezing * Monitor for recurrence of wheezing * Low-sodium diet #Dysphagia, resolved #GERD #PUD #Epigastric pain #Large hiatal hernia Reports burning epigastric pain this week Known history of esophagitis, gastroduodenitis, ulcers. EGD completed during last visit on may 10' New dysphagia with ongoing reflux symptoms; GI following. EGD by Dr. Ugalde showed benign appearing esophageal stenosis which was dilated Plan: * Continue Protonix 40 mg to BID * Continue Maalox PRN QID * Avoid NSAIDs #ARTHUR on CKD, improving #Likely cardiorenal syndrome Creatinine 2.6 with prior baseline ~2.0 Likely worsened due to volume overload. 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 * Monitor renal function daily during diuresis * Renally dose medications * Avoid nephrotoxins #Severe multivessel CAD, non-revascularizable Known extensive CAD Not a surgical or PCI candidate due to prior intracerebral hemorrhage. Troponin mildly elevated (0.6) likely demand-related Cardiology advised no further trending. Plan: * stop aspirin per cardiology * Continue atorvastatin 20 mg HS * Continue metoprolol 25 mg daily as tolerated * No further troponin trending per cardiology recommendation * Telemetry monitoring #Prolonged QTc (QTc 495 ms) Chronic LBBB with prolonged QTc. Plan: * Avoid QT-prolonging medications * Maintain electrolytes (K >4, Mg >2) * Telemetry monitoring #Chronic Anemia #Iron deficiency anemia Chronic anemia (Hgb 9.3), likely multifactorial (CKD/chronic disease; iron deficiency possible). Iron panel low. Plan: * Trend CBC * Started IV iron infusion * Transfuse only if symptomatic or hgb <8. #Constipation, improving Chronic constipation refractory to prior outpatient therapies. Stated lactulose helped before Had 2 BM in past 24 hr Plan: * Lactulose 10 g, titrate to bowel movement * Add polyethylene glycol if needed * Encourage mobility as tolerated #Hypothyroidism Stable on home therapy. Plan: * Continue levothyroxine 25 mcg daily * Ordered TSH in AM, will follow up. #Hypertension Chronic, currently stable. BP 159/79 Plan: * Continue home antihypertensives as tolerated * Monitor BP closely during diuresis Health Maintenance: Diet: Cardiac VTE prophylaxis: SCDs GI prophylaxis: Protonix Code status: Full Disposition: Continue inpatient management on telemetry pending improvement in oxygen requirement and volume status, EGD today. This patient care was discussed with my attending Dr. Angel Luis Winston MD PGY-2 Disclaimer: Minor errors in car tester may be present since this note was dictated by speech recognition software. Attending Provider Attestation/Addendum I have seen and examined the patient. I was physically present for the daniels portions of the services provided including history, physical exam, diagnosis, treatment plans and orders. I agree with assessment and plan of care as documented by residents. Even though this this note was carefully revised there may still be minor errors in car tester due to voice recognition software. Michelle Hein MD
--- NOTE | 2025-08-02 18:32 | PD.IMPROG ---
Documentation for date of: 08/02/25 Subjective Subjective Interval history: Patient is status post upper endoscopy with guidewire dilatation of the proximal esophageal stricture and has a 5 cm hiatal hernia with gastritis Exam Vital Signs Temp Pulse Resp BP Pulse Ox O2 Del Method O2 Flow Rate 97.6 F 79 18 160/80 H 100 Nasal Cannula 1.5 08/02/25 16:00 08/02/25 16:00 08/02/25 16:00 08/02/25 16:00 08/02/25 16:00 08/02/25 16:00 08/02/25 16:00 FiO2 3 08/01/25 03:48 Objective Labs 08/02/25 05:04 08/02/25 05:04 Labs: Laboratory Results - last 24 hr 08/02/25 08/02/25 02:40 05:04 WBC 7.7 RBC 3.11 L Hgb 9.4 L Hct 28.6 L MCV 92 MCH 30.2 MCHC 32.9 RDW Std Deviation 46.6 H Plt Count 228 Neut % (Auto) 72 Lymph % (Auto) 18 [place] % (Auto) 9 Eos % (Auto) 1 Baso % (Auto) 1 Neut # (Auto) 5.5 Lymph # (Auto) 1.4 [place] # (Auto) 0.7 Eos # (Auto) 0.1 Baso # (Auto) 0.0 Immature Gran # (Auto) 0.03 H Absolute Nucleated RBC 0.00 Immature Gran % 0 Nucleated RBC % 0 Sodium 139 Potassium 3.9 D Chloride 96 L Carbon Dioxide 31.4 H Anion Gap 12 BUN 46 H Creatinine 2.6 H Estim Creat Clear Calc 14.4 L eGFR 18 L BUN/Creatinine Ratio 18 Glucose 98 Calculated Osmolality 289 Calcium 9.7 Corrected Calcium 9.7 Phosphorus 2.8 Magnesium 3.0 H Total Bilirubin 0.6 AST 31 ALT 27 Alkaline Phosphatase 87 Total Protein 7.3 Albumin 4.2 Globulin 3.1 Albumin/Globulin Ratio 1.4 Stool Occult Blood Positive A Impressions Impression: Proximal esophagus stricture status post guidewire savory dilatation Gastritis 5 cm hiatal hernia Advance diet as tolerated Assessment & Plan A&P Narrative # Dyspepsia chest pain could be due to also large hiatal hernia which is 0.9 cm # Gastritis # Esophagitis IV Protonix No need for a repeat endoscopy Time Spent With Patient Time: Total time spent is greater than 50% in coordination of care (as documented) at patient's floor/unit and/or counseling patient:
[2025-08-02] MEDS: ATORVASTATIN CALCIUM 20 MG TABLET PO (20:20)
[2025-08-02] MEDS: MELATONIN 3 MG TABLET 6 MG PO (23:09)
[2025-08-03] VITALS (10 sets, daily range): BP systolic 133–158; BP diastolic 70–100; PULSE 75–92; RESP 12–97; TEMP 36.1–36.6; O2SAT 91–99; BMI 25.2; BMI 25.0
--- NOTE | 2025-08-03 00:41 | EKG_ITS ---
[facility] Test Date: 2025-08-03 Pat Name: URSULA NEWMAN [facility] Vamp Stitcher: PANCHO : 1945 Requested By: Chris Cortes Order Number: [id number] Reading MD: Chris Cortes Measurements Intervals [place] Rate: 79 P: 77 VA: 167 QRS: 27 QRSD: 146 T: 107 QT: 433 QTc: 497 Interpretive Statements SINUS RHYTHM LEFT BUNDLE BRANCH BLOCK Compared to ECG 07/30/2025 07:58:35 No significant changes /store/S0/[id number].pdf
--- NOTE | 2025-08-03 02:09 | EVENTNT_ITS ---
<Statement entered by Noah Vidal DO - 08/03/25 02:40> Patient was seen and examined at bedside. Pt's numbness resolved by the time of my exam. Strength was symmetric. Will ordered a renal panel to check for electrolyte changes given her ongoing diuresis Plan of care discussed with patient who is in agreement. I Noah Vidal DO, attest that I was physically present for daniels portions of evaluation, examined the patient, reviewed the labs and imaging, and discussed the plan of care and management with the residents team. I agree with the findings and plans documented above. Documentation for date of: 08/03/25 Event Note Event Note: Rapid Response Room:?277 Time:?00:47 Reason for Call:?Numbness on right cheek and across nose as well as in toes bilaterally Patient presentation:?Patient was lying comfortably in bed without any acute distress Events: A rapid response was called because patient noted having numbness on her right cheek and across her nose as well as a numbness sensation in her toes bilaterally that she attributes to her leg being asleep. Patient did not seem overly concerned about this numbness and would rather talk about her other conditions including her questions about what is going on with her lungs. Chart was reviewed which found that the patient had total of 120 mg of Lasix over the past 24 hours with nursing staff identifying about 3 L of urine output over the course of 24 hours. Electrolytes from the morning were largely unremarkable and calcium was within normal limits. Ordered renal panel to assess for any new electrolyte abnormalities given the patient's active diuresis. New orders:?Renal panel Patient was discussed with the attending, Dr. Vidal, and senior resident Dr. Gomez, PGY-2. Jimmy Larsen, PGY-1
[2025-08-03 02:15] LABS: Albumin, Serum 4.6 gm/dL (3.4-4.8); Anion Gap 11 (7-16); BUN/Creatinine Ratio 18 Ratio (12-20); Blood Urea Nitrogen 57 mg/dL (9-23); Calcium 9.8 mg/dL (8.3-10.6); Calcium (Corrected) 9.8 mg/dL (8.5-10.1); Carbon Dioxide 32.1 mMol/L (20.0-31.0); Chloride 96 mMol/L (98-107); Creatinine (Component) 3.2 mg/dL (0.6-1.3); Estimated Creatinine Clearance 11.7 mL/min (>60); Glucose 107 mg/dL (74-106); Osmolality,Calculated 293 (275-295); Phosphorous 4.4 mg/dL (2.4-5.1); Potassium 3.8 mMol/L (3.4-5.1); Sodium 139 mMol/L (136-145); eGFR 14 See Note
[2025-08-03] MEDS: LEVOTHYROXINE SODIUM 25 MCG TABLET PO (05:38)
[2025-08-03] MEDS: LACTULOSE SYRUP 20 GM/30 ML UDC 10 GM PO ×2 (09:21→11:55)
[2025-08-03] MEDS: PANTOPRAZOLE 40 MG TABLET PO ×2 (09:21→20:16)
[2025-08-03] MEDS: METOPROLOL SUCCINATE XL 25 MG TABCR PO (09:21)
[2025-08-03 09:49] LABS: Basophils # (Auto) 0.1 Thou/mm3 (0.0-0.2); Basophils % (Auto) 1 % (0-2.5); Eosinophils # (Auto) 0.1 Thou/mm3 (0.0-0.5); Eosinophils % (Auto) 1 % (0-10); Hematocrit 33.6 % (36.0-46.0); Hemoglobin 10.8 g/dL (12.0-16.0); Immature Granulocytes Auto 0.02 Thou/mm3 (0.00-0.00); Lymphocytes # (Auto) 1.5 Thou/mm3 (1.0-4.8); Lymphocytes % (Auto) 25 % (10-50); Mean Corpuscular HGB Conc 32.1 g/dl (31.0-37.0); Mean Corpuscular Hemoglobin 29.9 pg (25.0-35.0); Mean Corpuscular Volume 93 fL (80-100); Monocytes # (Auto) 0.6 Thou/mm3 (0.0-0.8); Monocytes % (Auto) 10 % (0-12); Neutrophils # (Auto) 3.8 Thou/mm3 (1.8-7.7); Neutrophils % (Auto) 63 % (37-80); Nucleated Red Blood Cell # 0.00 Thou/mm3 (0.00-0.00); Nucleated Red Blood Cell % 0 /100 WBC (0); Platelet Count 285 Thou/mm3 (140-440); RDW Standard Deviation 45.3 fL (36.4-46.3); Red Blood Count 3.61 Miln/mm3 (4.00-5.20); White Blood Count 6.0 Thou/mm3 (3.6-11.0)
[2025-08-03 10:05] LABS: Alanine Aminotransferase 22 U/L (10-49); Albumin, Serum 4.7 gm/dL (3.4-4.8); Albumin/Globulin Ratio 1.6 (1.2-2.2); Alkaline Phosphatase 93 U/L (46-116); Anion Gap 11 (7-16); Aspartate Amino Transferase 24 U/L (0-34); BUN/Creatinine Ratio 18 Ratio (12-20); Bilirubin,Total 0.5 mg/dL (0.3-1.2); Blood Urea Nitrogen 58 mg/dL (9-23); Calcium 9.8 mg/dL (8.3-10.6); Calcium (Corrected) 9.8 mg/dL (8.5-10.1); Carbon Dioxide 34.1 mMol/L (20.0-31.0); Chloride 94 mMol/L (98-107); Creatinine (Component) 3.2 mg/dL (0.6-1.3); Estimated Creatinine Clearance 12.7 mL/min (>60); Globulin 3.0 gm/dL (2.3-3.5); Glucose 146 mg/dL (74-106); Magnesium 2.5 mg/dL (1.6-2.6); Osmolality,Calculated 296 (275-295); Phosphorous 4.3 mg/dL (2.4-5.1); Potassium 3.4 mMol/L (3.4-5.1); Sodium 139 mMol/L (136-145); Total Protein 7.7 gm/dL (5.7-8.2); eGFR 14 See Note
[2025-08-03] MEDS: RINGERS LACTATED 1000 ML 500 ML 100 ML IV (10:41)
[2025-08-03] MEDS: MG HYD/AL HYD/SIME (Maalox Reg) SUSP 30 ML UDC 15 ML PO ×3 (10:48→20:16)
--- NOTE | 2025-08-03 12:37 | ESPR_ITS ---
<Statement entered by Denis Starr MD - 08/03/25 15:07> Patient was examined and case was reviewed with team including attending physician. Note reviewed, I agree with most of its contents and agree with the patient's care as documented by Dr. Cheung Patient seen today at the bedside found awake, alert, orientedx3. No overnight events reported. Vital signs and labs reviewed. Diuretics placed on hold. Kidney function worsening likely in the setting of overdiuresis. Gave 500ml maintainance fluids as per Cardiology recommendations. Possible discharge in the next 24-48 hours. Final disposition home. Case discussed with my attending Dr. Richelle Starr MD PGY-2 Documentation for date of: 08/03/25 Subjective Subjective Interval history: Overnight events: Rapid response called for facial/toe numbness. Facial symptoms resolved, right foot numbness improving. Patient seen and examined this morning. She reports no numbness in the face it has resolved, and states that the right foot numbness has improved. She denies any new weakness, speech changes, or vision changes. She denies dizziness or lightheadedness and states she wants to get up and ambulate more. She reports no shortness of breath or difficulty breathing and remains off supplemental oxygen. She denies chest pain or palpitations. She continues to complain of heartburn, stating she has not been requesting PRN medications because she ?didn?t know they were still ordered.? She reports passing gas and last BM being two days ago. No abdominal pain, nausea, or vomiting. Exam Vital Signs Temp Pulse Resp BP Pulse Ox O2 Del Method O2 Flow Rate 97.4 F 78 15 151/76 H 91 L Room Air 2 08/03/25 08:00 08/03/25 09:21 08/03/25 08:00 08/03/25 09:21 08/03/25 08:00 08/03/25 08:00 08/03/25 04:00 FiO2 3 08/01/25 03:48 Narrative Exam General: No acute distress, well nourished, AAO x3 Eye: PERRL, EOMI, normal conjunctiva, no scleral icterus HENT: Normocephalic, atraumatic, hearing intact to conversation at normal volume, moist oral mucosa Neck: Supple, non-tender, no JVD, no lymphadenopathy Lungs: Non-labored respirations, symmetric chest rise, Clear to auscultate bilaterally, No wheezing, rhonchi, crackles Heart: Peripheral pulses intact bilaterally, Regular Rate and Rhythm. Abdomen: Soft, non-tender, non-distended, no palpable masses Extremities: Trace bilateral lower extremity edema, improved Skin: Skin is warm, dry, no rashes or lesions. Psychiatric: Cooperative, appropriate mood and affect, Awake and alert, not agitated Neuro: Cranial nerves II-XII grossly intact. Strength 5/5 throughout. Sensations intact to light touch. Objective Labs 08/03/25 09:00 08/03/25 09:00 Labs: Laboratory Results - last 24 hr 07/30/25 08/03/25 08/03/25 22:50 01:07 09:00 WBC 6.0 RBC 3.61 L Hgb 10.8 L Hct 33.6 L MCV 93 MCH 29.9 MCHC 32.1 RDW Std Deviation 45.3 Plt Count 285 D Neut % (Auto) 63 Lymph % (Auto) 25 [place] % (Auto) 10 Eos % (Auto) 1 Baso % (Auto) 1 Neut # (Auto) 3.8 Lymph # (Auto) 1.5 [place] # (Auto) 0.6 Eos # (Auto) 0.1 Baso # (Auto) 0.1 Immature Gran # (Auto) 0.02 H Absolute Nucleated RBC 0.00 Immature Gran % 0 Nucleated RBC % 0 Sodium 139 139 Potassium 3.8 3.4 Chloride 96 L 94 L Carbon Dioxide 32.1 H 34.1 H Anion Gap 11 11 BUN 57 H 58 H Creatinine 3.2 H D 3.2 H Estim Creat Clear Calc 11.7 L 12.7 L eGFR 14 L* 14 L* BUN/Creatinine Ratio 18 18 Glucose 107 H 146 H Calculated Osmolality 293 296 H Calcium 9.8 9.8 Corrected Calcium 9.8 9.8 Phosphorus 4.4 4.3 Magnesium 2.5 Total Bilirubin 0.5 AST 24 ALT 22 Alkaline Phosphatase 93 Total Protein 7.7 Albumin 4.6 4.7 Globulin 3.0 Albumin/Globulin Ratio 1.6 Crossmatch See Detail Quality Measures Quality Measures VTE prophylaxis Advance care planning discussed with:: patient Assessment & Plan Assessment Current Active Medications: Generic Name Dose Route Start Last Admin Trade Name Freq PRN Reason Stop Dose Admin Acetaminophen 650 mg 07/30/25 12:24 Acetaminophen 325 Mg Tablet PO 08/29/25 12:23 Q6H PRN Fever >100.4 Acetaminophen 650 mg 07/30/25 12:24 Acetaminophen 325 Mg Tablet PO 08/29/25 12:23 Q6H PRN PAIN SCALE 1-3 (mild Al Hydrox/Mg Hydrox/Simethicone 15 ml 08/03/25 10:15 08/03/25 10:48 Mg Hyd/Al Hyd/Phill (Maalox Reg) Susp 30 Ml Udc PO 09/02/25 10:14 15 ml QID IZABELA Administration Amlodipine Besylate 10 mg 07/31/25 09:00 08/03/25 09:21 Amlodipine Besylate 5 Mg Tablet PO 08/30/25 08:59 10 mg QDAY IZABELA Administration Atorvastatin Calcium 20 mg 07/30/25 21:00 08/02/25 20:20 Atorvastatin Calcium 20 Mg Tablet PO 08/29/25 20:59 20 mg HS IZABELA Administration Furosemide 40 mg 08/02/25 09:00 08/02/25 08:43 Furosemide Inj 10 Mg/Ml 4ml Vial IVP 09/01/25 08:59 40 mg On Hold: 08/03/25 03:44 QDAY IZABELA Administration Hydroxyzine HCl 25 mg 07/31/25 21:00 08/02/25 20:20 Hydroxyzine Hcl 25 Mg Tablet PO 08/30/25 20:59 25 mg HS IZABELA Administration Lactated Ringer's 500 mls @ 100 mls/hr 08/03/25 09:52 08/03/25 10:41 Lactated Ringers IV 08/03/25 14:51 100 mls/hr .Q5H IZABEAL Administration Lactulose 10 gm 07/31/25 09:00 08/03/25 09:21 Lactulose Syrup 20 Gm/30 Ml Udc PO 08/30/25 08:59 10 gm QDAY IZABELA Administration Protocol Levalbuterol HCl 1.25 mg 07/30/25 12:47 Levalbuterol Rt 1.25 Mg/0.5 Ml Nebu INH 08/29/25 12:59 Q6HRRT PRN wheezing Levothyroxine Sodium 25 mcg 07/31/25 06:00 08/03/25 05:38 Levothyroxine Sodium 25 Mcg Tablet PO 08/30/25 05:59 25 mcg ACBR IZABELA Administration Metoprolol Succinate 25 mg 07/30/25 13:05 08/03/25 09:21 Metoprolol Succinate Xl 25 Mg Tabcr PO 08/29/25 13:04 25 mg QDAY IZABELA Administration Pantoprazole Sodium 40 mg 08/01/25 21:00 08/03/25 09:21 Pantoprazole 40 Mg Tablet PO 08/31/25 20:59 40 mg BID IZABELA Administration Sodium Chloride 3 ml 07/31/25 08:56 Sodium Chloride Rt Adriana 0.9% 3 Ml Nebu INH 08/30/25 08:55 PRN PRN SOLN Plan 80-year-old female with HFpEF, severe multivessel CAD, ARTHUR on CKD, and GERD/PUD admitted for acute decompensated heart failure, now euvolemic and off oxygen, complicated by ARTHUR likely from over-diuresis, with overnight transient numbness now improved, and persistent heartburn requiring scheduled therapy. #ARTHUR on CKD, worsening likely over-diuresis #Likely cardiorenal syndrome Creatinine 2.6 with prior baseline ~2.0 Likely worsened due to volume overload. 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 Plan: * Hold diuretics today * Monitor renal function closely * Avoid nephrotoxins * Renally dose medications * Nephrology following # Acute hypoxic respiratory failure, likely due to # Acute decompensated HFpEF # Cardiorenal syndrome # Bronchospasm/wheezing -Presented with acute SOB, increased work of breathing, and hypoxia requiring supplemental O2 (91% on room air per EMS) -Persistent oxygen requirement and inability to tolerate weaning in the ED, prompting admission. -Imaging and labs notable for moderate pulmonary congestion on CXR and BNP 1028, with bibasilar crackles on exam -Consistent with cardiogenic pulmonary edema from volume overload. -Wheezing noted pre-hospital and in ED, likely airway irritation from pulmonary edema, resolved after bronchodilators and steroids, with no wheezing on exam. -No fever, leukocytosis, or focal consolidation to suggest infectious pneumonia. -Likely precipitating factors include cold exposure, with no clear evidence of infection trigger. -Renal dysfunction (Cr 2.6 from baseline 2.0) consistent with cardiorenal physiology. -Patient is hemodynamically stable without cardiogenic shock. -Known EF 55?60% (11/2024) with diastolic dysfunction. -Cardiology (Dr. Greer) consulted in ED, recommended diuresis and no further troponin trending given known severe, non-revascularizable CAD. 07/31: -No crackles, no edema, currently on 3 L oxygen saturating 94-95% -Wheezing sound noted this morning; no crackles -Levalbuterol not previously used, added as one-time treatment -Echocardiogram (07/30/2025): Left ventricle: Normal size and systolic function, EF 50-55%, Grade I diastolic dysfunction 08/03: -No crackles, trace edema, off nasal cannula saturating well Plan * Supplemental O2 to maintain SpO2 >92%, wean as tolerated * Hold PO lasix 40 mg * Strict I/O, daily weights * Daily BMP * Replete electrolytes (goal K >4, Mg >2 given QTc prolongation) * Incentive spirometry * Telemetry monitoring * Repeat CXR if respiratory status worsens * Levalbuterol 1.25 mg PRN, instructed patient to request it as needed for wheezing * Monitor for recurrence of wheezing * Low-sodium diet # Transient right foot numbness, resolved Patient experienced transient numbness in the right foot and reported numbness across the right cheek and nose, which she attributed to her leg being ?asleep.? No facial droop, slurred speech, or other focal deficits. The numbness in the right foot has improved by this morning. Neurologic exam today is normal, and no acute issues were noted. Plan: * Continue neurologic monitoring * Reassess if symptoms worsen or recur #Dysphagia, resolved #GERD #PUD #Epigastric pain #Large hiatal hernia Reports burning epigastric pain this week Known history of esophagitis, gastroduodenitis, ulcers. EGD completed during last visit on may 10' New dysphagia with ongoing reflux symptoms; GI following. EGD by Dr. Ugalde showed benign appearing esophageal stenosis which was dilated Plan: * Continue Protonix 40 mg to BID * Continue Maalox IZABELA QID * Avoid NSAIDs #Severe multivessel CAD, non-revascularizable Known extensive CAD Not a surgical or PCI candidate due to prior intracerebral hemorrhage. Troponin mildly elevated (0.6) likely demand-related Cardiology advised no further trending. Plan: * stop aspirin per cardiology * Continue atorvastatin 20 mg HS * Continue metoprolol 25 mg daily as tolerated * No further troponin trending per cardiology recommendation * Telemetry monitoring #Prolonged QTc (QTc 495 ms) Chronic LBBB with prolonged QTc. Plan: * Avoid QT-prolonging medications * Maintain electrolytes (K >4, Mg >2) * Telemetry monitoring #Chronic Anemia #Iron deficiency anemia Chronic anemia (Hgb 9.3), likely multifactorial (CKD/chronic disease; iron deficiency possible). Iron panel low. Plan: * Trend CBC * Started IV iron infusion * Transfuse only if symptomatic or hgb <8. #Constipation Chronic constipation refractory to prior outpatient therapies. Stated lactulose helped before Last BM 2 days ago requsted another dose of lactulose 10. Plan: * Lactulose 10 g, titrate to bowel movement * Add polyethylene glycol if needed * Encourage mobility as tolerated #Hypothyroidism Stable on home therapy. Plan: * Continue levothyroxine 25 mcg daily #Hypertension Chronic, currently stable. BP 133/70 Plan: * Continue home antihypertensives as tolerated * Monitor BP closely during diuresis Health Maintenance: Diet: Cardiac VTE prophylaxis: SCDs GI prophylaxis: Protonix Code status: Full Disposition: Continue inpatient management on telemetry pending improvement in oxygen requirement and volume status. ----- Plan discussed with attending physician Dr. Peoples and senior resident Dr. Dave Cheung MD PGY-1 Internal Medicine Attending Provider Attestation/Addendum I, Sunitha Peoples, DO, attest that I was physically present for the daniels portions of the service and evaluated the patient with the resident and I reviewed and discussed the case with the resident and agree with the resident's findings and plans of care as documented above Patient seen and eval this a.m. Patient states that she is feeling much improved today. However, she has some epigastric discomfort. She states that the pain is improved with Carafate. No peripheral edema is noted in bilateral lower extremities. Patient states that she is feels improved after ambulating with physical therapy. She is sitting up in chair today. Currently on room air without any shortness of breath and no acute distress. No crackles noted on lung exam. Patient noted to have acute kidney injury due to overdiuresis. Currently giving 500 mL of IV fluids for rehydration. Patient states that she does take her daily weights at home. Will continue with monitoring kidney function at this time. Will follow-up with cardiology recommendations.
--- NOTE | 2025-08-03 13:04 | ESPR_ITS ---
<Statement entered by Alec Gandara MD - 08/04/25 00:07> Ms. Loly Panda is a 80-year-old female with past medical history of severe multivessel CAD (80 to 90% stenosis of mid LAD with 2 tandem lesions, proximal OM1, 70 to 80% stenosis of proximal diagonal 1, 50 to 60% stenosis of ramus branch, 80 to 90% stenosis of proximal OM 2 and APPLICATION DESIGNER with 100% occlusion of small mid RCA), HFpEF, EF 55 to 60%, grade 2 diastolic dysfunction, history of hemorrhagic CVA 2008, primary hypertension, hypothyroidism, esophageal ulcer and erosive gastroduodenitis, GERD, hemorrhoids, osteoarthritis and depression who presented to [facility] emergency department on July 30, 2025 with a chief complaint of shortness of breath, orthopnea and PND. Patient admitted for acute decompensated heart failure, suspected to have underlying cardiorenal syndrome was started on IV diuresis, was responding well. 08/03-patient received Lasix total 120 mg for 2 consecutive days, worsening renal function noted today, Cr increased from 2.6 to 3.6. BUN increased from 46 to 57., recommend 500 cc NS maintenance fluid, follow renal function in AM. Patient continues to have good urine output, continue to monitor, hold diuresis for now. Patient had some component of cardiorenal syndrome however does have underlying CKD, nephrology is following. Thank you for the consult and allowing to participate in the care of the patient. Cardiology will continue to follow. Case discussed with Attending Physician Dr. Toby Gandara MD Internal Medicine PGY-2 Disclaimer: This note was dictated by speech recognition. Minor errors in human resources project manager may be present due to voice recognition software Documentation for date of: 08/03/25 Subjective Subjective Interval history: Ms. Loly Panda, 80yF with PMH of HFrEF 45-50%, severe multivessel CAD, hemorrhagic CVA 2008, Primary hypertension, hypothyrodism, esophageal ulcer and erosive gastroduodenitis (EGD in 2019), GERD, hemorrhoids (colonoscopy in 2019), osteoarthritis, and depression, presented to the hospital on 07/30/2025 due to worsening SOB. Yesterday (07/29) after lunch, she experienced epigastric burning consistent with acid reflux. She attempted symptom relief by drinking large amounts of water without any improvements. Last night, she tried to sleep but was hearing audible wheezing with respiration and worsening dyspnea and headache. She was able to go to sleep lying on her right side, but woke up multiple times gasping for air. She denied any chest pain, palpitation, or syncope. Patient was admitted and consulted to cardiology for management of Decompensated HF ED course: Vitals: 97.5F, PA:98, RR: 18, BP:189/85, O2sat:100% on RA Labs: WBC: 8.5, Hgb: 9.3, Na: 141, K: 3.9, BUN:47, Cr:2.6, eGFR: 18, Glucose:110, Troponin: 0.6, BNP:1028 CXR (07/30/2025): showed Moderate CHF In ED, patient received Aspirin 324mg po x1, Albutrol 10mg inh x1, IV Furosemide 40mg x1, Ipratropium 0.5mg INH x1, IV Methylprednisolone 125mg x1 Medical history: As stated above Surgical history: Cataract surgery Allergies: NKDA Medications: Aspirin 81 mg daily, Atorvastatin 20 mg HS, Metoprolol 25 mg daily, Amlodipine 10 mg daily, Levothyroxine 25 mcg daily, Pantoprazole 40 mg daily, Spironolactone 25 mg daily, Losartan 50 mg daily, Sucralfate and maalox , Prednisone 20 mg 2 tablets po Qam, Minoxidil 2.5 mg twice daily, Amitriptyline 25 mg HS ,Alprazolam 1 mg daily, Hydroxyzine 25 mg twice daily prn for anxiety (stopped taking hydroxyzine because it makes her worse) Family history: Noncontributory Social history: Former smoker 60yrs ago. Denies drinking alcohol or using other illicit drugs 07/30/2025: Labs reviewed and patient examined at the bedside. Patient has trace edema in right lower leg. Continue on IV lasix 40mg bid. Aspirin and Plavix should be avoided given due to PMH of hemorrhagic CVA. She has multivessel CAD, trending troponin is unnecessary. Continue with Amlodipine 10mg po qd, Atorvastatin 20mg po hs, Metoprolol Succinate 25 mg po qd, Atorvastatin 20mg po hs. ECHO taken pending read. EKG shows QRS 154 and QTc of 495 with LBBB. Corrected QTc is 465 which is within normal range. At the time of examination, patient complained of some SOB, but overall her symptoms have improved ever since she got to the hospital. Will continue to monitor. 07/31/2025: No Overnight events. Labs reviewed and patient examined at the bedside. Patient complained of sleep disturbances due to need to urinate during the night. Recommend changing IV lasix 40mg bid to 8 hour interval administration during the day rather than every 12 hr. Continue Metoprolol. Yesterday amlodipine was held due to low BP, and it can be resumed as long as BP tolerates. Today's BP is 159/79. ECHO (07/22/2025) showed normal LV size and function with LVEF 50-55% and RVSP 21mmHg. Continue current managment. Cr slightly decreased from 2.8 to 2.7. She complained of GERD symptoms whenever she eats. EGD done on 07/30) showed large gastric hiatal hernia, but she is not surgical candidate due to severe multivessel CAD and CHF. Strongly Advised patient to make sure she sits on the chair 3 times per day in order for her to improve. Denies chest pain, palpation, SOB, N/V, fevers or chills. 08/01/2025: No Overnight events. Labs reviewed and patient examined at the bedside. Cr increased from 2.7 to 2.8, and BUN decreased from 49 to 47. Currently patient's renal function is relatively stable. She was given IV Furosemide 40mg x1 this morning. Gave additional IV Furosemide 80mg x1 due to suspected cardiorenal syndrome. Tomorrow will start on Furosemide 40mg po. Denies chest pain, palpation, SOB, abdominal pain, N/V, fevers or chills. 08/02/2025: No Overnight events. Labs reviewed and patient examined at the bedside. Yesterday, patient received a total of 120mg of IV Furosemide, after which her symptom has improved significantly. Yesterday, she had to rely on ~2L of oxygen through Nasal Cannula to maintain Oxygen saturation, but now she is on room air without SOB. Today, just like yesterday, was given IV furosemide 40mg x1 in morning and IV furosemide 80mg x1 in the afternoon. Her renal function is stable as well, with Cr decreased from 2.8 to 2.6 and BUN decreased from 47 to 46. UoP was 2.95L. Will monitor her renal function tomorrow and improvement of her symptoms tomorrow. 08/03/2025: Labs reviewed and patient examined at the bedside. Today, patient's renal function worsened. Cr increased from 2.6 to 3.6. BUN increased from 46 to 57. and eGFR decreased from 18 to 14. Will hold dieursis for now and continue to monitor. This morning, patient didn't have any symptoms including SOB, N/V, chest pain, palpation or headaches Exam Vital Signs Temp Pulse Resp BP Pulse Ox O2 Del Method O2 Flow Rate 97.4 F 78 15 151/76 H 91 L Room Air 2 08/03/25 08:00 08/03/25 09:21 08/03/25 08:00 08/03/25 09:21 08/03/25 08:00 08/03/25 08:00 08/03/25 04:00 FiO2 3 08/01/25 03:48 Narrative Exam General: No acute distress, well nourished, AAO x3 Eye: PERRL, EOMI, normal conjunctiva, no scleral icterus HENT: Normocephalic, atraumatic, hearing intact to conversation at normal volume, moist oral mucosa Neck: Supple, non-tender, no JVD, no lymphadenopathy Lungs: Non-labored respirations, symmetric chest rise, Clear to auscultate bilaterally, No wheezing, rhonchi, crackles Heart: Peripheral pulses intact bilaterally, Regular Rate and Rhythm. Abdomen: Soft, non-tender, non-distended, no palpable masses Musculoskeletal: Normal range of motion and strength, Trace edema on right lower leg Skin: Skin is warm, dry, no rashes or lesions. Psychiatric: Cooperative, appropriate mood and affect, Awake and alert, not agitated Neuro: Cranial nerves II-XII grossly intact. Strength 5/5 throughout. Sensations intact to light touch. Objective Labs 08/05/25 05:50 08/05/25 05:50 Labs: Laboratory Results - last 24 hr 07/30/25 08/03/25 08/03/25 22:50 01:07 09:00 WBC 6.0 RBC 3.61 L Hgb 10.8 L Hct 33.6 L MCV 93 MCH 29.9 MCHC 32.1 RDW Std Deviation 45.3 Plt Count 285 D Neut % (Auto) 63 Lymph % (Auto) 25 Walker % (Auto) 10 Eos % (Auto) 1 Baso % (Auto) 1 Neut # (Auto) 3.8 Lymph # (Auto) 1.5 Walker # (Auto) 0.6 Eos # (Auto) 0.1 Baso # (Auto) 0.1 Immature Gran # (Auto) 0.02 H Absolute Nucleated RBC 0.00 Immature Gran % 0 Nucleated RBC % 0 Sodium 139 139 Potassium 3.8 3.4 Chloride 96 L 94 L Carbon Dioxide 32.1 H 34.1 H Anion Gap 11 11 BUN 57 H 58 H Creatinine 3.2 H D 3.2 H Estim Creat Clear Calc 11.7 L 12.7 L eGFR 14 L* 14 L* BUN/Creatinine Ratio 18 18 Glucose 107 H 146 H Calculated Osmolality 293 296 H Calcium 9.8 9.8 Corrected Calcium 9.8 9.8 Phosphorus 4.4 4.3 Magnesium 2.5 Total Bilirubin 0.5 AST 24 ALT 22 Alkaline Phosphatase 93 Total Protein 7.7 Albumin 4.6 4.7 Globulin 3.0 Albumin/Globulin Ratio 1.6 Crossmatch See Detail Quality Measures Quality Measures VTE prophylaxis Advance care planning discussed with:: patient and other Assessment & Plan Assessment Current Active Medications: Generic Name Dose Route Start Last Admin Trade Name Freq PRN Reason Stop Dose Admin Acetaminophen 650 mg 07/30/25 12:24 Acetaminophen 325 Mg Tablet PO 08/29/25 12:23 Q6H PRN Fever >100.4 Acetaminophen 650 mg 07/30/25 12:24 Acetaminophen 325 Mg Tablet PO 08/29/25 12:23 Q6H PRN PAIN SCALE 1-3 (mild Al Hydrox/Mg Hydrox/Simethicone 15 ml 08/03/25 10:15 08/03/25 10:48 Mg Hyd/Al Hyd/Phill (Maalox Reg) Susp 30 Ml Udc PO 09/02/25 10:14 15 ml QID IZABELA Administration Amlodipine Besylate 10 mg 07/31/25 09:00 08/03/25 09:21 Amlodipine Besylate 5 Mg Tablet PO 08/30/25 08:59 10 mg QDAY IZABELA Administration Atorvastatin Calcium 20 mg 07/30/25 21:00 08/02/25 20:20 Atorvastatin Calcium 20 Mg Tablet PO 08/29/25 20:59 20 mg HS IZABELA Administration Furosemide 40 mg 08/02/25 09:00 08/02/25 08:43 Furosemide Inj 10 Mg/Ml 4ml Vial IVP 09/01/25 08:59 40 mg On Hold: 08/03/25 03:44 QDAY IZABELA Administration Hydroxyzine HCl 25 mg 07/31/25 21:00 08/02/25 20:20 Hydroxyzine Hcl 25 Mg Tablet PO 08/30/25 20:59 25 mg HS IZABELA Administration Lactated Ringer's 500 mls @ 100 mls/hr 08/03/25 09:52 08/03/25 10:41 Lactated Ringers IV 08/03/25 14:51 100 mls/hr .Q5H IZABELA Administration Lactulose 10 gm 07/31/25 09:00 08/03/25 09:21 Lactulose Syrup 20 Gm/30 Ml Udc PO 08/30/25 08:59 10 gm QDAY IZABELA Administration Protocol Levalbuterol HCl 1.25 mg 07/30/25 12:47 Levalbuterol Rt 1.25 Mg/0.5 Ml Nebu INH 08/29/25 12:59 Q6HRRT PRN wheezing Levothyroxine Sodium 25 mcg 07/31/25 06:00 08/03/25 05:38 Levothyroxine Sodium 25 Mcg Tablet PO 08/30/25 05:59 25 mcg ACBR IZABELA Administration Metoprolol Succinate 25 mg 07/30/25 13:05 08/03/25 09:21 Metoprolol Succinate Xl 25 Mg Tabcr PO 08/29/25 13:04 25 mg QDAY IZABELA Administration Pantoprazole Sodium 40 mg 08/01/25 21:00 08/03/25 09:21 Pantoprazole 40 Mg Tablet PO 08/31/25 20:59 40 mg BID IZABELA Administration Sodium Chloride 3 ml 07/31/25 08:56 Sodium Chloride Rt Adriana 0.9% 3 Ml Nebu INH 08/30/25 08:55 PRN PRN SOLN Plan . Loly Panda, 80yF with PMH of HFrEF 45-50%, severe multivessel CAD, hemorrhagic CVA 2008, Primary hypertension, hypothyrodism, esophageal ulcer and erosive gastroduodenitis (EGD in 2019), GERD, hemorrhoids (colonoscopy in 2019), osteoarthritis, and depression, presented to the hospital on 07/30/2025 due to worsening SOB. Patient was admitted and consulted to cardiology for management of Decompensated HF. #Acute Hypoxic Respiratory Failure, improving #Acute Decompensated heart failure #Diastolic heart failure, HFpEF, EF 50 to 55%, stage I diastolic dysfunction, 02/2025 #Suspected Cardiorenal syndrome -Patient presented with symptom of worsening SOB, wheezing, and trace right leg edema. Troponin: 0.6, BNP:1028 and CXR (07/30/2025): showed Moderate vascular congestion -Creatinine on presentation 2.6 which up trended to 2.8 with initial diuresis, there is concern of cardiorenal syndrome. Continue diuresis. -Echocardiogram performed outpatient (12/01/2024): Normal LV size and function. Estimated EF 55-60%. Grade II diastolic dysfunction. Normal RV size and function. Estimated RVSP normal at 35 mm hg. Moderate AV sclerosis without stenosis. Mild MAC. Mild MR and TR. Outpatient Holter Monitoring (01/22/2025): Duration 68hrs. Normal Sinus Rhythm. Avg HR 77bpm, Sinus Tachy 17 times (0.45%), Max HR 113 bpm. SVEs 0.12% 4 couplets. 5 SVEruns; longest being 26 bts, fastest at 147bpm. VEs (0.99%) 5 couplets. No VE runs. No pauses greater than 3 secs Echocardiogram (07/30/2025) showed 1. Left ventricle size is normal and systolic function is normal. Estimated ejection fraction is 50-55%. There is grade I diastolic dysfunction. 2. Right ventricle chamber size is normal and systolic function is normal. Estimated RVSP is 21 mmHg. 3. There is moderate aortic valve sclerosis with no stenosis and trace regurgitation. 4. There is mild to moderate mitral regurgitation and tricuspid valve regurgitation. Mild MAC. 5. The left atrium is moderately enlarged. The right atrium is normal. -08/01. Currently patient's renal function is relatively stable. She was given IV Furosemide 40mg x1 this morning. Gave additional IV Furosemide 80mg x1 due to suspected cardiorenal syndrome. -On 08/02, She was again given IV furosemide 40mg x1 in morning and IV furosemide 80mg x1, as her symptom improved significantly. -On morning of 08/03, her renal function declined. Held IV dieursis until improvement. Plan: -Held IV Furosemide 40mg qd. -Strict I and Os; not being charted, nursing was informed. -Fluid restriction 1500ml -Low-sodium diet -Follow renal function closely -Continue metoprolol succinate 25 mg daily, did have 5 SVE runs with PVCs and couplets on Holter. #Severe multivessel CAD, (80 to 90% stenosis of mid LAD with 2 tandem lesions, proximal OM1, 70 to 80% stenosis of proximal diagonal 1, 50 to 60% stenosis of ramus branch, 80 to 90% stenosis of proximal OM 2 and APPLICATION DESIGNER with 100% occlusion of small mid RCA) #NSTEMI type II, demand ischemia #Concern of QTc prolongation Patient presented for shortness of breath, denies any chest pain. Troponin on presentation 0.600, EKG shows Sinus rhythm, left bundle branch block, no acute ST-T changes., Patient does have T wave inversion in V6. Concern of QTc prolongation EKG shows QRS 154 and QTc of 495 with LBBB. Corrected QTc is 465 which is within normal range. Patient is well-known to practice, has underwent extensive workup outpatient; underwent nuclear stress test outpatient in February 2025 which showed abnormal myocardial perfusion study which showed decreased uptake in the mid to apex anterior and anteroseptal segments with stress. Hence cardiac catheterization performed in the past on March 08, 2025 outpatient showed severe multivessel CAD with 80-90% stenosis of mid LAD with 2 tandem lesions, proximal OM1, 70-80% stenosis of proximal Diagonal 1, 50-60% stenosis of ramus branch, 80-90% stenosis of the proximal OM 2 with STEPAN 3 flow and APPLICATION DESIGNER with 100% occlusion of the small mid RCA. Rest of the coronaries arteries and its branches with only mild disease. Postcardiac cath findings, case was discussed with patient's son in detail, decision was made to proceed with risk factor modification as patient was not a surgical candidate or PCI candidate as she is not able to take any kind of antiplatelets or heparin given her history of severe large intracerebral bleed/hemorrhagic CVA 15 years ago and also underlying gastric issues. Outpatient carotid Doppler (02/15/2025) obtained to further assess vascular disease showed both common carotid, internal carotid, and external carotid arteries show minimally thickened intima. Mild diffuse and complex plaque seen at bilateral bulbs and CCA, ICA, ECA. Color doppler demonstrates normal flow in both CCAs, ICAs, and ECAs. Mild evidence of stenosis noted. Both vertebral arteries show normal antegrade flow. 07/31/2025 lipid panel: Cholesterol 142, LDL 40, HDL 90: TSH 2.88: A1c 02/26/2025 5.3 Recommendations: ? Hold aspirin/Plavix due to history of CVA and gastric issues. ? Continue atorvastatin 20 mg at bedtime ? Monitor for chest pain ? Continue to follow outpatient #Hypertension In ED, BP:189/85 Patient on losartan 50 mg p.o. daily, spironolactone 25 mg p.o. daily and amlodipine 5 mg twice daily. ?Continue metoprolol 25 mg p.o. daily, okay to resume amlodipine. ?Recommend holding losartan and spironolactone in setting of ARTHUR #ARTHUR on CKD stage 3 : unclear etiology and need to rule out possible cardiorenal syndrome, nephrology following. #Chronic Anemia #GERD #PUD #Epigastric pain #Constipation #Hypothyroidism -Management per Primary Hospitalist team Thank you for allowing us to participate in the care of Ms Loly Panda. Cardiology will continue to follow. Assessment and plan discussed with my attending physician Dr. Greer and senior resident Dr Gandara PGY-2 Dr. Mayo (PGY-1) - Internal medicine resident Attending Provider Attestation/Addendum I have personally seen and examined the patient separately on the above date of service and discussed the plan of care with the resident. I reviewed the resident Dr. Cordell Mayo / Alec Gandara consultation progress note and agree with the resident findings and plan in the note above and have also edited the documentation to reflect my findings and plan. Toby Greer M.D. Interventional Cardiology
--- NOTE | 2025-08-03 16:17 | PC.PT ---
Patient is safe to ambulate to the bathroom and in the halls with 1 staff and a FWW. RN made aware.
--- NOTE | 2025-08-03 18:01 | PD.IMPROG ---
Documentation for date of: 08/03/25 Subjective Subjective Interval history: Patient evaluated Hemoglobin hematocrit 10.8 and 33.6 Exam Vital Signs Temp Pulse Resp BP Pulse Ox O2 Del Method O2 Flow Rate 97.2 F 88 17 144/74 H 97 Room Air 2 08/03/25 16:00 08/03/25 16:00 08/03/25 16:00 08/03/25 16:00 08/03/25 16:00 08/03/25 16:00 08/03/25 04:00 FiO2 3 08/01/25 03:48 Objective Labs 08/03/25 09:00 08/03/25 09:00 Labs: Laboratory Results - last 24 hr 07/30/25 08/03/25 08/03/25 22:50 01:07 09:00 WBC 6.0 RBC 3.61 L Hgb 10.8 L Hct 33.6 L MCV 93 MCH 29.9 MCHC 32.1 RDW Std Deviation 45.3 Plt Count 285 D Neut % (Auto) 63 Lymph % (Auto) 25 [place] % (Auto) 10 Eos % (Auto) 1 Baso % (Auto) 1 Neut # (Auto) 3.8 Lymph # (Auto) 1.5 [place] # (Auto) 0.6 Eos # (Auto) 0.1 Baso # (Auto) 0.1 Immature Gran # (Auto) 0.02 H Absolute Nucleated RBC 0.00 Immature Gran % 0 Nucleated RBC % 0 Sodium 139 139 Potassium 3.8 3.4 Chloride 96 L 94 L Carbon Dioxide 32.1 H 34.1 H Anion Gap 11 11 BUN 57 H 58 H Creatinine 3.2 H D 3.2 H Estim Creat Clear Calc 11.7 L 12.7 L eGFR 14 L* 14 L* BUN/Creatinine Ratio 18 18 Glucose 107 H 146 H Calculated Osmolality 293 296 H Calcium 9.8 9.8 Corrected Calcium 9.8 9.8 Phosphorus 4.4 4.3 Magnesium 2.5 Total Bilirubin 0.5 AST 24 ALT 22 Alkaline Phosphatase 93 Total Protein 7.7 Albumin 4.6 4.7 Globulin 3.0 Albumin/Globulin Ratio 1.6 Crossmatch See Detail Impressions Impression: Dysphagia status post endoscopic dilatation Hiatal hernia about 5 cm Gastritis Continue current management Assessment & Plan A&P Narrative # Dyspepsia chest pain could be due to also large hiatal hernia which is 0.9 cm # Gastritis # Esophagitis IV Protonix No need for a repeat endoscopy Time Spent With Patient Time: Total time spent is greater than 50% in coordination of care (as documented) at patient's floor/unit and/or counseling patient:
[2025-08-03] MEDS: ATORVASTATIN CALCIUM 20 MG TABLET PO (20:16)
[2025-08-04] VITALS (10 sets, daily range): BP systolic 125–163; BP diastolic 68–81; PULSE 74–121; RESP 15–94; TEMP 36.1–36.8; O2SAT 90–96
[2025-08-04] MEDS: MG HYD/AL HYD/SIME (Maalox Reg) SUSP 30 ML UDC 15 ML PO ×4 (05:22→20:49)
[2025-08-04] MEDS: LEVOTHYROXINE SODIUM 25 MCG TABLET PO (05:22)
--- NOTE | 2025-08-04 08:15 | PC.SS ---
Informed by SAJI Goel PT Micaela and PT Note needed to be faxed to [facility] PT [phone]. Both documents submitted via fax.
[2025-08-04] MEDS: PANTOPRAZOLE 40 MG TABLET PO ×2 (08:30→20:46)
[2025-08-04] MEDS: METOPROLOL SUCCINATE XL 25 MG TABCR PO (08:30)
[2025-08-04] MEDS: LACTULOSE SYRUP 20 GM/30 ML UDC 10 GM PO (08:31)
[2025-08-04 08:58] LABS: Basophils # (Auto) 0.1 Thou/mm3 (0.0-0.2); Basophils % (Auto) 1 % (0-2.5); Eosinophils # (Auto) 0.1 Thou/mm3 (0.0-0.5); Eosinophils % (Auto) 2 % (0-10); Hematocrit 36.0 % (36.0-46.0); Hemoglobin 11.5 g/dL (12.0-16.0); Immature Granulocytes Auto 0.02 Thou/mm3 (0.00-0.00); Lymphocytes # (Auto) 2.1 Thou/mm3 (1.0-4.8); Lymphocytes % (Auto) 33 % (10-50); Mean Corpuscular HGB Conc 31.9 g/dl (31.0-37.0); Mean Corpuscular Hemoglobin 29.9 pg (25.0-35.0); Mean Corpuscular Volume 94 fL (80-100); Monocytes # (Auto) 0.6 Thou/mm3 (0.0-0.8); Monocytes % (Auto) 10 % (0-12); Neutrophils # (Auto) 3.3 Thou/mm3 (1.8-7.7); Neutrophils % (Auto) 54 % (37-80); Nucleated Red Blood Cell # 0.00 Thou/mm3 (0.00-0.00); Nucleated Red Blood Cell % 0 /100 WBC (0); Platelet Count 340 Thou/mm3 (140-440); RDW Standard Deviation 45.4 fL (36.4-46.3); Red Blood Count 3.85 Miln/mm3 (4.00-5.20); White Blood Count 6.2 Thou/mm3 (3.6-11.0)
[2025-08-04 09:08] LABS: Alanine Aminotransferase 22 U/L (10-49); Albumin, Serum 5.1 gm/dL (3.4-4.8); Albumin/Globulin Ratio 1.5 (1.2-2.2); Alkaline Phosphatase 103 U/L (46-116); Anion Gap 12 (7-16); Aspartate Amino Transferase 22 U/L (0-34); BUN/Creatinine Ratio 18 Ratio (12-20); Bilirubin,Total 0.5 mg/dL (0.3-1.2); Blood Urea Nitrogen 58 mg/dL (9-23); Calcium 10.2 mg/dL (8.3-10.6); Calcium (Corrected) 10.2 mg/dL (8.5-10.1); Carbon Dioxide 34.5 mMol/L (20.0-31.0); Chloride 94 mMol/L (98-107); Creatinine (Component) 3.3 mg/dL (0.6-1.3); Estimated Creatinine Clearance 12.8 mL/min (>60); Globulin 3.3 gm/dL (2.3-3.5); Glucose 145 mg/dL (74-106); Magnesium 2.7 mg/dL (1.6-2.6); Osmolality,Calculated 298 (275-295); Potassium 3.4 mMol/L (3.4-5.1); Sodium 140 mMol/L (136-145); Total Protein 8.4 gm/dL (5.7-8.2); eGFR 13 See Note
[2025-08-04] MEDS: Artificial Tears 225 DROP/15 ML BTL BOTH EYES ×2 (10:17→17:38)
[2025-08-04] MEDS: GLYCERIN, ADULT 1 EA SUPP 1 EACH PR (10:17)
[2025-08-04] MEDS: SODIUM CHLORIDE 0.9% 250 ML 250 ML 999 ML IV (12:18)
--- NOTE | 2025-08-04 12:46 | ESPR_ITS ---
Documentation for date of: 08/04/25 Subjective Subjective Interval history: Patient seen examined at bedside Patient's renal function worsening, creatinine up trended to 3.3. Patient was given 500 cc NS yesterday, will be given IV fluids per nephrology and primary team recommendations. Continue to hold diuretics. Exam Vital Signs Temp Pulse Resp BP Pulse Ox O2 Del Method O2 Flow Rate 98.3 F 83 18 145/70 H 95 Room Air 2 08/04/25 12:00 08/04/25 12:00 08/04/25 12:00 08/04/25 12:00 08/04/25 12:08/04/25 12:00 08/03/25 04:00 FiO2 3 08/01/25 03:48 Narrative Exam General: No acute distress, well nourished, AAO x3 Eye: PERRL, EOMI, normal conjunctiva, no scleral icterus HENT: Normocephalic, atraumatic, hearing intact to conversation at normal volume, moist oral mucosa Neck: Supple, non-tender, no JVD, no lymphadenopathy Lungs: Non-labored respirations, symmetric chest rise, Clear to auscultate bilaterally, No wheezing, rhonchi, crackles Heart: Peripheral pulses intact bilaterally, Regular Rate and Rhythm. Abdomen: Soft, non-tender, non-distended, no palpable masses Musculoskeletal: Normal range of motion and strength, Trace edema bilateral lower extremity edema. Skin: Skin is warm, dry, no rashes or lesions. Psychiatric: Cooperative, appropriate mood and affect, Awake and alert, not agitated Neuro: Cranial nerves II-XII grossly intact. Strength 5/5 throughout. Sensations intact to light touch. Objective Labs 08/05/25 05:50 08/05/25 05:50 Labs: Laboratory Results - last 24 hr 08/04/25 08:32 WBC 6.2 RBC 3.85 L Hgb 11.5 L Hct 36.0 MCV 94 MCH 29.9 MCHC 31.9 RDW Std Deviation 45.4 Plt Count 340 D Neut % (Auto) 54 Lymph % (Auto) 33 [place] % (Auto) 10 Eos % (Auto) 2 Baso % (Auto) 1 Neut # (Auto) 3.3 Lymph # (Auto) 2.1 [place] # (Auto) 0.6 Eos # (Auto) 0.1 Baso # (Auto) 0.1 Immature Gran # (Auto) 0.02 H Absolute Nucleated RBC 0.00 Immature Gran % 0 Nucleated RBC % 0 Sodium 140 Potassium 3.4 Chloride 94 L Carbon Dioxide 34.5 H Anion Gap 12 BUN 58 H Creatinine 3.3 H Estim Creat Clear Calc 12.8 L eGFR 13 L* BUN/Creatinine Ratio 18 Glucose 145 H Calculated Osmolality 298 H Calcium 10.2 Corrected Calcium 10.2 H Magnesium 2.7 H Total Bilirubin 0.5 AST 22 ALT 22 Alkaline Phosphatase 103 Total Protein 8.4 H Albumin 5.1 H Globulin 3.3 Albumin/Globulin Ratio 1.5 Quality Measures Quality Measures VTE prophylaxis Advance care planning discussed with:: patient Assessment & Plan Assessment Current Active Medications: Generic Name Dose Route Start Last Admin Trade Name Freq PRN Reason Stop Dose Admin Acetaminophen 650 mg 07/30/25 12:24 Acetaminophen 325 Mg Tablet PO 08/29/25 12:23 Q6H PRN Fever >100.4 Acetaminophen 650 mg 07/30/25 12:24 Acetaminophen 325 Mg Tablet PO 08/29/25 12:23 Q6H PRN PAIN SCALE 1-3 (mild Al Hydrox/Mg Hydrox/Simethicone 15 ml 08/03/25 10:15 08/04/25 11:33 Mg Hyd/Al Hyd/Phill (Maalox Reg) Susp 30 Ml Udc PO 09/02/25 10:14 15 ml QID IZABELA Administration Amlodipine Besylate 10 mg 07/31/25 09:00 08/04/25 08:30 Amlodipine Besylate 5 Mg Tablet PO 08/30/25 08:59 10 mg QDAY IZABELA Administration Artificial Tears 0 drop 08/04/25 09:08 08/04/25 10:17 Artificial Tears 225 Drop/15 Ml Btl BOTH EYES 09/03/25 09:07 1 drop PRN PRN Administration TO KEEP EYES MOIST Atorvastatin Calcium 20 mg 07/30/25 21:00 08/03/25 20:16 Atorvastatin Calcium 20 Mg Tablet PO 08/29/25 20:59 20 mg HS IZABELA Administration Furosemide 40 mg 08/02/25 09:00 08/02/25 08:43 Furosemide Inj 10 Mg/Ml 4ml Vial IVP 09/01/25 08:59 40 mg On Hold: 08/03/25 03:44 QDAY IZABLEA Administration Hydroxyzine HCl 25 mg 08/03/25 21:00 08/03/25 20:16 Hydroxyzine Hcl 25 Mg Tablet PO 09/02/25 20:59 25 mg HS IZABELA Administration Lactated Ringer's 1,000 mls @ 100 mls/hr 08/04/25 09:30 08/04/25 10:16 Lactated Ringers IV Not Given On Hold: 08/04/25 09:36 .Q10H IZABELA Lactulose 10 gm 07/31/25 09:00 08/04/25 08:31 Lactulose Syrup 20 Gm/30 Ml Udc PO 08/30/25 08:59 10 gm QDAY IZABELA Administration Protocol Levalbuterol HCl 1.25 mg 07/30/25 12:47 Levalbuterol Rt 1.25 Mg/0.5 Ml Nebu INH 08/29/25 12:59 Q6HRRT PRN wheezing Levothyroxine Sodium 25 mcg 07/31/25 06:00 08/04/25 05:22 Levothyroxine Sodium 25 Mcg Tablet PO 08/30/25 05:59 25 mcg ACBR IZABELA Administration Metoprolol Succinate 25 mg 07/30/25 13:05 08/04/25 08:30 Metoprolol Succinate Xl 25 Mg Tabcr PO 08/29/25 13:04 25 mg QDAY IZABELA Administration Pantoprazole Sodium 40 mg 08/01/25 21:00 08/04/25 08:30 Pantoprazole 40 Mg Tablet PO 08/31/25 20:59 40 mg BID IZABELA Administration Sodium Chloride 3 ml 07/31/25 08:56 Sodium Chloride Rt Adriana 0.9% 3 Ml Nebu INH 08/30/25 08:55 PRN PRN SOLN Plan Ms. Loly Panda, 80yF with PMH of HFrEF 45-50%, severe multivessel CAD, hemorrhagic CVA 2008, Primary hypertension, hypothyrodism, esophageal ulcer and erosive gastroduodenitis (EGD in 2019), GERD, hemorrhoids (colonoscopy in 2019), osteoarthritis, and depression, presented to the hospital on 07/30/2025 due to worsening SOB. Patient was admitted and consulted to cardiology for management of Decompensated HF. #Acute Hypoxic Respiratory Failure, improving #Acute Decompensated heart failure #Diastolic heart failure, HFpEF, EF 50 to 55%, stage I diastolic dysfunction, 02/2025 #Suspected Cardiorenal syndrome -Patient presented with symptom of worsening SOB, wheezing, and trace right leg edema. Troponin: 0.6, BNP:1028 and CXR (07/30/2025): showed Moderate vascular congestion -Creatinine on presentation 2.6 which up trended to 2.8 with initial diuresis, there is concern of cardiorenal syndrome. Continue diuresis. -Echocardiogram performed outpatient (12/01/2024): Normal LV size and function. Estimated EF 55-60%. Grade II diastolic dysfunction. Normal RV size and function. Estimated RVSP normal at 35 mm hg. Moderate AV sclerosis without stenosis. Mild MAC. Mild MR and TR. Outpatient Holter Monitoring (01/22/2025): Duration 68hrs. Normal Sinus Rhythm. Avg HR 77bpm, Sinus Tachy 17 times (0.45%), Max HR 113 bpm. SVEs 0.12% 4 couplets. 5 SVEruns; longest being 26 bts, fastest at 147bpm. VEs (0.99%) 5 couplets. No VE runs. No pauses greater than 3 secs Echocardiogram (07/30/2025) showed 1. Left ventricle size is normal and systolic function is normal. Estimated ejection fraction is 50-55%. There is grade I diastolic dysfunction. 2. Right ventricle chamber size is normal and systolic function is normal. Estimated RVSP is 21 mmHg. 3. There is moderate aortic valve sclerosis with no stenosis and trace regurgitation. 4. There is mild to moderate mitral regurgitation and tricuspid valve regurgitation. Mild MAC. 5. The left atrium is moderately enlarged. The right atrium is normal. -08/01. Currently patient's renal function is relatively stable. She was given IV Furosemide 40mg x1 this morning. Gave additional IV Furosemide 80mg x1 due to suspected cardiorenal syndrome. -On 08/02, She was again given IV furosemide 40mg x1 in morning and IV furosemide 80mg x1, as her symptom improved significantly. -On morning of 08/03, her renal function declined. Held IV dieursis until improvement. -Patient's creatinine up trended slightly to 3.3,-IV fluids per discretion of nephrology/primary team Plan: - Continue to hold diuretics, IV fluids per primary team/nephrology discretion. -Strict I and Os; not being charted, nursing was informed. -Fluid restriction 1500ml -Low-sodium diet -Follow renal function closely -Continue metoprolol succinate 25 mg daily, did have 5 SVE runs with PVCs and couplets on Holter. 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 Troponin on presentation 0.600, EKG shows Sinus rhythm, left bundle branch block, no acute ST-T changes., Patient does have T wave inversion in V6. Concern of QTc prolongation EKG shows QRS 154 and QTc of 495 with LBBB. Corrected QTc is 465 which is within normal range. Patient is well-known to practice, has underwent extensive workup outpatient; underwent nuclear stress test outpatient in February 2025 which showed abnormal myocardial perfusion study which showed decreased uptake in the mid to apex anterior and anteroseptal segments with stress. Hence cardiac catheterization performed in the past on March 08, 2025 outpatient showed severe multivessel CAD with 80-90% stenosis of mid LAD with 2 tandem lesions, proximal OM1, 70-80% stenosis of proximal Diagonal 1, 50-60% stenosis of ramus branch, 80-90% stenosis of the proximal OM 2 with STEPAN 3 flow and DEVICE TEST ENGINEER with 100% occlusion of the small mid RCA. Rest of the coronaries arteries and its branches with only mild disease. Postcardiac cath findings, case was discussed with patient's son in detail, decision was made to proceed with risk factor modification as patient was not a surgical candidate or PCI candidate as she is not able to take any kind of antiplatelets or heparin given her history of severe large intracerebral bleed/hemorrhagic CVA 15 years ago and also underlying gastric issues. Outpatient carotid Doppler (02/15/2025) obtained to further assess vascular disease showed both common carotid, internal carotid, and external carotid arteries show minimally thickened intima. Mild diffuse and complex plaque seen at bilateral bulbs and CCA, ICA, ECA. Color doppler demonstrates normal flow in both CCAs, ICAs, and ECAs. Mild evidence of stenosis noted. Both vertebral arteries show normal antegrade flow. 07/31/2025 lipid panel: Cholesterol 142, LDL 40, HDL 90: TSH 2.88: A1c 02/26/2025 5.3 Recommendations: ? Hold aspirin/Plavix due to history of CVA and gastric issues. ? Continue atorvastatin 20 mg at bedtime ? Monitor for chest pain ? Continue to follow outpatient #Hypertension In ED, BP:189/85 Patient on losartan 50 mg p.o. daily, spironolactone 25 mg p.o. daily and amlodipine 5 mg twice daily. ?Continue metoprolol 25 mg p.o. daily, okay to resume amlodipine. ?Recommend holding losartan and spironolactone in setting of ARTHUR #ARTHUR on CKD stage 3 : unclear etiology and need to rule out possible cardiorenal syndrome, nephrology following. #Chronic Anemia #GERD #PUD #Epigastric pain #Constipation #Hypothyroidism -Management per Primary Hospitalist team Thank you for the consult and allowing to participate in the care of the patient. Cardiology will continue to follow. Case discussed with Attending Physician Dr. Toby Gandara MD Internal Medicine PGY-2 Disclaimer: This note was dictated by speech recognition. Minor errors in director of music may be present due to voice recognition software. Attending Provider Attestation/Addendum I have personally seen and examined the patient separately on the above date of service and discussed the plan of care with the resident. I reviewed the resident Dr. Alec Gandara consultation progress note and agree with the resident findings and plan in the note above and have also edited the documentation to reflect my findings and plan. Toby Greer M.D. Interventional Cardiology
--- NOTE | 2025-08-04 13:35 | ESPR_ITS ---
<Statement entered by Ochoa Jacques MD - 08/04/25 16:13> In summary: 80-year-old female with HFpEF, severe multivessel CAD, ARTHUR on CKD, and GERD/PUD admitted for acute decompensated heart failure. She has been on IV diuresis and showed resolution of her SOB. However, she has developed ARTHUR as a result of diuresis with CR stable around 3.2. We have held diuresis and have been giving gentle fluids. Today, Dr. Lomax recommended PO diuresis which will start tomorrow. I?ve reviewed the note and agree with this assessment and plan, with the exceptions outlined above. I personally went over the labs, imaging, home medications, and prior records, and examined the patient. The case was also reviewed with the attending physician. Please note: this document was transcribed using voice recognition technology; minor inaccuracies may be present. Ochoa Jacques DO PGY II Documentation for date of: 08/04/25 Subjective Subjective Interval history: Patient seen this morning. She reports feeling better overall, with breathing improved and no new complaints. She complains of dry eyes, for which artificial tears have been started to keep them moist. Denies shortness of breath, chest pain, or dizziness. No other significant concerns. Exam Vital Signs Temp Pulse Resp BP Pulse Ox O2 Del Method O2 Flow Rate 98.3 F 83 18 145/70 H 95 Room Air 2 08/04/25 12:00 08/04/25 12:00 08/04/25 12:00 08/04/25 12:00 08/04/25 12:00 08/04/25 12:00 08/03/25 04:00 FiO2 3 08/01/25 03:48 Narrative Exam General: No acute distress, well nourished, AAO x3 Eye: PERRL, EOMI, normal conjunctiva, no scleral icterus HENT: Normocephalic, atraumatic, hearing intact to conversation at normal volume, moist oral mucosa Neck: Supple, non-tender, no JVD, no lymphadenopathy Lungs: Non-labored respirations, symmetric chest rise, Clear to auscultate bilaterally, No wheezing, rhonchi, crackles Heart: Peripheral pulses intact bilaterally, Regular Rate and Rhythm. Abdomen: Soft, non-tender, non-distended, no palpable masses Extremities: Trace bilateral lower extremity edema, improved Skin: Skin is warm, dry, no rashes or lesions. Psychiatric: Cooperative, appropriate mood and affect, Awake and alert, not agitated Neuro: Cranial nerves II-XII grossly intact. Strength 5/5 throughout. Sensations intact to light touch. Objective Labs 08/04/25 08:32 08/04/25 08:32 Labs: Laboratory Results - last 24 hr 08/04/25 08:32 WBC 6.2 RBC 3.85 L Hgb 11.5 L Hct 36.0 MCV 94 MCH 29.9 MCHC 31.9 RDW Std Deviation 45.4 Plt Count 340 D Neut % (Auto) 54 Lymph % (Auto) 33 [place] % (Auto) 10 Eos % (Auto) 2 Baso % (Auto) 1 Neut # (Auto) 3.3 Lymph # (Auto) 2.1 [place] # (Auto) 0.6 Eos # (Auto) 0.1 Baso # (Auto) 0.1 Immature Gran # (Auto) 0.02 H Absolute Nucleated RBC 0.00 Immature Gran % 0 Nucleated RBC % 0 Sodium 140 Potassium 3.4 Chloride 94 L Carbon Dioxide 34.5 H Anion Gap 12 BUN 58 H Creatinine 3.3 H Estim Creat Clear Calc 12.8 L eGFR 13 L* BUN/Creatinine Ratio 18 Glucose 145 H Calculated Osmolality 298 H Calcium 10.2 Corrected Calcium 10.2 H Magnesium 2.7 H Total Bilirubin 0.5 AST 22 ALT 22 Alkaline Phosphatase 103 Total Protein 8.4 H Albumin 5.1 H Globulin 3.3 Albumin/Globulin Ratio 1.5 Quality Measures Quality Measures VTE prophylaxis Advance care planning discussed with:: patient Assessment & Plan Assessment Current Active Medications: Generic Name Dose Route Start Last Admin Trade Name Saul PRN Reason Stop Dose Admin Acetaminophen 650 mg 07/30/25 12:24 Acetaminophen 325 Mg Tablet PO 08/29/25 12:23 Q6H PRN Fever >100.4 Acetaminophen 650 mg 07/30/25 12:24 Acetaminophen 325 Mg Tablet PO 08/29/25 12:23 Q6H PRN PAIN SCALE 1-3 (mild Al Hydrox/Mg Hydrox/Simethicone 15 ml 08/03/25 10:15 08/04/25 11:33 Mg Hyd/Al Hyd/Phill (Maalox Reg) Susp 30 Ml Udc PO 09/02/25 10:14 15 ml QID IZABELA Administration Amlodipine Besylate 10 mg 07/31/25 09:00 08/04/25 08:30 Amlodipine Besylate 5 Mg Tablet PO 08/30/25 08:59 10 mg QDAY IZABELA Administration Artificial Tears 0 drop 08/04/25 09:08 08/04/25 10:17 Artificial Tears 225 Drop/15 Ml Btl BOTH EYES 09/03/25 09:07 1 drop PRN PRN Administration TO KEEP EYES MOIST Atorvastatin Calcium 20 mg 07/30/25 21:00 08/03/25 20:16 Atorvastatin Calcium 20 Mg Tablet PO 08/29/25 20:59 20 mg HS IZABELA Administration Furosemide 40 mg 08/02/25 09:00 08/02/25 08:43 Furosemide Inj 10 Mg/Ml 4ml Vial IVP 09/01/25 08:59 40 mg On Hold: 08/03/25 03:44 QDAY IZABELA Administration Hydroxyzine HCl 25 mg 08/03/25 21:00 08/03/25 20:16 Hydroxyzine Hcl 25 Mg Tablet PO 09/02/25 20:59 25 mg HS IZABELA Administration Lactated Ringer's 1,000 mls @ 100 mls/hr 08/04/25 09:30 08/04/25 10:16 Lactated Ringers IV Not Given On Hold: 08/04/25 09:36 .Q10H IZABELA Lactulose 10 gm 07/31/25 09:00 08/04/25 08:31 Lactulose Syrup 20 Gm/30 Ml Udc PO 08/30/25 08:59 10 gm QDAY IZABELA Administration Protocol Levalbuterol HCl 1.25 mg 07/30/25 12:47 Levalbuterol Rt 1.25 Mg/0.5 Ml Nebu INH 08/29/25 12:59 Q6HRRT PRN wheezing Levothyroxine Sodium 25 mcg 07/31/25 06:00 08/04/25 05:22 Levothyroxine Sodium 25 Mcg Tablet PO 08/30/25 05:59 25 mcg ACBR IZABELA Administration Metoprolol Succinate 25 mg 07/30/25 13:05 08/04/25 08:30 Metoprolol Succinate Xl 25 Mg Tabcr PO 08/29/25 13:04 25 mg QDAY IZABELA Administration Pantoprazole Sodium 40 mg 08/01/25 21:00 08/04/25 08:30 Pantoprazole 40 Mg Tablet PO 08/31/25 20:59 40 mg BID IZABELA Administration Sodium Chloride 3 ml 07/31/25 08:56 Sodium Chloride Rt Adriana 0.9% 3 Ml Nebu INH 08/30/25 08:55 PRN PRN SOLN Plan 80-year-old female with HFpEF, severe multivessel CAD, ARTHUR on CKD, and GERD/PUD admitted for acute decompensated heart failure, now euvolemic and off oxygen, complicated by ARTHUR likely from over-diuresis, with overnight transient numbness now improved, and persistent heartburn requiring scheduled therapy. #ARTHUR on CKD, worsening #Likely cardiorenal syndrome Creatinine 2.6 with prior baseline ~2.0 Likely worsened due to volume overload. 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 Plan: * Hold diuretics today * Monitor renal function closely * Avoid nephrotoxins * Renally dose medications * Nephrology following # Acute hypoxic respiratory failure, likely due to # Acute decompensated HFpEF # Cardiorenal syndrome # Bronchospasm/wheezing -Presented with acute SOB, increased work of breathing, and hypoxia requiring supplemental O2 (91% on room air per EMS) -Persistent oxygen requirement and inability to tolerate weaning in the ED, prompting admission. -Imaging and labs notable for moderate pulmonary congestion on CXR and BNP 1028, with bibasilar crackles on exam -Consistent with cardiogenic pulmonary edema from volume overload. -Wheezing noted pre-hospital and in ED, likely airway irritation from pulmonary edema, resolved after bronchodilators and steroids, with no wheezing on exam. -No fever, leukocytosis, or focal consolidation to suggest infectious pneumonia. -Likely precipitating factors include cold exposure, with no clear evidence of infection trigger. -Renal dysfunction (Cr 2.6 from baseline 2.0) consistent with cardiorenal physiology. -Patient is hemodynamically stable without cardiogenic shock. -Known EF 55?60% (11/2024) with diastolic dysfunction. -Cardiology (Dr. Greer) consulted in ED, recommended diuresis and no further troponin trending given known severe, non-revascularizable CAD. 07/31: -No crackles, no edema, currently on 3 L oxygen saturating 94-95% -Wheezing sound noted this morning; no crackles -Levalbuterol not previously used, added as one-time treatment -Echocardiogram (07/30/2025): Left ventricle: Normal size and systolic function, EF 50-55%, Grade I diastolic dysfunction 08/04: -No crackles, trace edema, off nasal cannula saturating well Plan * Supplemental O2 to maintain SpO2 >92%, wean as tolerated * Hold PO lasix 40 mg * Strict I/O, daily weights * Daily BMP * Replete electrolytes (goal K >4, Mg >2 given QTc prolongation) * Incentive spirometry * Telemetry monitoring * Repeat CXR if respiratory status worsens * Levalbuterol 1.25 mg PRN, instructed patient to request it as needed for wheezing * Monitor for recurrence of wheezing * Low-sodium diet # Transient right foot numbness, resolved Patient experienced transient numbness in the right foot and reported numbness across the right cheek and nose, which she attributed to her leg being ?asleep.? No facial droop, slurred speech, or other focal deficits. The numbness in the right foot has improved by this morning. Neurologic exam today is normal, and no acute issues were noted. Plan: * Continue neurologic monitoring * Reassess if symptoms worsen or recur #Dysphagia, resolved #GERD #PUD #Epigastric pain #Large hiatal hernia Reports burning epigastric pain this week Known history of esophagitis, gastroduodenitis, ulcers. EGD completed during last visit on may 10' New dysphagia with ongoing reflux symptoms; GI following. EGD by Dr. Ugalde showed benign appearing esophageal stenosis which was dilated Plan: * Continue Protonix 40 mg to BID * Continue Maalox IZABELA QID * Avoid NSAIDs #Severe multivessel CAD, non-revascularizable Known extensive CAD Not a surgical or PCI candidate due to prior intracerebral hemorrhage. Troponin mildly elevated (0.6) likely demand-related Cardiology advised no further trending. Plan: * stop aspirin per cardiology * Continue atorvastatin 20 mg HS * Continue metoprolol 25 mg daily as tolerated * No further troponin trending per cardiology recommendation * Telemetry monitoring #Prolonged QTc (QTc 495 ms) Chronic LBBB with prolonged QTc. Plan: * Avoid QT-prolonging medications * Maintain electrolytes (K >4, Mg >2) * Telemetry monitoring #Chronic Anemia #Iron deficiency anemia Chronic anemia (Hgb 9.3), likely multifactorial (CKD/chronic disease; iron deficiency possible). Iron panel low. Plan: * Trend CBC * Started IV iron infusion * Transfuse only if symptomatic or hgb <8. #Constipation Chronic constipation refractory to prior outpatient therapies. Stated lactulose helped before Last real BM 3 days ago requsted another dose of lactulose 10. Had a small BM overnight. Plan: * Lactulose 10 g, titrate to bowel movement * Started glycerin suppository x1 * Encourage mobility as tolerated #Hypothyroidism Stable on home therapy. Plan: * Continue levothyroxine 25 mcg daily #Hypertension Chronic, currently stable. BP 145/70 Plan: * Continue home antihypertensives as tolerated * Monitor BP closely during diuresis Health Maintenance: Diet: Cardiac VTE prophylaxis: SCDs GI prophylaxis: Protonix Code status: Full Disposition: Continue inpatient management on telemetry pending improvement in oxygen requirement and volume status. ----- Plan discussed with attending physician Dr. Richelle Cheung MD PGY-1 Internal Medicine Attending Provider Attestation/Addendum I, Sunitha Peoples DO, attest that I was physically present for the daniels portions of the service and evaluated the patient with the resident and I reviewed and discussed the case with the resident and agree with the resident's findings and plans of care as documented above Patient seen and evaluated this AM. Renal function continues to worsen. Given 250cc bolus. Nephrology recommends switch lasix to PO lasix. Holding off on aggressive IV fluid hydration due to CHF. Will continue to monitor renal function and avoid nephrotoxic agents. Will start PO lasix in AM.
--- NOTE | 2025-08-04 20:03 | PD.IMPROG ---
Documentation for date of: 08/04/25 Subjective Subjective Interval history: Patient evaluated Status post endoscopic dilatation of the proximal esophageal stricture 5 cm hiatal hernia Not a candidate for surgical intervention Exam Vital Signs Temp Pulse Resp BP Pulse Ox O2 Del Method O2 Flow Rate 98.3 F 81 19 143/70 H 95 Room Air 2 08/04/25 16:00 08/04/25 19:42 08/04/25 19:42 08/04/25 16:00 08/04/25 16:00 08/04/25 16:00 08/03/25 04:00 FiO2 3 08/01/25 03:48 Objective Labs 08/04/25 08:32 08/04/25 08:32 Labs: Laboratory Results - last 24 hr 08/04/25 08:32 WBC 6.2 RBC 3.85 L Hgb 11.5 L Hct 36.0 MCV 94 MCH 29.9 MCHC 31.9 RDW Std Deviation 45.4 Plt Count 340 D Neut % (Auto) 54 Lymph % (Auto) 33 [place] % (Auto) 10 Eos % (Auto) 2 Baso % (Auto) 1 Neut # (Auto) 3.3 Lymph # (Auto) 2.1 [place] # (Auto) 0.6 Eos # (Auto) 0.1 Baso # (Auto) 0.1 Immature Gran # (Auto) 0.02 H Absolute Nucleated RBC 0.00 Immature Gran % 0 Nucleated RBC % 0 Sodium 140 Potassium 3.4 Chloride 94 L Carbon Dioxide 34.5 H Anion Gap 12 BUN 58 H Creatinine 3.3 H Estim Creat Clear Calc 12.8 L eGFR 13 L* BUN/Creatinine Ratio 18 Glucose 145 H Calculated Osmolality 298 H Calcium 10.2 Corrected Calcium 10.2 H Magnesium 2.7 H Total Bilirubin 0.5 AST 22 ALT 22 Alkaline Phosphatase 103 Total Protein 8.4 H Albumin 5.1 H Globulin 3.3 Albumin/Globulin Ratio 1.5 Impressions Impression: Progressive dysphagia Endoscopic guidewire esophageal dilatation 5 cm hiatal hernia Continue current management Assessment & Plan A&P Narrative # Dyspepsia chest pain could be due to also large hiatal hernia which is 0.9 cm # Gastritis # Esophagitis IV Protonix No need for a repeat endoscopy Time Spent With Patient Time: Total time spent is greater than 50% in coordination of care (as documented) at patient's floor/unit and/or counseling patient:
[2025-08-04] MEDS: ATORVASTATIN CALCIUM 20 MG TABLET PO (20:49)
[2025-08-05] VITALS: BP 140/76; PULSE 73; PULSE 75; RESP 18; TEMP 36.3; O2SAT 92
[2025-08-05 04:00] VITALS: BP 145/77; PULSE 82; PULSE 86; RESP 27; TEMP 36.2; O2SAT 92
[2025-08-05] MEDS: MG HYD/AL HYD/SIME (Maalox Reg) SUSP 30 ML UDC 15 ML PO (05:42)
[2025-08-05] MEDS: LEVOTHYROXINE SODIUM 25 MCG TABLET PO (05:42)
[2025-08-05 06:09] LABS: Hemoglobin 9.9 g/dL (12.0-16.0); Red Blood Count 3.28 Miln/mm3 (4.00-5.20); White Blood Count 5.0 Thou/mm3 (3.6-11.0)
[2025-08-05 06:10] LABS: Basophils # (Auto) 0.1 Thou/mm3 (0.0-0.2); Basophils % (Auto) 1 % (0-2.5); Eosinophils # (Auto) 0.2 Thou/mm3 (0.0-0.5); Eosinophils % (Auto) 3 % (0-10); Hematocrit 30.6 % (36.0-46.0); Immature Granulocytes Auto 0.01 Thou/mm3 (0.00-0.00); Lymphocytes # (Auto) 1.9 Thou/mm3 (1.0-4.8); Lymphocytes % (Auto) 37 % (10-50); Mean Corpuscular HGB Conc 32.4 g/dl (31.0-37.0); Mean Corpuscular Hemoglobin 30.2 pg (25.0-35.0); Mean Corpuscular Volume 93 fL (80-100); Monocytes # (Auto) 0.6 Thou/mm3 (0.0-0.8); Monocytes % (Auto) 13 % (0-12); Neutrophils # (Auto) 2.3 Thou/mm3 (1.8-7.7); Neutrophils % (Auto) 45 % (37-80); Nucleated Red Blood Cell # 0.00 Thou/mm3 (0.00-0.00); Nucleated Red Blood Cell % 0 /100 WBC (0); Platelet Count 288 Thou/mm3 (140-440); RDW Standard Deviation 45.8 fL (36.4-46.3)
[2025-08-05 07:19] LABS: Alanine Aminotransferase 16 U/L (10-49); Albumin, Serum 4.0 gm/dL (3.4-4.8); Albumin/Globulin Ratio 1.4 (1.2-2.2); Alkaline Phosphatase 86 U/L (46-116); Anion Gap 11 (7-16); Aspartate Amino Transferase < 8 U/L (0-34); BUN/Creatinine Ratio 20 Ratio (12-20); Bilirubin,Total 0.5 mg/dL (0.3-1.2); Blood Urea Nitrogen 59 mg/dL (9-23); Calcium 9.7 mg/dL (8.3-10.6); Calcium (Corrected) 9.7 mg/dL (8.5-10.1); Carbon Dioxide 32.1 mMol/L (20.0-31.0); Chloride 98 mMol/L (98-107); Creatinine (Component) 3.0 mg/dL (0.6-1.3); Estimated Creatinine Clearance 12.5 mL/min (>60); Globulin 2.9 gm/dL (2.3-3.5); Glucose 101 mg/dL (74-106); Magnesium 2.7 mg/dL (1.6-2.6); Osmolality,Calculated 297 (275-295); Phosphorous 3.7 mg/dL (2.4-5.1); Potassium 3.6 mMol/L (3.4-5.1); Sodium 141 mMol/L (136-145); Total Protein 6.9 gm/dL (5.7-8.2); eGFR 15 See Note
[2025-08-05 07:54] VITALS: BP 153/77; PULSE 75; RESP 14; TEMP 36.2; O2SAT 91
[2025-08-05 08:00] VITALS: PULSE 74; PULSE 82; RESP 22; RESP 96; O2SAT 96
[2025-08-05 08:10] VITALS: BP 153/77; PULSE 75
[2025-08-05] MEDS: LACTULOSE SYRUP 20 GM/30 ML UDC 10 GM PO (08:10)
[2025-08-05] MEDS: METOPROLOL SUCCINATE XL 25 MG TABCR PO (08:10)
[2025-08-05] MEDS: PANTOPRAZOLE 40 MG TABLET PO (08:10)
--- NOTE | 2025-08-05 10:11 | ESDS_ITS ---
<Statement entered by Edmund Crandall MD - 08/10/25 08:34> I reviewed above note and agree with findings and plans. I have also personally examined the patient with medicine team and went over assessment and plan with medical team including newsroom intern and resident physician. Planned Discharge Date 08/05/25 DS: Providers Provider Date of admission: 07/30/25 12:17 Primary care physician: Cynthia Danielle MD Admitting Provider: Edmund Crandall MD Attending Provider on Admission: Edmund Crandall MD Consults: 07/30/25 12:06 Consult to Cardiology Stat Comment: Consulting Provider: Toby Greer 07/30/25 13:53 Consult to Nephrology Routine Comment: ckd Consulting Provider: Vicente Zavala 07/30/25 15:30 Consult to Gastroenterology Routine Comment: Consulting Provider: Sinai Ugalde 08/02/25 16:42 Referral Physical Therapy Routine Comment: Physician Instructions: Attending Provider on DC: Edmund Crandall MD Discharging Provider: Yury Cheung MD DS: Diagnosis Problem List Completed Was Problem List Reviewed/Reconciled?: Yes Hospital Course Hospital Course Hospital course: 80-year-old female with a history of HFpEF, severe multivessel CAD not 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 On arrival, she was hypoxic and found to have pulmonary congestion on chest X-ray with an elevated BNP of 1028, consistent with acute decompensated heart failure. She was started on IV diuresis with furosemide with significant improvement in her respiratory status, ultimately weaning off supplemental oxygen. During aggressive diuresis, she developed acute kidney injury on CKD, with creatinine rising from a baseline of 2.0 to a peak of 3.3. Diuretics were held and gentle IV fluids were administered with stabilization and subsequent improvement in renal function. Cardiology was consulted and recommended continued medical management of her severe multivessel CAD with no further troponin trending, as she is not a candidate for surgical or percutaneous intervention. Nephrology was consulted a nd felt the ARTHUR was most consistent with cardiorenal syndrome/post-diuresis ARTHUR. After renal stabilization, the patient was transitioned to oral furosemide with continued improvement. During hospitalization, the patient developed dysphagia and worsening reflux symptoms. Gastroenterology was consulted and she underwent EGD on 08/01/2025, which showed a benign-appearing esophageal stenosis that was dilated, along with esophagitis, gastritis, and erythematous duodenopathy. She was continued on anti-reflux therapy with improvement in symptoms. The patient had a brief overnight episode of transient numbness involving her face and right foot, which resolved without focal neurologic deficits and required no further intervention. At the time of discharge, the patient was clinically euvolemic, breathing comfortably on room air, tolerating oral intake, ambulating, with improving renal function and well-controlled symptoms. She expressed readiness for discharge home. Diagnosis during admission: #ARTHUR on CKD, worsening #Likely cardiorenal syndrome #Acute hypoxic respiratory failure, likely due to #Acute decompensated HFpEF #Cardiorenal syndrome #Bronchospasm/wheezing #Transient right foot numbness, resolved #Dysphagia, resolved #GERD #PUD #Epigastric pain #Large hiatal hernia #Severe multivessel CAD, non-revascularizable #Prolonged QTc (QTc 495 ms) #Chronic Anemia #Iron deficiency anemia #Constipation #Hypothyroidism #Hypertension Discharge instructions: * Follow-up with PCP within 1-2 weeks of discharge. * Follow-up with Dr. Ugalde in 4 weeks regarding pathology report. * Follow-up with Dr. Zavala nephrology ) within 1-2 weeks of discharge. * Follow-up with Cardiology within 1-2 weeks of discharge. * Follow GERD lifestyle modifications to prevent acid reflux (see attachment). * Repeat BMP and magnesium labs at least 1 week before your appointment with Dr. Greer on the 10 of September. * Continue taking medications as prescribed below. * Please repeat RENAL PANEL labs within 1 weeks and forward the results to your PCP or flooring grader for review. * Stop taking SPIROLOLACTONE until you see you see you see nephrology or cardiology or your PCP. * Start taking LASIX (FUROSEMIDE) 40 mg daily, your doctor may adjust the dose as needed, please discuss with your doctor. * Return to Emergency Room if symptoms persist, worsen, or new symptoms develop. ----- Plan discussed with attending physician Dr. Raz Cheung MD PGY-1 Internal Medicine Time Spent with Patient Time attestation: Total time spent providing and/or coordinating discharge services: Time spent: Greater than 30 minutes Exam Vital Signs Temp Pulse Resp BP Pulse Ox O2 Del Method O2 Flow Rate 97.2 F 75 22 H 153/77 H 96 Room Air 2 08/05/25 07:54 08/05/25 08:10 08/05/25 08:00 08/05/25 08:10 08/05/25 08:00 08/05/25 07:54 08/03/25 04:00 FiO2 3 08/01/25 03:48 Narrative Exam General: No acute distress, well nourished, AAO x3 Eye: PERRL, EOMI, normal conjunctiva, no scleral icterus HENT: Normocephalic, atraumatic, hearing intact to conversation at normal volume, moist oral mucosa Neck: Supple, non-tender, no JVD, no lymphadenopathy Lungs: Non-labored respirations, symmetric chest rise, Clear to auscultate bilaterally, No wheezing, rhonchi, crackles Heart: Peripheral pulses intact bilaterally, Regular Rate and Rhythm. Abdomen: Soft, non-tender, non-distended, no palpable masses Extremities: Trace bilateral lower extremity edema, improved Skin: Skin is warm, dry, no rashes or lesions. Psychiatric: Cooperative, appropriate mood and affect, Awake and alert, not agitated Neuro: Cranial nerves II-XII grossly intact. Strength 5/5 throughout. Sensations intact to light touch. Discharge Plan Plan Patient Disposition: HOME (Self Care) Patient condition on transfer: Stable Care Plan Goals: * Follow-up with PCP within 1-2 weeks of discharge. * Follow-up with Dr. Ugalde in 4 weeks regarding pathology report. * Follow-up with Dr. Zavala nephrology ) within 1-2 weeks of discharge. * Follow-up with Cardiology within 1-2 weeks of discharge. * Follow GERD lifestyle modifications to prevent acid reflux (see attachment). * Repeat BMP and magnesium labs at least 1 week before your appointment with Dr. Greer on the 10 of September. * Continue taking medications as prescribed below. * Please repeat RENAL PANEL labs within 1 weeks and forward the results to your PCP or flooring grader for review. * Stop taking SPIROLOLACTONE until you see you see you see nephrology or cardiology or your PCP. * Start taking LASIX (FUROSEMIDE) 40 mg daily, your doctor may adjust the dose as needed, please discuss with your doctor. * Return to Emergency Room if symptoms persist, worsen, or new symptoms develop. Prescriptions/Referrals Prescriptions/Med Rec: New furosemide 40 mg Tablet 40 mg PO QDAY 30 Days Qty: 30 0RF Continued levothyroxine 25 mcg capsule 25 mcg PO QDAY losartan 50 mg tablet 50 mg PO QDAY amlodipine 5 mg tablet 5 mg PO BID 30 Days Qty: 60 3RF pantoprazole 40 mg tablet,delayed release (DR/EC) 40 mg PO DAILY 90 Days Qty: 90 3RF sucralfate 1 gram tablet 1 g PO TID 30 Days Qty: 90 3RF sennosides 8.6 mg tablet 8.6 mg PO QDAY Qty: 90 0RF atorvastatin 20 mg tablet 20 mg PO QHS Qty: 90 0RF amitriptyline 25 mg tablet 25 mg PO HS Patient Comments: TAKE 1 TABLET BY MOUTH DAILY AT BEDTIME alum-mag hydroxide-simeth [Maalox Advanced] 200-200-20 mg/5 mL suspension 5 ml PO Q3H PRN (Reason: dyspepsia) Qty: 3000 0RF Discontinued spironolactone 25 mg tablet 25 mg PO QDAY tramadol 50 mg tablet 50 mg PO BID PRN (Reason: pain) Referrals: Toby Greer MD [Physician, Cardiology] Vicente Zavala MD [Physician, Nephrology] Sinai Ugalde MD [Physician, Gastroenterology] Cynthia Danielle MD [Primary Care Provider, Family Practice] Outpatient Orders (i.e. Home Health, Labs, Imaging): Basic Metabolic Panel (Routine) Location: None Selected Ordered By: Ochoa Jacques Magnesium (Routine) Location: None Selected Ordered By: Ochoa Jacques Patient/Caregiver Discharge Instructions Education Materials: GERD Lifestyle Changes, GERD Gastroesophageal Reflux ..., Heart Failure Dc Print Language: Cymro Stand Alone Forms: El[employer]isa Award Info., Patient Portal Info Letter Discharge Order Discharge Orders: Discharge (Routine); Ordered 08/05/25 Ordered By: Yury Cheung Quality Discharge Quality Measures VTE prophylaxis
[2025-08-05 12:00] VITALS: BP 154/75; PULSE 76; PULSE 83; RESP 21; TEMP 36.6; O2SAT 93
--- NOTE | 2025-08-05 14:02 | ESPR_ITS ---
Documentation for date of: 08/05/25 Subjective Subjective Interval history: Patient seen examined at bedside, renal function is improved. Continues to have good urine output. Patient will be discharged on oral Lasix 40 mg daily. Will follow-up with patient in cardiology clinic with repeat BMP and magnesium. Discharge patient on metoprolol 25 mg daily and amlodipine 10 mg daily. Exam Vital Signs Temp Pulse Resp BP Pulse Ox O2 Del Method O2 Flow Rate 97.8 F 76 21 H 154/75 H 93 L Room Air 2 08/05/25 12:00 08/05/25 12:00 08/05/25 12:00 08/05/25 12:00 08/05/25 12:00 08/05/25 12:00 08/05/25 12:00 FiO2 3 08/05/25 12:00 Narrative Exam General: No acute distress, well nourished, AAO x3 Eye: PERRL, EOMI, normal conjunctiva, no scleral icterus HENT: Normocephalic, atraumatic, hearing intact to conversation at normal volume, moist oral mucosa Neck: Supple, non-tender, no JVD, no lymphadenopathy Lungs: Non-labored respirations, symmetric chest rise, Clear to auscultate bilaterally, No wheezing, rhonchi, crackles Heart: Peripheral pulses intact bilaterally, Regular Rate and Rhythm. Abdomen: Soft, non-tender, non-distended, no palpable masses Musculoskeletal: Normal range of motion and strength, Trace edema bilateral lower extremity edema. Skin: Skin is warm, dry, no rashes or lesions. Psychiatric: Cooperative, appropriate mood and affect, Awake and alert, not agitated Neuro: Cranial nerves II-XII grossly intact. Strength 5/5 throughout. Sensations intact to light touch. Objective Labs 08/05/25 05:50 08/05/25 05:50 Labs: Laboratory Results - last 24 hr 08/05/25 05:50 WBC 5.0 RBC 3.28 L Hgb 9.9 L Hct 30.6 L MCV 93 MCH 30.2 MCHC 32.4 RDW Std Deviation 45.8 Plt Count 288 D Neut % (Auto) 45 Lymph % (Auto) 37 [place] % (Auto) 13 H Eos % (Auto) 3 Baso % (Auto) 1 Neut # (Auto) 2.3 Lymph # (Auto) 1.9 [place] # (Auto) 0.6 Eos # (Auto) 0.2 Baso # (Auto) 0.1 Immature Gran # (Auto) 0.01 H Absolute Nucleated RBC 0.00 Immature Gran % 0 Nucleated RBC % 0 Sodium 141 Potassium 3.6 Chloride 98 Carbon Dioxide 32.1 H Anion Gap 11 BUN 59 H Creatinine 3.0 H Estim Creat Clear Calc 12.5 L eGFR 15 L BUN/Creatinine Ratio 20 Glucose 101 Calculated Osmolality 297 H Calcium 9.7 Corrected Calcium 9.7 Phosphorus 3.7 Magnesium 2.7 H Total Bilirubin 0.5 AST < 8 ALT 16 Alkaline Phosphatase 86 Total Protein 6.9 Albumin 4.0 D Globulin 2.9 Albumin/Globulin Ratio 1.4 Quality Measures Quality Measures VTE prophylaxis Advance care planning discussed with:: patient Assessment & Plan Assessment Current Active Medications: Generic Name Dose Route Start Last Admin Trade Name Freq PRN Reason Stop Dose Admin Acetaminophen 650 mg 07/30/25 12:24 Acetaminophen 325 Mg Tablet PO 08/29/25 12:23 Q6H PRN Fever >100.4 Acetaminophen 650 mg 07/30/25 12:24 Acetaminophen 325 Mg Tablet PO 08/29/25 12:23 Q6H PRN PAIN SCALE 1-3 (mild Al Hydrox/Mg Hydrox/Simethicone 15 ml 08/03/25 10:15 08/05/25 05:42 Mg Hyd/Al Hyd/Phill (Maalox Reg) Susp 30 Ml Udc PO 09/02/25 10:14 15 ml QID IZABELA Administration Amlodipine Besylate 10 mg 07/31/25 09:00 08/05/25 08:10 Amlodipine Besylate 5 Mg Tablet PO 08/30/25 08:59 10 mg QDAY IZABELA Administration Artificial Tears 0 drop 08/04/25 09:08 08/04/25 17:38 Artificial Tears 225 Drop/15 Ml Btl BOTH EYES 09/03/25 09:07 1 drop PRN PRN Administration TO KEEP EYES MOIST Atorvastatin Calcium 20 mg 07/30/25 21:00 08/04/25 20:49 Atorvastatin Calcium 20 Mg Tablet PO 08/29/25 20:59 20 mg HS IZABELA Administration Furosemide 40 mg 08/05/25 09:00 08/05/25 08:10 Furosemide 40 Mg Tablet PO 09/04/25 08:59 40 mg QDAY IZABELA Administration Hydroxyzine HCl 25 mg 08/03/25 21:00 08/04/25 20:47 Hydroxyzine Hcl 25 Mg Tablet PO 09/02/25 20:59 25 mg HS IZABELA Administration Lactated Ringer's 1,000 mls @ 100 mls/hr 08/04/25 09:30 08/04/25 10:16 Lactated Ringers IV Not Given On Hold: 08/04/25 09:36 .Q10H IZABELA Lactulose 10 gm 07/31/25 09:00 08/05/25 08:10 Lactulose Syrup 20 Gm/30 Ml Udc PO 08/30/25 08:59 10 gm QDAY IZABELA Administration Protocol Levalbuterol HCl 1.25 mg 07/30/25 12:47 Levalbuterol Rt 1.25 Mg/0.5 Ml Nebu INH 08/29/25 12:59 Q6HRRT PRN wheezing Levothyroxine Sodium 25 mcg 07/31/25 06:00 08/05/25 05:42 Levothyroxine Sodium 25 Mcg Tablet PO 08/30/25 05:59 25 mcg ACBR IZABELA Administration Metoprolol Succinate 25 mg 07/30/25 13:05 08/05/25 08:10 Metoprolol Succinate Xl 25 Mg Tabcr PO 08/29/25 13:04 25 mg QDAY IZABELA Administration Pantoprazole Sodium 40 mg 08/01/25 21:00 08/05/25 08:10 Pantoprazole 40 Mg Tablet PO 08/31/25 20:59 40 mg BID IZABELA Administration Sodium Chloride 3 ml 07/31/25 08:56 Sodium Chloride Rt Adriana 0.9% 3 Ml Nebu INH 08/30/25 08:55 PRN PRN SOLN Plan Ms. Loly Panda, 80yF with PMH of HFrEF 45-50%, severe multivessel CAD, hemorrhagic CVA 2008, Primary hypertension, hypothyrodism, esophageal ulcer and erosive gastroduodenitis (EGD in 2019), GERD, hemorrhoids (colonoscopy in 2019), osteoarthritis, and depression, presented to the hospital on 07/30/2025 due to worsening SOB. Patient was admitted and consulted to cardiology for management of Decompensated HF. #Acute Hypoxic Respiratory Failure, improving #Acute Decompensated heart failure #Diastolic heart failure, HFpEF, EF 50 to 55%, stage I diastolic dysfunction, 02/2025 #Suspected Cardiorenal syndrome -Patient presented with symptom of worsening SOB, wheezing, and trace right leg edema. Troponin: 0.6, BNP:1028 and CXR (07/30/2025): showed Moderate vascular congestion -Creatinine on presentation 2.6 which up trended to 2.8 with initial diuresis, there is concern of cardiorenal syndrome. Continue diuresis. -Echocardiogram performed outpatient (12/01/2024): Normal LV size and function. Estimated EF 55-60%. Grade II diastolic dysfunction. Normal RV size and function. Estimated RVSP normal at 35 mm hg. Moderate AV sclerosis without stenosis. Mild MAC. Mild MR and TR. Outpatient Holter Monitoring (01/22/2025): Duration 68hrs. Normal Sinus Rhythm. Avg HR 77bpm, Sinus Tachy 17 times (0.45%), Max HR 113 bpm. SVEs 0.12% 4 couplets. 5 SVEruns; longest being 26 bts, fastest at 147bpm. VEs (0.99%) 5 couplets. No VE runs. No pauses greater than 3 secs Echocardiogram (07/30/2025) showed 1. Left ventricle size is normal and systolic function is normal. Estimated ejection fraction is 50-55%. There is grade I diastolic dysfunction. 2. Right ventricle chamber size is normal and systolic function is normal. Estimated RVSP is 21 mmHg. 3. There is moderate aortic valve sclerosis with no stenosis and trace regurgitation. 4. There is mild to moderate mitral regurgitation and tricuspid valve regurgitation. Mild MAC. 5. The left atrium is moderately enlarged. The right atrium is normal. Patient received IV diuresis due to suspicion of cardiorenal syndrome however creatinine up trended to 3.3 with IV diuresis eventually received IV fluids and renal function improved. Nephrology following. Patient likely has intrinsic renal disease for which patient needs to follow-up with nephrology outpatient. Plan: -Stable to be discharged on Lasix 40 mg p.o. daily. -Strict I and Os; not being charted, nursing was informed. -Fluid restriction 1500ml -Low-sodium diet -Follow renal function closely -Continue metoprolol succinate 25 mg daily, did have 5 SVE runs with PVCs and couplets on Holter. #Severe multivessel CAD, (80 to 90% stenosis of mid LAD with 2 tandem lesions, proximal OM1, 70 to 80% stenosis of proximal diagonal 1, 50 to 60% stenosis of ramus branch, 80 to 90% stenosis of proximal OM 2 and HOMEMAKER COMPANION with 100% occlusion of small mid RCA) #NSTEMI type II, demand ischemia #Concern of QTc prolongation Patient presented for shortness of breath, denies any chest pain. Troponin on presentation 0.600, EKG shows Sinus rhythm, left bundle branch block, no acute ST-T changes., Patient does have T wave inversion in V6. Concern of QTc prolongation EKG shows QRS 154 and QTc of 495 with LBBB. Corrected QTc is 465 which is within normal range. Patient is well-known to practice, has underwent extensive workup outpatient; underwent nuclear stress test outpatient in February 2025 which showed abnormal myocardial perfusion study which showed decreased uptake in the mid to apex anterior and anteroseptal segments with stress. Hence cardiac catheterization performed in the past on March 08, 2025 outpatient showed severe multivessel CAD with 80-90% stenosis of mid LAD with 2 tandem lesions, proximal OM1, 70-80% stenosis of proximal Diagonal 1, 50-60% stenosis of ramus branch, 80-90% stenosis of the proximal OM 2 with STEPAN 3 flow and HOMEMAKER COMPANION with 100% occlusion of the small mid RCA. Rest of the coronaries arteries and its branches with only mild disease. Postcardiac cath findings, case was discussed with patient's son in detail, decision was made to proceed with risk factor modification as patient was not a surgical candidate or PCI candidate as she is not able to take any kind of antiplatelets or heparin given her history of severe large intracerebral bleed/hemorrhagic CVA 15 years ago and also underlying gastric issues. Outpatient carotid Doppler (02/15/2025) obtained to further assess vascular disease showed both common carotid, internal carotid, and external carotid arteries show minimally thickened intima. Mild diffuse and complex plaque seen at bilateral bulbs and CCA, ICA, ECA. Color doppler demonstrates normal flow in both CCAs, ICAs, and ECAs. Mild evidence of stenosis noted. Both vertebral arteries show normal antegrade flow. 07/31/2025 lipid panel: Cholesterol 142, LDL 40, HDL 90: TSH 2.88: A1c 02/26/2025 5.3 Recommendations: ? Hold aspirin/Plavix due to history of CVA and gastric issues. ? Continue atorvastatin 20 mg at bedtime ? Monitor for chest pain ? Continue to follow outpatient #Hypertension In ED, BP:189/85 Patient on losartan 50 mg p.o. daily, spironolactone 25 mg p.o. daily and amlodipine 5 mg twice daily. ?Continue metoprolol 25 mg p.o. daily, okay to resume amlodipine. ?Recommend holding losartan and spironolactone in setting of ARTHUR #ARTHUR on CKD stage 3 : unclear etiology and need to rule out possible cardiorenal syndrome, nephrology following. #Chronic Anemia #GERD #PUD #Epigastric pain #Constipation #Hypothyroidism -Management per Primary Hospitalist team Thank you for the consult and allowing to participate in the care of the patient. Cardiology will continue to follow. Case discussed with Attending Physician Dr. Toby Gandara MD Internal Medicine PGY-2 Disclaimer: This note was dictated by speech recognition. Minor errors in railcar carpenter may be present due to voice recognition software. Attending Provider Attestation/Addendum I have personally seen and examined the patient separately on the above date of service and discussed the plan of care with the resident. I reviewed the resident Dr. Alec Gandara consultation progress note and agree with the resident findings and plan in the note above and have also edited the documentation to reflect my findings and plan. Toby Greer M.D. Interventional Cardiology
--- NOTE | 2025-08-05 18:13 | PD.IMPROG ---
Documentation for date of: 08/05/25 Subjective Subjective Interval history: Late entry for the note 4 to 5 cm hiatal hernia Status post endoscopic dilatation of the proximal esophageal stricture Exam Vital Signs Temp Pulse Resp BP Pulse Ox O2 Del Method O2 Flow Rate 97.8 F 76 21 H 154/75 H 93 L Room Air 2 08/05/25 12:00 08/05/25 12:00 08/05/25 12:00 08/05/25 12:00 08/05/25 12:00 08/05/25 12:00 08/05/25 12:00 FiO2 3 08/05/25 12:00 Objective Labs 08/05/25 05:50 08/05/25 05:50 Labs: Laboratory Results - last 24 hr 08/05/25 05:50 WBC 5.0 RBC 3.28 L Hgb 9.9 L Hct 30.6 L MCV 93 MCH 30.2 MCHC 32.4 RDW Std Deviation 45.8 Plt Count 288 D Neut % (Auto) 45 Lymph % (Auto) 37 [place] % (Auto) 13 H Eos % (Auto) 3 Baso % (Auto) 1 Neut # (Auto) 2.3 Lymph # (Auto) 1.9 [place] # (Auto) 0.6 Eos # (Auto) 0.2 Baso # (Auto) 0.1 Immature Gran # (Auto) 0.01 H Absolute Nucleated RBC 0.00 Immature Gran % 0 Nucleated RBC % 0 Sodium 141 Potassium 3.6 Chloride 98 Carbon Dioxide 32.1 H Anion Gap 11 BUN 59 H Creatinine 3.0 H Estim Creat Clear Calc 12.5 L eGFR 15 L BUN/Creatinine Ratio 20 Glucose 101 Calculated Osmolality 297 H Calcium 9.7 Corrected Calcium 9.7 Phosphorus 3.7 Magnesium 2.7 H Total Bilirubin 0.5 AST < 8 ALT 16 Alkaline Phosphatase 86 Total Protein 6.9 Albumin 4.0 D Globulin 2.9 Albumin/Globulin Ratio 1.4 Impressions Impression: 4 to 5 cm hiatal hernia Status post endoscopic dilatation of the proximal esophageal stricture Outpatient follow-up Assessment & Plan A&P Narrative # Dyspepsia chest pain could be due to also large hiatal hernia which is 0.9 cm # Gastritis # Esophagitis IV Protonix No need for a repeat endoscopy Time Spent With Patient Time: Total time spent is greater than 50% in coordination of care (as documented) at patient's floor/unit and/or counseling patient:
== END 2025-08-05 13:35 | disposition home or self-care (01) | DRG 291 ==
LOC: SERX 11:52 → SERHOLD 12:18 → S2NX 17:02
PROVIDERS: Specialist; Student in an Organized Health Care Education/Training Program; Admitting Provider Internal Medicine; Emergency Provider Emergency Medicine; PCP Family Medicine; Visit Provider Internal Medicine
PROC: 0DB48ZX Excision of Esophagogastric Junction, Via Natural or Artificial Opening Endoscopic, Diagnostic (ICD-10-PCS; CPT 43239; principal; 2025-08-01 14:30)
DX: I13.0 Hypertensive heart and chronic kidney disease with heart failure and stage 1 through stage 4 chronic kidney disease, or unspecified chronic kidney disease (principal); I50.33 Acute on chronic diastolic (congestive) heart failure; J96.01 Acute respiratory failure with hypoxia; N17.9 Acute kidney failure, unspecified; K22.2 Esophageal obstruction; Z86.73 Personal history of transient ischemic attack (TIA), and cerebral infarction without residual deficits; I25.10 Atherosclerotic heart disease of native coronary artery without angina pectoris; E03.9 Hypothyroidism, unspecified; E78.5 Hyperlipidemia, unspecified; D50.9 Iron deficiency anemia, unspecified; J98.01 Acute bronchospasm; I44.7 Left bundle-branch block, unspecified; D63.1 Anemia in chronic kidney disease; K27.9 Peptic ulcer, site unspecified, unspecified as acute or chronic, without hemorrhage or perforation; T50.2X5A Adverse effect of carbonic-anhydrase inhibitors, benzothiadiazides and other diuretics, initial encounter; K59.09 Other constipation; K44.9 Diaphragmatic hernia without obstruction or gangrene; I08.1 Rheumatic disorders of both mitral and tricuspid valves; K31.89 Other diseases of stomach and duodenum; K29.70 Gastritis, unspecified, without bleeding; N18.30 Chronic kidney disease, stage 3 unspecified; K21.00 Gastro-esophageal reflux disease with esophagitis, without bleeding; Z79.82 Long term (current) use of aspirin; Z79.890 Hormone replacement therapy; Z79.899 Other long term (current) drug therapy; Z87.01 Personal history of pneumonia (recurrent); Z87.891 Personal history of nicotine dependence; Z98.82 Breast implant status; F32.A Depression, unspecified; M19.90 Unspecified osteoarthritis, unspecified site; R20.0 Anesthesia of skin; I25.82 Chronic total occlusion of coronary artery
CPT/HCPCS: 36415; 71045; 80053; 80061; 80069; 82270; 83540; 83550; 83690; 83735; 83880; 84100; 84443; 84484; 85014; 85018; 85025; 85046; 85610; 86850; 86900; 86901; 86923; 93005; 93306; 93970; 94640; 94644; 94664; 96374; 96375; 97163; 99285; A4649; C1769; J1938; J2919; J3475; J3480; J7050; J7120; J7602; J7612; J7644; Q0138; A9270; J7611

== ENCOUNTER → 2025-08-13 | Outpatient (CLI) | payer MEDICARE, SELFPAY ==
[2025-08-13 16:04] LABS: Anion Gap 11 (7-16); BUN/Creatinine Ratio 21 Ratio (12-20); Blood Urea Nitrogen 77 mg/dL (9-23); Calcium 8.9 mg/dL (8.3-10.6); Carbon Dioxide 27.8 mMol/L (20.0-31.0); Chloride 106 mMol/L (98-107); Creatinine (Component) 3.6 mg/dL (0.6-1.3); Glucose 102 mg/dL (74-106); Magnesium 2.4 mg/dL (1.6-2.6); Osmolality,Calculated 311 (275-295); Potassium 4.0 mMol/L (3.4-5.1); Sodium 145 mMol/L (136-145); eGFR 12 See Note
== END | disposition home or self-care (01) ==
LOC: COPL 14:05
PROVIDERS: PCP Registered Nurse; Referring Provider Internal Medicine Cardiovascular Disease; Visit Provider Internal Medicine Cardiovascular Disease
DX: Z01.810 Encounter for preprocedural cardiovascular examination (principal); I25.10 Atherosclerotic heart disease of native coronary artery without angina pectoris; R42 Dizziness and giddiness; R55 Syncope and collapse; I50.9 Heart failure, unspecified
CPT/HCPCS: 36415; 80048; 83735